=== PATIENT | male | born 1960 | race Hispanic/Latino ===

== ENCOUNTER 2018-10-01 09:17 | Inpatient (IN) | payer OTHER ==
[~2018-10-01] VITALS: Ht 160 cm; Wt 141.1 kg
--- OUTSIDE RECORDS SUMMARY | 2018-10-01 09:22 | XMS REPORT | Summary of Care ---
Author Author [facility] Organization [facility] Address Unknown Phone Unavailable Encounter HQ Talisha(ANDREW) [id number] Date(s): 04/25/17 - 05/10/17 [facility] [address] [place] [address]- Discharge Disposition: Jail Facility Attending Physician: Gerardo Mcintyre MD Admitting Physician: Gerardo Mcintyre MD Vital Signs 1 2 3 Most recent to oldest [Reference Range]: 160.02 cm (04/29/17 9:26 AM) 160.02 cm (04/29/17 7:33 AM) 160.02 cm (04/29/17 5:13 AM) Height 110.085 kg (05/08/17 7:03 AM) 109.318 kg (05/07/17 11:46 AM) 109.176 kg (05/06/17 5:00 AM) Current Weight 98.4 DegF (05/10/17 2:10 PM) 98.2 DegF (05/10/17 11:00 AM) 98.4 DegF (05/10/17 6:00 AM) Temperature Oral [96.4-99.1 DegF] 121/84 mmHg (05/10/17 2:10 PM) 159/90 mmHg *HI* (05/10/17 11:00 AM) 131/86 mmHg (05/10/17 6:00 AM) Blood Pressure [90-140/60-90 mmHg] 16 BRMIN (05/10/17 2:10 PM) 18 BRMIN (05/10/17 11:00 AM) 18 BRMIN (05/10/17 8:33 AM) Respiratory Rate [14-20 BRMIN] 67 bpm (05/10/17 2:10 PM) 71 bpm (05/10/17 11:00 AM) 62 bpm (05/10/17 6:00 AM) Peripheral Pulse Rate [60-100 bpm] 110.085 kg (05/08/17 7:03 AM) 109.602 kg (05/05/17 6:29 AM) 115.864 kg (04/25/17 11:27 PM) Weight 45.25 m2 (04/25/17 11:27 PM) 44.38 m2 (04/25/17 5:53 PM) Body Mass Index Problem List Condition Effective Dates Status Health Status Informant Chronic obstructive Resolved pulmonary disease (COPD)(Confirmed) Diabetes(Confirmed) Active Diabetic Active neuropathy(Confirmed ) Homelessness(Confirm Active ed) Hypertension(Confirm Active ed) Allergies, Adverse Reactions, Alerts Substance Reaction Severity Status NKDA Active Medications acetaminophen 650 mg, 2 tab, Route: PO, Drug form: TAB, Q4H, Dosing Weight 115.864, kg, PRN Fo r Temp > 100.4 F, Start date: 04/26/17 4:40:00 WRAP YARN SORTER, Duration: 30 day, Stop date: 05/26/17 4:39:00 WRAP YARN SORTER Notes: Do not exceed 4 gm/day. (Same as: Tylenol) Start Date: 04/26/17 Stop Date: 05/10/17 Status: Discontinued amLODIPine 5 mg oral tablet 5 mg=1 tab, PO, Daily, 0 Refill(s) Start Date: 05/10/17 Status: Ordered Beneprotein 7 gm pkt 2 pkt, Route: T FEED, Drug Form: PWDR, Dosing Weight 115.864, kg, TID-Before Vika ls, Start date: 04/26/17 11:30:00 WRAP YARN SORTER, Duration: 30 day, Stop date: 05/26/17 7:3 0:00 WRAP YARN SORTER Notes: (Same as: Beneprotein) Start Date: 04/26/17 Stop Date: 05/10/17 Status: Discontinued calcium gluconate + Sodium Chloride 0.9% IV 50 mL 1,000 mg, 10 mL, Route: IVPB, ONCE, Dosing Weight 113.636, kg, Start date: 04/25 21:21:00 WRAP YARN SORTER, Stop date: 04/25/17 21:21:00 WRAP YARN SORTER Notes: WASTE: F/P - Sink; E - Municipal Trash Bin Start Date: 04/25/17 Stop Date: 04/26/17 Status: Completed carvedilol 12.5 mg oral tablet 12.5 mg=1 tab, PO, Q12H, 0 Refill(s) Start Date: 05/10/17 Status: Ordered chlorhexidine topical 0.12% liquid 15 mL, Route: Swab Mouth, PRN, Drug form: LIQ, PRN Other -See Comment, Start kaity e: 04/26/17 6:12:00 WRAP YARN SORTER, Duration: 30 day, Stop date: 05/26/17 6:11:00 WRAP YARN SORTER Notes: (Same As: Peridex) Start Date: 04/26/17 Stop Date: 05/01/17 Status: Discontinued chlorhexidine topical 0.12% liquid 15 mL, Route: Swab Mouth, Q12H, Drug form: LIQ, Start date: 04/26/17 9:00:00 WRAP YARN SORTER , Duration: 30 day, Stop date: 05/25/17 21:00:00 WRAP YARN SORTER Notes: (Same As: Peridex) Start Date: 04/26/17 Stop Date: 05/01/17 Status: Discontinued cloNIDine 0.1 mg, 1 tab, Route: PO, Drug form: TAB, Q4H, Dosing Weight 115.864, kg, Start date: 04/26/17 8:00:00 WRAP YARN SORTER, Duration: 30 day, Stop date: 05/26/17 4:00:00 WRAP YARN SORTER Notes: (Same As: Catapres) Start Date: 04/26/17 Stop Date: 05/09/17 Status: Discontinued Coreg 12.5 mg, 1 tab, Route: PO, Drug form: TAB, Q12H, Dosing Weight 110.085, kg, Star t date: 05/09/17 21:00:00 WRAP YARN SORTER, Duration: 30 day, Stop date: 06/08/17 9:00:00 WRAP YARN SORTER Notes: Give with food. (Same As: Coreg) Start Date: 05/09/17 Stop Date: 05/10/17 Status: Discontinued D5W 1,000 mL 1,000 mL, Rate: 40 ml/hr, Infuse over: 25 hr, Route: IV, Dosing Weight 115.864 k g, Total Volume: 1,000, Start date: 04/26/17 21:54:00 WRAP YARN SORTER, Stop date: 04/27/17 6 :32:00 WRAP YARN SORTER, 2.31, m2 Start Date: 04/26/17 Stop Date: 04/27/17 Status: Completed DDAVP 2 microgram, 0.5 mL, Route: IV, Drug form: INJ, ONCE, Dosing Weight 115.864, kg, Start date: 04/26/17 15:28:00 WRAP YARN SORTER, Stop date: 04/26/17 15:28:00 WRAP YARN SORTER Notes: (Same As: DDAVP) MEDICATION WASTE Product Size: 4 microgram Pro duct Wasted: ___ microgram Start Date: 04/26/17 Stop Date: 04/26/17 Status: Completed DuoNeb inhalation solution 3 mL, INHALATION, PRN, PRN Respiratory Protocol, 0 Refill(s) Start Date: 05/10/17 Status: Ordered DuoNeb inhalation solution 3 ml, Route: INHALATION, Drug Form: SOLN, Dosing Weight 115.864, kg, PRN, PRN Re spiratory Protocol, Start date: 04/29/17 21:23:00 WRAP YARN SORTER, Duration: 30 day, Stop da te: 05/29/17 21:22:00 WRAP YARN SORTER Notes: (Same as: Duoneb) Start Date: 04/29/17 Stop Date: 05/10/17 Status: Discontinued enoxaparin 40 mg=0.4 mL, SUB-Q, [id number], 0 Refill(s) Start Date: 05/10/17 Status: Ordered enoxaparin 40 mg, 0.4 mL, Route: SUB-Q, Drug form: INJ, [id number], Dosing Weight 115.864, kg , Consider for obese patients, Start date: 04/26/17 9:00:00 WRAP YARN SORTER, Stop date: 05/13 07/28 21:00:00 WRAP YARN SORTER Notes: (Same as: Lovenox) Start Date: 04/26/17 Stop Date: 05/10/17 Status: Discontinued etomidate 40 mg, 20 mL, Route: IV, Drug form: INJ, ONCE, Dosing Weight 115.864, kg, Priori ty: STAT, Start date: 04/26/17 6:14:00 WRAP YARN SORTER, Stop date: 04/26/17 6:14:00 WRAP YARN SORTER Notes: (Same as: Amidate). Per state nursing law etomidate can only be given by a nurse if patient is intubated or being intubated (unless the nurse is a TIMBER TRIMMER). Start Date: 04/26/17 Stop Date: 05/01/17 Status: Completed famotidine 20 mg, 2 mL, Route: IVP, Drug form: INJ, Q12H, Dosing Weight 115.864, kg, Start date: 04/26/17 9:00:00 WRAP YARN SORTER, Stop date: 04/29/17 7:45:00 WRAP YARN SORTER Notes: (Same as: Pepcid)Can be dilute in 5-10cc NS IVP: Slow IV push over at le ast 2 minutes. Start Date: 04/26/17 Stop Date: 04/29/17 Status: Completed famotidine 20 mg, 1 tab, Route: PO, Drug form: TAB, BID, Start date: 04/29/17 9:00:00 WRAP YARN SORTER, Duration: 30 day, Stop date: 05/28/17 17:00:00 WRAP YARN SORTER Notes: (Same as: Pepcid) Start Date: 04/29/17 Stop Date: 05/10/17 Status: Discontinued famotidine 20 mg oral tablet 20 mg=1 tab, PO, BID, 0 Refill(s) Start Date: 05/10/17 Status: Ordered Flagyl 500 mg, 100 mL, Route: IVPB, Drug form: INJ, ONCE, Dosing Weight 113.636, kg, Pr iority: STAT, Start date: 04/25/17 20:25:00 WRAP YARN SORTER, Stop date: 04/25/17 20:25:00 CS T, ABX Indication: Skin/Soft Tissue Infection Notes: (Same as: Flagyl) Avoid alcohol. Start Date: 04/25/17 Stop Date: 04/25/17 Status: Completed folic acid 1 mg, Route: PO, ONCE, Dosing Weight 113.636, kg, Start date: 04/25/17 19:36:00 WRAP YARN SORTER, Stop date: 04/25/17 19:36:00 WRAP YARN SORTER Start Date: 04/25/17 Stop Date: 04/25/17 Status: Completed folic acid 1 mg oral tablet 1 mg=1 tab, PO, Daily, 0 Refill(s) Start Date: 05/10/17 Status: Ordered folic acid 1 mg oral tablet 1 mg, 1 tab, Route: PO, Drug form: TAB, Daily, Start date: 04/29/17 11:00:00 WRAP YARN SORTER , Duration: 30 day, Stop date: 05/29/17 9:00:00 WRAP YARN SORTER Notes: (Same as: Folvite) Start Date: 04/29/17 Stop Date: 05/10/17 Status: Discontinued furosemide 20 mg, 1 tab, Route: PO, Drug form: TAB, BID Diuretic, Dosing Weight 115.864, kg , Start date: 05/02/17 8:00:00 WRAP YARN SORTER, Duration: 30 day, Stop date: 05/31/17 16:00: 00 WRAP YARN SORTER Notes: (Same as: Lasix) May cause GI upset. Give with food or milk. Start Date: 05/02/17 Stop Date: 05/03/17 Status: Discontinued furosemide 100 mg in 100 ml IV titrate 100 mg + Sodium Chloride 0.9% IV 90 mL 100 mg, 10 mL, Rate: 5 mg/hour, Dosing Weight 115.864, kg, Route: IV, Total Volu me: 100, Start Date: 04/28/17 8:03:00 WRAP YARN SORTER, Duration: 30 day, Stop date: 05/28/17 8:02:00 WRAP YARN SORTER, Replace Every: 24 hr, continuous Notes: (Same as: Lasix) MEDICATION WASTE Product Size: 100 mgProduct Wy sted: _0_ mg Start Date: 04/28/17 Stop Date: 04/30/17 Status: Discontinued gabapentin 300 mg, 1 cap, Route: PO, Drug form: CAP, ONCE, Dosing Weight 110.085, kg, Start date: 05/08/17 19:53:00 WRAP YARN SORTER, Stop date: 05/08/17 19:53:00 WRAP YARN SORTER Notes: (Same as: Neurontin) Start Date: 05/08/17 Stop Date: 05/08/17 Status: Completed gabapentin 300 mg oral capsule 300 mg, 1 cap, Route: PO, Drug form: CAP, TID, Dosing Weight 110.085, kg, Priori ty: STAT, Start date: 05/09/17 11:24:00 WRAP YARN SORTER, Duration: 30 day, Stop date: 9:00:00 WRAP YARN SORTER Notes: (Same as: Neurontin) Start Date: 05/09/17 Stop Date: 05/10/17 Status: Discontinued gabapentin 300 mg oral capsule 300 mg=1 cap, PO, TID, 0 Refill(s) Start Date: 05/10/17 Status: Ordered haloperidol 5 mg, 1 mL, Route: IVP, Drug form: INJ, Q8H, Dosing Weight 115.864, kg, PRN Agit ation, Start date: 04/26/17 4:42:00 WRAP YARN SORTER, Duration: 30 day, Stop date: 05/26/17 4 :41:00 WRAP YARN SORTER Notes: (Same as: Haldol) Start Date: 04/26/17 Stop Date: 05/10/17 Status: Discontinued lactulose 10 g/15 mL oral syrup 20 gm, 30 ml, Route: PO, Drug form: SYRP, TID, Dosing Weight 115.864, kg, Start date: 05/03/17 11:00:00 WRAP YARN SORTER, Duration: 30 day, Stop date: 06/02/17 9:00:00 WRAP YARN SORTER Notes: (Same as:Chronulac) Start Date: 05/03/17 Stop Date: 05/10/17 Status: Discontinued lactulose 10 g/15 mL oral syrup 20 gm=30 mL, PO, TID, 0 Refill(s) Start Date: 05/10/17 Status: Ordered Lasix 40 mg, Route: IVP, Drug form: INJ, BID Diuretic, Dosing Weight 115.864, kg, Star t date: 04/30/17 16:00:00 WRAP YARN SORTER, Duration: 30 day, Stop date: 05/30/17 8:00:00 WRAP YARN SORTER Start Date: 04/30/17 Stop Date: 04/30/17 Status: Canceled Lasix 20 mg, 2 mL, Route: IVP, Drug form: INJ, BID Diuretic, Dosing Weight 115.864, kg , Start date: 04/30/17 16:00:00 WRAP YARN SORTER, Duration: 30 day, Stop date: 05/30/17 8:00: 00 WRAP YARN SORTER Notes: (Same as: Lasix) Start Date: 04/30/17 Stop Date: 05/01/17 Status: Discontinued Lasix 20 mg oral tablet 20 mg, 1 tab, Route: PO, Drug form: TAB, Daily, Dosing Weight 110.085, kg, Start date: 05/08/17 15:30:00 WRAP YARN SORTER, Duration: 30 day, Stop date: 06/07/17 9:00:00 WRAP YARN SORTER Notes: (Same as: Lasix) May cause GI upset. Give with food or milk. Start Date: 05/08/17 Stop Date: 05/10/17 Status: Discontinued Lasix 20 mg oral tablet 20 mg=1 tab, PO, Daily, 0 Refill(s) Start Date: 05/10/17 Status: Ordered LORazepam 2 mg, 1 mL, Route: IVP, Drug form: INJ, Q2H, Dosing Weight 115.864, kg, PRN Othe r -See Comment, CIWA Score 8 -14, Start date: 04/26/17 4:42:00 WRAP YARN SORTER, Duration: 30 day, Stop date: 05/26/17 4:41:00 WRAP YARN SORTER Notes: (Same as: Ativan) Start Date: 04/26/17 Stop Date: 05/10/17 Status: Discontinued LORazepam 4 mg, 2 mL, Route: IVP, Drug form: INJ, Q2H, Dosing Weight 115.864, kg, PRN Othe r -See Comment, CIWA Score 15-20, Start date: 04/26/17 4:42:00 WRAP YARN SORTER, Duration: 30 day, Stop date: 05/26/17 4:41:00 WRAP YARN SORTER Notes: (Same as: Ativan) Start Date: 04/26/17 Stop Date: 05/10/17 Status: Discontinued LORazepam 6 mg, 3 mL, Route: IVP, Drug form: INJ, Q2H, Dosing Weight 115.864, kg, PRN Othe r -See Comment, CIWA Score > 20, Start date: 04/26/17 4:42:00 WRAP YARN SORTER, Duration: 30 day, Stop date: 05/26/17 4:41:00 WRAP YARN SORTER Notes: (Same as: Ativan) Start Date: 04/26/17 Stop Date: 05/10/17 Status: Discontinued LORazepam 2 mg, 1 mL, Route: IV, Drug form: INJ, PRN, Dosing Weight 115.864, kg, PRN Agita tion, Start date: 04/26/17 0:10:00 WRAP YARN SORTER, Duration: 30 day, Stop date: 05/26/17 0: 09:00 WRAP YARN SORTER Notes: (Same as: Ativan) Start Date: 04/26/17 Stop Date: 04/26/17 Status: Discontinued metroNIDAZOLE 500 mg, 100 mL, Route: IVPB, Drug form: INJ, ABXQ8H, Dosing Weight 115.864, kg, Priority: STAT, Start date: 04/26/17 4:45:00 WRAP YARN SORTER, Duration: 7 day, Stop date: 21:00:00 WRAP YARN SORTER, ABX Indication: Skin/Soft Tissue Infection Notes: (Same as: Flagvalentin) Avoid alcohol. Start Date: 04/26/17 Stop Date: 04/26/17 Status: Discontinued multivitamin with minerals 1 tab, Route: PO, Drug Form: TAB, Daily, Start date: 04/29/17 11:00:00 WRAP YARN SORTER, Dura tion: 30 day, Stop date: 05/29/17 9:00:00 WRAP YARN SORTER Notes: (Same as:Thera-M, Theragran-M)WASTE: F/P - Black; E - Municipal Trash Bin Give with food. Start Date: 04/29/17 Stop Date: 05/10/17 Status: Discontinued [place]ding 5/325 oral tablet 1 tab, Route: PO, Drug Form: TAB, Dosing Weight 110.085, kg, ONCE, Start date: 1 2:32:00 WRAP YARN SORTER, Stop date: 05/10/17 2:32:00 WRAP YARN SORTER Notes: (Same as: Redding 325/5) Do not exceed 4gm/day of acetaminophen. Start Date: 05/10/17 Stop Date: 05/10/17 Status: Completed Norvasc 5 mg, 1 tab, Route: PO, Drug form: TAB, Daily, Dosing Weight 110.085, kg, Start date: 05/09/17 14:00:00 WRAP YARN SORTER, Duration: 30 day, Stop date: 06/08/17 9:00:00 WRAP YARN SORTER Notes: (Same as: Norvasc) Start Date: 05/09/17 Stop Date: 05/10/17 Status: Discontinued NS 1,000 mL 1,000 mL, Rate: 50 ml/hr, Infuse over: 20 hr, Route: IV, Dosing Weight 115.864 k g, Total Volume: 1,000, Start date: 04/27/17 6:17:00 WRAP YARN SORTER, Duration: 30 day, Stop date: 05/27/17 6:16:00 WRAP YARN SORTER, 2.31, m2 Start Date: 04/27/17 Stop Date: 04/27/17 Status: Discontinued ondansetron 4 mg, 2 mL, Route: IVP, Drug form: INJ, Q8H, Dosing Weight 115.864, kg, PRN Naus ea & Vomiting, Start date: 04/26/17 4:40:00 WRAP YARN SORTER, Duration: 30 day, Stop date: 05/26/17 4:39:00 WRAP YARN SORTER Notes: (Same as: Kel) MEDICATION WASTE Product Size: 4 mgProduct Was nathan: ___ mg Start Date: 04/26/17 Stop Date: 05/10/17 Status: Discontinued polyethylene glycol 3350 17 gm, 1 pkt, Route: PO, Drug form: PWDR, Daily, Dosing Weight 115.864, kg, Star t date: 04/26/17 11:00:00 WRAP YARN SORTER, Duration: 30 day, Stop date: 05/26/17 9:00:00 WRAP YARN SORTER Notes: Dissolve in 8 oz of water or juice.(Same as: Miralax) Start Date: 04/26/17 Stop Date: 05/10/17 Status: Discontinued polyethylene glycol 3350 17 gm=1 pkt, PO, Daily, 0 Refill(s) Start Date: 05/10/17 Status: Ordered potassium chloride 10 mEq, Route: IVPB, Q1H, Dosing Weight 115.864, kg, Total Dose=40 meq, Start da te: 04/27/17 0:00:00 WRAP YARN SORTER, Duration: 4 doses or times, Stop date: 04/27/17 3:00:0 0 WRAP YARN SORTER, Peripheral Line Start Date: 04/27/17 Stop Date: 04/26/17 Status: Deleted potassium chloride 10 mEq, 100 mL, Route: IVPB, Drug form: INJ, Q1H, Dosing Weight 115.864, kg, Tot al Dose=20 meq, Start date: 04/26/17 16:00:00 WRAP YARN SORTER, Duration: 2 doses or times, S top date: 04/26/17 17:00:00 WRAP YARN SORTER, Peripheral Line Notes: Infuse at a rate of 10 mEq/hr.(Same as: KCL) Start Date: 04/26/17 Stop Date: 04/26/17 Status: Completed potassium chloride 40 mEq, 2 tab, Route: PO, Drug form: ERTAB, ONCE, Dosing Weight 115.864, kg, Sta rt date: 04/30/17 19:27:00 WRAP YARN SORTER, Stop date: 04/30/17 19:27:00 WRAP YARN SORTER Notes: (Same as: K-Dur 20)"Do Not Crush" With food and full glass of water Start Date: 04/30/17 Stop Date: 04/30/17 Status: Completed potassium chloride 20 mEq, Route: IVPB, Q2H, Dosing Weight 115.864, kg, Total dose=40 mEq, Start da te: 04/27/17 12:00:00 WRAP YARN SORTER, Duration: 2 doses or times, Stop date: 04/27/17 14:00 :00 WRAP YARN SORTER, Central Line Start Date: 04/27/17 Stop Date: 04/27/17 Status: Deleted potassium chloride + Dextrose 5% in Water IV 500 mL 40 mEq, 20 mL, Route: IV, Drug form: INJ, ONCE, Priority: NOW, Start date: 04/26 23:58:00 WRAP YARN SORTER, Stop date: 04/26/17 23:58:00 WRAP YARN SORTER Notes: MUST be Diluted before use(Same as: KCl) Start Date: 04/26/17 Stop Date: 04/27/17 Status: Completed potassium chloride + Sodium Chloride 0.9% IV 250 mL 40 mEq, 20 mL, Route: IV, Drug form: INJ, ONCE, Start date: 04/27/17 14:00:00 CS T, Stop date: 04/27/17 14:00:00 WRAP YARN SORTER Notes: MUST be Diluted before use(Same as: KCl) Start Date: 04/27/17 Stop Date: 04/27/17 Status: Completed potassium chloride 20 mEq oral tablet, extended release 40 mEq, 2 tab, Route: PO, Drug form: ERTAB, ONCE, Dosing Weight 115.864, kg, Sta rt date: 04/30/17 8:42:00 WRAP YARN SORTER, Stop date: 04/30/17 8:42:00 WRAP YARN SORTER Notes: (Same as: K-Dur 20)"Do Not Crush" With food and full glass of water Start Date: 04/30/17 Stop Date: 04/30/17 Status: Completed propofol 10 mg/mL (Titrate.) IV 1,000 mg 1,000 mg, 100 mL, Rate: Titrate, Start Dose: 5 microgram/kg/min, Titration: 5 mi crogram/kg/min every 15 minutes, Goal(s): RASS -2, Max Dose: 50 mcg/kg/min, Rout e: IV, Dosing Weight 115.864 kg, Total Volume: 100, Start date: 04/26/17 6:03:00 WRAP YARN SORTER, Durat... Notes: If Diprivan - change bottle & tubing every 12 hrPer state nursing law propofol can only be given by a nurse if patient is intubated or being intubated (unless the nurse is a TIMBER TRIMMER). Same as: Diprivan Start Date: 04/26/17 Stop Date: 04/29/17 Status: Discontinued Restoril 15 mg, 1 cap, Route: PO, Drug form: CAP, Bedtime, Dosing Weight 115.864, kg, PRN Sleep, Start date: 05/01/17 14:52:00 WRAP YARN SORTER, Duration: 30 day, Stop date: 05/31/17 14:51:00 WRAP YARN SORTER Notes: (Same As: Restoril) Start Date: 05/01/17 Stop Date: 05/10/17 Status: Discontinued Saline Flush 0.9% 10 ml, Route: IVP, Drug Form: INJ, Dosing Weight 115.864, kg, PRN, PRN Line Flus h, Start date: 04/26/17 4:40:00 WRAP YARN SORTER, Duration: 30 day, Stop date: 05/26/17 4:39: 00 WRAP YARN SORTER Notes: (Same as: BD Posiflush) Start Date: 04/26/17 Stop Date: 05/10/17 Status: Discontinued Saline Flush 0.9% 10 ml, Route: IVP, Drug Form: INJ, Dosing Weight 115.864, kg, Q12H, Start date: 04/26/17 9:00:00 WRAP YARN SORTER, Duration: 30 day, Stop date: 05/25/17 21:00:00 WRAP YARN SORTER Notes: (Same as: BD Posiflush) Start Date: 04/26/17 Stop Date: 05/10/17 Status: Discontinued Saline Flush 0.9% 10 mL, Route: IVP, Drug Form: INJ, Dosing Weight 113.636, kg, PRN, PRN Line Flus h, Start date: 04/25/17 17:58:00 WRAP YARN SORTER, Duration: 30 day, Stop date: 05/25/17 17:5 7:00 WRAP YARN SORTER Notes: (Same as: BD Posiflush) Start Date: 04/25/17 Stop Date: 04/26/17 Status: Discontinued Sodium Chloride 0.9% (Bolus) IV 1,000 mL, 1,000 ml/hr, Infuse Over: 1 hr, Route: IV, 1,000, Drug form: INJ, ONCE , Priority: STAT, Dosing Weight 113.636 kg, Start date: 04/25/17 17:58:00 WRAP YARN SORTER, S top date: 04/25/17 17:58:00 WRAP YARN SORTER Start Date: 04/25/17 Stop Date: 04/25/17 Status: Completed Sodium Chloride 0.9% IV 1,000 mL 1,000 mL, Rate: 40 ml/hr, Infuse over: 25 hr, Route: IV, Dosing Weight 115.864 k g, Total Volume: 1,000, Start date: 04/26/17 19:56:00 WRAP YARN SORTER, Duration: 30 day, Sto p date: 05/26/17 19:55:00 WRAP YARN SORTER, 2.31, m2 Start Date: 04/26/17 Stop Date: 04/26/17 Status: Discontinued Sodium Chloride 0.9% IV 1,000 mL 1,000 mL, Rate: 100 ml/hr, Infuse over: 10 hr, Route: IV, Dosing Weight 115.864 kg, Total Volume: 1,000, Start date: 04/26/17 4:46:00 WRAP YARN SORTER, Stop date: 04/29/17 4 :41:00 WRAP YARN SORTER, 2.31, m2 Start Date: 04/26/17 Stop Date: 04/26/17 Status: Discontinued Sodium Chloride 0.9% IV 1,000 mL + M.V.I.-12 10 mL Daily + folic acid IV 1 mg Da helene + thiamine IV 1 1,000 mL, Rate: 100 ml/hr, Infuse over: 10.1 hr, Route: IV, Dosing Weight 115.86 4 kg, Total Volume: 1,011.2, Start date: 04/26/17 4:42:00 WRAP YARN SORTER, Duration: 3 day, Stop date: 04/29/17 4:41:00 WRAP YARN SORTER, 2.31, m2 Start Date: 04/26/17 Stop Date: 04/26/17 Status: Discontinued Sodium Chloride 3% (Hypertonic) IV 180 mL 180 mL, Rate: 20 ml/hr, Infuse over: 9 hr, Route: IV, Dosing Weight 113.636 kg, Total Volume: 180 mL, Start date: 04/25/17 20:40:00 WRAP YARN SORTER, Stop date: 04/26/17 5:3 9:00 WRAP YARN SORTER, 2.29, m2 Notes: "Administer by central venous catheter or a peripherally inserted central catheter (PICC) line.3% Sodium Chloride may be infused via peripheral administr ation into large vein (antecubital) only in the case of emergency for short term use until a central line can be inserted" (Same as: Hypertonic Saline 3%)vance ntration=0.513 mEq/mL Start Date: 04/25/17 Stop Date: 04/26/17 Status: Completed Sodium Chloride 3% (Hypertonic) IV 20 mL 20 mL, Rate: 30 ml/hr, Infuse over: 0.7 hr, Route: IV, Dosing Weight 115.864 kg, Total Volume: 20, Start date: 04/27/17 6:44:00 WRAP YARN SORTER, Duration: 30 day, Stop date: 05/27/17 6:44:00 WRAP YARN SORTER, 2.31, m2 Notes: "Administer by central venous catheter or a peripherally inserted central catheter (PICC) line.3% Sodium Chloride may be infused via peripheral administr ation into large vein (antecubital) only in the case of emergency for short term use until a central line can be inserted" (Same as: Hypertonic Saline 3%)vance ntration=0.513 mEq/mL Start Date: 04/27/17 Stop Date: 04/28/17 Status: Discontinued Sodium Chloride 3% (Hypertonic) IV 50 mL 50 mL, Rate: 250 ml/hr, Infuse over: 0.2 hr, Route: IV, Dosing Weight 113.636 kg , Total Volume: 50 mL, Start date: 04/25/17 21:43:00 WRAP YARN SORTER, Duration: 1 doses or t imes, Stop date: 04/25/17 21:54:00 WRAP YARN SORTER, 2.29, m2 Notes: "Administer by central venous catheter or a peripherally inserted central catheter (PICC) line.3% Sodium Chloride may be infused via peripheral administr ation into large vein (antecubital) only in the case of emergency for short term use until a central line can be inserted" (Same as: Hypertonic Saline 3%)vance ntration=0.513 mEq/mL Start Date: 04/25/17 Stop Date: 04/25/17 Status: Completed Sodium Chloride 3% (Hypertonic) IV 50 mL 50 mL, Rate: 250 ml/hr, Infuse over: 0.2 hr, Route: IV Central, Dosing Weight 11 3.636 kg, Total Volume: 50 mL, Start date: 04/25/17 20:39:00 WRAP YARN SORTER, Duration: 1 do ses or times, Stop date: 04/25/17 20:50:00 WRAP YARN SORTER, 2.29, m2 Notes: "Administer by central venous catheter or a peripherally inserted central catheter (PICC) line.3% Sodium Chloride may be infused via peripheral administr ation into large vein (antecubital) only in the case of emergency for short term use until a central line can be inserted" (Same as: Hypertonic Saline 3%)vance ntration=0.513 mEq/mL Start Date: 04/25/17 Stop Date: 04/25/17 Status: Deleted Sodium Chloride 3% (Hypertonic) IV 60 mL 60 mL, Rate: 15 ml/hr, Infuse over: 4 hr, Route: IV, Dosing Weight 115.864 kg, T otal Volume: 60, Start date: 04/26/17 10:27:00 WR[employer]ORTER, Duration: 2 doses or times, Stop date: 04/26/17 18:26:00 WR[employer] Y[employer]ORTER, 2.31, m2 Notes: (Same as: Hypertonic Saline 3%) Start Date: 04/26/17 Stop Date: 04/26/17 Status: Discontinued Sodium Chloride 3% (Hypertonic) IV 60 mL 60 mL, Rate: 15 ml/hr, Infuse over: 4 hr, Route: IV, Dosing Weight 115.864 kg, T otal Volume: 60, Start date: 04/26/17 6:50:00 WRAP [employer] SORTER, Duration: 2 doses or times, S top date: 04/26/17 14:49:00 WRAP Y[employer]ORTER, 2.31, m2 Notes: "Administer by central venous catheter or a peripherally inserted central catheter (PICC) line.3% Sodium Chloride may be infused via peripheral administr ation into large vein (antecubital) only in the case of emergency for short term use until a central line can be inserted" (Same as: Hypertonic Saline 3%)vance ntration=0.513 mEq/mL Start Date: 04/26/17 Stop Date: 04/26/17 Status: Completed sodium chloride nasal spray 1 spray, Route: NASAL, Q30Min, Drug form: SOLN, PRN Nasal dryness, Start date: 1 07/02/16 11:59:00 WRAP Y[employer] SORTER, Duration: 30 day, Stop date: 05/31/17 11:58:00 WRAP YARN SORTER Notes: (Same as: [place], Deep Sea Nasal [place]). Start Date: 05/01/17 Stop Date: 05/10/17 Status: Discontinued succinylcholine 140 mg, 7 mL, Route: IV, Drug form: INJ, ONCE, Dosing Weight 115.864, kg, Start date: 04/26/17 6:15:00 WRAP Y[employer] SORTER, Stop date: 04/26/17 6:15:00 WRAP YARN SORTER Notes: (Same As: [place]) Start Date: 04/26/17 Stop Date: 05/01/17 Status: Completed thiamine 100 mg, Route: PO, Drug form: TAB, ONCE, Dosing Weight 113.636, kg, Priority: ST AT, Start date: 04/25/17 19:36:00 WRAP YARN SORTER, Stop date: 04/25/17 19:36:00 WRAP YARN [employer]ORTER Start Date: 04/25/17 Stop Date: 04/25/17 Status: Completed trazodone 50 mg oral tablet 50 mg, 1 tab, Route: PO, Drug form: TAB, Bedtime, Dosing Weight 115.864, kg, PRN Insomnia, Start date: 05/02/17 16:53:00 WRAP YARN SORTER, Duration: 30 day, Stop date: 06/01 16:52:00 WRAP YARN SORTER Notes: (Same As: Desyrel) Start Date: 05/02/17 Stop Date: 05/10/17 Status: Discontinued vancomycin 2,000 mg, 500 mL, Route: IVPB, Drug form: SOLN, ONCE, Dosing Weight 113.636, kg, Priority: STAT, Start date: 04/25/17 18:53:00 WRAP YARN SORTER, Stop date: 04/25/17 18:53:00 WRAP YARN SORTER, ABX Indication: Skin/Soft Tissue Infection Notes: TIME CRITICAL MEDICATIONSame as: Vancocin Infusion rate< 1000 mg: infuse over 1 [id number] - 1500 mg: infuse over 1.5 [id number] - 2000 mg: infuse over 2 hours> 2001 mg: infuse over 2.5 hours Start Date: 04/25/17 Stop Date: 04/25/17 Status: Completed vancomycin + NS 250 mL 1,000 mg, Route: IVPB, [id number], Start date: 04/26/17 6:00:00 WRAP YARN SORTER, Stop date: 18:00:00 WRAP YARN SORTER, ABX Indication: Skin/Soft Tissue Infection Notes: (Same As: Vancocin) Start Date: 04/26/17 Stop Date: 04/28/17 Status: Discontinued vancomycin + NS 250 mL 1,000 mg, Route: IVPB, Daily, PRN Other -See Comment, Start date: 04/28/17 14:23 :00 WRAP YARN SORTER, Stop date: 04/30/17 23:59:00 WRAP YARN SORTER, ABX Indication: Skin/Soft Tissue Infe ction Notes: (Same As: Vancocin) Start Date: 04/28/17 Stop Date: 04/30/17 Status: Completed Vancomycin dose due today Vancomycin dose due today, vanc dose due, Drug form: MISC, Route: MISC, ONCE, 9:00:00 WRAP YARN SORTER, Stop date: 04/30/17 9:00:00 WRAP YARN SORTER Start Date: 04/30/17 Stop Date: 04/30/17 Status: Completed Vancomycin Pharmacy Dosing 1 ea, Route: IV, ONCALL, Dosing Weight 115.864, kg, Start date: 04/26/17 5:00:00 WRAP YARN SORTER, Duration: 5 day, Stop date: 05/01/17 4:59:00 WRAP YARN SORTER, ABX Indication: Skin/Soft Tissue Infection Start Date: 04/26/17 Stop Date: 04/26/17 Status: Deleted Vancomycin trough level due Vancomycin trough level due, 04-27-17 at 1300, Drug form: MISC, Route: MISC, ONC E, 04/28/17 17:00:00 WRAP YARN SORTER, Stop date: 04/28/17 17:00:00 WRAP YARN SORTER Start Date: 04/28/17 Stop Date: 04/28/17 Status: Deleted Vancomycin trough level due Vancomycin trough level due, 04-27-17 at 1300, Drug form: MISC, Route: MISC, ONC E, 04/27/17 13:00:00 WRAP YARN SORTER, Stop date: 04/27/17 13:00:00 WRAP YARN SORTER Start Date: 04/27/17 Stop Date: 04/29/17 Status: Completed Vitamin B1 100 mg, 1 tab, Route: PO, Drug form: TAB, Daily, Start date: 04/29/17 11:00:[address], Duration: 30 day, Stop date: 05/29/17 9:00:00 WRAP YARN SORTER Notes: (Same As: Vitamin B1) Start Date: 04/29/17 Stop Date: 05/10/17 Status: Discontinued Vitamin B1 100 mg + M.V.I. Adult 10 mL + folic acid 1 mg + NS 1,000 mL Route: IV, Q24H, Start date: 04/27/17 6:00:00 WRAP YARN SORTER, Stop date: 04/28/17 6:00:[address] Start Date: 04/27/17 Stop Date: 04/28/17 Status: Completed Zosyn + NS 100 mL 3.375 gm, Route: IVPB, ABXQ8H, Dosing Weight 115.864, kg, CrCl >=20 ml/min infuse over 4 hours, Start date: 04/26/17 15:00:00 WRAP YARN SORTER, Stop date: 05/10/17 7:00:00 WRAP YARN SORTER, ABX Indication: Skin/Soft Tissue Infection Notes: (Same as: Zosyn) MEDICATION WASTE Product Size: 3375 mgProduct Was te0 mg Start Date: 04/26/17 Stop Date: 05/10/17 Status: Completed Results ELECTROLYTES 1 2 3 Most recent to oldest [Reference Range]: 140 mEq/L (05/10/17 4:20 AM) 140 mEq/L (05/08/17 4:59 AM) 137 mEq/L (05/07/17 4:53 AM) Sodium Lvl [135-145 mEq/L] 4.1 mEq/L (05/10/17 4:20 AM) 4.3 mEq/L (05/08/17 4:59 AM) 4.7 mEq/L (05/07/17 4:53 AM) Potassium Lvl [3.5-5.1 mEq/L] 106 mEq/L (05/10/17 4:20 AM) 106 mEq/L (05/08/17 4:59 AM) 108 mEq/L (05/07/17 4:53 AM) Chloride Lvl [95-109 mEq/L] 26 mEq/L (05/10/17 4:20 AM) 23 mEq/L *LOW* (05/08/17 4:59 AM) 22 mEq/L *LOW* (05/07/17 4:53 AM) CO2 [24-32 mEq/L] 12.1 mEq/L (05/10/17 4:20 AM) 15.3 mEq/L (05/08/17 4:59 AM) 11.7 mEq/L (05/07/17 4:53 AM) AGAP [10.0-20.0 mEq/L] CHEM PANEL 1 2 3 Most recent to oldest [Reference Range]: 1.59 mg/dL *HI* (05/10/17 4:20 AM) 1.63 mg/dL *HI* (05/08/17 4:59 AM) 1.68 mg/dL *HI* (05/07/17 4:53 AM) Creatinine Lvl [0.50-1.40 mg/dL] 48 mL/min/1.73m2 1 *NA* (05/10/17 4:20 AM) 47 mL/min/1.73m2 2 *NA* (05/08/17 4:59 AM) 45 mL/min/1.73m2 3 *NA* (05/07/17 4:53 AM) eGFR 32 mg/dL *HI* (05/10/17 4:20 AM) 29 mg/dL *HI* (05/08/17 4:59 AM) 30 mg/dL *HI* (05/07/17 4:53 AM) BUN [7-22 mg/dL] 18 (05/08/17 4:59 AM) 18 (05/07/17 4:53 AM) 16 (05/06/17 2:46 AM) B/C Ratio [6-25] 102 mg/dL *HI* (05/10/17 4:20 AM) 106 mg/dL *HI* (05/08/17 4:59 AM) 103 mg/dL *HI* (05/07/17 4:53 AM) Glucose Lvl [70-99 mg/dL] 7.3 g/dL (05/08/17 4:59 AM) 7.7 g/dL (05/07/17 4:53 AM) 7.5 g/dL (05/06/17 2:46 AM) Total Protein [6.4-8.4 g/dL] 3.3 g/dL *LOW* (05/08/17 4:59 AM) 3.1 g/dL *LOW* (05/07/17 4:53 AM) 3.1 g/dL *LOW* (05/06/17 2:46 AM) Albumin Lvl [3.5-5.0 g/dL] 4.0 g/dL (05/08/17 4:59 AM) 4.6 g/dL *HI* (05/07/17 4:53 AM) 4.4 g/dL *HI* (05/06/17 2:46 AM) Globulin [2.7-4.2 g/dL] 0.8 (05/08/17 4:59 AM) 0.7 (05/07/17 4:53 AM) 0.7 (05/06/17 2:46 AM) A/G Ratio [0.7-1.6] 9.6 mg/dL (05/10/17 4:20 AM) 8.9 mg/dL (05/08/17 4:59 AM) 9.3 mg/dL (05/07/17 4:53 AM) Calcium Lvl [8.5-10.5 mg/dL] 52 unit/L (05/08/17 4:59 AM) 57 unit/L (05/07/17 4:53 AM) 69 unit/L *HI* (05/06/17 2:46 AM) ALT [0-65 unit/L] 29 unit/L (05/08/17 4:59 AM) 37 unit/L (05/07/17 4:53 AM) 42 unit/L *HI* (05/06/17 2:46 AM) AST [0-37 unit/L] 101 unit/L (05/08/17 4:59 AM) 110 unit/L (05/07/17 4:53 AM) 114 unit/L (05/06/17 2:46 AM) Alk Phos [39-136 unit/L] 0.5 mg/dL (05/08/17 4:59 AM) 0.5 mg/dL (05/07/17 4:53 AM) 0.6 mg/dL (05/06/17 2:46 AM) Bili Total [0.2-1.3 mg/dL] 0.3 mg/dL (04/27/17 4:42 AM) Bili Direct [0.0-0.3 mg/dL] 0.7 mg/dL (04/27/17 4:42 AM) Bili Indirect [0.0-1.0 mg/dL] 36.0 uMol/L (05/08/17 4:59 AM) 22.0 uMol/L (05/07/17 9:49 AM) 46.0 uMol/L *HI* (05/04/17 5:56 AM) Ammonia [<=45.0 uMol/L] 1.7 mMol/L (04/26/17 5:00 AM) 4.6 mMol/L 4 *CRIT* (04/25/17 7:35 PM) Lactic Acid Lvl [0.5-2.2 mMol/L] 258 mOsm/kg *LOW* (04/28/17 10:04 AM) 227 mOsm/kg *LOW* (04/26/17 10:21 AM) Osmolality [280-300 mOsm/kg] 0.11 ng/mL *HI* (04/26/17 5:00 AM) Procalcitonin Lvl [0.00-0.10 ng/mL] 1Result Comment: The eGFR is calculated using the CKD-EPI formula. In most young, healthy individuals the eGFR will be >90 mL/min/1.73m2. The eGFR declines with age. An eGFR of 60-89 may be normal in some populations, particularly the elderly, for whom the CKD-EPI formula has not been extensively validated. Use of the eGFR is not recommended in the following populations: Individuals with unstable creatinine concentrations, including patients and those with serious co-morbid conditions. Patients with extremes in muscle mass or diet. The data above are obtained from the National Kid[employer] Disease Education Program ( [employer]) which additionally recommends that when the eGFR is used in patients with extremes of body mass index for purposes of drug dosing, the eGFR should be mul tiplied by the estimated BMI. 2Result Comment: The eGFR is calculated using the CKD-EPI formula. In most young, healthy individuals the eGFR will be >90 mL/min/1.73m2. The eGFR declines with age. An eGFR of 60-89 may be normal in some populations, particularly the elderly, for whom the CKD-EPI formula has not been extensively validated. Use of the eGFR is not recommended in the following populations: Individuals with unstable creatinine concentrations, including patients and those with serious co-morbid conditions. Patients with extremes in muscle mass or diet. The data above are obtained from the National Kid[employer] Disease Education Program ( NK[employer]) which additionally recommends that when the eGFR is used in patients with extremes of body mass index for purposes of drug dosing, the eGFR should be mul tiplied by the estimated BMI. 3Result Comment: The eGFR is calculated using the CKD-EPI formula. In most young, healthy individuals the eGFR will be >90 mL/min/1.73m2. The eGFR declines with age. An eGFR of 60-89 may be normal in some populations, particularly the elderly, for whom the CKD-EPI formula has not been extensively validated. Use of the eGFR is not recommended in the following populations: Individuals with unstable creatinine concentrations, including patients and those with serious co-morbid conditions. Patients with extremes in muscle mass or diet. The data above are obtained from the National Kidney Disease Education Program ( NK[employer]) which additionally recommends that when the eGFR is used in patients with extremes of body mass index for purposes of drug dosing, the eGFR should be mul tiplied by the estimated BMI. 4Result Comment: Critical Result(s) called to yasmin low at 04/25/2017 20:06 bylw. Read back OK. CARDIAC ENZYMES 1 2 3 Most recent to oldest [Reference Range]: 3681 unit/L *HI* (04/25/17 7:35 PM) Total CK [12-191 unit/L] 36.8 ng/mL *HI* (04/25/17 7:35 PM) CK MB [0.5-3.6 ng/mL] 1.0 (04/25/17 7:35 PM) CK MB Index [0.0-2.5] 0.02 ng/mL (04/25/17 7:35 PM) Troponin-I [0.00-0.40 ng/mL] ANEMIA STUDY 1 2 3 Most recent to oldest [Reference Range]: 93 ug/dl (05/03/17 4:50 AM) Iron [45-160 ug/dl] 297 ng/mL *HI* (05/03/17 4:50 AM) Ferritin Lvl [22-275 ng/mL] 30 % (05/03/17 4:50 AM) % Satur Fe [12-57 %] 217 ug/dl (05/03/17 4:50 AM) UIBC [110-370 ug/dl] 310 ug/dl (05/03/17 4:50 AM) TIBC [228-428 ug/dl] DRUG SCREEN 1 2 3 Most recent to oldest [Reference Range]: Negative *NA* (04/25/17 8:11 PM) U Amph Scr [Negative] Negative *NA* (04/25/17 8:11 PM) U Susie Scr [Negative] Negative *NA* (04/25/17 8:11 PM) U Benzodia Scr [Negative] Negative *NA* (04/25/17 8:11 PM) U Cocaine Scr [Negative] Negative *NA* (04/25/17 8:11 PM) U Opiate Scr [Negative] Negative *NA* (04/25/17 8:11 PM) U Phencyc Scr [Negative] Negative *NA* (04/25/17 8:11 PM) U Cannab Scr [Negative] See Note (04/25/17 8:11 PM) UDS Note TOXICOLOGY 1 2 3 Most recent to oldest [Reference Range]: see emar *NA* (04/27/17 12:48 PM) Vanco Tr TND 14.4 ug/ml *NA* (05/01/17 1:53 AM) 17.1 ug/ml *NA* (04/30/17 1:29 AM) 24.0 ug/ml *NA* (04/29/17 5:44 AM) Vanco Lvl 21.7 ug/ml *NA* (04/27/17 12:48 PM) Vanco Tr None Detected 1 *NA* (04/25/17 7:35 PM) Keppa Lvl [10.0-40.0] 1Result Comment: Performed At: [facility] [id number] Thalia Garcia MD Ph:[phone] ENDOCRINOLOGY 1 2 3 Most recent to oldest [Reference Range]: 30.4 ug/dl *NA* (04/27/17 4:42 AM) Cortisol URINE CHEM 1 2 3 Most recent to oldest [Reference Range]: 54.20 mg/dL *NA* (05/10/17 3:58 AM) 52.50 mg/dL *NA* (05/09/17 4:57 AM) 43.10 mg/dL *NA* (05/01/17 5:00 AM) U Creatinine 12.5 mg/dL *NA* (05/09/17 4:57 AM) 55.4 mg/dL *NA* (04/26/17 2:16 PM) U Protein 0.32 *NA* (04/26/17 2:16 PM) U Prot/Creat 59 mEq/L *NA* (05/10/17 3:58 AM) 64 mEq/L *NA* (05/09/17 4:57 AM) 22 mEq/L *NA* (05/01/17 5:00 AM) U Sodium 65 mEq/L *NA* (05/10/17 3:58 AM) 67 mEq/L *NA* (05/09/17 4:57 AM) <10 mEq/L *NA* (05/01/17 5:00 AM) U Chloride 373 mOsm/kg (05/10/17 3:58 AM) 366 mOsm/kg (05/09/17 4:57 AM) 242 mOsm/kg *LOW* (04/30/17 8:59 AM) U Osmolality [300-800 mOsm/kg] URINE AND STOOL 1 2 3 Most recent to oldest [Reference Range]: Clear (05/09/17 4:57 AM) Clear (04/26/17 6:16 AM) Clear (04/25/17 8:11 PM) UA Turbidity [Clear] Light Yellow *NA* (05/09/17 4:57 AM) Yellow *NA* (04/26/17 6:16 AM) Light Yellow *NA* (04/25/17 8:11 PM) UA Color [Yellow] 5.0 (05/09/17 4:57 AM) 7.0 (04/26/17 6:16 AM) 6.0 (04/25/17 8:11 PM) UA pH [5.0-8.0] 1.011 (05/09/17 4:57 AM) 1.011 (04/26/17 6:16 AM) 1.006 (04/25/17 8:11 PM) UA Spec Grav [<=1.030] Negative mg/dL *NA* (05/09/17 4:57 AM) Negative mg/dL *NA* (04/26/17 6:16 AM) Negative mg/dL *NA* (04/25/17 8:11 PM) UA Glucose [Negative mg/dL] Negative (05/09/17 4:57 AM) Small *ABN* (04/26/17 6:16 AM) Moderate *ABN* (04/25/17 8:11 PM) UA Blood [Negative] Negative mg/dL *NA* (05/09/17 4:57 AM) Trace mg/dL *ABN* (04/26/17 6:16 AM) Negative mg/dL *NA* (04/25/17 8:11 PM) UA Ketones [Negative mg/dL] Negative mg/dL (05/09/17 4:57 AM) Negative mg/dL (04/26/17 6:16 AM) Negative mg/dL (04/25/17 8:11 PM) UA Protein [Negative mg/dL] <=1.0 mg/dL *NA* (05/09/17 4:57 AM) 2.0 mg/dL *HI* (04/26/17 6:16 AM) <=1.0 mg/dL *NA* (04/25/17 8:11 PM) UA Urobilinogen [0.1-1.0 mg/dL] Negative *NA* (05/09/17 4:57 AM) Negative *NA* (04/26/17 6:16 AM) Negative *NA* (04/25/17 8:11 PM) UA Bili [Negative] Negative (05/09/17 4:57 AM) Negative (04/26/17 6:16 AM) Negative (04/25/17 8:11 PM) UA Leuk Est [Negative] Negative (05/09/17 4:57 AM) Negative (04/26/17 6:16 AM) Negative (04/25/17 8:11 PM) UA Nitrite [Negative] 4 /HPF (05/09/17 4:57 AM) 3 /HPF (04/26/17 6:16 AM) <1 /HPF (04/25/17 8:11 PM) UA WBC [0-5 /HPF] 1 /HPF (05/09/17 4:57 AM) 1 /HPF (04/26/17 6:16 AM) 2 /HPF (04/25/17 8:11 PM) UA RBC [0-2 /HPF] Occasional /HPF *NA* (05/09/17 4:57 AM) Occasional /HPF *NA* (04/26/17 6:16 AM) UA Bacteria [None Seen /HPF] None Seen *NA* (05/09/17 4:57 AM) UA Sq Epi Occasional /LPF *NA* (04/26/17 6:16 AM) Occasional /LPF *NA* (04/25/17 8:11 PM) UA Sq Epi [Few /LPF] Few /LPF *NA* (05/09/17 4:57 AM) Few /LPF *NA* (04/26/17 6:16 AM) UA Mucus [None Seen /LPF] Performed *NA* (04/26/17 6:16 AM) Micro? HEMATOLOGY 1 2 3 Most recent to oldest [Reference Range]: 9.3 K/CMM (05/10/17 4:20 AM) 11.1 K/CMM *HI* (05/05/17 5:13 AM) 10.4 K/CMM (05/04/17 5:56 AM) WBC [3.7-10.4 K/CMM] 3.59 M/CMM *LOW* (05/10/17 4:20 AM) 3.37 M/CMM *LOW* (05/05/17 5:13 AM) 3.51 M/CMM *LOW* (05/04/17 5:56 AM) RBC [4.70-6.10 M/CMM] 10.5 g/dL *LOW* (05/10/17 4:20 AM) 9.8 g/dL *LOW* (05/05/17 5:13 AM) 10.3 g/dL *LOW* (05/04/17 5:56 AM) Hgb [14.0-18.0 g/dL] 31.8 % *LOW* (05/10/17 4:20 AM) 29.9 % *LOW* (05/05/17 5:13 AM) 30.8 % *LOW* (05/04/17 5:56 AM) Hct [42.0-54.0 %] 88.6 fL (05/10/17 4:20 AM) 88.6 fL (05/05/17 5:13 AM) 87.8 fL (05/04/17 5:56 AM) MCV [80.0-94.0 fL] 29.3 pg (05/10/17 4:20 AM) 29.2 pg (05/05/17 5:13 AM) 29.5 pg (05/04/17 5:56 AM) MCH [27.0-31.0 pg] 33.1 g/dL (05/10/17 4:20 AM) 33.0 g/dL (05/05/17 5:13 AM) 33.6 g/dL (05/04/17 5:56 AM) MCHC [32.0-36.0 g/dL] 15.9 % *HI* (05/10/17 4:20 AM) 15.9 % *HI* (05/05/17 5:13 AM) 16.1 % *HI* (05/04/17 5:56 AM) RDW [11.5-14.5 %] 402 K/CMM (05/10/17 4:20 AM) 352 K/CMM (05/05/17 5:13 AM) 343 K/CMM (05/04/17 5:56 AM) Platelet [133-450 K/CMM] 6.6 fL *LOW* (05/10/17 4:20 AM) 6.3 fL *LOW* (05/05/17 5:13 AM) 6.3 fL *LOW* (05/04/17 5:56 AM) MPV [7.4-10.4 fL] 70.3 % (05/10/17 4:20 AM) 80.2 % *HI* (05/05/17 5:13 AM) 75.0 % (05/04/17 5:56 AM) Segs [45.0-75.0 %] 17.8 % *LOW* (05/10/17 4:20 AM) 11.2 % *LOW* (05/05/17 5:13 AM) 14.3 % *LOW* (05/04/17 5:56 AM) Lymphocytes [20.0-40.0 %] 8.0 % (05/10/17 4:20 AM) 7.0 % (05/05/17 5:13 AM) 9.2 % (05/04/17 5:56 AM) Monocytes [2.0-12.0 %] 3.0 % (05/10/17 4:20 AM) 1.0 % (05/05/17 5:13 AM) 0.7 % (05/04/17 5:56 AM) Eosinophils [0.0-4.0 %] 0.9 % (05/10/17 4:20 AM) 0.6 % (05/05/17 5:13 AM) 0.8 % (05/04/17 5:56 AM) Basophils [0.0-1.0 %] 6.5 K/CMM (05/10/17 4:20 AM) 8.9 K/CMM *HI* (05/05/17 5:13 AM) 7.8 K/CMM (05/04/17 5:56 AM) Segs-Bands # [1.5-8.1 K/CMM] 1.7 K/CMM (05/10/17 4:20 AM) 1.3 K/CMM (05/05/17 5:13 AM) 1.5 K/CMM (05/04/17 5:56 AM) Lymphocytes # [1.0-5.5 K/CMM] 0.7 K/CMM (05/10/17 4:20 AM) 0.8 K/CMM (05/05/17 5:13 AM) 1.0 K/CMM *HI* (05/04/17 5:56 AM) Monocytes # [0.0-0.8 K/CMM] 0.3 K/CMM (05/10/17 4:20 AM) 0.1 K/CMM (05/05/17 5:13 AM) 0.1 K/CMM (05/04/17 5:56 AM) Eosinophils # [0.0-0.5 K/CMM] 0.1 K/CMM (05/10/17 4:20 AM) 0.1 K/CMM (05/05/17 5:13 AM) 0.1 K/CMM (05/04/17 5:56 AM) Basophils # [0.0-0.2 K/CMM] Normal (05/01/17 1:53 AM) RBC Morph Normal (05/01/17 1:53 AM) Plt Morph 13.9 seconds (05/03/17 4:50 AM) 15.3 seconds *HI* (04/25/17 7:35 PM) PT [12.0-14.7 seconds] 1.07 (05/03/17 4:50 AM) 1.20 *HI* (04/25/17 7:35 PM) INR [0.85-1.17] 33.4 seconds (04/25/17 7:35 PM) PTT [22.9-35.8 seconds] BACTERIAL - SEROLOGY 1 2 3 Most recent to oldest [Reference Range]: Negative (04/26/17 2:38 AM) MRSA by PCR Immunizations No data available for this section Procedures Procedure Date Related Diagnosis Body Site Hernia repair Social History Social History Type Response Substance Abuse Use: Past. Type: Heroin. Recreational Drug Route: Intravenous. Started age 37 Years. Stopped age 42 Years. IV drug use: Yes. Drug use interferes with work/home: Yes. Ready to change: Yes. Household substance abuse concerns: Yes. Sexual Sexually active: Yes. Sexually active at age 15 Years. Number of lifetime partners 6. Partner with STD? No. Sexual orientation: Heterosexual. Uses condoms: No. History of sexual abuse: No. Employment/School Status: Unemployed. Work/School description: disabled. Alcohol Current, Type Beer. Frequency: Several times per day. 4 Drinks/Episode average. Last use: 2 days ago 4 40 oz beers. Started age 15 Years. Previous treatment: Inpatient. Alcohol use interferes with work or home: Yes. Drinks more than intended: Yes. Others hurt by drinking: No. Ready to change: Yes. Household alcohol concerns: Yes. Smoking Status Former smoker; Exposure to Tobacco Smoke None; Cigarette Smoking Last 365 Days Yes; Reg Smoking Cessation Counseling No Assessment and Plan Extracted from: Title: Clinical Document Author: Raz Pandahellen Date: 05/10/17 [facility] Consult Follow-Up Note 24 hour events: No acute events overnight. S: No complaints today. Medications (25) Active Scheduled Meds (13): 05/09/17 amLODIPine (Norvasc) 5 mg PO Daily 05/09/17 carvedilol (Coreg) 12.5 mg PO Q12H 04/26/17 enoxaparin 40 mg [id number] 04/29/17 famotidine 20 mg PO BID 04/29/17 folic acid (folic acid 1 mg oral tablet) 1 mg PO Daily 05/08/17 furosemide (Lasix 20 mg oral tablet) 20 mg PO Daily 05/09/17 gabapentin (gabapentin 300 mg oral capsule) 300 mg PO TID 05/03/17 lactulose (lactulose 10 g/15 mL oral syrup) 20 gm PO TID 04/29/17 multivitamin with minerals 1 tab PO Daily 04/26/17 nutritional supplement (Beneprotein 7 gm pkt) 2 pkt T FEED TID-Before Meals 04/26/17 polyethylene glycol 3350 17 gm PO Daily 04/26/17 sodium chloride (Saline Flush 0.9%) 10 ml IVP Q12H 04/29/17 thiamine (Vitamin B1) 100 mg PO Daily Unscheduled Meds: None PRN Meds (11): 04/26/17 LORazepam 2 mg IVP Q2H 04/26/17 LORazepam 4 mg IVP Q2H 04/26/17 LORazepam 6 mg IVP Q2H 04/26/17 acetaminophen 650 mg PO Q4H 04/29/17 albuterol-ipratropium (DuoNeb inhalation solution) 3 ml INHALATION PRN 04/26/17 haloperidol 5 mg IVP Q8H 04/26/17 ondansetron 4 mg IVP Q8H 05/01/17 sodium chloride nasal (sodium chloride nasal spray) 1 spray NASAL Q30Min 04/26/17 sodium chloride (Saline Flush 0.9%) 10 ml IVP PRN 05/01/17 temazepam (Restoril) 15 mg PO Bedtime 12/21/17 trazodone (trazodone 50 mg oral tablet) 50 mg PO Bedtime One Time Meds (1): 05/10/17 (Completed) acetaminophen-hydrocodone ([place] 5/325 oral tablet) 1 tab PO ONCE Continuous Infusions: None O: VitalsTmp(F)[id number] 05/10 11:[id number]--- 05/10 08:33 1896--- 05/10 06:[id number]--- 05/10 [id number]--- 05/09 19:[id number]--- 24 Hr Tmax: 98.4F (36.89c) at 05/10 06:00Vital Signs are the last 5 in the past 48 hours. Gen: NAD CV: RRR, no mumurs, no gallops, no rubs Lungs: CTAB Abd: soft, non-tender, non-distended Ext: +edema Labs Most Recent Results Previous Results Previous Results Previous Results WBC 9.3 (MAY 10) H 11.1 (MAY 05) 10.4 (MAY 04) 8.9 (MAY 03) Hgb L 10.5 (MAY 10) L 9.8 (MAY 05) L 10.3 (MAY 04) L 10.7 (MAY 03) Hct L 31.8 (MAY 10) L 29.9 (MAY 05) L 30.8 (MAY 04) L 32.2 (MAY 03) Plt 402 (MAY 10) 352 (MAY 05) 343 (MAY 04) 335 (MAY 03) Na 140 (MAY 10) 140 (MAY 08) 137 (MAY 07) 137 (MAY 06) K 4.1 (MAY 10) 4.3 (MAY 08) 4.7 (MAY 07) 4.2 (MAY 06) CO2 26 (MAY 10) L 23 (MAY 08) L 22 (MAY 07) L 23 (MAY 06) Cl 106 (MAY 10) 106 (MAY 08) 108 (MAY 07) 106 (MAY 06) Cr H 1.59 (MAY 10) H 1.63 (MAY 08) H 1.68 (MAY 07) H 2.05 (MAY 06) BUN H 32 (MAY 10) H 29 (MAY 08) H 30 (MAY 07) H 33 (MAY 06) Glucose Random H 102 (MAY 10) H 106 (MAY 08) H 103 (MAY 07) H 115 (MAY 06) Ca 9.6 (MAY 10) 8.9 (MAY 08) 9.3 (MAY 07) 9.0 (MAY 06) PT 13.9 (MAY 03) H 15.3 (APR 25) -- -- INR 1.07 (MAY 03) H 1.20 (APR 25) -- -- PTT 33.4 (APR 25) -- -- -- Troponin 0.02 (APR 25) -- -- -- CK MB H 36.8 (APR 25) -- -- -- Total CK H 3681 (APR 25) RTF_CENTER, -- RTF_CENTER, -- RTF[facility], -- Assessment/Plan: # hypoosmolal hyponatremia: -normalized at 140. -Off all fluids. -Edema is back. Contunue lasix 20 mg po daily. -Echo without significant abnormalities. Liver U/S with hepatic steatosis. No definite cirrhosis. -Free water restrict to < 1000 cc per day. -Cortisol, TSH was ok. # MEGAN: Prerenal. UA is bland. hemodynamically stable. - no acute neds for dialysis - monitor renal indices. Creatinine better at 1.59 mg/dl Yessenia Crandall MD [facility] Extracted from: Title: Clinical Document Author: Arya Crandall Date: 04/26/17 [facility]phrology Consult Brief Note Patient was seen today. Full consult dictated. Confirmation #[id number] Yessenia Crandall MD [facility] Addendum Just received call from nurse that serum sodium up to 112. I have asked her to stop by MVI+folic acid+thiamine that was running in normal saline and switch to D5W. May have to Raz start on D5W or add desmopressin to slow correction rate. , Arya Grey MD on 04/26/2017 14:47
--- OUTSIDE RECORDS SUMMARY | 2018-10-01 09:22 | XMS REPORT | Continuity of Care Document ---
Author Author [facility] Interface Address Unknown Phone Unavailable Problems Problem Status Onset Date Classification Date Reported Comments Source SUICIDAL IDEATION Active 09/14/2018 [facility] CAP (COMMUNITY ACQUIRED PNEUMONIA), COPD Active 09/14/2018 [facility] ACUTE ON CHRONIC RENAL FAILURE Active 05/14/2018 [facility] ABNORMAL LAB Active 05/14/2018 [facility] EDEMA Active 03/24/2018 [facility] Abdominal pain 09/27/2017 09/30/2017 [facility] Abdominal hernia 09/27/2017 09/30/2017 [facility] LEG PAIN Active 09/26/2017 [facility] WEAKNESS Active 04/25/2017 [facility] Discharge Diagnosis: Hernia 02/15/2015 02/18/2015 [facility] Discharge Diagnosis: Atypical chest pain 02/15/2015 02/18/2015 [facility] ABDOMINAL PAIN Active 02/15/2015 [facility] Chronic obstructive pulmonary disease (<span ID="[id number]">Confirmed</span>) Resolved Problem 11/11/2017 [facility] Diabetes Active Problem 11/11/2017 [facility] Diabetic neuropathy Active Problem 11/11/2017 [facility] Homelessness Active Problem 11/11/2017 [facility] Hypertension Active Problem 11/11/2017 [facility] Chronic obstructive pulmonary disease (<span ID="[id number]">Confirmed</span>) Resolved Problem 09/17/2018 [facility] Diabetes Active Problem 09/17/2018 [facility] Diabetic neuropathy Active Problem 09/17/2018 [facility] Homelessness Active Problem 09/17/2018 [facility] Hypertension Active Problem 09/17/2018 [facility] DM (<span ID="[id number]">Confirmed</span>) Resolved Problem 02/18/2015 [facility] Hernia Resolved Problem 02/18/2015 [facility] HTN - Hypertension Resolved Problem 02/18/2015 [facility] PNEUMONIA, UNSPECIFIED ORGANISM Active [facility] CHRONIC OBSTRUCTIVE PULMONARY DISEASE W Active [facility] HYPO-OSMOLALITY AND HYPONATREMIA Active [facility] ACUTE KIDNEY FAILURE, UNSPECIFIED Active [facility] Medications Medication Details Route Status Patient Instructions Ordering Provider Order Date Source Prednisone 60 mg, 3 tab, Route: PO, Drug form: TAB, Daily, Dosing Weight 163.636, kg, Start date: 09/16/18 9:00:00 CDT, Duration: 30 day, Stop date: 10/15/18 9:00:00 CDTNotes: Take with food. No Longer Active 09/16/2018 [facility] Azithromycin 250 mg, 1 tab, Route: PO, Drug form: TAB, [id number], Dosing Weight 163.636, kg, Start date: 09/16/18 0:00:00 CDT, Duration: 4 doses or times, Stop date: 09/19/18 0:00:00 CDT, ABX Indication: Non-PNA Respi ratory Tract InfectionNotes: Take 1 hour before or 2 hours after meals. (Same As: Zithromax) No Longer Active 09/16/2018 [facility] Ceftriaxone 1 gm, Route: IVPB, [id number], Dosing Weight 163.636, kg, Start date: 09/16/18 0:00:00 CDT, Duration: 5 day, Stop date: 09/20/18 0:00:00 CDT, ABX Indication: Non-PNA Respiratory Tract InfectionNotes: (Same As: Rocephin). Use with 100 mL NS and infuse over 30 min MEDICATION WASTE Product Size: 1000 mg Product Wasted: ___ mg No Longer Active 09/16/2018 [facility] atorvastatin 20 mg, 2 tab, Route: PO, Drug form: TAB, Bedtime, Dosing Weight 148.182, kg, Start date: 09/15/18 21:00:00 CDT, Duration: 30 day, Stop date: 10/14/18 21:00:00 CDTNotes: (Same As: Lipitor) Inactive 09/16/2018 [facility] *RN please bring pt own theophylline to pharmacy for label* *RN please bring pt own theophylline to pharmacy for label*, reminder, Drug form: MISC, Route: MISC, QSHIFT, 09/15/18 16:00:00 CDT, Duration: 30 day, Stop date: 10/15/18 8:00:00 CDT Inactive 09/15/2018 [facility] Acetaminophen 300 MG / Codeine Phosphate 30 MG Oral Tablet [Tylenol with Codeine #3] 1 tab, PO, Q6H, PRN Pain, X 7 day, # 28 tab, 0 Refill(s) Active 09/15/2018 [facility] levofloxacin 500 mg oral tablet 500 mg=1 tab, PO, Q24H, X 5 day, # 5 tab, 0 Refill(s), Pharmacy: [facility]/pharmacy #[id number] Active 09/15/2018 [facility] predniSONE 20 mg oral tablet 40 mg=2 tab, PO, Daily, X 5 day, # 10 tab, 0 Refill(s), Pharmacy: [facility]/pharmacy #[id number] Active 09/15/2018 [facility] Gage-24 600 mg, 2 cap, Route: PO, Drug form: ERCAP, Daily, Dosing Weight 148.182, kg, Start date: 09/15/18 9:00:00 CDT, Duration: 30 day, Stop date: 10/14/18 9:00:00 CDTNotes: Enteral feeds may interfere with the absorption of this medication. Inactive 09/15/2018 [facility] Losartan 100 mg, 2 tab, Route: PO, Drug form: TAB, Daily, Dosing Weight 148.182, kg, Start date: 09/15/18 9:00:00 CDT, Duration: 30 day, Stop date: 10/14/18 9:00:00 CDTNotes: (Same as: Cozaar) Inactive 09/15/2018 [facility] Lactulose 667 MG/ML Oral Solution 20 gm, 30 mL, Route: PO, Drug form: SYRP, TID, Dosing Weight 148.182, kg, Start date: 09/15/18 9:00:00 CDT, Duration: 30 day, Stop date: 10/14/18 17:00:00 CDTNotes: (Same as:Chronulac) Inactive 09/15/2018 [facility] Hydralazine 100 mg, 2 tab, Route: PO, Drug form: TAB, TID, Dosing Weight 148.182, kg, Start date: 09/15/18 9:00:00 CDT, Duration: 30 day, Stop date: 10/14/18 17:00:00 CDTNotes: (Same as: Apresoline) May interfere w/enteral feedings Take With Food Inactive 09/15/2018 [facility] Amlodipine 10 mg, 2 tab, Route: PO, Drug form: TAB, Daily, Dosing Weight 163.636, kg, Start date: 09/15/18 9:00:00 CDT, Duration: 30 day, Stop date: 10/14/18 9:00:00 CDTNotes: (Same as: Norvasc) Inactive 09/15/2018 [facility] Famotidine 20 MG Oral Tablet 20 mg, 1 tab, Route: PO, Drug form: TAB, BID, Dosing Weight 148.182, kg, Start date: 09/15/18 9:00:00 CDT, Duration: 30 day, Stop date: 10/14/18 17:00:00 CDTNotes: (Same as: Pepcid) Inactive 09/15/2018 [facility] duloxetine 30 mg, 1 cap, Route: PO, Drug form: DRC, Daily, Dosing Weight 148.182, kg, Start date: 09/15/18 9:00:00 CDT, Duration: 30 day, Stop date: 10/14/18 9:00:00 CDTNotes: (Same as: Cymbalta) (Do Not Crush) Inactive 09/15/2018 [facility] Albuterol 0.833 MG/ML / Ipratropium [place] 0.167 MG/ML Inhalant Solution 3 mL, Route: NEB, Drug Form: SOLN, Dosing Weight 163.636, kg, RQ6H, Start date: 09/15/18 8:00:00 CDT, Duration: 30 day, Stop date: 10/15/18 2:00:00 CDTNotes: (Same as: Duoneb) Inactive 09/15/2018 [facility] heparin 5,000 unit, 1 mL, Route: SUB-Q, Drug form: INJ, Q8H, Dosing Weight 163.636, kg, Start date: 09/15/18 8:00:00 CDT, Duration: 30 day, Stop date: 10/15/18 0:00:00 CDTNotes: porcine heparin Inactive 09/15/2018 [facility] Albuterol 0.83 MG/ML Inhalant Solution 2.49 mg=3 mL, INHALATION, Q6H, PRN wheezing, coughing, or shortness of breath, # 240 ea, 1 Refill(s) Active 09/15/2018 [facility] Zolpidem tartrate 10 MG Oral Tablet [Ambien] 10 mg=1 tab, PO, Bedtime, PRN for sleep, 0 Refill(s) Active 09/15/2018 [facility] Acetaminophen 325 MG / Hydrocodone Bitartrate 5 MG Oral Tablet [[place] 5/325] 1 tab, PO, Q4-6H, PRN, # 30 tab, 0 Refill(s) Inactive 09/15/2018 [facility] Furosemide 40 MG Oral Tablet [Lasix] 40 mg=1 tab, PO, Daily, # 30 tab, 0 Refill(s) Inactive 09/15/2018 [facility] Lasix 40 mg, 4 mL, Route: IV, Drug form: INJ, [id number], Dosing Weight 163.636, kg, Start date: 09/15/18 4:00:00 CDT, Duration: 30 day, Stop date: 10/14/18 16:00:00 CDTNotes: (Same as: Lasix) MEDICATION WASTE Product Size: 40 mg Product Wasted: ___ mg Inactive 09/15/2018 [facility] Acetaminophen 325 MG / Hydrocodone Bitartrate 5 MG Oral Tablet [[place] 5/325] 1 tab, Route: PO, Drug Form: TAB, Dosing Weight 163.636, kg, Q6H, PRN Pain Score 4-6, Start date: 09/15/18 3:38:00 CDT, Duration: 30 day, Stop date: 10/15/18 3:37:00 CDTNotes: (Same as: [place] 325/5) Do not exceed 4gm/day of acetaminophen. Inactive 09/15/2018 [facility] Tessalon Perles 100 mg, 1 cap, Route: PO, Drug form: CAP, TID, Dosing Weight 163.636, kg, PRN Cough, Start date: 09/15/18 3:36:00 CDT, Duration: 30 day, Stop date: 10/15/18 3:35:00 CDTNotes: (Same As: Tessalon Perle s) "Do Not Crush" Inactive 09/15/2018 [facility] Acetaminophen 325 mg, 1 tab, Route: PO, Drug form: TAB, Q4H, Dosing Weight 163.636, kg, PRN Pain 1-3/Temp > 100.4 F, Start date: 09/15/18 3:36:00 CDT, Duration: 30 day, Stop date: 10/15/18 3:35:00 CDTNotes: Do not exceed 4 gm/day. (Same as: Tylenol) Inactive 09/15/2018 [facility] Melatonin 3 mg, 1 tab, Route: PO, Drug form: TAB, Bedtime, Dosing Weight 163.636, kg, PRN Insomnia, Start date: 09/15/18 3:36:00 CDT, Duration: 30 day, Stop date: 10/15/18 3:35:00 CDTNotes: (Same as: Melatonin) Inactive 09/15/2018 [facility] Ondansetron 4 mg, 2 mL, Route: IVP, Drug form: INJ, Q8H, Dosing Weight 163.636, kg, PRN Nausea & Vomiting, Start date: 09/15/18 3:36:00 CDT, Duration: 30 day, Stop date: 10/15/18 3:35:00 CDTNotes: (Same as: Zofran) MEDICATION WASTE Product Size: 4 mg Product Wasted: ___ mg Inactive 09/15/2018 [facility] Bisacodyl 10 mg, 1 supp, Route: VA, Drug form: SUPP, Daily, Dosing Weight 163.636, kg, PRN Constipation, Start date: 09/15/18 3:36:00 CDT, Duration: 30 day, Stop date: 10/15/18 3:35:00 CDTNotes: (Same As: Dulcolax, Bisco-Lax) Inactive 09/15/2018 [facility] Glucagon 1 mg, Route: IM, Drug form: PDR/INJ, PRN, Dosing Weight 163.636, kg, PRN Blood Glucose Results, Start date: 09/15/18 3:36:00 CDT, Duration: 30 day, Stop date: 10/15/18 3:35:00 CDT Inactive 09/15/2018 [facility] Dextrose 50% Syringe 12.5 gm, 25 mL, Route: IVP, Drug Form: INJ, Dosing Weight 163.636, kg, PRN, PRN Blood Glucose Results, Start date: 09/15/18 3:36:00 CDT, Duration: 30 day, Stop date: 10/15/18 3:35:00 CDT Inactive 09/15/2018 [facility] Albuterol 0.83 MG/ML Inhalant Solution 2.49 mg, 3 mL, Route: NEB, Drug form: SOLN, RQ2H, Dosing Weight 163.636, kg, PRN Wheezing, Priority: Routine, Start date: 09/15/18 3:36:00 CDT, Duration: 30 day, Stop date: 10/15/18 3:35:00 CDTNotes: SEE RT DOCUMENTATION (Same as: Amanda) Inactive 09/15/2018 [facility] Magnesium Sulfate 2 gm, Route: IVPB, ONCE, Dosing Weight 163.636, kg, Priority: STAT, Start date: 09/15/18 2:43:00 CDT, Stop date: 09/15/18 2:43:00 CDT Inactive 09/15/2018 [facility] Prednisone 60 mg, Route: PO, Drug form: TAB, ONCE, Dosing Weight 163.636, kg, Start date: 09/15/18 2:43:00 CDT, Stop date: 09/15/18 2:43:00 CDT Inactive 09/15/2018 [facility] Albuterol 0.833 MG/ML / Ipratropium [place] 0.167 MG/ML Inhalant Solution [DuoNeb] 9 mL, Route: NEB, Dosing Weight 163.636, kg, ONCE, Start date: 09/15/18 2:42:00 CDT, Stop date: 09/15/18 2:42:00 CDT Inactive 09/15/2018 [facility] Azithromycin 500 mg, Route: IVPB, ONCE, Dosing Weight 163.636, kg, Priority: STAT, Start date: 09/15/18 0:23:00 CDT, Stop date: 09/15/18 0:23:00 CDT, ABX Indication: Pneumonia Inactive 09/15/2018 [facility] Rocephin 1 gm, Route: IVPB, Drug form: PDR/INJ, ONCE, Dosing Weight 163.636, kg, Priority: STAT, Start date: 09/15/18 0:23:00 CDT, Stop date: 09/15/18 0:23:00 CDT, ABX Indication: Pneumonia Inactive 09/15/2018 [facility] Fentanyl 50 microgram, Route: IVP, ONCE, Dosing Weight 128.182, kg, Priority: STAT, Start date: 09/27/17 0:32:00 CDT, Stop date: 09/27/17 0:32:00 CDT Inactive 09/27/2017 [facility] Fentanyl 50 microgram, Route: IVP, ONCE, Dosing Weight 128.182, kg, Priority: STAT, Start date: 09/26/17 22:26:00 CDT, Stop date: 09/26/17 22:26:00 CDT Inactive 09/27/2017 [facility] Folic Acid 1 MG Oral Tablet 1 mg=1 tab, PO, Daily, 0 Refill(s) Active 05/10/2017 [facility] Famotidine 20 MG Oral Tablet 20 mg=1 tab, PO, BID, 0 Refill(s) Active 05/10/2017 [facility] Enoxaparin 40 mg=0.4 mL, SUB-Q, [id number], 0 Refill(s) Active 05/10/2017 [facility] carvedilol 12.5 mg oral tablet 12.5 mg=1 tab, PO, Q12H, 0 Refill(s) Active 05/10/2017 [facility] amLODIPine 5 mg oral tablet 5 mg=1 tab, PO, Daily, 0 Refill(s) Active 05/10/2017 [facility] Albuterol 0.833 MG/ML / Ipratropium [place] 0.167 MG/ML Inhalant Solution [DuoNeb] 3 mL, INHALATION, PRN, PRN Respiratory Protocol, 0 Refill(s) Active 05/10/2017 [facility] POLYETHYLENE GLYCOL 3350 17 gm=1 pkt, PO, Daily, 0 Refill(s) Active 05/10/2017 [facility] Lactulose 667 MG/ML Oral Solution 20 gm=30 mL, PO, TID, 0 Refill(s) Active 05/10/2017 [facility] gabapentin 300 MG Oral Capsule 300 mg=1 cap, PO, TID, 0 Refill(s) Active 05/10/2017 [facility] Furosemide 20 MG Oral Tablet [Lasix] 20 mg=1 tab, PO, Daily, 0 Refill(s) Active 05/10/2017 [facility] Acetaminophen 325 MG / Hydrocodone Bitartrate 5 MG Oral Tablet [[place] 5/325] 1 tab, Route: PO, Drug Form: TAB, Dosing Weight 110.085, kg, ONCE, Start date: 05/10/17 2:32:00 VIDEO TECHNICIAN, Stop date: 05/10/17 2:32:00 CSTNotes: (Same as: [place] 325/5) Do not exceed 4gm/day of acetaminophen. Inactive 05/10/2017 [facility] Coreg 12.5 mg, 1 tab, Route: PO, Drug form: TAB, Q12H, Dosing Weight 110.085, kg, Start date: 05/09/17 21:00:00 VIDEO TECHNICIAN, Duration: 30 day, Stop date: 06/08/17 9:00:00 CSTNotes: Give with food. (Same As: Coreg) No Longer Active 05/10/2017 [facility] Norvasc 5 mg, 1 tab, Route: PO, Drug form: TAB, Daily, Dosing Weight 110.085, kg, Start date: 05/09/17 14:00:00 VIDEO TECHNICIAN, Duration: 30 day, Stop date: 06/08/17 9:00:00 CSTNotes: (Same as: Norvasc) No Longer Active 05/09/2017 [facility] gabapentin 300 MG Oral Capsule 300 mg, 1 cap, Route: PO, Drug form: CAP, TID, Dosing Weight 110.085, kg, Priority: STAT, Start date: 05/09/17 11:24:00 VIDEO TECHNICIAN, Duration: 30 day, Stop date: 06/08/17 9:00:00 CSTNotes: (Same as: Neurontin) No Longer Active 05/09/2017 [facility] gabapentin 300 mg, 1 cap, Route: PO, Drug form: CAP, ONCE, Dosing Weight 110.085, kg, Start date: 05/08/17 19:53:00 VIDEO TECHNICIAN, Stop date: 05/08/17 19:53:00 CSTNotes: (Same as: Neurontin) Inactive 05/09/2017 [facility] Furosemide 20 MG Oral Tablet [Lasix] 20 mg, 1 tab, Route: PO, Drug form: TAB, Daily, Dosing Weight 110.085, kg, Start date: 05/08/17 15:30:00 VIDEO TECHNICIAN, Duration: 30 day, Stop date: 06/07/17 9:00:00 CSTNotes: (Same as: Lasix) May cause GI upset. Give with food or milk. No Longer Active 05/08/2017 [facility] Lactulose 667 MG/ML Oral Solution 20 gm, 30 ml, Route: PO, Drug form: SYRP, TID, Dosing Weight 115.864, kg, Start date: 05/03/17 11:00:00 VIDEO TECHNICIAN, Duration: 30 day, Stop date: 06/02/17 9:00:00 CSTNotes: (Same as:Chronulac) No Longer Active 05/03/2017 [facility] Trazodone Hydrochloride 50 MG Oral Tablet 50 mg, 1 tab, Route: PO, Drug form: TAB, Bedtime, Dosing Weight 115.864, kg, PRN Insomnia, Start date: 05/02/17 16:53:00 VIDEO TECHNICIAN, Duration: 30 day, Stop date: 06/01/17 16:52:00 CSTNotes: (Same As: Desyrel) No Longer Active 05/02/2017 [facility] Furosemide 20 mg, 1 tab, Route: PO, Drug form: TAB, BID Diuretic, Dosing Weight 115.864, kg, Start date: 05/02/17 8:00:00 VIDEO TECHNICIAN, Duration: 30 day, Stop date: 05/31/17 16:00:00 CSTNotes: (Same as: Lasix) May cause GI upset. Give with food or milk. No Longer Active 05/02/2017 [facility] Restoril 15 mg, 1 cap, Route: PO, Drug form: CAP, Bedtime, Dosing Weight 115.864, kg, PRN Sleep, Start date: 05/01/17 14:52:00 VIDEO TECHNICIAN, Duration: 30 day, Stop date: 05/31/17 14:51:00 CSTNotes: (Same As: Restoril) No Longer Active 05/01/2017 [facility] Sodium Chloride 0.154 MEQ/ML Nasal [place] [Simply Saline] 1 spray, Route: NASAL, Q30Min, Drug form: SOLN, PRN Nasal dryness, Start date: 05/01/17 11:59:00 VIDEO TECHNICIAN, Duration: 30 day, Stop date: 05/31/17 11:58:00 CSTNotes: (Same as: [place], Deep Sea Nasal [place]). No Longer Active 05/01/2017 [facility] Potassium Chloride 40 mEq, 2 tab, Route: PO, Drug form: ERTAB, ONCE, Dosing Weight 115.864, kg, Start date: 04/30/17 19:27:00 VIDEO TECHNICIAN, Stop date: 04/30/17 19:27:00 CSTNotes: (Same as: K-Dur 20) "Do Not Crush" With food and full glass of water Inactive 05/01/2017 [facility] Lasix 40 mg, Route: IVP, Drug form: INJ, BID Diuretic, Dosing Weight 115.864, kg, Start date: 04/30/17 16:00:00 VIDEO TECHNICIAN, Duration: 30 day, Stop date: 05/30/17 8:00:00 VIDEO TECHNICIAN Inactive 04/30/2017 [facility] Vancomycin dose due today Vancomycin dose due today, vanc dose due, Drug form: MISC, Route: MISC, ONCE, 04/30/17 9:00:00 VIDEO TECHNICIAN, Stop date: 04/30/17 9:00:00 VIDEO TECHNICIAN Inactive 04/30/2017 [facility] potassium chloride 20 mEq oral tablet, extended release 40 mEq, 2 tab, Route: PO, Drug form: ERTAB, ONCE, Dosing Weight 115.864, kg, Start date: 04/30/17 8:42:00 VIDEO TECHNICIAN, Stop date: 04/30/17 8:42:00 CSTNotes: (Same as: Brant- [place] 20) "Do Not Crush" With food and full glass of water Inactive 04/30/2017 [facility] Albuterol 0.833 MG/ML / Ipratropium [place] 0.167 MG/ML Inhalant Solution [DuoNeb] 3 ml, Route: INHALATION, Drug Form: SOLN, Dosing Weight 115.864, kg, PRN, PRN Respiratory Protocol, Start date: 04/29/17 21:23:00 VIDEO TECHNICIAN, Duration: 30 day, Stop date: 05/29/17 21:22:00 CSTNotes: (Same as: Duoneb) No Longer Active 04/30/2017 [facility] folic acid 1 mg oral tablet 1 mg, 1 tab, Route: PO, Drug form: TAB, Daily, Start date: 04/29/17 11:00:00 VIDEO TECHNICIAN, Duration: 30 day, Stop date: 05/29/17 9:00:00 CSTNotes: (Same as: Folvite) No Longer Active 04/29/2017 [facility] multivitamin with minerals 1 tab, Route: PO, Drug Form: TAB, Daily, Start date: 04/29/17 11:00:00 VIDEO TECHNICIAN, Duration: 30 day, Stop date: 05/29/17 9:00:00 CSTNotes: (Same as:Thera-M, Theragran-M) WASTE: F/P - Black; E - Municipal Trash Bin Give with food. No Longer Active 04/29/2017 [facility] Vitamin B1 100 mg, 1 tab, Route: PO, Drug form: TAB, Daily, Start date: 04/29/17 11:00:00 VIDEO TECHNICIAN, Duration: 30 day, Stop date: 05/29/17 9:00:00 CSTNotes: (Same As: Vitamin B1) No Longer Active 04/29/2017 [facility] famotidine 20 mg, 1 tab, Route: PO, Drug form: TAB, BID, Start date: 04/29/17 9:00:00 VIDEO TECHNICIAN, Duration: 30 day, Stop date: 05/28/17 17:00:00 CSTNotes: (Same as: Pepcid) No Longer Active 04/29/2017 [facility] Vancomycin trough level due Vancomycin trough level due, 04-27-17 at 1300, Drug form: MISC, Route: MISC, ONCE, 04/28/17 17:00:00 VIDEO TECHNICIAN, Stop date: 04/28/17 17:00:00 VIDEO TECHNICIAN Inactive 04/28/2017 [facility] vancomycin + NS 250 mL 1,000 mg, Route: IVPB, Daily, PRN Other -See Comment, Start date: 04/28/17 14:23:00 VIDEO TECHNICIAN, Stop date: 04/30/17 23:59:00 VIDEO TECHNICIAN, ABX Indication: Skin/Soft Tissue InfectionNotes: (Same As: Vancocin) No Longer Active 04/28/2017 [facility] Furosemide 100 mg, 10 mL, Rate: 5 mg/hour, Dosing Weight 115.864, kg, Route: IV, Total Volume: 100, Start Date: 04/28/17 8:03:00 VIDEO TECHNICIAN, Duration: 30 day, Stop date: 05/28/17 8:02:00 VIDEO TECHNICIAN, Replace Every: 24 hr, contin uousNotes: (Same as: Lasix) MEDICATION WASTE Product Size: 100 mg Product Wasted: _0_ mg No Longer Active 04/28/2017 [facility] potassium chloride + Sodium Chloride 0.9% IV 250 mL 40 mEq, 20 mL, Route: IV, Drug form: INJ, ONCE, Start date: 04/27/17 14:00:00 VIDEO TECHNICIAN, Stop date: 04/27/17 14:00:00 CSTNotes: MUST be Diluted before use (Same as: KCl) Inactive 04/27/2017 [facility] Vancomycin trough level due Vancomycin trough level due, 04-27-17 at 1300, Drug form: MISC, Route: MISC, ONCE, 04/27/17 13:00:00 VIDEO TECHNICIAN, Stop date: 04/27/17 13:00:00 VIDEO TECHNICIAN No Longer Active 04/27/2017 [facility] Potassium Chloride 20 mEq, Route: IVPB, Q2H, Dosing Weight 115.864, kg, Total dose=40 mEq, Start date: 04/27/17 12:00:00 VIDEO TECHNICIAN, Duration: 2 doses or times, Stop date: 04/27/17 14:00:00 VIDEO TECHNICIAN, Central Line Inactive 04/27/2017 [facility] Sodium Chloride 3% (Hypertonic) IV 20 mL 20 mL, Rate: 30 ml/hr, Infuse over: 0.7 hr, Route: IV, Dosing Weight 115.864 kg, Total Volume: 20, Start date: 04/27/17 6:44:00 VIDEO TECHNICIAN, Duration: 30 day, Stop date: 05/27/17 6:44:00 VIDEO TECHNICIAN, 2.31, [id number]: "Administer by central venous catheter or a peripherally inserted central catheter (PICC) line. 3% Sodium Chloride may be infused via peripheral administration into large vein (antecubital) only in the case of emergency for short term use until a central line can be inserted" (Same as: Hypertonic Saline 3%) concentration=0.513 mEq/mL No Longer Active 04/27/2017 [facility] NS 1,000 mL 1,000 mL, Rate: 50 ml/hr, Infuse over: 20 hr, Route: IV, Dosing Weight 115.864 kg, Total Volume: 1,000, Start date: 04/27/17 6:17:00 VIDEO TECHNICIAN, Duration: 30 day, Stop date: 05/27/17 6:16:00 VIDEO TECHNICIAN, 2.31, m2 Inactive 04/27/2017 [facility] Vitamin B1 100 mg + M.V.I. Adult 10 mL + folic acid 1 mg + NS 1,000 mL Route: IV, Q24H, Start date: 04/27/17 6:00:00 VIDEO TECHNICIAN, Stop date: 04/28/17 6:00:00 VIDEO TECHNICIAN No Longer Active 04/27/2017 [facility] Potassium Chloride 10 mEq, Route: IVPB, Q1H, Dosing Weight 115.864, kg, Total Dose=40 meq, Start date: 04/27/17 0:00:00 VIDEO TECHNICIAN, Duration: 4 doses or times, Stop date: 04/27/17 3:00:00 VIDEO TECHNICIAN, Peripheral Line No Longer Active 04/27/2017 [facility] potassium chloride + Dextrose 5% in Water IV 500 mL 40 mEq, 20 mL, Route: IV, Drug form: INJ, ONCE, Priority: NOW, Start date: 04/26/17 23:58:00 VIDEO TECHNICIAN, Stop date: 04/26/17 23:58:00 CSTNotes: MUST be Diluted before use (Same as: KCl) No Longer Active 04/27/2017 [facility] D5W 1,000 mL 1,000 mL, Rate: 40 ml/hr, Infuse over: 25 hr, Route: IV, Dosing Weight 115.864 kg, Total Volume: 1,000, Start date: 04/26/17 21:54:00 VIDEO TECHNICIAN, Stop date: 04/27/17 6:32:00 VIDEO TECHNICIAN, 2.31, m2 No Longer Active 04/27/2017 [facility] Sodium Chloride 0.9% IV 1,000 mL 1,000 mL, Rate: 40 ml/hr, Infuse over: 25 hr, Route: IV, Dosing Weight 115.864 kg, Total Volume: 1,000, Start date: 04/26/17 19:56:00 VIDEO TECHNICIAN, Duration: 30 day, Stop date: 05/26/17 19:55:00 VIDEO TECHNICIAN, 2.31, m2 Inactive 04/27/2017 [facility] Potassium Chloride 10 mEq, 100 mL, Route: IVPB, Drug form: INJ, Q1H, Dosing Weight 115.864, kg, Total Dose=20 meq, Start date: 04/26/17 16:00:00 VIDEO TECHNICIAN, Duration: 2 doses or times, Stop date: 04/26/17 17:00:00 VIDEO TECHNICIAN, Peripheral LineNotes: Infuse at a rate of 10 mEq/hr. (Same as: KCL) Inactive 04/26/2017 [facility] DDAVP 2 microgram, 0.5 mL, Route: IV, Drug form: INJ, ONCE, Dosing Weight 115.864, kg, Start date: 04/26/17 15:28:00 VIDEO TECHNICIAN, Stop date: 04/26/17 15:28:00 CSTNotes: (Same As: DDAVP) MEDICATION WASTE Product Size: 4 microgram Product Wasted: ___ microgram Inactive 04/26/2017 [facility] Zosyn 3.375 gm, Route: IVPB, [id number], Dosing Weight 115.864, kg, CrCl >=20 ml/min infuse over 4 hours, Start date: 04/26/17 15:00:00 VIDEO TECHNICIAN, Stop date: 05/10/17 7:00:00 VIDEO TECHNICIAN, ABX Indication: Skin/Soft Tissue InfectionNotes: (Same as: Zosyn) MEDICATION WASTE Product Size: 3375 mg Product Waste0 mg No Longer Active 04/26/2017 [facility] Beneprotein 7 gm pkt 2 pkt, Route: T FEED, Drug Form: PWDR, Dosing Weight 115.864, kg, TID-Before Meals, Start date: 04/26/17 11:30:00 VIDEO TECHNICIAN, Duration: 30 day, Stop date: 05/26/17 7:30:00 CSTNotes: (Same as: Beneprotein) No Longer Active 04/26/2017 [facility] POLYETHYLENE GLYCOL 3350 17 gm, 1 pkt, Route: PO, Drug form: PWDR, Daily, Dosing Weight 115.864, kg, Start date: 04/26/17 11:00:00 VIDEO TECHNICIAN, Duration: 30 day, Stop date: 05/26/17 9:00:00 CSTNotes: Dissolve in 8 oz of water or juice. (Same as: Miralax) No Longer Active 04/26/2017 [facility] Sodium Chloride 3% (Hypertonic) IV 60 mL 60 mL, Rate: 15 ml/hr, Infuse over: 4 hr, Route: IV, Dosing Weight 115.864 kg, Total Volume: 60, Start date: 04/26/17 10:27:00 VIDEO TECHNICIAN, Duration: 2 doses or times, Stop date: 04/26/17 18:26:00 VIDEO TECHNICIAN, 2.31, [id number]: (Same as: Hypertonic Saline 3%) Inactive 04/26/2017 [facility] Saline Flush 0.9% 10 ml, Route: IVP, Drug Form: INJ, Dosing Weight 115.864, kg, Q12H, Start date: 04/26/17 9:00:00 VIDEO TECHNICIAN, Duration: 30 day, Stop date: 05/25/17 21:00:00 CSTNotes: (Same as: BD Posiflush) No Longer Active 04/26/2017 [facility] Famotidine 20 mg, 2 mL, Route: IVP, Drug form: INJ, Q12H, Dosing Weight 115.864, kg, Start date: 04/26/17 9:00:00 VIDEO TECHNICIAN, Stop date: 04/29/17 7:45:00 CSTNotes: (Same as: Pepcid) Can be dilute in 5-10cc NS IVP: Sl ow IV push over at least 2 minutes. No Longer Active 04/26/2017 [facility] chlorhexidine gluconate 1.2 MG/ML Mouthwash 15 mL, Route: Swab Mouth, Q12H, Drug form: LIQ, Start date: 04/26/17 9:00:00 VIDEO TECHNICIAN, Duration: 30 day, Stop date: 05/25/17 21:00:00 CSTNotes: (Same As: Peridex) No Longer Active 04/26/2017 [facility] Enoxaparin 40 mg, 0.4 mL, Route: SUB-Q, Drug form: INJ, [id number], Dosing Weight 115.864, kg, Consider for obese patients, Start date: 04/26/17 9:00:00 VIDEO TECHNICIAN, Stop date: 05/25/17 21:00:00 CSTNotes: (Same as: Lovenox) No Longer Active 04/26/2017 [facility] Clonidine 0.1 mg, 1 tab, Route: PO, Drug form: TAB, Q4H, Dosing Weight 115.864, kg, Start date: 04/26/17 8:00:00 VIDEO TECHNICIAN, Duration: 30 day, Stop date: 05/26/17 4:00:00 CSTNotes: (Same As: Catapres) No Longer Active 04/26/2017 [facility] Sodium Chloride 3% (Hypertonic) IV 60 mL 60 mL, Rate: 15 ml/hr, Infuse over: 4 hr, Route: IV, Dosing Weight 115.864 kg, Total Volume: 60, Start date: 04/26/17 6:50:00 VIDEO TECHNICIAN, Duration: 2 doses or times, Stop date: 04/26/17 14:49:00 VIDEO TECHNICIAN, 2.31, [id number]: "Administer by central venous catheter or a peripherally inserted central catheter (PICC) line. 3% Sodium Chloride may be infused via peripheral administration into large vein (antecubital) only in the case of emergency for short term use until a central line can be inserted" (Same as: Hypertonic Saline 3%) concentration=0.513 mEq/mL Inactive 04/26/2017 [facility] Succinylcholine 140 mg, 7 mL, Route: IV, Drug form: INJ, ONCE, Dosing Weight 115.864, kg, Start date: 04/26/17 6:15:00 VIDEO TECHNICIAN, Stop date: 04/26/17 6:15:00 CSTNotes: (Same As: Anectine) No Longer Active 04/26/2017 [facility] Etomidate 40 mg, 20 mL, Route: IV, Drug form: INJ, ONCE, Dosing Weight 115.864, kg, Priority: STAT, Start date: 04/26/17 6:14:00 VIDEO TECHNICIAN, Stop date: 04/26/17 6:14:00 CSTNotes: (Same as: Amidate). Per state nursing law etomidate can only be given by a nurse if patient is intubated or being intubated (unless the nurse is a SOFT SHOE DANCER). No Longer Active 04/26/2017 [facility] chlorhexidine gluconate 1.2 MG/ML Mouthwash 15 mL, Route: Swab Mouth, PRN, Drug form: LIQ, PRN Other -See Comment, Start date: 04/26/17 6:12:00 VIDEO TECHNICIAN, Duration: 30 day, Stop date: 05/26/17 6:11:00 CSTNotes: (Same As: Peridex) No Longer Active 04/26/2017 [facility] propofol 10 mg/mL (Titrate.) IV 1,000 mg 1,000 mg, 100 mL, Rate: Titrate, Start Dose: 5 microgram/kg/min, Titration: 5 microgram/kg/min every 15 minutes, Goal(s): RASS -2, Max Dose: 50 mcg/kg/min, Route: IV, Dosing Weight 115.864 kg, Total Volume: 100, Start date: 04/26/17 6:03:00 VIDEO TECHNICIAN, Durat...Notes: If Diprivan - change bottle & tubing every 12 hr Per state nursing law propofol can only be given by a nurse if patient is intubated or marcia ng intubated (unless the nurse is a SOFT SHOE DANCER). Same as: Diprivan No Longer Active 04/26/2017 [facility] vancomycin + NS 250 mL 1,000 mg, Route: IVPB, [id number], Start date: 04/26/17 6:00:00 VIDEO TECHNICIAN, Stop date: 04/30/17 18:00:00 VIDEO TECHNICIAN, ABX Indication: Skin/Soft Tissue InfectionNotes: (Same As: Vancocin) No Longer Active 04/26/2017 [facility] Vancomycin 1 ea, Route: IV, ONCALL, Dosing Weight 115.864, kg, Start date: 04/26/17 5:00:00 VIDEO TECHNICIAN, Duration: 5 day, Stop date: 05/01/17 4:59:00 VIDEO TECHNICIAN, ABX Indication: Skin/Soft Tissue Infection Inactive 04/26/2017 [facility] Sodium Chloride 0.9% IV 1,000 mL 1,000 mL, Rate: 100 ml/hr, Infuse over: 10 hr, Route: IV, Dosing Weight 115.864 kg, Total Volume: 1,000, Start date: 04/26/17 4:46:00 VIDEO TECHNICIAN, Stop date: 04/29/17 4:41:00 VIDEO TECHNICIAN, 2.31, m2 Inactive 04/26/2017 [facility] Metronidazole 500 mg, 100 mL, Route: IVPB, Drug form: INJ, ABXQ8H, Dosing Weight 115.864, kg, Priority: STAT, Start date: 04/26/17 4:45:00 VIDEO TECHNICIAN, Duration: 7 day, Stop date: 05/02/17 21:00:00 VIDEO TECHNICIAN, ABX Indication: Skin/ Soft Tissue InfectionNotes: (Same as: Flagyl) Avoid alcohol. Inactive 04/26/2017 [facility] Haloperidol 5 mg, 1 mL, Route: IVP, Drug form: INJ, Q8H, Dosing Weight 115.864, kg, PRN Agitation, Start date: 04/26/17 4:42:00 VIDEO TECHNICIAN, Duration: 30 day, Stop date: 05/26/17 4:41:00 CSTNotes: (Same as: Haldol) No Longer Active 04/26/2017 [facility] Sodium Chloride 0.9% IV 1,000 mL + M.V.I.-12 10 mL Daily + folic acid IV 1 mg Daily + thiamine IV 1 1,000 mL, Rate: 100 ml/hr, Infuse over: 10.1 hr, Route: IV, Dosing Weight 115.864 kg, Total Volume: 1,011.2, Start date: 04/26/17 4:42:00 VIDEO TECHNICIAN, Duration: 3 day, Stop date: 04/29/17 4:41:00 VIDEO TECHNICIAN, 2.31, m2 Inactive 04/26/2017 [facility] Lorazepam 2 mg, 1 mL, Route: IVP, Drug form: INJ, Q2H, Dosing Weight 115.864, kg, PRN Other -See Comment, CIWA Score 8 -14, Start date: 04/26/17 4:42:00 VIDEO TECHNICIAN, Duration: 30 day, Stop date: 05/26/17 4:41:00 CSTNotes: (Same as: Ativan) No Longer Active 04/26/2017 [facility] Saline Flush 0.9% 10 ml, Route: IVP, Drug Form: INJ, Dosing Weight 115.864, kg, PRN, PRN Line Flush, Start date: 04/26/17 4:40:00 VIDEO TECHNICIAN, Duration: 30 day, Stop date: 05/26/17 4:39:00 CSTNotes: (Same as: BD Posiflush) No Longer Active 04/26/2017 [facility] Ondansetron 4 mg, 2 mL, Route: IVP, Drug form: INJ, Q8H, Dosing Weight 115.864, kg, PRN Nausea & Vomiting, Start date: 04/26/17 4:40:00 VIDEO TECHNICIAN, Duration: 30 day, Stop date: 05/26/17 4:39:00 CSTNotes: (Same as: Zofran) MEDICATION WASTE Product Size: 4 mg Product Wasted: ___ mg No Longer Active 04/26/2017 [facility] Acetaminophen 650 mg, 2 tab, Route: PO, Drug form: TAB, Q4H, Dosing Weight 115.864, kg, PRN For Temp > 100.4 F, Start date: 04/26/17 4:40:00 VIDEO TECHNICIAN, Duration: 30 day, Stop date: 05/26/17 4:39:00 CSTNotes: Do not exce ed 4 gm/day. (Same as: Tylenol) No Longer Active 04/26/2017 [facility] Lorazepam 2 mg, 1 mL, Route: IV, Drug form: INJ, PRN, Dosing Weight 115.864, kg, PRN Agitation, Start date: 04/26/17 0:10:00 VIDEO TECHNICIAN, Duration: 30 day, Stop date: 05/26/17 0:09:00 CSTNotes: (Same as: Ativan) Inactive 04/26/2017 [facility] Sodium Chloride 3% (Hypertonic) IV 50 mL 50 mL, Rate: 250 ml/hr, Infuse over: 0.2 hr, Route: IV, Dosing Weight 113.636 kg, Total Volume: 50 mL, Start date: 04/25/17 21:43:00 VIDEO TECHNICIAN, Duration: 1 doses or times, Stop date: 04/25/17 21:54:00 VIDEO TECHNICIAN, 2.29, [id number]: "Administer by central venous catheter or a peripherally inserted central catheter (PICC) line. 3% Sodium Chloride may be infused via peripheral administration into large vein (antecubital) only in the case of emergency for short term use until a central line can be inserted" (Same as: Hypertonic Saline 3%) concentration=0.513 mEq/mL Inactive 04/26/2017 [facility] Calcium Gluconate 1,000 mg, 10 mL, Route: IVPB, ONCE, Dosing Weight 113.636, kg, Start date: 04/25/17 21:21:00 VIDEO TECHNICIAN, Stop date: 04/25/17 21:21:00 CSTNotes: WASTE: F/P - Sink; E - Municipal Trash Bin No Longer Active 04/26/2017 [facility] Sodium Chloride 3% (Hypertonic) IV 180 mL 180 mL, Rate: 20 ml/hr, Infuse over: 9 hr, Route: IV, Dosing Weight 113.636 kg, Total Volume: 180 mL, Start date: 04/25/17 20:40:00 VIDEO TECHNICIAN, Stop date: 04/26/17 5:39:00 VIDEO TECHNICIAN, 2.29, [id number]: "Administer by central venous catheter or a peripherally inserted central catheter (PICC) line. 3% Sodium Chloride may be infused via peripheral administration into large vein (antecubital) only in the case of emergency for short term use until a central line can be inserted" (Same as: Hypertonic Saline 3%) concentration=0.513 mEq/mL No Longer Active 04/26/2017 [facility] Sodium Chloride 3% (Hypertonic) IV 50 mL 50 mL, Rate: 250 ml/hr, Infuse over: 0.2 hr, Route: IV Central, Dosing Weight 113.636 kg, Total Volume: 50 mL, Start date: 04/25/17 20:39:00 VIDEO TECHNICIAN, Duration: 1 doses or times, Stop date: 04/25/17 20:50:00 VIDEO TECHNICIAN, 2.29, [id number]: "Administer by central venous catheter or a peripherally inserted central catheter (PICC) line. 3% Sodium Chloride may be infused via peripheral administration into large vein (antecubital) only in the case of emergency for short term use until a central line can be inserted" (Same as: Hypertonic Saline 3%) concentration=0.513 mEq/mL Inactive 04/26/2017 [facility] Flagyl 500 mg, 100 mL, Route: IVPB, Drug form: INJ, ONCE, Dosing Weight 113.636, kg, Priority: STAT, Start date: 04/25/17 20:25:00 VIDEO TECHNICIAN, Stop date: 04/25/17 20:25:00 VIDEO TECHNICIAN, ABX Indication: Skin/Soft Tissue Inf ectionNotes: (Same as: Flagyl) Avoid alcohol. Inactive 04/26/2017 [facility] Thiamine 100 mg, Route: PO, Drug form: TAB, ONCE, Dosing Weight 113.636, kg, Priority: STAT, Start date: 04/25/17 19:36:00 VIDEO TECHNICIAN, Stop date: 04/25/17 19:36:00 VIDEO TECHNICIAN Inactive 04/26/2017 [facility] Folic Acid 1 mg, Route: PO, ONCE, Dosing Weight 113.636, kg, Start date: 04/25/17 19:36:00 VIDEO TECHNICIAN, Stop date: 04/25/17 19:36:00 VIDEO TECHNICIAN Inactive 04/26/2017 [facility] Vancomycin 2,000 mg, 500 mL, Route: IVPB, Drug form: SOLN, ONCE, Dosing Weight 113.636, kg, Priority: STAT, Start date: 04/25/17 18:53:00 VIDEO TECHNICIAN, Stop date: 04/25/17 18:53:00 VIDEO TECHNICIAN, ABX Indication: Skin/Soft Tissue Inf ectionNotes: TIME CRITICAL MEDICATION Same as: Vancocin Infusion rate 2001 mg: infuse over 2.5 hours Inactive 04/26/2017 [facility] Saline Flush 0.9% 10 mL, Route: IVP, Drug Form: INJ, Dosing Weight 113.636, kg, PRN, PRN Line Flush, Start date: 04/25/17 17:58:00 VIDEO TECHNICIAN, Duration: 30 day, Stop date: 05/25/17 17:57:00 CSTNotes: (Same as: BD Posiflush) No Longer Active 04/25/2017 [facility] Sodium Chloride 0.9% (Bolus) IV 1,000 mL, 1,000 ml/hr, Infuse Over: 1 hr, Route: IV, 1,000, Drug form: INJ, ONCE, Priority: STAT, Dosing Weight 113.636 kg, Start date: 04/25/17 17:58:00 VIDEO TECHNICIAN, Stop date: 04/25/17 17:58:00 VIDEO TECHNICIAN Inactive 04/25/2017 [facility] tramadol hydrochloride 50 MG Oral Tablet [Ultram] 50 mg=1 tab, PO, Q6H, PRN pain, X 3 day, # 12 tab, 0 Refill(s) Active 02/15/2015 [facility] Acetaminophen 325 MG / Hydrocodone Bitartrate 5 MG Oral Tablet [[place] 5/325] 1 tab, Route: PO, Dosing Weight 113.636, kg, ONCE, Start date: 02/15/15 13:28:00, Stop date: 02/15/15 13:28:00 Inactive 02/15/2015 [facility] Sodium Chloride 0.154 MEQ/ML Injectable Solution 1,000 mL, 1,000 ml/hr, Infuse Over: 1 hr, Route: IV, ONCE, Priority: STAT, Dosing Weight 113.636 kg, Start date: 02/15/15 13:12:00, Duration: 1 doses or times, Stop date: 02/15/15 13:12:00 Inactive 02/15/2015 [facility] Morphine 6 mg, Route: IVP, Drug form: INJ, ONCE, Dosing Weight 113.636, kg, Priority: STAT, Start date: 02/15/15 9:51:00, Stop date: 02/15/15 9:51:00 Inactive 02/15/2015 [facility] Omnipaque 240 50 mL, Route: PO, Drug Form: SOLN, Dosing Weight 113.636, kg, ONCE, Start date: 02/15/15 9:39:00, Stop date: 02/15/15 9:39:00Notes: (Same as:Omnipaque 240) 12,000mg/50ml Inactive 02/15/2015 [facility] Allergies, Adverse Reactions, Alerts Substance Category Reaction Severity Reaction type Status Date Reported Comments Source clindamycin Assertion Drug allergy Active [facility] Immunizations Immunization Date Given Site Status Last Updated Comments Source pneumococcal 23-valent vaccine 05/16/2018 Not Given [facility] Results Order Name Results Value Reference Range Date Interpretation Comments Source DRUG SCREEN UDS Note See Note *NA* (09/15/18 12:57 AM) 09/15/2018 [facility] DRUG SCREEN U Cannab Scr Negative *NA* (09/15/18 12:57 AM) Negative 09/15/2018 [facility] DRUG SCREEN U Cocaine Scr Negative *NA* (09/15/18 12:57 AM) Negative 09/15/2018 [facility] DRUG SCREEN U Benzodiaz Scr Negative *NA* (09/15/18 12:57 AM) Negative 09/15/2018 [facility] DRUG SCREEN U Susie Scr Negative *NA* (09/15/18 12:57 AM) Negative 09/15/2018 [facility] DRUG SCREEN U Amph Scr Negative *NA* (09/15/18 12:57 AM) Negative 09/15/2018 [facility] DRUG SCREEN U Phencyclidine Scr Negative *NA* (09/15/18 12:57 AM) Negative 09/15/2018 [facility] DRUG SCREEN U Opiate Scr Negative *NA* (09/15/18 12:57 AM) Negative 09/15/2018 [facility] URINE AND STOOL UA Sq Epi None Seen 09/15/2018 [facility] URINE AND STOOL UA Spec Grav 1.015 <=1.030 09/15/2018 [facility] URINE AND STOOL UA Ketones Negative mg/dL Negative mg/dL 09/15/2018 [facility] URINE AND STOOL UA Glucose Negative mg/dL Negative mg/dL 09/15/2018 [facility] URINE AND STOOL UA Protein Negative mg/dL Negative mg/dL 09/15/2018 [facility] URINE AND STOOL UA pH 5.0 5.0 - 8.0 09/15/2018 [facility] URINE AND STOOL UA Mucus Few /LPF None Seen /LPF 09/15/2018 [facility] URINE AND STOOL UA Bacteria Occasional /HPF None Seen /HPF 09/15/2018 [facility] URINE AND STOOL UA RBC 2 /HPF 0 - 2 09/15/2018 [facility] URINE AND STOOL UA WBC 1 /HPF 0 - 5 09/15/2018 [facility] URINE AND STOOL UA Blood Negative (09/15/18 12:57 AM) Negative 09/15/2018 [facility] URINE AND STOOL UA Nitrite Negative (09/15/18 12:57 AM) Negative 09/15/2018 [facility] URINE AND STOOL UA Bili Negative *NA* (09/15/18 12:57 AM) Negative 09/15/2018 [facility] URINE AND STOOL UA Leuk Est Negative (09/15/18 12:57 AM) Negative 09/15/2018 [facility] URINE AND STOOL UA Urobilinogen <=1.0 mg/dL 0.1 - 1.0 09/15/2018 [facility] URINE AND STOOL UA Color Yellow *NA* (09/15/18 12:57 AM) Yellow 09/15/2018 [facility] URINE AND STOOL UA Turbidity Clear (09/15/18 12:57 AM) Clear 09/15/2018 [facility] CARDIAC ENZYMES Troponin-I null 0.00 - 0.40 09/15/2018 [facility] CARDIAC ENZYMES BNP 27 pg/mL <=100 pg/mL 09/15/2018 [facility] CHEM PANEL Lipase Lvl 118 unit/L 73 - 393 09/15/2018 [facility] CHEM PANEL Calcium Lvl 9.0 mg/dL 8.5 - 10.5 09/15/2018 [facility] CHEM PANEL Total Protein 6.9 g/dL 6.4 - 8.4 09/15/2018 [facility] CHEM PANEL Alk Phos 87 unit/L 39 - 136 09/15/2018 [facility] CHEM PANEL Potassium Lvl 3.5 meq/L 3.5 - 5.1 09/15/2018 [facility] CHEM PANEL Albumin Lvl 3.1 g/dL 3.5 - 5.0 09/15/2018 [facility] CHEM PANEL Glucose Lvl 110 mg/dL 70 - 99 09/15/2018 [facility] CHEM PANEL Chloride Lvl 97 meq/L 95 - 109 09/15/2018 [facility] CHEM PANEL CO2 25 meq/L 24 - 32 09/15/2018 [facility] CHEM PANEL BUN 9 mg/dL 7 - 22 09/15/2018 [facility] CHEM PANEL Sodium Lvl 134 meq/L 135 - 145 09/15/2018 [facility] CHEM PANEL Creatinine Lvl 0.59 mg/dL 0.50 - 1.40 09/15/2018 [facility] CHEM PANEL eGFR 113 mL/min/1.73m2 09/15/2018 Result Comment: The eGFR is calculated using the [...] from the National Kidney Disease Education Program (NKDEP) which additionally recommends that when the eGFR is used in patients with extremes of body mass index for purposes of drug dosing, the eGFR should be multiplied by the estimated BMI. [facility] CHEM PANEL Bili Total 0.7 mg/dL 0.2 - 1.3 09/15/2018 [facility] CHEM PANEL ALT 25 unit/L 0 - 65 09/15/2018 [facility] CHEM PANEL AST 17 unit/L 0 - 37 09/15/2018 [facility] CHEM PANEL B/C Ratio 15 6 - 25 09/15/2018 [facility] CHEM PANEL AGAP 15.5 meq/L 10.0 - 20.0 09/15/2018 [facility] CHEM PANEL Globulin 3.8 g/dL 2.7 - 4.2 09/15/2018 [facility] CHEM PANEL A/G Ratio 0.8 0.7 - 1.6 09/15/2018 [facility] HEMATOLOGY Segs 78.1 % 45.0 - 75.0 09/15/2018 Result Comment: diff count reviewed manually, mfb09/15/2018 01:50 [facility] HEMATOLOGY RBC Morph Normal (09/15/18 12:08 AM) Normal 09/15/2018 [facility] Plt Morph Normal (09/15/18 12:08 AM) Normal 09/15/2018 [facility] Monocytes 11.5 % 2.0 - 12.0 09/15/2018 [facility] Eosinophils 1.6 % 0.0 - 4.0 09/15/2018 [facility] Lymphocytes 8.4 % 20.0 - 40.0 09/15/2018 [facility] Basophils # 0.1 K/CMM 0.0 - 0.2 09/15/2018 [facility] Basophils 0.4 % 0.0 - 1.0 09/15/2018 [facility] Neutrophils # 12.1 K/CMM 1.5 - 8.1 09/15/2018 [facility] Monocytes # 1.8 K/CMM 0.0 - 0.8 09/15/2018 [facility] Eosinophils # 0.3 K/CMM 0.0 - 0.5 09/15/2018 [facility] Lymphocytes # 1.3 K/CMM 1.0 - 5.5 09/15/2018 [facility] Hct 30.6 % 42.0 - 54.0 09/15/2018 [facility] Hgb 10.0 g/dL 14.0 - 18.0 09/15/2018 [facility] RBC 3.79 M/CMM 4.70 - 6.10 09/15/2018 [facility] WBC 15.5 K/CMM 3.7 - 10.4 09/15/2018 [facility] MPV 6.9 fL 7.4 - 10.4 09/15/2018 [facility] Platelet 254 K/CMM 133 - 450 09/15/2018 [facility] MCH 26.3 pg 27.0 - 31.0 09/15/2018 [facility] MCV 80.8 fL 80.0 - 94.0 09/15/2018 [facility] MCHC 32.6 g/dL 32.0 - 36.0 09/15/2018 [facility] RDW 17.1 % 11.5 - 14.5 09/15/2018 [facility] TOXICOLOGY Acetaminoph Lvl <2
(09/15/18 12:08 AM) 10 - 20 09/15/2018 [facility] TOXICOLOGY Ethanol Lvl null 09/15/2018 [facility] TOXICOLOGY Etoh (%) null 09/15/2018 [facility] TOXICOLOGY Salicylate Lvl null 0.0 - 30.0 09/15/2018 [facility] Chest 1view DX Chest 1view DX EXAM: XR CHEST 1 VIEW DATE: 09/15/2018 0:02 CDT INDICATION: Shortness of breath. COMPARISON: 05/14/2018. TECHNIQUE: Frontal radiograph of the chest was obtained. FINDINGS: Linear opacities are redemonstrated within the left lung base, somewhat more prominent than prior examination. The cardiac silhouette is enlarged. The costophrenic recesses are sharp and without effusion. No acute osseous abnormality is noted. IMPRESSION: 1. Linear opacities within the left lung base appear somewhat more prominent than prior exam, representing atelectasis or developing pneumonia. 2. Enlargement of the cardiac silhouette. SL: [id number] 09/15/2018 - - Read by: Gil Corey MD Dictated Date/time: 09/15/18 00:12 Electronically Signed by: Gil Corey MD 09/15/18 00:14 FINAL REPORT [facility] Retroperitoneal Complete US Retroperitoneal Complete US STUDY: Retroperitoneal Complete US 05/14/2018 3:05 PM VIDEO TECHNICIAN Ordering Physician: Shannon Baker MD Patient Name: NICKI HELM MR: [id number] : 1960; Age: 58 years y/o Male Clinical Indication: Abnormal renal function. Renal failure. Comparison: None TECHNIQUE: Multiple longitudinal and transverse real time sonographic images of the kidneys and urinary bladder are obtained. FINDINGS: KIDNEYS: 1. The bilateral renal size, shape, and echotexture are normal. The corticomedullary junction differentiation is maintained. 2. No evidence of nephrolithiasis, hydronephrosis, mass lesion, or perinephric fluid collection. 3. Small simple cyst measuring 1.3 cm right superior pole. Right kidney: 11.2 x 5.7 x 5.2 cm. Left kidney: 11.3 x 6.3 x 5.8 cm. BLADDER: 1. Well distended containing anechoic urine without wall thickening or focal lesion. 2. Neither ureteral jet is visualized. ABDOMINAL AORTA: The visualized portions are normal. IVC: The visualized portions are normal. PROXIMAL COMMON ILIAC ARTERIES: Nonvisualized secondary to artifact from body habitus and overlying bowel gas. Other: None. IMPRESSION: 1. Small simple right renal cyst. SL: TPAALCIDES 05/14/2018 - - Read by: Aubrey Anders MD Dictated Date/time: 05/14/18 17:12 Electronically Signed by: Aubrey Anders MD 05/14/18 17:13 FINAL REPORT [facility] 1view DX Chest 1view DX Clinical Indication: - weakness. Comparison: 03/24/2018. FINDINGS: AP 1 view chest radiograph was performed. LUNGS: Small lung volumes with mild accentuation of the pulmonary vascularity. Minimal left basilar atelectasis is seen. There are no confluent airspace opacities in the lungs. No pleural effusions or pneumothorax. HEART AND MEDIASTINUM: The heart size is normal. There is a mildly tortuous thoracic aorta. The trachea is midline. OSSEOUS STRUCTURES: No acute abnormality seen. IMPRESSION: 1. Small lung volumes with mild accentuation of the pulmonary vascularity. Minimal left basilar atelectasis. SL: [id number] 05/14/2018 - - Read by: Yuval Whittaker MD Dictated Date/time: 05/14/18 10:41 Electronically Signed by: Yuval Whittaker MD 05/14/18 10:41 FINAL REPORT [facility] DX Chest [facility] DX Clinical Indication: Chest pain - edema Comparison: September 26, 2017 FINDINGS: The frontal chest radiograph shows normal lung volumes without interstitial or airspace opacities, pleural effusions or pneumothorax. The cardiomediastinal contours are normal for the age of the patient with aortic tortuosity. There are degenerative changes in the spine. IMPRESSION: No chest radiographic evidence of acute cardiopulmonary disease. SL: [id number] 03/24/2018 - - Read by: Suraj Perdomo MD Dictated Date/time: 03/24/18 03:05 Electronically Signed by: Suraj Perdomo MD 03/24/18 03:06 FINAL REPORT [facility] ED Abdomen/Pelvis IV contrast only CT ED Abdomen/Pelvis IV contrast only CT CT SCAN OF THE ABDOMEN AND PELVIS WITH CONTRAST. HX: Clinical Indication: - abdominal pain; hypertension. COPD.. Comparison: None Technique: Helical CT images were obtained from the domes the diaphragms to the symphysis pubis following the administration of intravenous contrast. No p.o. contrast was given. Total DLP: 1222.77. Limited study due to patient's body habitus. ABDOMEN AND PELVIS: Mild lingula and right basilar atelectasis. Borderline mild cardiomegaly. No pericardial effusion. Grossly normal gallbladder. Cirrhosis. The spleen, pancreas, and right adrenal are normal in appearance. Nodular thickening of the left adrenal gland. The kidneys show good, symmetrical enhancement without hydronephrosis. Abundance of stool within the colon. Mild sigmoid descending diverticulosis. Grossly normal appendix. Moderate fat-containing ventral and small periumbilical hernias are present. The bladder is nondistended. Small fat-containing left inguinal hernia is present. IMPRESSION: 1. No acute abdominal or pelvic process detected. 2. Cirrhosis. 3. Mild sigmoid descending diverticulosis. Constipation. 4. Moderate fat-containing ventral and small periumbilical hernias are present. Small fat-containing left inguinal hernia is present. SL: [id number] 09/27/2017 - - Read by: Alan Napoles MD Dictated Date/time: 09/27/17 03:00 Electronically Signed by: Alan Napoles MD 09/27/17 03:05 FINAL REPORT [facility] CARDIAC ENZYMES Troponin-I null 0.00 - 0.40 09/27/2017 [facility] CARDIAC ENZYMES CK MB null 0.5 - 3.6 09/27/2017 [facility] CARDIAC ENZYMES Total CK 148 unit/L 12 - 191 09/27/2017 [facility] CARDIAC ENZYMES CK MB Index null 0.0 - 2.5 09/27/2017 [facility] CHEM PANEL eGFR 104 mL/min/1.73m2 09/27/2017 Result Comment: The eGFR is calculated using the [...] from the National Kidney Disease Education Program (NKDEP) which additionally recommends that when the eGFR is used in patients with extremes of body mass index for purposes of drug dosing, the eGFR should be multiplied by the estimated BMI. [facility] CHEM PANEL CO2 31 meq/L 24 - 32 09/27/2017 [facility] CHEM PANEL Chloride Lvl 97 meq/L 95 - 109 09/27/2017 [facility] CHEM PANEL Potassium Lvl 3.6 meq/L 3.5 - 5.1 09/27/2017 [facility] CHEM PANEL Sodium Lvl 135 meq/L 135 - 145 09/27/2017 [facility] CHEM PANEL Calcium Lvl 9.5 mg/dL 8.5 - 10.5 09/27/2017 [facility] CHEM PANEL Alk Phos 75 unit/L 39 - 136 09/27/2017 [facility] CHEM PANEL AST 21 unit/L 0 - 37 09/27/2017 [facility] CHEM PANEL ALT 24 unit/L 0 - 65 09/27/2017 [facility] CHEM PANEL Albumin Lvl 4.2 g/dL 3.5 - 5.0 09/27/2017 [facility] CHEM PANEL Total Protein 7.8 g/dL 6.4 - 8.4 09/27/2017 [facility] CHEM PANEL Globulin 3.6 g/dL 2.7 - 4.2 09/27/2017 [facility] CHEM PANEL B/C Ratio 23 6 - 25 09/27/2017 [facility] CHEM PANEL AGAP 10.6 meq/L 10.0 - 20.0 09/27/2017 [facility] CHEM PANEL Bili Total 0.3 mg/dL 0.2 - 1.3 09/27/2017 [facility] CHEM PANEL A/G Ratio 1.2 0.7 - 1.6 09/27/2017 [facility] CHEM PANEL Glucose Lvl 96 mg/dL 70 - 99 09/27/2017 [facility] CHEM PANEL Creatinine Lvl 0.74 mg/dL 0.50 - 1.40 09/27/2017 [facility] CHEM PANEL BUN 17 mg/dL 7 - 22 09/27/2017 [facility] HEMATOLOGY INR 1.38 0.85 - 1.17 09/27/2017 [facility] HEMATOLOGY PT 17.0 s 12.0 - 14.7 09/27/2017 [facility] HEMATOLOGY PTT 40.0 s 22.9 - 35.8 09/27/2017 [facility] HEMATOLOGY MCV 87.3 fL 80.0 - 94.0 09/27/2017 [facility] HEMATOLOGY WBC 13.0 K/CMM 3.7 - 10.4 09/27/2017 [facility] HEMATOLOGY Hct 38.4 % 42.0 - 54.0 09/27/2017 [facility] HEMATOLOGY RBC 4.40 M/CMM 4.70 - 6.10 09/27/2017 [facility] Hgb 13.0 g/dL 14.0 - 18.0 09/27/2017 [facility] MCH 29.7 pg 27.0 - 31.0 09/27/2017 [facility] MCHC 33.9 g/dL 32.0 - 36.0 09/27/2017 [facility] Platelet 218 K/CMM 133 - 450 09/27/2017 [facility] MPV 7.7 fL 7.4 - 10.4 09/27/2017 [facility] RDW 14.1 % 11.5 - 14.5 09/27/2017 [facility] Segs-Bands # 8.5 K/CMM 1.5 - 8.1 09/27/2017 [facility] Monocytes # 1.4 K/CMM 0.0 - 0.8 09/27/2017 [facility] Lymphocytes # 2.2 K/CMM 1.0 - 5.5 09/27/2017 [facility] Eosinophils # 0.8 K/CMM 0.0 - 0.5 09/27/2017 [facility] Basophils # 0.1 K/CMM 0.0 - 0.2 09/27/2017 [facility] RBC Morph Normal (09/26/17 9:25 PM) 09/27/2017 [facility] Eosinophils 6.3 % 0.0 - 4.0 09/27/2017 [facility] Basophils 0.8 % 0.0 - 1.0 09/27/2017 [facility] Monocytes 11.0 % 2.0 - 12.0 09/27/2017 [facility] Plt Morph Normal (09/26/17 9:25 PM) 09/27/2017 [facility] Segs 65.0 % 45.0 - 75.0 09/27/2017 [facility] Lymphocytes 16.9 % 20.0 - 40.0 09/27/2017 [facility] Ext Lower Venous Doppler Bilat US Ext Lower Venous Doppler Bilat US Clinical Indication: - lower extremity pain and swelling; Comparison: None TECHNIQUE: Sonographic evaluation of the bilateral lower extremity veins was performed using high resolution B-mode imaging, along with pulse and color Doppler imaging. FINDINGS: Right lower extremity: No sonographic evidence for DVT within the common femoral vein, femoral vein, popliteal vein and visualized posterior tibial/calf veins. The veins are compressible with normal color flow and augmentation demonstrated on Doppler spectral analysis. The saphenofemoral junction is unremarkable. Left lower extremity: No sonographic evidence for DVT within the common femoral vein, femoral vein, popliteal vein and visualized posterior tibial/calf veins. The veins are compressible with normal color flow and augmentation demonstrated on Doppler spectral analysis. The saphenofemoral junction is unremarkable. REFERENCE: DEEP VEINS: Common femoral vein, femoral vein (also referred to as "superficial femoral vein"), popliteal vein, deep calf veins include posterior tibial and peroneal SUPERFICIAL VEINS: Greater saphenous vein, lesser saphenous vein IMPRESSION: 1. No DVT 09/27/2017 - - Read by: Reggie Girard MD Dictated Date/time: 09/27/17 02:02 Electronically Signed by: Reggie Girard MD 09/27/17 02:02 FINAL REPORT [facility] Chest 1view DX Chest 1view DX EXAM: XR CHEST 1 VIEW DATE: 09/26/2017 9:12 PM CDT INDICATION: Chest pain. COMPARISON: 04/29/2017. TECHNIQUE: A single AP view of the chest was obtained. FINDINGS: No focal consolidation or pneumothorax is identified. The cardiomediastinal silhouette is within normal limits. The costophrenic recesses are sharp and without effusion. No acute osseous abnormality is noted. IMPRESSION: No acute cardiopulmonary abnormality. SL: [id number] 09/26/2017 - - Read by: Gil Corey MD Dictated Date/time: 09/26/17 21:40 Electronically Signed by: Gil Corey MD 09/26/17 21:44 FINAL REPORT [facility] ELECTROLYTES AGAP 12.1 meq/L 10.0 - 20.0 05/10/2017 [facility] ELECTROLYTES eGFR 48 mL/min/1.73m2 05/10/2017 Result Comment: The eGFR is calculated using the [...] from the National Kidney Disease Education Program (NKDEP) which additionally recommends that when the eGFR is used in patients with extremes of body mass index for purposes of drug dosing, the eGFR should be multiplied by the estimated BMI. [facility] ELECTROLYTES Calcium Lvl 9.6 mg/dL 8.5 - 10.5 05/10/2017 [facility] ELECTROLYTES Glucose Lvl 102 mg/dL 70 - 99 05/10/2017 [facility] ELECTROLYTES BUN 32 mg/dL 7 - 22 05/10/2017 [facility] ELECTROLYTES CO2 26 meq/L 24 - 32 05/10/2017 [facility] ELECTROLYTES Potassium Lvl 4.1 meq/L 3.5 - 5.1 05/10/2017 [facility] ELECTROLYTES Chloride Lvl 106 meq/L 95 - 109 05/10/2017 [facility] ELECTROLYTES Creatinine Lvl 1.59 mg/dL 0.50 - 1.40 05/10/2017 [facility] ELECTROLYTES Sodium Lvl 140 meq/L 135 - 145 05/10/2017 [facility] RDW 15.9 % 11.5 - 14.5 05/10/2017 [facility] Platelet 402 K/CMM 133 - 450 05/10/2017 [facility] MPV 6.6 fL 7.4 - 10.4 05/10/2017 [facility] MCV 88.6 fL 80.0 - 94.0 05/10/2017 [facility] MCH 29.3 pg 27.0 - 31.0 05/10/2017 [facility] MCHC 33.1 g/dL 32.0 - 36.0 05/10/2017 [facility] RBC 3.59 M/CMM 4.70 - 6.10 05/10/2017 [facility] Hgb 10.5 g/dL 14.0 - 18.0 05/10/2017 [facility] Hct 31.8 % 42.0 - 54.0 05/10/2017 [facility] WBC 9.3 K/CMM 3.7 - 10.4 05/10/2017 [facility] Monocytes # 0.7 K/CMM 0.0 - 0.8 05/10/2017 [facility] HEMATOLOGY Eosinophils # 0.3 K/CMM 0.0 - 0.5 05/10/2017 [facility] Basophils # 0.1 K/CMM 0.0 - 0.2 05/10/2017 [facility] Segs-Bands # 6.5 K/CMM 1.5 - 8.1 05/10/2017 [facility] HEMATOLOGY Lymphocytes # 1.7 K/CMM 1.0 - 5.5 05/10/2017 [facility] HEMATOLOGY Basophils 0.9 % 0.0 - 1.0 05/10/2017 [facility] HEMATOLOGY Lymphocytes 17.8 % 20.0 - 40.0 05/10/2017 [facility] HEMATOLOGY Segs 70.3 % 45.0 - 75.0 05/10/2017 [facility] HEMATOLOGY Monocytes 8.0 % 2.0 - 12.0 05/10/2017 [facility] HEMATOLOGY Eosinophils 3.0 % 0.0 - 4.0 05/10/2017 [facility] URINE CHEM U Sodium 59 meq/L 05/10/2017 [facility] URINE CHEM U Osmolality 373 mOsm/kg 300 - 800 05/10/2017 [facility] URINE CHEM U Creatinine 54.20 mg/dL 05/10/2017 [facility] URINE CHEM U Chloride 65 meq/L 05/10/2017 [facility] URINE AND STOOL UA Urobilinogen <=1.0 mg/dL 0.1 - 1.0 05/09/2017 [facility] URINE AND STOOL UA Sq Epi None Seen 05/09/2017 [facility] URINE AND STOOL UA Blood Negative (05/09/17 4:57 AM) Negative 05/09/2017 [facility] URINE AND STOOL UA Leuk Est Negative (05/09/17 4:57 AM) Negative 05/09/2017 [facility] URINE AND STOOL UA Nitrite Negative (05/09/17 4:57 AM) Negative 05/09/2017 [facility] URINE AND STOOL UA Protein Negative mg/dL Negative mg/dL 05/09/2017 [facility] URINE AND STOOL UA Glucose Negative mg/dL Negative mg/dL 05/09/2017 [facility] URINE AND STOOL UA Bili Negative *NA* (05/09/17 4:57 AM) Negative 05/09/2017 [facility] URINE AND STOOL UA Ketones Negative mg/dL Negative mg/dL 05/09/2017 [facility] URINE AND STOOL UA Spec Grav 1.011 <=1.030 05/09/2017 [facility] URINE AND STOOL UA pH 5.0 5.0 - 8.0 05/09/2017 [facility] URINE AND STOOL UA Turbidity Clear (05/09/17 4:57 AM) Clear 05/09/2017 [facility] URINE AND STOOL UA Color Light Yellow *NA* (05/09/17 4:57 AM) Yellow 05/09/2017 [facility] URINE AND STOOL UA Mucus Few /LPF None Seen /LPF 05/09/2017 [facility] URINE AND STOOL UA RBC 1 /HPF 0 - 2 05/09/2017 [facility] URINE AND STOOL UA WBC 4 /HPF 0 - 5 05/09/2017 [facility] URINE AND STOOL UA Bacteria Occasional /HPF None Seen /HPF 05/09/2017 [facility] URINE CHEM U Protein 12.5 mg/dL 05/09/2017 [facility] URINE CHEM U Sodium 64 meq/L 05/09/2017 [facility] URINE CHEM U Creatinine 52.50 mg/dL 05/09/2017 [facility] URINE CHEM U Chloride 67 meq/L 05/09/2017 [facility] URINE CHEM U Osmolality 366 mOsm/kg 300 - 800 05/09/2017 [facility] CHEM PANEL Ammonia 36.0 umol/L <=45.0 uMol/L 05/08/2017 [facility] CHEM PANEL eGFR 47 mL/min/1.73m2 05/08/2017 Result Comment: The eGFR is calculated using the [...] from the National Kidney Disease Education Program (NKDEP) which additionally recommends that when the eGFR is used in patients with extremes of body mass index for purposes of drug dosing, the eGFR should be multiplied by the estimated BMI. [facility] CHEM PANEL Chloride Lvl 106 meq/L 95 - 109 05/08/2017 [facility] CHEM PANEL CO2 23 meq/L 24 - 32 05/08/2017 [facility] CHEM PANEL Bili Total 0.5 mg/dL 0.2 - 1.3 05/08/2017 [facility] CHEM PANEL B/C Ratio 18 6 - 25 05/08/2017 [facility] CHEM PANEL AGAP 15.3 meq/L 10.0 - 20.0 05/08/2017 [facility] CHEM PANEL Globulin 4.0 g/dL 2.7 - 4.2 05/08/2017 [facility] CHEM PANEL A/G Ratio 0.8 0.7 - 1.6 05/08/2017 [facility] CHEM PANEL Albumin Lvl 3.3 g/dL 3.5 - 5.0 05/08/2017 [facility] CHEM PANEL Total Protein 7.3 g/dL 6.4 - 8.4 05/08/2017 [facility] CHEM PANEL Calcium Lvl 8.9 mg/dL 8.5 - 10.5 05/08/2017 [facility] CHEM PANEL ALT 52 unit/L 0 - 65 05/08/2017 [facility] CHEM PANEL AST 29 unit/L 0 - 37 05/08/2017 [facility] CHEM PANEL Alk Phos 101 unit/L 39 - 136 05/08/2017 [facility] CHEM PANEL Glucose Lvl 106 mg/dL 70 - 99 05/08/2017 [facility] CHEM PANEL Creatinine Lvl 1.63 mg/dL 0.50 - 1.40 05/08/2017 [facility] CHEM PANEL BUN 29 mg/dL 7 - 22 05/08/2017 [facility] CHEM PANEL Sodium Lvl 140 meq/L 135 - 145 05/08/2017 [facility] CHEM PANEL Potassium Lvl 4.3 meq/L 3.5 - 5.1 05/08/2017 [facility] CHEM PANEL Ammonia 22.0 umol/L <=45.0 uMol/L 05/07/2017 [facility] CHEM PANEL eGFR 45 mL/min/1.73m2 05/07/2017 Result Comment: The eGFR is calculated using the [...] from the National Kidney Disease Education Program (NKDEP) which additionally recommends that when the eGFR is used in patients with extremes of body mass index for purposes of drug dosing, the eGFR should be multiplied by the estimated BMI. [facility] CHEM PANEL Albumin Lvl 3.1 g/dL 3.5 - 5.0 05/07/2017 [facility] CHEM PANEL ALT 57 unit/L 0 - 65 05/07/2017 [facility] CHEM PANEL AST 37 unit/L 0 - 37 05/07/2017 [facility] CHEM PANEL Alk Phos 110 unit/L 39 - 136 05/07/2017 [facility] CHEM PANEL Calcium Lvl 9.3 mg/dL 8.5 - 10.5 05/07/2017 [facility] CHEM PANEL Total Protein 7.7 g/dL 6.4 - 8.4 05/07/2017 [facility] CHEM PANEL Chloride Lvl 108 meq/L 95 - 109 05/07/2017 [facility] CHEM PANEL CO2 22 meq/L 24 - 32 05/07/2017 [facility] CHEM PANEL Creatinine Lvl 1.68 mg/dL 0.50 - 1.40 05/07/2017 [facility] CHEM PANEL Sodium Lvl 137 meq/L 135 - 145 05/07/2017 [facility] CHEM PANEL Potassium Lvl 4.7 meq/L 3.5 - 5.1 05/07/2017 [facility] CHEM PANEL BUN 30 mg/dL 7 - 22 05/07/2017 [facility] CHEM PANEL Glucose Lvl 103 mg/dL 70 - 99 05/07/2017 [facility] CHEM PANEL A/G Ratio 0.7 0.7 - 1.6 05/07/2017 [facility] CHEM PANEL AGAP 11.7 meq/L 10.0 - 20.0 05/07/2017 [facility] CHEM PANEL Bili Total 0.5 mg/dL 0.2 - 1.3 05/07/2017 [facility] CHEM PANEL Globulin 4.6 g/dL 2.7 - 4.2 05/07/2017 [facility] CHEM PANEL B/C Ratio 18 6 - 25 05/07/2017 [facility] CHEM PANEL Bili Total 0.6 mg/dL 0.2 - 1.3 05/06/2017 [facility] CHEM PANEL Alk Phos 114 unit/L 39 - 136 05/06/2017 [facility] CHEM PANEL Total Protein 7.5 g/dL 6.4 - 8.4 05/06/2017 [facility] CHEM PANEL Albumin Lvl 3.1 g/dL 3.5 - 5.0 05/06/2017 [facility] CHEM PANEL AST 42 unit/L 0 - 37 05/06/2017 [facility] CHEM PANEL ALT 69 unit/L 0 - 65 05/06/2017 [facility] CHEM PANEL B/C Ratio 16 6 - 25 05/06/2017 [facility] CHEM PANEL Globulin 4.4 g/dL 2.7 - 4.2 05/06/2017 [facility] CHEM PANEL A/G Ratio 0.7 0.7 - 1.6 05/06/2017 [facility] HEMATOLOGY Eosinophils # 0.1 K/CMM 0.0 - 0.5 05/05/2017 [facility] HEMATOLOGY Basophils # 0.1 K/CMM 0.0 - 0.2 05/05/2017 [facility] HEMATOLOGY Monocytes # 0.8 K/CMM 0.0 - 0.8 05/05/2017 [facility] HEMATOLOGY Lymphocytes # 1.3 K/CMM 1.0 - 5.5 05/05/2017 [facility] HEMATOLOGY Basophils 0.6 % 0.0 - 1.0 05/05/2017 [facility] HEMATOLOGY Segs-Bands # 8.9 K/CMM 1.5 - 8.1 05/05/2017 [facility] HEMATOLOGY Monocytes 7.0 % 2.0 - 12.0 05/05/2017 [facility] HEMATOLOGY Eosinophils 1.0 % 0.0 - 4.0 05/05/2017 [facility] HEMATOLOGY Lymphocytes 11.2 % 20.0 - 40.0 05/05/2017 [facility] HEMATOLOGY Segs 80.2 % 45.0 - 75.0 05/05/2017 [facility] HEMATOLOGY Platelet 352 K/CMM 133 - 450 05/05/2017 [facility] MPV 6.3 fL 7.4 - 10.4 05/05/2017 [facility] MCHC 33.0 g/dL 32.0 - 36.0 05/05/2017 [facility] RDW 15.9 % 11.5 - 14.5 05/05/2017 [facility] MCV 88.6 fL 80.0 - 94.0 05/05/2017 [facility] MCH 29.2 pg 27.0 - 31.0 05/05/2017 [facility] HEMATOLOGY Hct 29.9 % 42.0 - 54.0 05/05/2017 [facility] RBC 3.37 M/CMM 4.70 - 6.10 05/05/2017 [facility] HEMATOLOGY Hgb 9.8 g/dL 14.0 - 18.0 05/05/2017 [facility] WBC 11.1 K/CMM 3.7 - 10.4 05/05/2017 [facility] CHEM PANEL Ammonia 46.0 umol/L <=45.0 uMol/L 05/04/2017 [facility] HEMATOLOGY Lymphocytes 14.3 % 20.0 - 40.0 05/04/2017 [facility] HEMATOLOGY Monocytes 9.2 % 2.0 - 12.0 05/04/2017 [facility] HEMATOLOGY Eosinophils 0.7 % 0.0 - 4.0 05/04/2017 [facility] HEMATOLOGY Segs 75.0 % 45.0 - 75.0 05/04/2017 [facility] HEMATOLOGY Lymphocytes # 1.5 K/CMM 1.0 - 5.5 05/04/2017 [facility] HEMATOLOGY Segs-Bands # 7.8 K/CMM 1.5 - 8.1 05/04/2017 [facility] HEMATOLOGY Basophils 0.8 % 0.0 - 1.0 05/04/2017 [facility] HEMATOLOGY Basophils # 0.1 K/CMM 0.0 - 0.2 05/04/2017 [facility] HEMATOLOGY Eosinophils # 0.1 K/CMM 0.0 - 0.5 05/04/2017 [facility] HEMATOLOGY Monocytes # 1.0 K/CMM 0.0 - 0.8 05/04/2017 [facility] HEMATOLOGY WBC 10.4 K/CMM 3.7 - 10.4 05/04/2017 [facility] HEMATOLOGY Hct 30.8 % 42.0 - 54.0 05/04/2017 [facility] HEMATOLOGY MPV 6.3 fL 7.4 - 10.4 05/04/2017 [facility] HEMATOLOGY MCHC 33.6 g/dL 32.0 - 36.0 05/04/2017 [facility] HEMATOLOGY RDW 16.1 % 11.5 - 14.5 05/04/2017 [facility] HEMATOLOGY MCV 87.8 fL 80.0 - 94.0 05/04/2017 [facility] MCH 29.5 pg 27.0 - 31.0 05/04/2017 [facility] HEMATOLOGY Platelet 343 K/CMM 133 - 450 05/04/2017 [facility] HEMATOLOGY RBC 3.51 M/CMM 4.70 - 6.10 05/04/2017 [facility] HEMATOLOGY Hgb 10.3 g/dL 14.0 - 18.0 05/04/2017 [facility] ANEMIA STUDY Ferritin Lvl 297 ng/mL 22 - 275 05/03/2017 [facility] ANEMIA STUDY TIBC 310 ug/dl 228 - 428 05/03/2017 [facility] ANEMIA STUDY Iron 93 ug/dl 45 - 160 05/03/2017 [facility] ANEMIA STUDY % S[place] Fe 30 % 12 - 57 05/03/2017 [facility] ANEMIA STUDY UIBC 217 ug/dl 110 - 370 05/03/2017 [facility] HEMATOLOGY PT 13.9 s 12.0 - 14.7 05/03/2017 [facility] INR 1.07 0.85 - 1.17 05/03/2017 [facility] Liver US Liver US Clinical Indication: - alcoholic with hyponatremia. suspect cirrhosis Comparison: None TECHNIQUE: Grayscale and limited color sonographic evaluation of the right upper quadrant of the abdomen was performed with standard technique. FINDINGS: LIVER: The visualized liver shows normal contour and morphology with hyperechoic parenchymal echotexture consistent with hepatic steatosis. Liver is enlarged measuring 22 cm in length. BILE DUCTS: The intrahepatic and extrahepatic bile ducts are not dilated with the common bile duct measuring 3.5 mm. GALLBLADDER: There are multiple shadowing gallstones within a mildly contracted gallbladder. No wall thickening or pericholecystic fluid is appreciated. PANCREAS: The visualized pancreas appears unremarkable. KIDNEY: The right kidney measures 12.7 cm in length. There is normal renal contour and morphology, with normal parenchymal echotexture. There is no hydronephrosis. AORTA AND INFERIOR VENA CAVA: Visualized portions appear unremarkable. ASCITES: There is no right upper quadrant abdominal ascites. IMPRESSION: 1. Cholelithiasis without evidence of acute cholecystitis. 2. Hepatomegaly and hepatic steatosis. SL: [id number] 05/02/2017 - - Read by: Taqueria Osborne DO Dictated Date/time: 05/02/17 11:22 Electronically Signed by: Taqueria Osborne DO 05/02/17 11:23 FINAL REPORT [facility] URINE CHEM U Sodium 22 meq/L 05/01/2017 [facility] URINE CHEM U Creatinine 43.10 mg/dL 05/01/2017 [facility] URINE CHEM U Chloride null 05/01/2017 [facility] HEMATOLOGY RBC Morph Normal (05/01/17 1:53 AM) 05/01/2017 [facility] HEMATOLOGY Plt Morph Normal (05/01/17 1:53 AM) 05/01/2017 [facility] TOXICOLOGY Vanco Lvl 14.4 ug/ml 05/01/2017 [facility] URINE CHEM U Osmolality 242 mOsm/kg 300 - 800 04/30/2017 [facility] TOXICOLOGY Vanco Lvl 17.1 ug/ml 04/30/2017 [facility] TOXICOLOGY Vanco Lvl 24.0 ug/ml 04/29/2017 [facility] Chest 1view DX Chest 1view DX Clinical Indication: Respiratory failure. Comparison: T and 13. FINDINGS: Portable AP chest radiograph was performed. LINES AND TUBES: Endotracheal tube and naso-gastric tube in place without change. Endotracheal tube tip is noted to be 1.5 cm above the level of the david. LUNGS: Unchanged small lung volumes. Decreased right basilar atelectasis is seen. Decreased left basilar atelectasis/interstitial opacities are seen. Unchanged tiny left pleural effusion is noted. No pneumothorax. HEART AND MEDIASTINUM: The heart size is normal. There is a mildly tortuous thoracic aorta. The trachea is midline. OSSEOUS STRUCTURES: No acute abnormality seen. IMPRESSION: 1. Endotracheal tube and nasogastric tube in place without change. 2. Unchanged small lung volumes. Decreased right basilar atelectasis. Decreased left basilar atelectasis/interstitial opacities. Unchanged tiny left pleural effusion. SL: [id number] 04/29/2017 - - Read by: Yuval Whittaker MD Dictated Date/time: 04/29/17 07:22 Electronically Signed by: Yuval Whittaker MD 04/29/17 07:23 FINAL REPORT [facility] CHEM PANEL Osmolality 258 mOsm/kg 280 - 300 04/28/2017 [facility] Chest 1view DX Chest 1view DX Clinical Indication: - ETT. Comparison: 04/27/2017. TECHNIQUE: AP 1 view chest radiograph was performed. FINDINGS: There is an endotracheal tube in place. Enteric tube is located approximately 2 cm from the david. There is an enteric tube, which courses below diaphragm, tip off the field of view. The heart is borderline in size. Aorta appears tortuous. Pulmonary vessels mildly prominent, suggesting mild vascular congestion. There is small left pleural effusion with blunting of the left costophrenic angle. There is left basilar atelectasis. No definitive focal airspace consolidation. No sizable pneumothorax. No definitive acute osseous abnormality. IMPRESSION: Stable appearance of the chest. No significant interval change. SL: [id number] 04/28/2017 - - Read by: Christ Condon MD Dictated Date/time: 04/28/17 08:19 Electronically Signed by: Christ Condon MD 04/28/17 08:21 FINAL REPORT [facility] TOXICOLOGY Vanco Tr 21.7 ug/ml 04/27/2017 [facility] TOXICOLOGY Vanco Tr TND see emar 04/27/2017 [facility] CHEM PANEL Bili Indirect 0.7 mg/dL 0.0 - 1.0 04/27/2017 [facility] CHEM PANEL Bili Direct 0.3 mg/dL 0.0 - 0.3 04/27/2017 [facility] ENDOCRINOLOGY Cortisol 30.4 ug/dl 04/27/2017 [facility] Chest 1view DX Chest 1view DX Clinical Indication: - ETT Comparison: Comparison is made to chest radiograph examination dated 04/26/2017. FINDINGS: Endotracheal tube in place with the distal tip approximately 1.5 cm above the david. Enteric tube identified coursing below the diaphragm. The cardiomediastinal silhouette is stable in appearance. The cardiac silhouette appears mildly enlarged. The thoracic aorta appears tortuous. There is mild central pulmonary venous congestion. No focal pulmonary consolidation, pneumothorax or pleural effusion. Midline trachea. IMPRESSION: 1. Endotracheal and enteric tubes in place as described above with mild cardiomegaly and mild central pulmonary venous congestion. No focal pulmonary consolidation. SL: [id number] 04/27/2017 - - Read by: Micheal Patrick MD Dictated Date/time: 04/27/17 08:18 Electronically Signed by: Micheal Patrick MD 04/27/17 08:20 FINAL REPORT [facility] URINE CHEM U Protein 55.4 mg/dL 04/26/2017 [facility] URINE CHEM U Prot/Creat 0.32 04/26/2017 [facility] CHEM PANEL Osmolality 227 mOsm/kg 280 - 300 04/26/2017 [facility] URINE AND STOOL Micro? Performed *NA* (04/26/17 6:16 AM) 04/26/2017 [facility] URINE AND STOOL UA Protein Negative mg/dL Negative mg/dL 04/26/2017 [facility] URINE AND STOOL UA Leuk Est Negative (04/26/17 6:16 AM) Negative 04/26/2017 [facility] URINE AND STOOL UA Nitrite Negative (04/26/17 6:16 AM) Negative 04/26/2017 [facility] URINE AND STOOL UA RBC 1 /HPF 0 - 2 04/26/2017 [facility] URINE AND STOOL UA WBC 3 /HPF 0 - 5 04/26/2017 [facility] URINE AND STOOL UA Sq Epi Occasional /LPF Few /LPF 04/26/2017 [facility] URINE AND STOOL UA Urobilinogen 2.0 mg/dL 0.1 - 1.0 04/26/2017 [facility] URINE AND STOOL UA Bacteria Occasional /HPF None Seen /HPF 04/26/2017 [facility] URINE AND STOOL UA Mucus Few /LPF None Seen /LPF 04/26/2017 [facility] URINE AND STOOL UA Color Yellow *NA* (04/26/17 6:16 AM) Yellow 04/26/2017 [facility] URINE AND STOOL UA Spec Grav 1.011 <=1.030 04/26/2017 [facility] URINE AND STOOL UA Turbidity Clear (04/26/17 6:16 AM) Clear 04/26/2017 [facility] URINE AND STOOL UA pH 7.0 5.0 - 8.0 04/26/2017 [facility] URINE AND STOOL UA Ketones Trace mg/dL Negative mg/dL 04/26/2017 [facility] URINE AND STOOL UA Glucose Negative mg/dL Negative mg/dL 04/26/2017 [facility] URINE AND STOOL UA Blood Small *ABN* (04/26/17 6:16 AM) Negative 04/26/2017 [facility] URINE AND STOOL UA Bili Negative *NA* (04/26/17 6:16 AM) Negative 04/26/2017 [facility] CHEM PANEL Lactic Acid Lvl 1.7 mMol/L 0.5 - 2.2 04/26/2017 [facility] CHEM PANEL Procalcitonin Lvl 0.11 ng/mL 0.00 - 0.10 04/26/2017 [facility] BACTERIAL - SEROLOGY MRSA by PCR Negative (04/26/17 2:38 AM) 04/26/2017 [facility] Abdomen 1 v for Placement DX Abdomen 1 v for Placement DX 1 VIEW ABDOMEN portable exam 8:28 AM INDICATION: NG tube placement. COMPARISON: No priors available. The NG tube is been placed and the tip is in the distal stomach. The bowel gas pattern appears normal. Lung bases clear. IMPRESSION: Tip of the NG tube is in the distal stomach. END IMPRESSION SL: [id number] 04/26/2017 - - Read by: Joe Ward MD Dictated Date/time: 04/26/17 08:43 Electronically Signed by: Joe Ward MD 04/26/17 08:44 FINAL REPORT [facility] Chest 1 v for Placement DX Chest 1 v for Placement DX Clinical Indication: Line Placement - Chest 1 view for line placement Comparison: None FINDINGS: The frontal chest radiograph shows normal lung volumes without interstitial or airspace opacities, pleural effusions or pneumothorax. The cardiomediastinal contours are normal. The trachea is midline. There are no clinically significant osseous abnormalities noted. Endotracheal tube is present with the tip at the david. This needs to be retracted by approximately 4 cm. Enteric tube is also present with the tip in the proximal stomach. The sidehole is not clearly identified but may be in the distal esophagus. IMPRESSION: 1. No chest radiographic evidence of acute cardiopulmonary disease. 2. Endotracheal tube tip is at the david. This needs to be retracted by approximately 4 cm. 3. Enteric tube tip is in the stomach but the sidehole may be in the distal esophagus. Advancement of the enteric tube by approximately 10 cm is suggested. SL: [id number] 04/26/2017 - - Read by: Suraj Perdomo MD Dictated Date/time: 04/26/17 06:38 Electronically Signed by: Suraj Perdomo MD 04/26/17 06:43 FINAL REPORT [facility] DRUG SCREEN U Cannab Scr Negative *NA* (04/25/17 8:11 PM) Negative 04/26/2017 [facility] DRUG SCREEN U Opiate Scr Negative *NA* (04/25/17 8:11 PM) Negative 04/26/2017 [facility] DRUG SCREEN U Phencyc Scr Negative *NA* (04/25/17 8:11 PM) Negative 04/26/2017 [facility] DRUG SCREEN U Susie Scr Negative *NA* (04/25/17 8:11 PM) Negative 04/26/2017 [facility] DRUG SCREEN UDS Note See Note (04/25/17 8:11 PM) 04/26/2017 [facility] DRUG SCREEN U Amph Scr Negative *NA* (04/25/17 8:11 PM) Negative 04/26/2017 [facility] DRUG SCREEN U Benzodia Scr Negative *NA* (04/25/17 8:11 PM) Negative 04/26/2017 [facility] DRUG SCREEN U Cocaine Scr Negative *NA* (04/25/17 8:11 PM) Negative 04/26/2017 [facility] URINE AND STOOL UA Spec Grav 1.006 <=1.030 04/26/2017 [facility] URINE AND STOOL UA Turbidity Clear (04/25/17 8:11 PM) Clear 04/26/2017 [facility] URINE AND STOOL UA Protein Negative mg/dL Negative mg/dL 04/26/2017 [facility] URINE AND STOOL UA pH 6.0 5.0 - 8.0 04/26/2017 [facility] URINE AND STOOL UA Bili Negative *NA* (04/25/17 8:11 PM) Negative 04/26/2017 [facility] URINE AND STOOL UA Ketones Negative mg/dL Negative mg/dL 04/26/2017 [facility] URINE AND STOOL UA Glucose Negative mg/dL Negative mg/dL 04/26/2017 [facility] URINE AND STOOL UA WBC null 0 - 5 04/26/2017 [facility] URINE AND STOOL UA Sq Epi Occasional /LPF Few /LPF 04/26/2017 [facility] URINE AND STOOL UA Leuk Est Negative (04/25/17 8:11 PM) Negative 04/26/2017 [facility] URINE AND STOOL UA Nitrite Negative (04/25/17 8:11 PM) Negative 04/26/2017 [facility] URINE AND STOOL UA Blood Moderate *ABN* (04/25/17 8:11 PM) Negative 04/26/2017 [facility] URINE AND STOOL UA Urobilinogen <=1.0 mg/dL 0.1 - 1.0 04/26/2017 [facility] URINE AND STOOL UA RBC 2 /HPF 0 - 2 04/26/2017 [facility] URINE AND STOOL UA Color Light Yellow *NA* (04/25/17 8:11 PM) Yellow 04/26/2017 [facility] CARDIAC ENZYMES CK MB Index 1.0 0.0 - 2.5 04/26/2017 [facility] CARDIAC ENZYMES Troponin-I 0.02 ng/mL 0.00 - 0.40 04/26/2017 [facility] CARDIAC ENZYMES CK MB 36.8 ng/mL 0.5 - 3.6 04/26/2017 [facility] CARDIAC [place] 3681 unit/L 12 - 191 04/26/2017 [facility] CHEM PANEL Lactic Acid Lvl 4.6 mMol/L 0.5 - 2.2 04/26/2017 Result Comment: Critical Result(s) called to yasmin low at 04/25/2017 20:06 bylw. Read back OK. [facility] HEMATOLOGY PTT 33.4 s 22.9 - 35.8 04/26/2017 [facility] HEMATOLOGY PT 15.3 s 12.0 - 14.7 04/26/2017 [facility] HEMATOLOGY INR 1.20 0.85 - 1.17 04/26/2017 [facility] TOXICOLOGY [place] Lvl None Detected 10.0 - 40.0 04/26/2017 Result Comment: Performed At: [id number] [id number] Thalia Garcia MD Ph:[phone] [facility] Brain wo contrast CT Brain wo contrast CT EXAM: CT BRAIN WITHOUT CONTRAST DATE: 04/25/2017 5:58 PM VIDEO TECHNICIAN INDICATION: Seizure. COMPARISON: None. TECHNIQUE: CT images were obtained from the foramen magnum to the vertex without intravenous contrast on a multidetector CT. Coronal and sagittal reconstructions were also provided for review. CT radiation dose DLP: 2554.22 mGy-cm FINDINGS: A metallic foreign object within the left parietal scalp is noted, with streak artifact limiting evaluation. Motion artifact is also noted on this exam. No acute intracranial hemorrhage, midline shift, or mass effect is identified. The frias-white matter differentiation is preserved. The ventricles and sulci are prominent, compatible with mild diffuse parenchymal volume loss. Mild chronic microangiopathic changes are noted. An old lacunar infarct is suspected within the left basal ganglia. Partial sclerosis of the mastoid air cells is noted. The orbits and paranasal sinuses are unremarkable. The calvarium and skull base are intact. There is atherosclerotic calcification of the carotid siphons. IMPRESSION: No acute intracranial abnormality within the limits of motion artifact. SL: [id number] 04/25/2017 - - Read by: Gil Corey MD Dictated Date/time: 04/25/17 18:36 Electronically Signed by: Gil Corey MD 04/25/17 18:40 FINAL REPORT [facility] CARDIAC ENZYMES CK MB 4.9 ng/mL 0.5 - 3.6 02/15/2015 [facility] CARDIAC ENZYMES Troponin-I 0.03 ng/mL 0.00 - 0.40 02/15/2015 [facility] CARDIAC ENZYMES Troponin-I 0.03 ng/mL 0.00 - 0.40 02/15/2015 [facility] CARDIAC ENZYMES CK MB 4.4 ng/mL 0.5 - 3.6 02/15/2015 [facility] CHEM PANEL eGFR 102 mL/min/1.73m2 02/15/2015 Result Comment: The eGFR is calculated using the [...] from the National Kidney Disease Education Program (NKDEP) which additionally recommends that when the eGFR is used in patients with extremes of body mass index for purposes of drug dosing, the eGFR should be multiplied by the estimated BMI. [facility] CHEM PANEL Glucose Lvl 122 mg/dL 70 - 99 02/15/2015 [facility] CHEM PANEL BUN 4 mg/dL 7 - 22 02/15/2015 [facility] CHEM PANEL Creatinine Lvl 0.8 mg/dL 0.5 - 1.4 02/15/2015 [facility] CHEM PANEL Sodium Lvl 125 meq/L 135 - 145 02/15/2015 [facility] CHEM PANEL Potassium Lvl 3.7 meq/L 3.5 - 5.1 02/15/2015 [facility] CHEM PANEL Chloride Lvl 90 meq/L 95 - 109 02/15/2015 [facility] CHEM PANEL CO2 21 meq/L 24 - 32 02/15/2015 [facility] CHEM PANEL Bili Total 1.4 mg/dL 0.2 - 1.3 02/15/2015 [facility] CHEM PANEL AST 137 unit/L 0 - 37 02/15/2015 [facility] CHEM PANEL Total Protein 8.5 g/dL 6.4 - 8.4 02/15/2015 [facility] CHEM PANEL Calcium Lvl 8.7 mg/dL 8.5 - 10.5 02/15/2015 [facility] CHEM PANEL Albumin Lvl 3.9 g/dL 3.5 - 5.0 02/15/2015 [facility] CHEM PANEL ALT 74 unit/L 0 - 65 02/15/2015 [facility] CHEM PANEL Alk Phos 135 unit/L 39 - 136 02/15/2015 [facility] CHEM PANEL Globulin 4.6 g/dL 2.0 - 4.0 02/15/2015 [facility] CHEM PANEL A/G Ratio 0.8 0.7 - 1.6 02/15/2015 [facility] CHEM PANEL AGAP 17.7 meq/L 10.0 - 20.0 02/15/2015 [facility] CHEM PANEL B/C Ratio 5 6 - 25 02/15/2015 [facility] CHEM PANEL Lipase Lvl 234 unit/L 73 - 393 02/15/2015 [facility] HEMATOLOGY MCHC 34.4 g/dL 32.0 - 36.0 02/15/2015 [facility] HEMATOLOGY MCH 30.9 pg 27.0 - 31.0 02/15/2015 [facility] HEMATOLOGY Hct 39.7 % 42.0 - 54.0 02/15/2015 [facility] HEMATOLOGY MCV 89.9 fL 80.0 - 94.0 02/15/2015 [facility] HEMATOLOGY Platelet 228 K/CMM 133 - 450 02/15/2015 [facility] HEMATOLOGY MPV 7.0 fL 7.4 - 10.4 02/15/2015 [facility] HEMATOLOGY RDW 13.7 % 11.5 - 14.5 02/15/2015 [facility] HEMATOLOGY Hgb 13.7 g/dL 14.0 - 18.0 02/15/2015 [facility] HEMATOLOGY RBC 4.42 M/CMM 4.70 - 6.10 02/15/2015 [facility] HEMATOLOGY WBC 10.2 K/CMM 3.7 - 10.4 02/15/2015 [facility] HEMATOLOGY Monocytes # 0.6 K/CMM 0.0 - 0.8 02/15/2015 [facility] HEMATOLOGY Basophils # 0.1 K/CMM 0.0 - 0.2 02/15/2015 [facility] HEMATOLOGY Lymphocytes # 1.0 K/CMM 1.0 - 5.5 02/15/2015 [facility] HEMATOLOGY Segs-Bands # 8.5 K/CMM 1.5 - 8.1 02/15/2015 [facility] HEMATOLOGY Basophils 0.6 % 0.0 - 1.0 02/15/2015 [facility] HEMATOLOGY Eosinophils 0.1 % 0.0 - 4.0 02/15/2015 [facility] HEMATOLOGY Monocytes 5.9 % 2.0 - 12.0 02/15/2015 [facility] HEMATOLOGY Lymphocytes 9.7 % 20.0 - 40.0 02/15/2015 [facility] HEMATOLOGY Segs 83.7 % 45.0 - 75.0 02/15/2015 [facility] URINE AND STOOL UA Bacteria Few /HPF None Seen /HPF 02/15/2015 [facility] URINE AND STOOL UA RBC 0-2 /HPF 0 - 2 02/15/2015 [facility] URINE AND STOOL UA Sq Epi Rare /LPF Few /LPF 02/15/2015 [facility] URINE AND STOOL UA WBC 0-2 /HPF None Seen /HPF 02/15/2015 [facility] URINE AND STOOL Micro? Performed (02/15/15 8:48 AM) 02/15/2015 [facility] URINE AND STOOL UA Nitrite Positive *ABN* (02/15/15 8:48 AM) Negative 02/15/2015 [facility] URINE AND STOOL UA Leuk Est Negative (02/15/15 8:48 AM) Negative 02/15/2015 [facility] URINE AND STOOL UA Bili Moderate *ABN* (02/15/15 8:48 AM) Negative 02/15/2015 [facility] URINE AND STOOL UA Glucose Negative (02/15/15 8:48 AM) Negative 02/15/2015 [facility] URINE AND STOOL UA Ketones 15 mg/dL Negative mg/dL 02/15/2015 [facility] URINE AND STOOL UA Blood Trace *ABN* (02/15/15 8:48 AM) Negative 02/15/2015 [facility] URINE AND STOOL UA Urobilinogen 2.0 EU/dL 0.1 - 1.0 02/15/2015 [facility] URINE AND STOOL UA Color Yellow *NA* (02/15/15 8:48 AM) Yellow 02/15/2015 [facility] URINE AND STOOL UA Turbidity Clear (02/15/15 8:48 AM) Clear 02/15/2015 [facility] URINE AND STOOL UA Spec Grav 1.015 <=1.030 02/15/2015 [facility] URINE AND STOOL UA Protein 100 mg/dL Negative mg/dL 02/15/2015 [facility] URINE AND STOOL UA pH 6.5 5.0 - 8.0 02/15/2015 [facility] Abdomen/Pelvis w IV contrast CT Abdomen/Pelvis w IV contrast CT Name: NICKI HELM : 1960 SEX: M Ordering Physician: Leo Monae Abdomen/Pelvis w contrast CT : Feb 15, 2015 11:53:00 AM. CLINICAL INDICATION: Abdominal pain, acute; hernia surgery one month ago with abdominal pain for 4 days. Nausea. Comparison Examination: None TECHNIQUE: Sequential trans-axial images of the abdomen and pelvis were obtained with a multi-detector helical CT. Coronal and sagittal reconstructions were obtained. Contrast: 100cc of IV Omnipaque and oral contrast Dose: The total exam DLP is 1075.18 mGy-cm. FINDINGS: CT ABDOMEN WITH CONTRAST: The visualized lung bases are clear. Liver demonstrates decreased attenuation without ductal dilatation, cysts, or mass. The spleen has normal configuration. Note cysts or mass is identified. The pancreas is normal size and contour without ductal dilatation. The gallbladder demonstrated no intraluminal stones or wall thickening. The kidneys demonstrate no renal stones, hydronephrosis come or hydroureter. There is an anterior abdominal wall hernia identified measuring 2.1 cm. Is no protruding bowel or fluid through the defect. The stomach is unremarkable. The small bowel and colon demonstrates diverticulosis of the rectosigmoid colon without evidence of fat stranding or free fluid. The appendix is well visualized and is unremarkable. There is no abdominal lymphadenopathy, pneumoperitoneum or ascites. The abdominal aorta and inferior vena cava are patent with patent bilateral renal arteries, mesenteric arteries, and mesenteric veins including the portal vein. FINDINGS: CT PELVIS WITH CONTRAST: The bladder is normal. There is no pelvic lymphadenopathy or ascites. The inguinal regions are unremarkable. The visualized skeleton is unremarkable. IMPRESSION: 1. Ventral wall abdominal hernia with a maximum size of 2.1 cm. No protruding bowel or fluid is identified. 2. Hepatic steatosis. 3. Normal appendix. 4. Diverticulosis without evidence of diverticulitis SL: 24 02/15/2015 - - Read by: Jayme Francis MD Dictated Date/time: 02/15/15 11:58 Electronically Signed by: Jayme Francis MD 02/15/15 12:08 FINAL REPORT [facility] Vital Signs Vital Sign Value Date Comments Source Respitory Rate 18 09/15/2018 [facility] Systolic (mm Hg) 123 09/15/2018 [facility] Diastolic (mm Hg) 67 09/15/2018 [facility] Heart Rate 88 09/15/2018 [facility] Temperature Oral (F) 98.3 F 09/15/2018 [facility] Respitory Rate 16 09/15/2018 [facility] Temperature Oral (F) 98.3 F 09/15/2018 [facility] Systolic (mm Hg) 121 09/15/2018 [facility] Diastolic (mm Hg) 66 09/15/2018 [facility] Heart Rate 87 09/15/2018 [facility] Respitory Rate 14 09/15/2018 [facility] Temperature Oral (F) 98.7 F 09/15/2018 [facility] Systolic (mm Hg) 144 09/15/2018 [facility] Diastolic (mm Hg) 80 09/15/2018 [facility] Heart Rate 91 09/15/2018 [facility] BMI Calculated 57.87 09/15/2018 [facility] Weight 148.182 09/15/2018 [facility] Height 160.02 cm 09/15/2018 [facility] Height 167.64 cm 09/15/2018 [facility] BMI Calculated 58.23 09/15/2018 [facility] Weight 163.636 09/15/2018 [facility] Systolic (mm Hg) 140 09/27/2017 [facility] Diastolic (mm Hg) 60 09/27/2017 [facility] Heart Rate 73 09/27/2017 [facility] Respitory Rate 18 09/27/2017 [facility] Systolic (mm Hg) 131 09/27/2017 [facility] Diastolic (mm Hg) 87 09/27/2017 [facility] Respitory Rate 18 09/27/2017 [facility] Heart Rate 67 09/27/2017 [facility] Height 160.02 cm 09/27/2017 [facility] BMI Calculated 50.06 09/27/2017 [facility] Weight 128.182 09/27/2017 [facility] Respitory Rate 18 09/27/2017 [facility] Heart Rate 75 09/27/2017 [facility] Temperature Oral (F) 98.2 F 09/27/2017 [facility] Systolic (mm Hg) 156 09/27/2017 [facility] Diastolic (mm Hg) 77 09/27/2017 [facility] Heart Rate 67 05/10/2017 [facility] Systolic (mm Hg) 121 05/10/2017 [facility] Diastolic (mm Hg) 84 05/10/2017 [facility] Respitory Rate 16 05/10/2017 [facility] Temperature Oral (F) 98.4 F 05/10/2017 [facility] Systolic (mm Hg) 159 05/10/2017 [facility] Diastolic (mm Hg) 90 05/10/2017 [facility] Respitory Rate 18 05/10/2017 [facility] Heart Rate 71 05/10/2017 [facility] Temperature Oral (F) 98.2 F 05/10/2017 [facility] Respitory Rate 18 05/10/2017 [facility] Heart Rate 62 05/10/2017 [facility] Temperature Oral (F) 98.4 F 05/10/2017 [facility] Systolic (mm Hg) 131 05/10/2017 [facility] Diastolic (mm Hg) 86 05/10/2017 [facility] Weight 110.085 05/08/2017 [facility] Weight 109.602 05/05/2017 [facility] Height 160.02 cm 04/29/2017 [facility] Height 160.02 cm 04/29/2017 [facility] Height 160.02 cm 04/29/2017 [facility] BMI Calculated 45.25 04/26/2017 [facility] Weight 115.864 04/26/2017 [facility] BMI Calculated 44.38 04/25/2017 [facility] Respitory Rate 18 02/15/2015 [facility] Heart Rate 95 02/15/2015 [facility] Systolic (mm Hg) 178 02/15/2015 [facility] Diastolic (mm Hg) 86 02/15/2015 [facility] Systolic (mm Hg) 185 02/15/2015 [facility] Diastolic (mm Hg) 93 02/15/2015 [facility] Heart Rate 101 02/15/2015 [facility] Respitory Rate 18 02/15/2015 [facility] Systolic (mm Hg) 166 02/15/2015 [facility] Diastolic (mm Hg) 86 02/15/2015 [facility] Heart Rate 104 02/15/2015 [facility] Respitory Rate 18 02/15/2015 [facility] Weight 113.636 02/15/2015 [facility] BMI Calculated 44.38 02/15/2015 [facility] Height 160.02 cm 02/15/2015 [facility] Temperature Oral (F) 96.8 F 02/15/2015 [facility] Encounters Location Location Details Encounter Type Encounter Number Reason For Visit Attending Provider ADM Date DC Date Status Source [facility] [id number] Pipe Hong Jr 02/15/2015 02/15/2015 [facility] Inpatient [id number] Gerardo Gutierrez 04/25/2017 05/10/2017 [facility] Emergency [id number] Jodielore MartinezPierre 09/27/2017 09/27/2017 [facility] General Surgery [facility] Ambulatory Pre-Reg [id number] Perico Haley 11/08/2017 11/08/2017 [facility] Observation [id number] Ever Chandra Jr 09/15/2018 09/15/2018 [facility] Procedures Procedure Code Date Perfomer Comments Source Hernia repair [id number] [facility] Hernia repair [id number] [facility] Hernia repair [id number] [facility]
--- OUTSIDE RECORDS SUMMARY | 2018-10-01 09:23 | XMS REPORT | Summary of Care ---
Author Author [facility] General Surgery [facility] Organization [facility] General Surgery [facility] Address Unknown Phone Unavailable Encounter MICKIE Woodall(FIN) [id number] Date(s): 11/08/17 - 11/08/17 [facility] General Surgery [facility] [address] [facility], [address] [place] [address]- [phone] Attending Physician: Perico Haley MD Vital Signs No data available for this section Problem List Condition Effective Dates Status Health Status Informant Chronic obstructive Resolved pulmonary disease (COPD)(Confirmed) Diabetes(Confirmed) Active Diabetic Active neuropathy(Confirmed ) Homelessness(Confirm Active ed) Hypertension(Confirm Active ed) Allergies, Adverse Reactions, Alerts Substance Reaction Severity Status clindamycin Active Medications No data available for this section Results No data available for this section Immunizations No data available for this section Procedures Procedure Date Related Diagnosis Body Site Status Hernia repair Completed Social History Social History Type Response Substance [...] Days Yes; Reg Smoking Cessation Counseling No entered on: 09/26/17 Assessment and Plan No data available for this section
--- OUTSIDE RECORDS SUMMARY | 2018-10-01 09:23 | XMS REPORT | Summary of Care ---
Author Author [facility] Organization [facility] Address Unknown Phone Unavailable Encounter HQ Talisha(ANDREW) [id number] Date(s): 09/14/18 - 09/15/18 [facility] [address] [place] [address]- Discharge Disposition: Home or Self Care Attending Physician: Ever Leger MD Admitting Physician: Ever Leger MD Vital Signs 1 2 3 Most recent to oldest [Reference Range]: 160.02 cm (09/15/18 4:01 AM) 167.64 cm (09/14/18 10:41 PM) Height 98.3 DegF (09/15/18 11:35 AM) 98.3 DegF (09/15/18 7:42 AM) 98.7 DegF (09/15/18 4:32 AM) Temperature Oral [96.4-99.1 DegF] 123/67 mmHg (09/15/18 11:35 AM) 121/66 mmHg (09/15/18 7:42 AM) 144/80 mmHg *HI* (09/15/18 4:32 AM) Blood Pressure [90-140/60-90 mmHg] 18 BRMIN (09/15/18 11:35 AM) 16 BRMIN (09/15/18 7:42 AM) 14 BRMIN (09/15/18 6:55 AM) Respiratory Rate [14-20 BRMIN] 88 bpm (09/15/18 11:35 AM) 87 bpm (09/15/18 7:42 AM) 91 bpm (09/15/18 4:32 AM) Peripheral Pulse Rate [60-100 bpm] 148.182 kg (09/15/18 4:01 AM) 163.636 kg (09/14/18 10:41 PM) Weight 57.87 m2 (09/15/18 4:01 AM) 58.23 m2 (09/14/18 10:41 PM) Body Mass Index Problem List Condition Effective Dates Status Health Status Informant Chronic obstructive Resolved pulmonary disease (COPD)(Confirmed) Diabetes(Confirmed) Active Diabetic Active neuropathy(Confirmed ) Homelessness(Confirm Active ed) Hypertension(Confirm Active ed) Allergies, Adverse Reactions, Alerts Substance Reaction Severity Status clindamycin Active Medications *RN please bring pt own theophylline to pharmacy for label* *RN please bring pt own theophylline to pharmacy for label*, reminder, Drug form : MISC, Route: MISC, QSHIFT, 09/15/18 16:00:00 CDT, Duration: 30 day, Stop date: 10/15/18 8:00:00 CDT Start Date: 09/15/18 Stop Date: 09/15/18 Status: Discontinued acetaminophen 325 mg, 1 tab, Route: PO, Drug form: TAB, Q4H, Dosing Weight 163.636, kg, PRN Pa in 1-3/Temp > 100.4 F, Start date: 09/15/18 3:36:00 CDT, Duration: 30 day, Stop date: 10/15/18 3:35:00 CDT Notes: Do not exceed 4 gm/day. (Same as: Tylenol) Start Date: 09/15/18 Stop Date: 09/15/18 Status: Discontinued albuterol 0.083% inhalation solution 2.49 mg=3 mL, INHALATION, Q6H, PRN wheezing, coughing, or shortness of breath, # 240 ea, 1 Refill(s) Start Date: 09/15/18 Stop Date: 11/14/18 Status: Ordered albuterol 0.083% inhalation solution 2.49 mg, 3 mL, Route: NEB, Drug form: SOLN, RQ2H, Dosing Weight 163.636, kg, PRN Wheezing, Priority: Routine, Start date: 09/15/18 3:36:00 CDT, Duration: 30 day, Stop date: 10/15/18 3:35:00 CDT Notes: SEE RT DOCUMENTATION (Same as: Proventil) Start Date: 09/15/18 Stop Date: 09/15/18 Status: Discontinued albuterol-ipratropium 2.5-0.5 mg inhalation solution 3 mL, Route: NEB, Drug Form: SOLN, Dosing Weight 163.636, kg, RQ6H, Start date: 09/15/18 8:00:00 CDT, Duration: 30 day, Stop date: 10/15/18 2:00:00 CDT Notes: (Same as: Duoneb) Start Date: 09/15/18 Stop Date: 09/15/18 Status: Discontinued Ambien 10 mg oral tablet 10 mg=1 tab, PO, Bedtime, PRN for sleep, 0 Refill(s) Start Date: 09/15/18 Stop Date: 09/29/18 Status: Ordered amLODIPine 10 mg, 2 tab, Route: PO, Drug form: TAB, Daily, Dosing Weight 163.636, kg, Start date: 09/15/18 9:00:00 CDT, Duration: 30 day, Stop date: 10/14/18 9:00:00 CDT Notes: (Same as: Norvasc) Start Date: 09/15/18 Stop Date: 09/15/18 Status: Discontinued atorvastatin 20 mg, 2 tab, Route: PO, Drug form: TAB, Bedtime, Dosing Weight 148.182, kg, Sta rt date: 09/15/18 21:00:00 CDT, Duration: 30 day, Stop date: 10/14/18 21:00:00 C DT Notes: (Same As: Lipitor) Start Date: 09/15/18 Stop Date: 09/15/18 Status: Canceled azithromycin 500 mg, Route: IVPB, ONCE, Dosing Weight 163.636, kg, Priority: STAT, Start date : 09/15/18 0:23:00 CDT, Stop date: 09/15/18 0:23:00 CDT, ABX Indication: Pneumon ia Start Date: 09/15/18 Stop Date: 09/15/18 Status: Completed azithromycin 250 mg, 1 tab, Route: PO, Drug form: TAB, [id number], Dosing Weight 163.636, kg, St art date: 09/16/18 0:00:00 CDT, Duration: 4 doses or times, Stop date: 09/19/18 0:00:00 CDT, ABX Indication: Non-PNA Respiratory Tract Infection Notes: Take 1 hour before or 2 hours after meals.(Same As: Zithromax) Start Date: 09/16/18 Stop Date: 09/15/18 Status: Canceled bisacodyl 10 mg, 1 supp, Route: HI, Drug form: SUPP, Daily, Dosing Weight 163.636, kg, PRN Constipation, Start date: 09/15/18 3:36:00 CDT, Duration: 30 day, Stop date: 3:35:00 CDT Notes: (Same As: Dulcolax, Bisco-Lax) Start Date: 09/15/18 Stop Date: 09/15/18 Status: Discontinued cefTRIAXone + sterile water 10 mL 1 gm, Route: IVPB, [id number], Dosing Weight 163.636, kg, Start date: 09/16/18 0:00 :00 CDT, Duration: 5 day, Stop date: 09/20/18 0:00:00 CDT, ABX Indication: Non-P NA Respiratory Tract Infection Notes: (Same As: Rocephin).Use with 100 mL NS and infuse over 30 min MEDICA TION WASTE Product Size: 1000 mgProduct Wasted: ___ mg Start Date: 09/16/18 Stop Date: 09/15/18 Status: Canceled Dextrose 50% Syringe 12.5 gm, 25 mL, Route: IVP, Drug Form: INJ, Dosing Weight 163.636, kg, PRN, PRN Blood Glucose Results, Start date: 09/15/18 3:36:00 CDT, Duration: 30 day, Stop date: 10/15/18 3:35:00 CDT Start Date: 09/15/18 Stop Date: 09/15/18 Status: Discontinued Dextrose 50% Syringe 25 gm, 50 mL, Route: IVP, Drug Form: INJ, Dosing Weight 163.636, kg, PRN, PRN Bl ood Glucose Results, Start date: 09/15/18 3:36:00 CDT, Duration: 30 day, Stop da te: 10/15/18 3:35:00 CDT Start Date: 09/15/18 Stop Date: 09/15/18 Status: Discontinued DULoxetine 30 mg, 1 cap, Route: PO, Drug form: DRC, Daily, Dosing Weight 148.182, kg, Start date: 09/15/18 9:00:00 CDT, Duration: 30 day, Stop date: 10/14/18 9:00:00 CDT Notes: (Same as: Cymbalta) (Do Not Crush) Start Date: 09/15/18 Stop Date: 09/15/18 Status: Discontinued DuoNeb inhalation solution 9 mL, Route: NEB, Dosing Weight 163.636, kg, ONCE, Start date: 09/15/18 2:42:00 CDT, Stop date: 09/15/18 2:42:00 CDT Start Date: 09/15/18 Stop Date: 09/15/18 Status: Completed famotidine 20 mg oral tablet 20 mg, 1 tab, Route: PO, Drug form: TAB, BID, Dosing Weight 148.182, kg, Start d ate: 09/15/18 9:00:00 CDT, Duration: 30 day, Stop date: 10/14/18 17:00:00 CDT Notes: (Same as: Pepcid) Start Date: 09/15/18 Stop Date: 09/15/18 Status: Discontinued glucagon 1 mg, Route: IM, Drug form: PDR/INJ, PRN, Dosing Weight 163.636, kg, PRN Blood G lucose Results, Start date: 09/15/18 3:36:00 CDT, Duration: 30 day, Stop date: 0 10/15/18 3:35:00 CDT Start Date: 09/15/18 Stop Date: 09/15/18 Status: Discontinued heparin 5,000 unit, 1 mL, Route: SUB-Q, Drug form: INJ, Q8H, Dosing Weight 163.636, kg, Start date: 09/15/18 8:00:00 CDT, Duration: 30 day, Stop date: 10/15/18 0:00:00 CDT Notes: porcine heparin Start Date: 09/15/18 Stop Date: 09/15/18 Status: Discontinued hydrALAZINE 100 mg, 2 tab, Route: PO, Drug form: TAB, TID, Dosing Weight 148.182, kg, Start date: 09/15/18 9:00:00 CDT, Duration: 30 day, Stop date: 10/14/18 17:00:00 CDT Notes: (Same as: Apresoline) May interfere w/enteral feedings Take With Food Start Date: 09/15/18 Stop Date: 09/15/18 Status: Discontinued lactulose 10 g/15 mL oral syrup 20 gm, 30 mL, Route: PO, Drug form: SYRP, TID, Dosing Weight 148.182, kg, Start date: 09/15/18 9:00:00 CDT, Duration: 30 day, Stop date: 10/14/18 17:00:00 CDT Notes: (Same as:Chronulac) Start Date: 09/15/18 Stop Date: 09/15/18 Status: Discontinued Lasix 40 mg, 4 mL, Route: IV, Drug form: INJ, [id number], Dosing Weight 163.636, kg, Star t date: 09/15/18 4:00:00 CDT, Duration: 30 day, Stop date: 10/14/18 16:00:00 CDT Notes: (Same as: Lasix) MEDICATION WASTE Product Size: 40 mgProduct Was nathan: ___ mg Start Date: 09/15/18 Stop Date: 09/15/18 Status: Discontinued Lasix 40 mg oral tablet 40 mg=1 tab, PO, Daily, # 30 tab, 0 Refill(s) Start Date: 09/15/18 Stop Date: 09/15/18 Status: Completed levofloxacin 500 mg oral tablet 500 mg=1 tab, PO, Q24H, X 5 day, # 5 tab, 0 Refill(s), Pharmacy: [facility]/pharmacy #[id number] Start Date: 09/15/18 Stop Date: 09/20/18 Status: Ordered losartan 100 mg, 2 tab, Route: PO, Drug form: TAB, Daily, Dosing Weight 148.182, kg, Star t date: 09/15/18 9:00:00 CDT, Duration: 30 day, Stop date: 10/14/18 9:00:00 CDT Notes: (Same as: Richard) Start Date: 09/15/18 Stop Date: 09/15/18 Status: Discontinued magnesium sulfate 2 gm, Route: IVPB, ONCE, Dosing Weight 163.636, kg, Priority: STAT, Start date: 09/15/18 2:43:00 CDT, Stop date: 09/15/18 2:43:00 CDT Start Date: 09/15/18 Stop Date: 09/15/18 Status: Completed melatonin 3 mg, 1 tab, Route: PO, Drug form: TAB, Bedtime, Dosing Weight 163.636, kg, PRN Insomnia, Start date: 09/15/18 3:36:00 CDT, Duration: 30 day, Stop date: 9 3:35:00 CDT Notes: (Same as: Melatonin) Start Date: 09/15/18 Stop Date: 09/15/18 Status: Discontinued [place] 5/325 oral tablet 1 tab, PO, Q4-6H, PRN, # 30 tab, 0 Refill(s) Start Date: 09/15/18 Stop Date: 09/15/18 Status: Completed [place] 5/325 oral tablet 1 tab, Route: PO, Drug Form: TAB, Dosing Weight 163.636, kg, Q6H, PRN Pain Score 4-6, Start date: 09/15/18 3:38:00 CDT, Duration: 30 day, Stop date: 10/15/18 3: 37:00 CDT Notes: (Same as: [place] 325/5) Do not exceed 4gm/day of acetaminophen. Start Date: 09/15/18 Stop Date: 09/15/18 Status: Discontinued ondansetron 4 mg, 2 mL, Route: IVP, Drug form: INJ, Q8H, Dosing Weight 163.636, kg, PRN Naus ea & Vomiting, Start date: 09/15/18 3:36:00 CDT, Duration: 30 day, Stop date: 10/15/18 3:35:00 CDT Notes: (Same as: Kel) MEDICATION WASTE Product Size: 4 mgProduct Was nathan: ___ mg Start Date: 09/15/18 Stop Date: 09/15/18 Status: Discontinued predniSONE 60 mg, 3 tab, Route: PO, Drug form: TAB, Daily, Dosing Weight 163.636, kg, Start date: 09/16/18 9:00:00 CDT, Duration: 30 day, Stop date: 10/15/18 9:00:00 CDT Notes: Take with food. Start Date: 09/16/18 Stop Date: 09/15/18 Status: Canceled predniSONE 60 mg, Route: PO, Drug form: TAB, ONCE, Dosing Weight 163.636, kg, Start date: 0 09/15/18 2:43:00 CDT, Stop date: 09/15/18 2:43:00 CDT Start Date: 09/15/18 Stop Date: 09/15/18 Status: Completed predniSONE 20 mg oral tablet 40 mg=2 tab, PO, Daily, X 5 day, # 10 tab, 0 Refill(s), Pharmacy: [facility]/pharmacy # [id number] Start Date: 09/15/18 Stop Date: 09/20/18 Status: Ordered Rocephin 1 gm, Route: IVPB, Drug form: PDR/INJ, ONCE, Dosing Weight 163.636, kg, Priority : STAT, Start date: 09/15/18 0:23:00 CDT, Stop date: 09/15/18 0:23:00 CDT, ABX I ndication: Pneumonia Start Date: 09/15/18 Stop Date: 09/15/18 Status: Completed Tessalon Perles 100 mg, 1 cap, Route: PO, Drug form: CAP, TID, Dosing Weight 163.636, kg, PRN Co ugh, Start date: 09/15/18 3:36:00 CDT, Duration: 30 day, Stop date: 10/15/18 3:3 5:00 CDT Notes: (Same As: Tessalon Perles)"Do Not Crush" Start Date: 09/15/18 Stop Date: 09/15/18 Status: Discontinued Gage-24 600 mg, 2 cap, Route: PO, Drug form: ERCAP, Daily, Dosing Weight 148.182, kg, St art date: 09/15/18 9:00:00 CDT, Duration: 30 day, Stop date: 10/14/18 9:00:00 CD T Notes: Enteral feeds may interfere with the absorption of this medication. Start Date: 09/15/18 Stop Date: 09/15/18 Status: Discontinued Gage-24 600 mg, Route: PO, Drug form: ERCAP, Daily, Dosing Weight 148.182, kg, Start kaity e: 09/15/18 9:00:00 CDT, Duration: 30 day, Stop date: 10/14/18 9:00:00 CDT Start Date: 09/15/18 Stop Date: 09/15/18 Status: Discontinued Tylenol with Codeine #3 oral tablet 1 tab, PO, Q6H, PRN Pain, X 7 day, # 28 tab, 0 Refill(s) Start Date: 09/15/18 Stop Date: 09/22/18 Status: Ordered Results Most recent to 1 oldest [Reference Range]: Neutrophils # 12.1 K/CMM [1.5-8.1 K/CMM] *HI* (09/15/18 12:08 AM) Lymphocytes # 1.3 K/CMM [1.0-5.5 K/CMM] (09/15/18 12:08 AM) Monocytes # [0.0-0.8 1.8 K/CMM K/CMM] *HI* (09/15/18 12:08 AM) Eosinophils # 0.3 K/CMM [0.0-0.5 K/CMM] (09/15/18 12:08 AM) Basophils # [0.0-0.2 0.1 K/CMM K/CMM] (09/15/18 12:08 AM) BNP [<=100 pg/mL] 27 pg/mL (09/15/18 12:08 AM) Plt Morph [Normal] Normal (09/15/18 12:08 AM) eGFR 113 mL/min/1.73m2 1 *NA* (09/15/18 12:08 AM) UDS Note See Note *NA* (09/15/18 12:57 AM) A/G Ratio [0.7-1.6] 0.8 (09/15/18 12:08 AM) Acetaminoph Lvl <2 [10-20] (09/15/18 12:08 AM) Albumin Lvl [3.5-5.0 3.1 g/dL g/dL] *LOW* (09/15/18 12:08 AM) Alk Phos [39-136 87 unit/L unit/L] (09/15/18 12:08 AM) ALT [0-65 unit/L] 25 unit/L (09/15/18 12:08 AM) U Amph Scr Negative [Negative] *NA* (09/15/18 12:57 AM) AGAP [10.0-20.0 15.5 mEq/L mEq/L] (09/15/18 12:08 AM) AST [0-37 unit/L] 17 unit/L (09/15/18 12:08 AM) B/C Ratio [6-25] 15 (09/15/18 12:08 AM) U Susie Scr Negative [Negative] *NA* (09/15/18:57 AM) Basophils [0.0-1.0 0.4 % %] (09/15/18 12:08 AM) U Benzodiaz Scr Negative [Negative] *NA* (09/15/1857 AM) BUN [7-22 mg/dL] 9 mg/dL (09/15/18 12:08 AM) Calcium Lvl 9.0 mg/dL [8.5-10.5 mg/dL] (09/15/18 12:08 AM) Chloride Lvl [95-109 97 mEq/L mEq/L] (09/15/18:08 AM) CO2 [24-32 mEq/L] 25 mEq/L (09/15/18 12:08 AM) U Cocaine Scr Negative [Negative] *NA* (09/15/18:57 AM) Creatinine Lvl 0.59 mg/dL [0.50-1.40 mg/dL] (09/15/18 12:08 AM) Eosinophils [0.0-4.0 1.6 % %] (09/15/18 12:08 AM) Etoh (%) <.003 % *NA* (09/15/18 12:08 AM) Ethanol Lvl <3 mg/dL *NA* (09/15/18:08 AM) Globulin [2.7-4.2 3.8 g/dL g/dL] (09/15/18 12:08 AM) Glucose Lvl [70-99 110 mg/dL mg/dL] *HI* (09/15/18 12:08 AM) Hct [42.0-54.0 %] 30.6 % *LOW* (09/15/18 12:08 AM) Hgb [14.0-18.0 g/dL] 10.0 g/dL *LOW* (09/15/18:08 AM) Potassium Lvl 3.5 mEq/L [3.5-5.1 mEq/L] (09/15/18 12:08 AM) Lipase Lvl [73-393 118 unit/L unit/L] (09/15/18 12:08 AM) Lymphocytes 8.4 % [20.0-40.0 %] *LOW* (09/15/18 12:08 AM) MCH [27.0-31.0 pg] 26.3 pg *LOW* (09/15/1808 AM) MCHC [32.0-36.0 32.6 g/dL g/dL] (09/15/18 12:08 AM) MCV [80.0-94.0 fL] 80.8 fL (09/15/18:08 AM) Monocytes [2.0-12.0 11.5 % %] (09/15/18 12:08 AM) MPV [7.4-10.4 fL] 6.9 fL *LOW* (09/15/18:08 AM) Sodium Lvl [135-145 134 mEq/L mEq/L] *LOW* (09/15/18:08 AM) U Opiate Scr Negative [Negative] *NA* (09/15/18 12:57 AM) U Phencyclidine Scr Negative [Negative] *NA* (09/15/18 12:57 AM) Platelet [133-450 254 K/CMM K/CMM] (09/15/18 12:08 AM) Segs [45.0-75.0 %] 78.1 % 2 *HI* (09/15/18:08 AM) Total Protein 6.9 g/dL [6.4-8.4 g/dL] (09/15/18 12:08 AM) RBC [4.70-6.10 3.79 M/CMM M/CMM] *LOW* (09/15/18:08 AM) RBC Morph [Normal] Normal (09/15/18 12:08 AM) RDW [11.5-14.5 %] 17.1 % *HI* (09/15/18 12:08 AM) Salicylate Lvl <1.7 mg/dL [0.0-30.0 mg/dL] (09/15/18 12:08 AM) Bili Total [0.2-1.3 0.7 mg/dL mg/dL] (09/15/18 12:08 AM) U Cannab Scr Negative [Negative] *NA* (09/15/18 12:57 AM) Troponin-I <0.02 ng/mL [0.00-0.40 ng/mL] (09/15/18 12:08 AM) UA Bacteria [None Occasional /HPF Seen /HPF] *NA* (09/15/18 12:57 AM) UA Bili [Negative] Negative *NA* (09/15/18 12:57 AM) UA Blood [Negative] Negative (09/15/18 12:57 AM) UA Color [Yellow] Yellow *NA* (09/15/18 12:57 AM) UA Glucose [Negative Negative mg/dL mg/dL] *NA* (09/15/18 12:57 AM) UA Ketones [Negative Negative mg/dL mg/dL] *NA* (09/15/18 12:57 AM) UA Leuk Est Negative [Negative] (09/15/18 12:57 AM) UA Mucus [None Seen Few /LPF /LPF] *NA* (09/15/18 12:57 AM) UA Nitrite Negative [Negative] (09/15/18 12:57 AM) UA pH [5.0-8.0] 5.0 (09/15/18 12:57 AM) UA Protein [Negative Negative mg/dL mg/dL] (09/15/18 12:57 AM) UA RBC [0-2 /HPF] 2 /HPF (09/15/18 12:57 AM) UA Spec Grav 1.015 [<=1.030] (09/15/18 12:57 AM) UA Sq Epi None Seen *NA* (09/15/18 12:57 AM) UA Turbidity [Clear] Clear (09/15/18 12:57 AM) UA Urobilinogen <=1.0 mg/dL [0.1-1.0 mg/dL] *NA* (09/15/18 12:57 AM) UA WBC [0-5 /HPF] 1 /HPF (09/15/18 12:57 AM) WBC [3.7-10.4 K/CMM] 15.5 K/CMM *HI* (09/15/18 12:08 AM) 1Result Comment: The eGFR is calculated using [...] tiplied by the estimated BMI. 2Result Comment: diff count reviewed manually, b09/15/2018 01:50 Immunizations Not Given Vaccine Date Status Refusal Reason pneumococcal 23-valent vaccine 05/16/18 Not Given Patient Refuses Procedures Procedure Date Related Diagnosis Body Site [...] Reg Smoking Cessation Counseling No entered on: 09/14/18 Assessment and Plan Extracted from: Title: General Admission H&P * Author: Isidro Higgins MD Date: 09/15/18 Impression and Plan -COPD exacerbation Duo nebs, prednisone, ceftriaxone, azithromycin -Acute on chronic diastolic heart failure IV Lasix -Suicidal ideation Resolved Psychiatric consult -Morbid obesity Counseled -Obstructive sleep apnea CPAP -Hypertension Norvasc -Dyslipidemia Statin DVT prophylaxis with heparin DISPO: OBS
--- OUTSIDE RECORDS SUMMARY | 2018-10-01 09:23 | XMS REPORT ---
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 Unavailable Unavailable Payers Payer Name Policy Type Policy Number Effective Date Expiration Date Problems This patient has no known problems. Allergies, Adverse Reactions, Alerts Allergy Name Allergy Type Status Severity Reaction(s) Onset Date Inactive Date Treating Clinician Comments clindamycin DA Active 2018-02-12 00:00:00 clindamycin DA Active 2017-05-31 00:00:00 Medications This patient has no known medications. Encounters Start Date/Time End Date/Time Encounter Type Admission Type Attending Clinicians Care Facility Care Department Encounter ID 2018-09-15 02:45:00 2018-09-15 02:45:00 Outpatient [facility] [id number] 2017-02-21 15:30:23 2017-02-21 15:30:23 Outpatient [facility] [id number] 2017-01-03 10:52:45 2017-01-03 10:52:45 Outpatient [facility] [id number] 2016-12-13 00:00:00 2016-12-13 00:00:00 Outpatient [facility] [id number] 2016-12-03 15:48:15 2016-12-03 15:48:15 Outpatient [facility] [id number] 2016-11-01 14:02:43 2016-11-01 14:02:43 Outpatient [facility] [id number] 2016-10-30 04:37:58 2016-10-30 04:37:58 Emergency [facility] [id number] 2016-10-29 21:17:49 2016-10-29 21:17:49 Emergency [facility] [id number] 2016-10-29 19:48:10 2016-10-29 19:48:10 Emergency [facility] [id number] 2016-10-29 14:36:38 2016-10-29 14:36:38 Outpatient [facility] [id number] Results Test Description Test Time Test Comments Text Results Atomic Results Result Comments GLUBED 2018-09-16 12:54:00 GLUBED (test code=GLUBED) 180 mg/dL 74-106 Performed by certified printing machine operator tape rules at [facility] - XR FOOT 2 VIEWS [id number] 10:18:00 FAX: Scooter Sanchez MD [phone] [place]: St: REG FAX: Homa Don [phone] Name: NICKI HELM [facility] : 1960 Age/S: 58/M [address] [facility] Unit #: [id number] Loc: [place] [address] Phys: Scooter Sanchez MD Acct: [id number] Dis Date: Status: REG ER PHONE #: [phone] Exam Date: 09/13/2018 0941 FAX #: [phone] Reason: fall EXAMS: CPT CODE: [id number] XR FO[place] [address] [place] [id number] EXAM: Left ankle, 2 views and left foot, 2 views; INFORMATION: Pain after fall; FINDINGS: Imaged bones are int act; no evidence of fracture or dislocation. Plantar calcaneal spur. Soft tissue swelling about the ankle; No radiopaque foreign bodies. IMPRESSION: No evidence of acute osseous trauma. at 1018 Reported and signed by: Darnell Otto M.D. CC: Scooter Sanchez MD; Homa Carmoan M.D. Technologist: Jameson THURSTON(R); Josette Wong(R) Trnscrd Date/Time/By: 09/13/2018 (1018) : By: LeonorGRW Orig Print D/T: S: 09/13/2018 (1021) PAGE 1 Signed Report - XR ANKLE 2 VIEWS [id number] 10:18:00 FAX: Scooter Sanchez MD [phone] [place]: St: [facility] FAX: Y Homa Carmona [phone] Name: NICKI HELM [facility] : 1960 Age/S: 58/M [address] [facility] Unit #: [id number] Loc: [place] [address] Phys: Scooter Sanchez MD Acct: [id number] Dis Date: Status: REG ER PHONE #: [phone] Exam Date: 09/13/2018 0944 FAX #: [phone] Reason: fall EXAMS: CPT CODE: [id number] [place]R [place] [address] [place] [id number] EXAM: Left ankle, 2 views and left foot, 2 views; INFORMATION: Pain after fall; FINDINGS: Imaged bones are intact; no evidence of fracture or dislocation. Plantar calcaneal spur. Soft tissue swelling about the ankle; No radiopaque foreign bodies. IMPRESSION: No evidence of acute osseous trauma. at 1018 Reported and signed by: Darnell Otto M.D. CC: Scooter Sanchez MD; Homa Carmona M.D. Technologist: Jameson Roberts RT(R); Josette Bella RT(R) Trnscrd Date/Time/By: 09/13/2018 (1018) : By: LeonorGRW Orig Print D/T: S: 09/13/2018 (1023) PAGE 1 Signed Report - XR ELBOW 2 VIEWS LT 2018-09-13 10:16:00 FAX: Scooter Sanchez MD [phone] [place]: St: REG FAX: Y Homa Carmona [phone] Name: NICKI HELM [facility] : 1960 Age/S: 58/M [address] [facility] Unit #: [id number] Loc: [place] [address] Phys: Scooter Sanchez MD Acct: [id number] Dis Date: Status: REG ER PHONE #: [phone] Exam Date: 09/13/2018 0947 FAX #: [phone] Reason: fall EXAMS: CPT CODE: [id number] XR [place] [address] [place] [address] EXAM: Left elbow, 2 views and left forearm, 2 views; INFORMATION: Left arm pain after fall; FINDINGS: There is new bone formation along the anterior aspect of the humeral condyles and there is slight irregularity of the radial head. These findings are consistent with old posttraumatic changes; there is no evidence of acute osseous trauma. There is an old fracture through the proximal third of the left ulna with pseudoarthrosis formation. There is also fracture of a previously placed plate along the left ulna. There is significant soft tissue swelling adjacent to the old osseous and hardware fracture. The distal portion of the left ulna and the radius are intact and there are old posttraumatic changes of the left elbow as described above. No abnormal radiopaque foreign bodies except for the orthopedic hardware. IMPRESSION: 1. No evidence of acute osseous trauma. 2. 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 3. Old posttraumatic changes of the left elbow. 4. Soft tissue swelling near orthopedic hardware. El ectronically Signed by Shira Otto on 09/13 at 1016 Reported and signed by: Essence Otto M.D. CC: Scooter Sanchez MD; Homa Carmona M.D. Technologist: Jameson Roberts RT(R); Josette Bella RT(R) Trn scrd Date/Time/By: 09/13/2018 (1016) : By: LeonorGRW Orig Print D/T: S : 09/13/2018 (1019) PAGE 1 Signed Report - XR FOREARM 2 VIEWS [id number] 10:16:00 FAX: Scooter Sanchez MD [phone] [place]: St: REG FAX: Homa Don [phone] Name: NICKI HELM [facility] : 1960 Age/S: 58/M [address] [facility] Unit #: [id number] Loc: [place] [address] Phys: Scooter Sanchez MD Acct: [id number] Dis Date: Status: REG ER PHONE #: [phone] Exam Date: 09/13/2018 0950 FAX #: [phone] Reason: fall EXAMS: CPT CODE: [id number] XR [place] [address] [place] [address] EXAM: Left elbow, 2 views and left forearm, 2 views; INFORMATION: Left arm pain after fall; FINDINGS: There is new bone formation along the anterior aspect of the humeral condyles and there is slight irregularity of the radial head. These findings are consis tent with old posttraumatic changes; there is no evidence of acute osseous trauma. 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 There is also fracture of a previously placed plate along the left ulna. There is significant soft tissue swelling adjacent to the old osseous and hardware fracture. The distal por tion of the left ulna and the radius are intact and there are old posttrau matic changes of the left elbow as described above. No abnormal radi opaque foreign bodies except for the orthopedic hardware. IMPRESSION: 1. No evidence of acute osseous trauma. 2. 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 3. Old posttraumatic changes of the left elbow. 4. Soft tissue swelling near orthopedic hardware. El ectronically Signed by Shira Otto on 09/13 at 1016 Reported and signed by: Essence Otto M.D. CC: Scooter Sanchez MD; Homa Carmona M.D. Technologist: Jameson Roberts RT(R); Josette Bella RT(R) Trn scrd Date/Time/By: 09/13/2018 (1016) : By: LeonorGRW Orig Print D/T: S : 09/13/2018 (1019) PAGE 1 Signed Report - XR HUMERUS 2 + V [id number] 10:12:00 FAX: Scooter Sanchez MD [phone] [place]: St: REG FAX: Homa Don [phone] Name: NICKI HELM [facility] : 1960 Age/S: 58/M [address] [facility] Unit #: [id number] Loc: [place] [address] Phys: Scooter Sanchez MD Acct: [id number] Dis Date: Status: REG ER PHONE #: [phone] Exam Date: 09/13/2018 0938 FAX #: [phone] Reason: fall EXAMS: CPT CODE: [id number] XR HUMERUS 2 + V [place] [address] EXAM: Left humerus, 2 views; INFORMATION: Arm pain after fall; FINDINGS: The humerus is intact; no evidence of acute fracture or dislocation. No soft tissue abnormalities. IMPRESSION: No evidence of acute osseous trauma. at 1012 Reported and signed by: Darnell Otto M.D. CC: Scooter Sanchez MD; Homa Carmona M.D. Technologist: Jameson Roberts RT(R); Josette Bella RT(R) Trnscrd Date/Time/By: 09/13/2018 (1012) : By: LeonorGRW Orig Print D/T: S: 09/13/2018 (1015) PAGE 1 Signed Report [id number] 17:45:00* Test Item Value Reference Range Comments GLUBED (test code=GLUBED) 277 mg/dL 74-106 Performed by certified printing machine operator tape rules at [facility] [id number] 17:45:00* Test Item Value Reference Range Comments GLUBED (test code=GLUBED) 177 mg/dL 74-106 Performed by certified printing machine operator tape rules at [facility] CBC W/AUTO [id number] 14:15:00* Test Item Value Reference Range Comments WHITE BLOOD CELL (test code=WBC) 16.2 K/mm3 4.5-12.5 RED BLOOD CELL (test code=RBC) 4.88 mill/mm3 4.0-5.8 HEMOGLOBIN (test code=HGB) 12.4 gram/dL 13.0-17.5 HEMATOCRIT (test code=HCT) 43.4 % 42.0-52.0 MEAN CELL VOLUME (test code=MCV) 88.9 fL 80-98 MEAN CELL HGB (test code=MCH) 25.4 picogram 27.0-33.0 MEAN CELL HGB CONCETRATION (test code=MCHC) 28.6 gram/dL 33.0-36.0 RED CELL DISTRIBUTION WIDTH (test code=RDW) 15.8 % 11.6-16.2 RED CELL DISTRIBUTION WIDTH SD (test code=RDW-SD) 51.8 fL 37.0-51.0 PLATELET COUNT (test code=PLT) 283 K/mm3 150-450 MEAN PLATELET VOLUME (test code=MPV) 9.6 fL 6.7-11.0 NEUTROPHIL % (test code=NT%) 83.1 % 39.0-69.0 IMMATURE GRANULOCYTE % (test code=IG%) 3.4 % 0.0-5.0 LYMPHOCYTE % (test code=LY%) 6.6 % 25.0-55.0 MONOCYTE % (test code=MO%) 6.4 % 0.0-10.0 EOSINOPHIL % (test code=EO%) 0.0 % 0.0-5.0 BASOPHIL % (test code=BA%) 0.5 % 0.0-1.0 NUCLEATED RBC % (test code=NRBC%) 0.1 % 0-0 NEUTROPHIL # (test code=NT#) 13.49 K/mm3 1.8-7.7 IMMATURE GRANULOCYTE # (test code=IG#) 0.55 x10 3/uL 0-0.03 LYMPHOCYTE # (test code=LY#) 1.07 K/mm3 1.0-5.0 MONOCYTE # (test code=MO#) 1.03 K/mm3 0-0.8 EOSINOPHIL # (test code=EO#) 0.00 K/mm3 0.0-0.5 BASOPHIL # (test code=BA#) 0.08 K/mm3 0.0-0.2 NUCLEATED RBC # (test code=NRBC#) 0.02 K/mm3 0.0-0.1 MANUAL DIFF REQUIRED (test code=MDIFF) NO, ONLY SCAN NEEDED DIFFERENTIAL [id number] 14:15:00* Test Item Value Reference Range Comments STAIN ACCEPTABILITY (test code=STN ACCEPTABLE) STAIN ACCEPTABLE MORPHOLOGY COMMENT (test code=MOC) NORMAL PLATELET ESTIMATE (test code=PLTEST) ADEQUATE PLATELET MORPHOLOGY (test code=PLTMORPH) NORMAL BASIC METABOLIC [id number] 12:40:00* Test Item Value Reference Range Comments SODIUM (test code=NA) 137 mmol/L 136-145 POTASSIUM (test code=K) 4.3 mmol/L 3.5-5.1 CHLORIDE (test code=CL) 95.0 mmol/L 98-107 CARBON DIOXIDE (test code=CO2) 26.0 mmol/L 21-32 ANION GAP (test code=GAP) 20.3 10-20 GLUCOSE (test code=GLU) 164 mg/dL 74-106 BLOOD UREA NITROGEN (test code=BUN) 26 mg/dL 7-18 GLOMERULAR FILTRATION RATE (test code=GFR) > 60 mL/min >=60 Estimated GFR by using Modified MDRD formula.Chronic kidney disease is defined as either kidney damageor GFR <60 mL/min/1.73 m2 for >3 months. CREATININE (test code=CREAT) 1.00 mg/dL 0.7-1.3 BUN/CREATININE RATIO (test code=BUN/CREA) 26.0 10-20 CALCIUM (test code=CA) 10.3 mg/dL 8.5-10.1 BASIC METABOLIC [id number] 12:35:00* Test Item Value Reference Range Comments SODIUM (test code=NA) 137 mmol/L 136-145 POTASSIUM (test code=K) 4.3 mmol/L 3.5-5.1 CHLORIDE (test code=CL) 95.0 mmol/L 98-107 CARBON DIOXIDE (test code=CO2) mmol/L 21-32 ANION GAP (test code=GAP) 10-20 GLUCOSE (test code=GLU) mg/dL 74-106 BLOOD UREA NITROGEN (test code=BUN) mg/dL 7-18 GLOMERULAR FILTRATION RATE (test code=GFR) mL/min >=60 CREATININE (test code=CREAT) mg/dL 0.7-1.3 BUN/CREATININE RATIO (test code=BUN/CREA) 10-20 CALCIUM (test code=CA) mg/dL 8.5-10.1 CBC W/AUTO [id number] 12:22:00* Test Item Value Reference Range Comments WHITE BLOOD CELL (test code=WBC) 16.2 K/mm3 4.5-12.5 RED BLOOD CELL (test code=RBC) 4.88 mill/mm3 4.0-5.8 HEMOGLOBIN (test code=HGB) 12.4 gram/dL 13.0-17.5 HEMATOCRIT (test code=HCT) 43.4 % 42.0-52.0 MEAN CELL VOLUME (test code=MCV) 88.9 fL 80-98 MEAN CELL HGB (test code=MCH) 25.4 picogram 27.0-33.0 MEAN CELL HGB CONCETRATION (test code=MCHC) 28.6 gram/dL 33.0-36.0 RED CELL DISTRIBUTION WIDTH (test code=RDW) 15.8 % 11.6-16.2 RED CELL DISTRIBUTION WIDTH SD (test code=RDW-SD) 51.8 fL 37.0-51.0 PLATELET COUNT (test code=PLT) 283 K/mm3 150-450 MEAN PLATELET VOLUME (test code=MPV) 9.6 fL 6.7-11.0 NEUTROPHIL % (test code=NT%) 83.1 % 39.0-69.0 IMMATURE GRANULOCYTE % (test code=IG%) 3.4 % 0.0-5.0 LYMPHOCYTE % (test code=LY%) 6.6 % 25.0-55.0 MONOCYTE % (test code=MO%) 6.4 % 0.0-10.0 EOSINOPHIL % (test code=EO%) 0.0 % 0.0-5.0 BASOPHIL % (test code=BA%) 0.5 % 0.0-1.0 NUCLEATED RBC % (test code=NRBC%) 0.1 % 0-0 NEUTROPHIL # (test code=NT#) 13.49 K/mm3 1.8-7.7 IMMATURE GRANULOCYTE # (test code=IG#) 0.55 x10 3/uL 0-0.03 LYMPHOCYTE # (test code=LY#) 1.07 K/mm3 1.0-5.0 MONOCYTE # (test code=MO#) 1.03 K/mm3 0-0.8 EOSINOPHIL # (test code=EO#) 0.00 K/mm3 0.0-0.5 BASOPHIL # (test code=BA#) 0.08 K/mm3 0.0-0.2 NUCLEATED RBC # (test code=NRBC#) 0.02 K/mm3 0.0-0.1 MANUAL DIFF REQUIRED (test code=MDIFF) NO, ONLY SCAN NEEDED DIFFERENTIAL [id number] 12:22:00* Test Item Value Reference Range Comments STAIN ACCEPTABILITY (test code=STN ACCEPTABLE) CABOT RINGS (test code=CAB) MORPHOLOGY COMMENT (test code=MOC) PLATELET ESTIMATE (test code=PLTEST) PLATELET MORPHOLOGY (test code=PLTMORPH) CBC W/AUTO [id number] 12:22:00* Test Item Value Reference Range Comments WHITE BLOOD CELL (test code=WBC) 16.2 K/mm3 4.5-12.5 RED BLOOD CELL (test code=RBC) 4.88 mill/mm3 4.0-5.8 HEMOGLOBIN (test code=HGB) 12.4 gram/dL 13.0-17.5 HEMATOCRIT (test code=HCT) 43.4 % 42.0-52.0 MEAN CELL VOLUME (test code=MCV) 88.9 fL 80-98 MEAN CELL HGB (test code=MCH) 25.4 picogram 27.0-33.0 MEAN CELL HGB CONCETRATION (test code=MCHC) 28.6 gram/dL 33.0-36.0 RED CELL DISTRIBUTION WIDTH (test code=RDW) 15.8 % 11.6-16.2 RED CELL DISTRIBUTION WIDTH SD (test code=RDW-SD) 51.8 fL 37.0-51.0 PLATELET COUNT (test code=PLT) 283 K/mm3 150-450 MEAN PLATELET VOLUME (test code=MPV) 9.6 fL 6.7-11.0 NEUTROPHIL % (test code=NT%) 83.1 % 39.0-69.0 IMMATURE GRANULOCYTE % (test code=IG%) 3.4 % 0.0-5.0 LYMPHOCYTE % (test code=LY%) 6.6 % 25.0-55.0 MONOCYTE % (test code=MO%) 6.4 % 0.0-10.0 EOSINOPHIL % (test code=EO%) 0.0 % 0.0-5.0 BASOPHIL % (test code=BA%) 0.5 % 0.0-1.0 NUCLEATED RBC % (test code=NRBC%) 0.1 % 0-0 NEUTROPHIL # (test code=NT#) 13.49 K/mm3 1.8-7.7 IMMATURE GRANULOCYTE # (test code=IG#) 0.55 x10 3/uL 0-0.03 LYMPHOCYTE # (test code=LY#) 1.07 K/mm3 1.0-5.0 MONOCYTE # (test code=MO#) 1.03 K/mm3 0-0.8 EOSINOPHIL # (test code=EO#) 0.00 K/mm3 0.0-0.5 BASOPHIL # (test code=BA#) 0.08 K/mm3 0.0-0.2 NUCLEATED RBC # (test code=NRBC#) 0.02 K/mm3 0.0-0.1 MANUAL DIFF REQUIRED (test code=MDIFF) NO, ONLY SCAN NEEDED DIFFERENTIAL [id number] 12:22:00* Test Item Value Reference Range Comments STAIN ACCEPTABILITY (test code=STN ACCEPTABLE) CABOT RINGS (test code=CAB) MORPHOLOGY COMMENT (test code=MOC) PLATELET ESTIMATE (test code=PLTEST) PLATELET MORPHOLOGY (test code=PLTMORPH) CBC W/AUTO [id number] 12:22:00* Test Item Value Reference Range Comments WHITE BLOOD CELL (test code=WBC) 16.2 K/mm3 4.5-12.5 RED BLOOD CELL (test code=RBC) 4.88 mill/mm3 4.0-5.8 HEMOGLOBIN (test code=HGB) 12.4 gram/dL 13.0-17.5 HEMATOCRIT (test code=HCT) 43.4 % 42.0-52.0 MEAN CELL VOLUME (test code=MCV) 88.9 fL 80-98 MEAN CELL HGB (test code=MCH) 25.4 picogram 27.0-33.0 MEAN CELL HGB CONCETRATION (test code=MCHC) 28.6 gram/dL 33.0-36.0 RED CELL DISTRIBUTION WIDTH (test code=RDW) 15.8 % 11.6-16.2 RED CELL DISTRIBUTION WIDTH SD (test code=RDW-SD) 51.8 fL 37.0-51.0 PLATELET COUNT (test code=PLT) 283 K/mm3 150-450 MEAN PLATELET VOLUME (test code=MPV) 9.6 fL 6.7-11.0 NEUTROPHIL % (test code=NT%) 83.1 % 39.0-69.0 IMMATURE GRANULOCYTE % (test code=IG%) 3.4 % 0.0-5.0 LYMPHOCYTE % (test code=LY%) 6.6 % 25.0-55.0 MONOCYTE % (test code=MO%) 6.4 % 0.0-10.0 EOSINOPHIL % (test code=EO%) 0.0 % 0.0-5.0 BASOPHIL % (test code=BA%) 0.5 % 0.0-1.0 NUCLEATED RBC % (test code=NRBC%) 0.1 % 0-0 NEUTROPHIL # (test code=NT#) 13.49 K/mm3 1.8-7.7 IMMATURE GRANULOCYTE # (test code=IG#) 0.55 x10 3/uL 0-0.03 LYMPHOCYTE # (test code=LY#) 1.07 K/mm3 1.0-5.0 MONOCYTE # (test code=MO#) 1.03 K/mm3 0-0.8 EOSINOPHIL # (test code=EO#) 0.00 K/mm3 0.0-0.5 BASOPHIL # (test code=BA#) 0.08 K/mm3 0.0-0.2 NUCLEATED RBC # (test code=NRBC#) 0.02 K/mm3 0.0-0.1 MANUAL DIFF REQUIRED (test code=MDIFF) NO, ONLY SCAN NEEDED DIFFERENTIAL [id number] 12:22:00* Test Item Value Reference Range Comments STAIN ACCEPTABILITY (test code=STN ACCEPTABLE) MORPHOLOGY COMMENT (test code=MOC) PLATELET ESTIMATE (test code=PLTEST) PLATELET MORPHOLOGY (test code=PLTMORPH) CBC W/AUTO [id number] 12:22:00* Test Item Value Reference Range Comments WHITE BLOOD CELL (test code=WBC) 16.2 K/mm3 4.5-12.5 RED BLOOD CELL (test code=RBC) 4.88 mill/mm3 4.0-5.8 HEMOGLOBIN (test code=HGB) 12.4 gram/dL 13.0-17.5 HEMATOCRIT (test code=HCT) 43.4 % 42.0-52.0 MEAN CELL VOLUME (test code=MCV) 88.9 fL 80-98 MEAN CELL HGB (test code=MCH) 25.4 picogram 27.0-33.0 MEAN CELL HGB CONCETRATION (test code=MCHC) 28.6 gram/dL 33.0-36.0 RED CELL DISTRIBUTION WIDTH (test code=RDW) 15.8 % 11.6-16.2 RED CELL DISTRIBUTION WIDTH SD (test code=RDW-SD) 51.8 fL 37.0-51.0 PLATELET COUNT (test code=PLT) 283 K/mm3 150-450 MEAN PLATELET VOLUME (test code=MPV) 9.6 fL 6.7-11.0 NEUTROPHIL % (test code=NT%) 83.1 % 39.0-69.0 IMMATURE GRANULOCYTE % (test code=IG%) 3.4 % 0.0-5.0 LYMPHOCYTE % (test code=LY%) 6.6 % 25.0-55.0 MONOCYTE % (test code=MO%) 6.4 % 0.0-10.0 EOSINOPHIL % (test code=EO%) 0.0 % 0.0-5.0 BASOPHIL % (test code=BA%) 0.5 % 0.0-1.0 NUCLEATED RBC % (test code=NRBC%) 0.1 % 0-0 NEUTROPHIL # (test code=NT#) 13.49 K/mm3 1.8-7.7 IMMATURE GRANULOCYTE # (test code=IG#) 0.55 x10 3/uL 0-0.03 LYMPHOCYTE # (test code=LY#) 1.07 K/mm3 1.0-5.0 MONOCYTE # (test code=MO#) 1.03 K/mm3 0-0.8 EOSINOPHIL # (test code=EO#) 0.00 K/mm3 0.0-0.5 BASOPHIL # (test code=BA#) 0.08 K/mm3 0.0-0.2 NUCLEATED RBC # (test code=NRBC#) 0.02 K/mm3 0.0-0.1 MANUAL DIFF REQUIRED (test code=MDIFF) NO, ONLY SCAN NEEDED DIFFERENTIAL [id number] 12:22:00* Test Item Value Reference Range Comments STAIN ACCEPTABILITY (test code=STN ACCEPTABLE) CABOT RINGS (test code=CAB) MORPHOLOGY COMMENT (test code=MOC) PLATELET ESTIMATE (test code=PLTEST) PLATELET MORPHOLOGY (test code=PLTMORPH) CBC W/AUTO [id number] 12:17:00* Test Item Value Reference Range Comments WHITE BLOOD CELL (test code=WBC) K/mm3 4.5-12.5 RED BLOOD CELL (test code=RBC) mill/mm3 4.0-5.8 HEMOGLOBIN (test code=HGB) gram/dL 13.0-17.5 HEMATOCRIT (test code=HCT) 43.4 % 42.0-52.0 MEAN CELL VOLUME (test code=MCV) fL 80-98 MEAN CELL HGB (test code=MCH) picogram 27.0-33.0 MEAN CELL HGB CONCETRATION (test code=MCHC) gram/dL 33.0-36.0 RED CELL DISTRIBUTION WIDTH (test code=RDW) % 11.6-16.2 RED CELL DISTRIBUTION WIDTH SD (test code=RDW-SD) fL 37.0-51.0 PLATELET COUNT (test code=PLT) K/mm3 150-450 MEAN PLATELET VOLUME (test code=MPV) fL 6.7-11.0 NEUTROPHIL % (test code=NT%) % 39.0-69.0 IMMATURE GRANULOCYTE % (test code=IG%) % 0.0-5.0 LYMPHOCYTE % (test code=LY%) % 25.0-55.0 MONOCYTE % (test code=MO%) % 0.0-10.0 EOSINOPHIL % (test code=EO%) % 0.0-5.0 BASOPHIL % (test code=BA%) % 0.0-1.0 NEUTROPHIL # (test code=NT#) K/mm3 1.8-7.7 LYMPHOCYTE # (test code=LY#) K/mm3 1.0-5.0 MONOCYTE # (test code=MO#) K/mm3 0-0.8 EOSINOPHIL # (test code=EO#) K/mm3 0.0-0.5 BASOPHIL # (test code=BA#) K/mm3 0.0-0.2 [id number] 06:46:00* Test Item Value Reference Range Comments GLUBED (test code=GLUBED) 181 mg/dL 74-106 Performed by certified printing machine operator tape rules at [facility] [id number] 05:16:00* Test Item Value Reference Range Comments GLYCOSYLATED HEMOGLOBIN (HA1C) (test code=GLYHGB) 6.3 % HbA1 4.8-6.0 ESTIMATED AVERAGE GLUCOSE (test code=EAG) 134 MG/DL [id number] 22:36:00* Test Item Value Reference Range Comments GLUBED (test code=GLUBED) 166 mg/dL 74-106 Performed by certified printing machine operator tape rules at [facility] [id number] 17:14:00* Test Item Value Reference Range Comments GLUBED (test code=GLUBED) 147 mg/dL 74-106 Performed by certified printing machine operator tape rules at [facility] [id number] 00:20:00* Test Item Value Reference Range Comments GLUBED (test code=GLUBED) 198 mg/dL 74-106 Performed by certified printing machine operator tape rules at [facility] BASIC METABOLIC [id number] 12:17:00* Test Item Value Reference Range Comments SODIUM (test code=NA) 139 mmol/L 136-145 RESULT VERIFIED BY REPEAT ANALYSIS POTASSIUM (test code=K) 4.6 mmol/L 3.5-5.1 CHLORIDE (test code=CL) 103.0 mmol/L 98-107 CARBON DIOXIDE (test code=CO2) 26.0 mmol/L 21-32 ANION GAP (test code=GAP) 14.6 10-20 GLUCOSE (test code=GLU) 178 mg/dL 74-106 BLOOD UREA NITROGEN (test code=BUN) 15 mg/dL 7-18 GLOMERULAR FILTRATION RATE (test code=GFR) > 60 mL/min >=60 Estimated GFR by using Modified MDRD formula.Chronic kidney disease is defined as either kidney damageor GFR <60 mL/min/1.73 m2 for >3 months. CREATININE (test code=CREAT) 0.80 mg/dL 0.7-1.3 BUN/CREATININE RATIO (test code=BUN/CREA) 18.8 10-20 CALCIUM (test code=CA) 10.0 mg/dL 8.5-10.1 BASIC METABOLIC [id number] 12:15:00* Test Item Value Reference Range Comments SODIUM (test code=NA) 139 mmol/L 136-145 RESULT VERIFIED BY REPEAT ANALYSIS POTASSIUM (test code=K) 4.6 mmol/L 3.5-5.1 CHLORIDE (test code=CL) 103.0 mmol/L 98-107 CARBON DIOXIDE (test code=CO2) mmol/L 21-32 ANION GAP (test code=GAP) 10-20 GLUCOSE (test code=GLU) mg/dL 74-106 BLOOD UREA NITROGEN (test code=BUN) mg/dL 7-18 GLOMERULAR FILTRATION RATE (test code=GFR) mL/min >=60 CREATININE (test code=CREAT) mg/dL 0.7-1.3 BUN/CREATININE RATIO (test code=BUN/CREA) 10-20 CALCIUM (test code=CA) 10.0 mg/dL 8.5-10.1 [id number] 12:10:00* Test Item Value Reference Range Comments GLUBED (test code=GLUBED) 167 mg/dL 74-106 Performed by certified printing machine operator tape rules at [facility] CBC W/O [id number] 11:31:00* Test Item Value Reference Range Comments WHITE BLOOD CELL (test code=WBC) 18.0 K/mm3 4.5-12.5 RED BLOOD CELL (test code=RBC) 4.28 mill/mm3 4.0-5.8 HEMOGLOBIN (test code=HGB) 10.7 gram/dL 13.0-17.5 HEMATOCRIT (test code=HCT) 36.5 % 42.0-52.0 MEAN CELL VOLUME (test code=MCV) 85.3 fL 80-98 MEAN CELL HGB (test code=MCH) 25.0 picogram 27.0-33.0 MEAN CELL HGB CONCETRATION (test code=MCHC) 29.3 gram/dL 33.0-36.0 RED CELL DISTRIBUTION WIDTH (test code=RDW) 15.4 % 11.6-16.2 PLATELET COUNT (test code=PLT) 247 K/mm3 150-450 MEAN PLATELET VOLUME (test code=MPV) 8.9 fL 6.7-11.0 [id number] 06:17:00* Test Item Value Reference Range Comments GLUBED (test code=GLUBED) 201 mg/dL 74-106 Performed by certified printing machine operator tape rules at [facility] - CT CHEST W/O [id number] 21:24:00 Name: NICKI HELM [facility] : 1960 Age/S: 58 / M [address] [facility] Unit #: [id number] Loc: [place] [address] Phys: Jeanette Perez MD Acct: [id number] Dis Date: Status: ADM IN PHONE #: [phone] Exam Date: 09/02/[id number] FAX #: [phone] Reason: ? asbestos EXAMS: CPT CODE: [id number] CT CHEST W/O CONTRAST 37812 REASON FOR EXAM: ? asbestos EXAM ORDER DATE: 09/02/2018 8:27 PM Ordering M.D.: Jeanette Perez MD PROCEDURE: - CT CHEST W/O CONTRAST FINDINGS: CT images of the chest were obtained without IV contrast. Reconstructed sagittal and coronal images of the chest were provided for interpretation. Dose modulation, iterative reconstruction, and/or weight based adjustment of the MA/KV was utilized to reduce the radiation dose to as low as reasonably achievable. The heart size is within normal limits. No evidence of pericardial effusion. The thoracic aorta is aorta is unremarkable.. No evidence of mediastinal or hilar adenopathy. Minimal atelectasis of the bases No evidence of pleural effusion. IMPRESSION: Hypoinflated lungs with atelectasis of the bases. Non specific minimal pleural thickening with fat. Cirrhosis of liver. E lectronically Signed by Shira Haley on 09/02/2018 at 2123 Reported and signed by: Ildefonso Haley M.D. CC: Jeanette Perez MD; Homa Carmona M.D.; Michael Guallpa MD Technologist:NGUYEN SIMONS RT(R) CT CTDI: DLP: Trnscb Date/Time: 09/02/2018 (2123) t.[email or web address] Orig Print D/T: S: 09/02/2018 (2126) CTDI: DLP: PAGE 1 Signed Report [id number] 21:21:00* Test Item Value Reference Range Comments TROPONIN-I (test code=TROPI) <0.015 ng/mL 0-0.045 COMMENTS TO [employer] COOK: COLLECT 3 HOURS AFTER PREVIOUS [id number] 15:37:00* Test Item Value Reference Range Comments TROPONIN-I (test code=TROPI) <0.015 ng/mL 0-0.045 PER [facility] TIMED DRAW SHOULD BE 1500 V.LAB.TS1 [id number] TO PHLEBO TOMIST: COLLECT 3 HOURS AFTER PREVIOUS SAMPLE URINALYSIS [id number] 13:33:00* Test Item Value Reference Range Comments UA COLOR (test code=COLU) LIGHT YELLOW YELLOW UA APPEARANCE (test code=APPU) CLEAR CLEAR UA GLUCOSE DIPSTICK (test code=DGLUU) NEGATIVE mg/dL NEGATIVE UA BILIRUBIN DIPSTICK (test code=BILU) NEGATIVE mg/dL NEGATIVE UA KETONE DIPSTICK (test code=KETU) NEGATIVE mg/dL NEGATIVE UA SPECIFIC GRAVITY (test code=SGU) 1.009 1.001-1.035 UA BLOOD DIPSTICK (test code=LAUREN) Negative mg/dL NEGATIVE UA PH DIPSTICK (test code=MELISSA) 7.0 5.0-8.0 UA PROTEIN DIPSTICK (test code=PROU) NEGATIVE mg/dL NEGATIVE UA UROBILINIOGEN DIPSTICK (test code=URO) NEGATIVE mg/dL NEGATIVE UA NITRITE DIPSTICK (test code=RONNIE) NEGATIVE NEGATIVE UA LEUKOCYTE ESTERASE W REFLEX (test code=LEUUR) NEGATIVE Leonardo/uL NEGATIVE UA WBC (test code=WBCU) NONE SEEN per HPF 0-5 UA RBC (test code=RBCU) 0-2 #/HPF 0-5 UA EPITHELIAL CELLS (test code=EPIU) FEW per HPF FEW Urine Source? Clean CatchB-TYPE NATRIURETIC [id number] 12:55:00* Test Item Value Reference Range Comments B-TYPE NATRIURETIC PEPTIDE (test code=BNP) 5.79 pgram/mL 0-100 BASIC METABOLIC [id number] 12:47:00* Test Item Value Reference Range Comments SODIUM (test code=NA) 131 mmol/L 136-145 POTASSIUM (test code=K) 3.7 mmol/L 3.5-5.1 CHLORIDE (test code=CL) 95.0 mmol/L 98-107 CARBON DIOXIDE (test code=CO2) 28.0 mmol/L 21-32 ANION GAP (test code=GAP) 11.7 10-20 GLUCOSE (test code=GLU) 98 mg/dL 74-106 BLOOD UREA NITROGEN (test code=BUN) 9 mg/dL 7-18 GLOMERULAR FILTRATION RATE (test code=GFR) > 60 mL/min >=60 Estimated GFR by using Modified MDRD formula.Chronic kidney disease is defined as either kidney damageor GFR <60 mL/min/1.73 m2 for >3 months. CREATININE (test code=CREAT) 0.70 mg/dL 0.7-1.3 BUN/CREATININE RATIO (test code=BUN/CREA) 12.9 10-20 CALCIUM (test code=CA) 9.6 mg/dL 8.5-10.1 HEPATIC FUNCTION [id number] 12:47:00* Test Item Value Reference Range Comments TOTAL PROTEIN (test code=PROT) 8.4 gram/dL 6.4-8.2 ALBUMIN (test code=ALB) 3.7 g/dL 3.4-5.0 GLOBULIN (test code=GLOB) 4.7 gram/dL 2.7-4.2 ALBUMIN/GLOBULIN RATIO (test code=A/G) 0.8 0.75-1.50 BILIRUBIN TOTAL (test code=BILT) 0.40 mg/dL 0.0-1.0 BILIRUBIN DIRECT (test code=BILD) 0.11 mg/dL 0.0-0.20 SGOT/AST (test code=AST) 16 IUnit/L 15-37 SGPT/ALT (test code=ALT) 23 IUnit/L 12-78 ALKALINE PHOSPHATASE TOTAL (test code=ALKP) 92 IUnit/L 45-117 Note change in reference range due to change in reagent. [id number] 12:47:00* Test Item Value Reference Range Comments LIPASE (test code=LIP) 132 U/L 73.0-393.0 [id number] 12:47:00* Test Item Value Reference Range Comments MAGNESIUM (test code=MAG) 2.1 mg/dL 1.8-2.4 [id number] 12:47:00* Test Item Value Reference Range Comments TROPONIN-I (test code=TROPI) <0.015 ng/mL 0-0.045 URINALYSIS [id number] 12:45:00* Test Item Value Reference Range Comments UA COLOR (test code=COLU) LIGHT YELLOW YELLOW UA APPEARANCE (test code=APPU) CLEAR CLEAR UA GLUCOSE DIPSTICK (test code=DGLUU) NEGATIVE mg/dL NEGATIVE UA BILIRUBIN DIPSTICK (test code=BILU) NEGATIVE mg/dL NEGATIVE UA KETONE DIPSTICK (test code=KETU) NEGATIVE mg/dL NEGATIVE UA SPECIFIC GRAVITY (test code=SGU) 1.009 1.001-1.035 UA BLOOD DIPSTICK (test code=LAUREN) Negative mg/dL NEGATIVE UA PH DIPSTICK (test code=MELISSA) 7.0 5.0-8.0 UA PROTEIN DIPSTICK (test code=PROU) NEGATIVE mg/dL NEGATIVE UA UROBILINIOGEN DIPSTICK (test code=URO) NEGATIVE mg/dL NEGATIVE UA NITRITE DIPSTICK (test code=RONNIE) NEGATIVE NEGATIVE UA LEUKOCYTE ESTERASE W REFLEX (test code=LEUUR) NEGATIVE Leonardo/uL NEGATIVE UA WBC (test code=WBCU) NONE SEEN per HPF 0-5 UA RBC (test code=RBCU) 0-2 #/HPF 0-5 UA EPITHELIAL CELLS (test code=EPIU) FEW per HPF FEW UA BACTERIA (test code=BACU) per HPF NONE Urine Source? Clean CatchPROTHROMBIN [id number] 12:38:00* Test Item Value Reference Range Comments PROTHROMBIN TIME PATIENT (test code=PTP) 11.9 seconds 9.0-14.0 INTERNATIONAL NORMAL RATIO (test code=INR) 1.0 0.8-1.2 The therapeutic range for oral anticoagulant therapy formost indications is an international normalized ratio (INR)of between 2.0 and 3.0. The recommended therapeutic INRrange for various clinical situations is listed below: Clinical Situation INR range Pulmonary e mbolism treatment (2.0-3.0)Venous thrombosis treatmentVenous thrombosis prophylaxis (high risk surgery)Prevention of systemic embolism from: Acute myocardial infarction Valvular heart disease Atrial fibrillation Mechanical prosthetic heart valves (2.5-3.5) IS PATIENT ON ANTICOAGULANTS? NTHROMBOPLASTIN TIME [id number] 12:38:00* Test Item Value Reference Range Comments THROMBOPLASTIN TIME PARTIAL (test code=PTT) 37.8 seconds 25.0-36.5 IS PATIENT ON ANTICOAGULANTS? NBASIC METABOLIC [id number] 12:38:00* Test Item Value Reference Range Comments SODIUM (test code=NA) 131 mmol/L 136-145 POTASSIUM (test code=K) 3.7 mmol/L 3.5-5.1 CHLORIDE (test code=CL) 95.0 mmol/L 98-107 CARBON DIOXIDE (test code=CO2) mmol/L 21-32 ANION GAP (test code=GAP) 10-20 GLUCOSE (test code=GLU) mg/dL 74-106 BLOOD UREA NITROGEN (test code=BUN) mg/dL 7-18 GLOMERULAR FILTRATION RATE (test code=GFR) mL/min >=60 CREATININE (test code=CREAT) mg/dL 0.7-1.3 BUN/CREATININE RATIO (test code=BUN/CREA) 10-20 CALCIUM (test code=CA) mg/dL 8.5-10.1 HEPATIC FUNCTION [id number] 12:38:00* Test Item Value Reference Range Comments TOTAL PROTEIN (test code=PROT) gram/dL 6.4-8.2 ALBUMIN (test code=ALB) g/dL 3.4-5.0 GLOBULIN (test code=GLOB) gram/dL 2.7-4.2 ALBUMIN/GLOBULIN RATIO (test code=A/G) 0.75-1.50 BILIRUBIN TOTAL (test code=BILT) mg/dL 0.0-1.0 BILIRUBIN DIRECT (test code=BILD) mg/dL 0.0-0.20 SGOT/AST (test code=AST) IUnit/L 15-37 SGPT/ALT (test code=ALT) IUnit/L 12-78 ALKALINE PHOSPHATASE TOTAL (test code=ALKP) IUnit/L 45-117 [id number] 12:38:00* Test Item Value Reference Range Comments LIPASE (test code=LIP) U/L 73.0-393.0 [id number] 12:38:00* Test Item Value Reference Range Comments MAGNESIUM (test code=MAG) mg/dL 1.8-2.4 [id number] 12:38:00* Test Item Value Reference Range Comments TROPONIN-I (test code=TROPI) ng/mL 0-0.045 URINALYSIS [id number] 12:20:00* Test Item Value Reference Range Comments UA COLOR (test code=COLU) LIGHT YELLOW YELLOW UA APPEARANCE (test code=APPU) CLEAR CLEAR UA GLUCOSE DIPSTICK (test code=DGLUU) NEGATIVE mg/dL NEGATIVE UA BILIRUBIN DIPSTICK (test code=BILU) NEGATIVE mg/dL NEGATIVE UA KETONE DIPSTICK (test code=KETU) NEGATIVE mg/dL NEGATIVE UA SPECIFIC GRAVITY (test code=SGU) 1.009 1.001-1.035 UA BLOOD DIPSTICK (test code=LAUREN) Negative mg/dL NEGATIVE UA PH DIPSTICK (test code=MELISSA) 7.0 5.0-8.0 UA PROTEIN DIPSTICK (test code=PROU) NEGATIVE mg/dL NEGATIVE UA UROBILINIOGEN DIPSTICK (test code=URO) NEGATIVE mg/dL NEGATIVE UA NITRITE DIPSTICK (test code=RONNIE) NEGATIVE NEGATIVE UA LEUKOCYTE ESTERASE W REFLEX (test code=LEUUR) NEGATIVE Leonardo/uL NEGATIVE UA WBC (test code=WBCU) per HPF 0-5 UA RBC (test code=RBCU) 0-2 #/HPF 0-5 UA EPITHELIAL CELLS (test code=EPIU) FEW per HPF FEW UA BACTERIA (test code=BACU) per HPF NONE Urine Source? Clean CatchCBC W/O [id number] 12:15:00* Test Item Value Reference Range Comments WHITE BLOOD CELL (test code=WBC) 13.1 K/mm3 4.5-12.5 RED BLOOD CELL (test code=RBC) 4.29 mill/mm3 4.0-5.8 HEMOGLOBIN (test code=HGB) 10.8 gram/dL 13.0-17.5 HEMATOCRIT (test code=HCT) 36.4 % 42.0-52.0 MEAN CELL VOLUME (test code=MCV) 84.8 fL 80-98 MEAN CELL HGB (test code=MCH) 25.2 picogram 27.0-33.0 MEAN CELL HGB CONCETRATION (test code=MCHC) 29.7 gram/dL 33.0-36.0 RED CELL DISTRIBUTION WIDTH (test code=RDW) 15.6 % 11.6-16.2 PLATELET COUNT (test code=PLT) 242 K/mm3 150-450 [facility]18 1215Critical results verified and read back by Nurse? MEAN PLATELET VOLUME (test code=MPV) 8.4 fL 6.7-11.0 URINALYSIS [id number] 12:13:00* Test Item Value Reference Range Comments UA COLOR (test code=COLU) LIGHT YELLOW YELLOW UA APPEARANCE (test code=APPU) CLEAR CLEAR UA GLUCOSE DIPSTICK (test code=DGLUU) NEGATIVE mg/dL NEGATIVE UA BILIRUBIN DIPSTICK (test code=BILU) NEGATIVE mg/dL NEGATIVE UA KETONE DIPSTICK (test code=KETU) NEGATIVE mg/dL NEGATIVE UA SPECIFIC GRAVITY (test code=SGU) 1.009 1.001-1.035 UA BLOOD DIPSTICK (test code=LAUREN) Negative mg/dL NEGATIVE UA PH DIPSTICK (test code=MELISSA) 7.0 5.0-8.0 UA PROTEIN DIPSTICK (test code=PROU) NEGATIVE mg/dL NEGATIVE UA UROBILINIOGEN DIPSTICK (test code=URO) NEGATIVE mg/dL NEGATIVE UA NITRITE DIPSTICK (test code=RONNIE) NEGATIVE NEGATIVE UA LEUKOCYTE ESTERASE W REFLEX (test code=LEUUR) NEGATIVE Leonardo/uL NEGATIVE UA WBC (test code=WBCU) per HPF 0-5 UA RBC (test code=RBCU) per HPF 0-5 UA EPITHELIAL CELLS (test code=EPIU) per HPF Few UA BACTERIA (test code=BACU) per HPF NONE Urine Source? Clean Catch- XR CHEST 1 [id number] 11:49:00 FAX: Homa Don [phone] [place]: St: REG FAX: Jolene Davidson [phone] Name: NICKI HELM [facility] : 1960 Age/S: 58/M [address] Unit #: [id number] Loc: JYOTI [place] [address] Phys: Jolene Parekh MD Acct: [id number] Dis Date: Status: REG ER PHONE #: [phone] Exam Date: 09/02/2018 1134 FAX #: [phone] Reason: CHEST PAIN EXAMS: CPT CODE: [id number] XR CHEST 1 V 49083 HISTORY: Chest pain. COMPARISON: Chest x-ray from August 17, 2018. No acute infiltrates, effusion or congestion is not ed. Suboptimal inspiration with dependent changes. Cardiomeg alexis. IMPRESSION: No acute infiltrates, effus ion or congestion. Electronically Signed by Shira Hurst on at 1149 Reported and signed by: Ron Becker CC: Homa Carmona M.D.; Jolene Parekh MD Technologist: Sweetie Rust RT(R); STUDENT TECHNOLOGIST Quincy glezrd Date/Time/By: 09/02/2018 (1148) : By: [email or web address] Orig Print D/T: S: 09/02/2018 (2827) PAGE 1 Leonor d Report B-TYPE NATRIURETIC [id number] 01:49:00* Test Item Value Reference Range Comments B-TYPE NATRIURETIC PEPTIDE (test code=BNP) 5.76 pgram/mL 0-100 BASIC METABOLIC [id number] 00:32:00* Test Item Value Reference Range Comments SODIUM (test code=NA) 137 mmol/L 136-145 POTASSIUM (test code=K) 3.7 mmol/L 3.5-5.1 CHLORIDE (test code=CL) 100.0 mmol/L 98-107 CARBON DIOXIDE (test code=CO2) 28.0 mmol/L 21-32 ANION GAP (test code=GAP) 12.7 10-20 GLUCOSE (test code=GLU) 96 mg/dL 74-106 BLOOD UREA NITROGEN (test code=BUN) 13 mg/dL 7-18 GLOMERULAR FILTRATION RATE (test code=GFR) > 60 mL/min >=60 Estimated GFR by using Modified MDRD formula.Chronic kidney disease is defined as either kidney damageor GFR <60 mL/min/1.73 m2 for >3 months. CREATININE (test code=CREAT) 0.60 mg/dL 0.7-1.3 BUN/CREATININE RATIO (test code=BUN/CREA) 21.7 10-20 CALCIUM (test code=CA) 8.9 mg/dL 8.5-10.1 [id number] 00:32:00* Test Item Value Reference Range Comments TROPONIN-I (test code=TROPI) <0.015 ng/mL 0-0.045 BASIC METABOLIC [id number] 00:21:00* Test Item Value Reference Range Comments SODIUM (test code=NA) 137 mmol/L 136-145 POTASSIUM (test code=K) 3.7 mmol/L 3.5-5.1 CHLORIDE (test code=CL) 100.0 mmol/L 98-107 CARBON DIOXIDE (test code=CO2) mmol/L 21-32 ANION GAP (test code=GAP) 10-20 GLUCOSE (test code=GLU) mg/dL 74-106 BLOOD UREA NITROGEN (test code=BUN) mg/dL 7-18 GLOMERULAR FILTRATION RATE (test code=GFR) mL/min >=60 CREATININE (test code=CREAT) mg/dL 0.7-1.3 BUN/CREATININE RATIO (test code=BUN/CREA) 10-20 CALCIUM (test code=CA) mg/dL 8.5-10.1 [id number] 00:21:00* Test Item Value Reference Range Comments TROPONIN-I (test code=TROPI) ng/mL 0-0.045 CBC W/O [id number] 00:15:00* Test Item Value Reference Range Comments WHITE BLOOD CELL (test code=WBC) 15.3 K/mm3 4.5-12.5 RED BLOOD CELL (test code=RBC) 4.17 mill/mm3 4.0-5.8 HEMOGLOBIN (test code=HGB) 10.7 gram/dL 13.0-17.5 HEMATOCRIT (test code=HCT) 35.9 % 42.0-52.0 MEAN CELL VOLUME (test code=MCV) 86.1 fL 80-98 MEAN CELL HGB (test code=MCH) 25.7 picogram 27.0-33.0 MEAN CELL HGB CONCETRATION (test code=MCHC) 29.8 gram/dL 33.0-36.0 RED CELL DISTRIBUTION WIDTH (test code=RDW) 16.3 % 11.6-16.2 PLATELET COUNT (test code=PLT) 248 K/mm3 150-450 MEAN PLATELET VOLUME (test code=MPV) 8.7 fL 6.7-11.0 - XR CHEST 1 [id number] 21:59:00 FAX: Homa Don [phone] [place]: St: REG FAX: Gm Eid DO Name: NICKI HELM [facility] : 1960 Age/S: 58/M [address] [facility] Unit #: [id number] Loc: JYOTI [place] [address] Phys: Gm Eid DO Acct: [id number] Dis Date: Status: REG ER PHONE #: [phone] Exam Date: 08/17/20182141 FAX #: [phone] Reason: Shortness of Breath EXAMS: CPT CODE: [id number] XR CHEST 1 V 14234 EXAM: Chest x-ray, one view; INFORMATION: Shortness of breath, cough and congestion; FINDINGS: Pleural scarring in the lower portions of the left chest; otherwise, lungs are clear; no infiltrates, no edema, no effusions; The heart is slightly enlarged. IMPRESSION: 1. No acute cardiothoracic abnormalities. 2. Mild cardiomegaly. at 2159 Reported and signed by: Darnell Otto M.D. CC: Homa Carmona M.D.; Gm Eid DO Technologist: CATRINA THURSTON(R) Trnscrd Date/Time/By: 08/17/2018 (2158) : By: Jose Antonio Orig Print D/T: S: 08/17/2018 (2201) PAGE 1 Signed Report POC Glucose, [id number] 23:20:00* Test Item Value Reference Range Comments POC Glucose (test code=POCGLUC) 98 mg/dL 70-115 If you consider your patient critically ill, the Tanisha Accu-Chek InformII metershould not be used for Glucose determinations.Draw a venous Glucose and send to the Main Lab for Analysis. [id number] 22:14:00* Test Item Value Reference Range Comments Amphetamine (test code=AMPH) Negative Negative For diagnostic purposes only, positive results should always be assessedin conjunctionwith the patient's medical history,clinical examination and otherfindings.To fulfill legal requirements, a more specific alternate chemical methodmust be used inorder to obtain a Confirmed analytical result. GC/MS is the preferred confirmatory method. Barbiturates (test code=DEBBIE) Negative Negative Benzodiazepine (test code=SANDRA) Negative Negative Cocaine (test code=COCA) POSITIVE Negative Methadone (test code=MTHD) Negative Negative Opiates (test code=OPIA) Negative Negative PCP (test code=PCP) Negative Negative Propoxyphene (test code=PROPOX) Negative Negative THC (test code=THC) Negative Negative Alcohol, Urine (test code=ETOHU) 0.26 g/dL 0.00-0.01 Comprehensive Metabolic [id number] 22:13:00* Test Item Value Reference Range Comments Sodium (test code=NA) 126 mmol/L 135-145 Potassium (test code=K) 3.4 mmol/L 3.5-5.1 Chloride (test code=CL) 84 mmol/L 98-105 Carbon Dioxide (test code=CO2) 24 mmol/L 22-29 Glucose (test code=GLU) 95 mg/dL 70-115 Blood Urea Nitrogen (test code=BUN) 13 mg/dL 6-20 Creatinine (test code=CREAT) 1.1 mg/dL 0.7-1.2 Calcium (test code=CA) 9.8 mg/dL 8.3-10.5 Prot Total (test code=TP) 6.9 g/dL 6.4-8.3 Albumin (test code=ALB) 4.1 g/dL 3.5-5.2 A/G Ratio (test code=AGRATIO) 1.5 Ratio Globulin (test code=GLOB) 2.8 2.9-3.1 Bili Total (test code=TBIL) 0.3 mg/dL 0.1-0.9 Alk Phos (test code=APHOS) 94 U/L 40-129 AST (test code=AST) 27 U/L 1-40 ALT (test code=ALT) 21 U/L 1-41 BUN/Creatinine Ratio (test code=BCRATIO) 11.8 Anion Gap (test code=AGAP) 18 mmol/L 7-16 Estimated GFR (test code=GFR) >60 mL/min/1.73m2 eGFR (estimated Glomerular Filtration Rate) is an estimated value,calculated from the patient's serum creatinine using the MDRD equation.It is NOT the patient's actual GFR. The eGFR provides a more clinicallyuseful measure of kidney disease than serum creatinine alone.This calculation takes sex and race into account, if the informationis provided. If the race is not provided, and the patient isAfrican-Argentine, multiply by 1.212. If sex is not provided, and thepatient is female, multiply by 0.742. Results for patients <18 years ofage have not been validated by the MDRD study and should be interpretedwith caution.eGFR Result Interpretation:eGFR > or=60 is in the Normal RangeeGFR < 60 may mean kidney diseaseeGFR < 15 may mean kidney failureRanges recommended by the National Kidney Foundat ion,http://nkdep.nih.gov CBC with [id number] 22:04:00* Test Item Value Reference Range Comments WBC (test code=WBC) 12.5 K/cumm 4.4-10.5 RBC (test code=RBC) 4.11 M/cumm 4.10-5.70 Hemoglobin (test code=HGB) 11.7 gm/dL 13.4-17.4 Hematocrit (test code=HCT) 35.0 % 38.7-52.0 MCV (test code=MCV) 85.2 fL 80-100 MCH (test code=MCH) 28.5 pg 27.0-32.5 MCHC (test code=MCHC) 33.4 g/dL 32.0-37.5 RDW (test code=RDW) 15.1 % 11.5-14.5 Platelet Count (test code=PLTCT) 243 K/cumm 140-440 MPV (test code=MPV) 7.3 fL Diff Method (test code=DIFFM) Auto Neutrophil (test code=NEUT) 71.3 % 36-70 Lymphocyte (test code=LYMPH) 20.2 % 12-44 Monocyte (test code=MONO) 7.1 % 0-11 Eosinophil (test code=EOS) 0.7 % 0-7 Basophil (test code=BASO) 0.7 % 0-2 Neutro Abs (test code=ANEUT) 8.9 K/cumm 1.6-7.4 Lymph Abs (test code=ALYMPH) 2.5 K/cumm 0.5-4.6 Morrow Abs (test code=AMONO) 0.9 K/cumm 0.0-1.2 Eos Abs (test code=AEOS) 0.08 K/cumm 0.00-0.74 Baso Abs (test code=ABASO) 0.1 K/cumm 0.00-0.21 Urinalysis [id number] 22:00:00* Test Item Value Reference Range Comments Color (test code=COLOR) Yellow Yellow,Straw,Pl yellow Clarity (test code=CLAR) Clear Clear Specific [place] (test code=SPGR) 1.008 1.001-1.035 pH (test code=PH) 5.0 5.0-9.0 Ketone (test code=KET) Negative mg/dL Negative Glucose (test code=GLUCUR) Negative mg/dL Negative Protein (test code=PROT) Negative mg/dL Negative Bilirubin (test code=BILI) Negative mg/dL Negative Occult Blood (test code=UDOB) Negative Negative Urobilinogen (test code=UROB) 0.2 mg/dL 0.2-1.0 Nitrite (test code=NIT) Negative Negative Leuk Esterase (test code=LEUK) Negative Negative Micros Exam (test code=MEXAM) Not indicated
--- OUTSIDE RECORDS SUMMARY | 2018-10-01 09:23 | XMS REPORT | Summary of Care ---
Author Author [facility] Organization [facility] Address Unknown Phone Unavailable Encounter HQ Talisha(FIN) [id number] Date(s): 09/26/17 - 09/27/17 [facility] [address] [place] [address]- Encounter Diagnosis Abdominal pain (Discharge Diagnosis) - 09/27/17 Abdominal hernia (Discharge Diagnosis) - 09/27/17 Discharge Disposition: Home or Self Care Attending Physician: Jodie Jay DO Vital Signs 1 2 3 Most recent to oldest [Reference Range]: 160.02 cm (09/26/17 8:44 PM) Height 98.2 DegF (09/26/17 8:44 PM) Temperature Oral [96.4-99.1 DegF] 140/60 mmHg (09/27/17 3:57 AM) 131/87 mmHg (09/26/17 11:30 PM) 156/77 mmHg *HI* (09/26/17 8:44 PM) Blood Pressure [90-140/60-90 mmHg] 18 BRMIN (09/27/17 3:57 AM) 18 BRMIN (09/26/17 11:30 PM) 18 BRMIN (09/26/17 8:44 PM) Respiratory Rate [14-20 BRMIN] 73 bpm (09/27/17 3:57 AM) 67 bpm (09/26/17 11:30 PM) 75 bpm (09/26/17 8:44 PM) Peripheral Pulse Rate [60-100 bpm] 128.182 kg (09/26/17 8:44 PM) Weight 50.06 m2 (09/26/17 8:44 PM) Body Mass Index Problem List Condition Effective Dates Status Health Status Informant Chronic obstructive Resolved pulmonary disease (COPD)(Confirmed) Diabetes(Confirmed) Active Diabetic Active neuropathy(Confirmed ) Homelessness(Confirm Active ed) Hypertension(Confirm Active ed) Allergies, Adverse Reactions, Alerts Substance Reaction Severity Status clindamycin Active Medications fentaNYL 50 microgram, Route: IVP, ONCE, Dosing Weight 128.182, kg, Priority: STAT, Start date: 09/26/17 22:26:00 CDT, Stop date: 09/26/17 22:26:00 CDT Start Date: 09/26/17 Stop Date: 09/26/17 Status: Completed fentaNYL 50 microgram, Route: IVP, ONCE, Dosing Weight 128.182, kg, Priority: STAT, Start date: 09/27/17 0:32:00 CDT, Stop date: 09/27/17 0:32:00 CDT Start Date: 09/27/17 Stop Date: 09/27/17 Status: Completed Results ELECTROLYTES Most recent to 1 oldest [Reference Range]: Sodium Lvl [135-145 135 mEq/L mEq/L] (09/26/17 9:25 PM) Potassium Lvl 3.6 mEq/L [3.5-5.1 mEq/L] (09/26/17 9:25 PM) Chloride Lvl [95-109 97 mEq/L mEq/L] (09/26/17 9:25 PM) CO2 [24-32 mEq/L] 31 mEq/L (09/26/17 9:25 PM) AGAP [10.0-20.0 10.6 mEq/L mEq/L] (09/26/17 9:25 PM) CHEM PANEL Most recent to 1 oldest [Reference Range]: Creatinine Lvl 0.74 mg/dL [0.50-1.40 mg/dL] (09/26/17 9:25 PM) eGFR 104 mL/min/1.73m2 1 *NA* (09/26/17 9:25 PM) BUN [7-22 mg/dL] 17 mg/dL (09/26/17 9:25 PM) B/C Ratio [6-25] 23 (09/26/17 9:25 PM) Glucose Lvl [70-99 96 mg/dL mg/dL] (09/26/17 9:25 PM) Total Protein 7.8 g/dL [6.4-8.4 g/dL] (09/26/17 9:25 PM) Albumin Lvl [3.5-5.0 4.2 g/dL g/dL] (09/26/17 9:25 PM) Globulin [2.7-4.2 3.6 g/dL g/dL] (09/26/17 9:25 PM) A/G Ratio [0.7-1.6] 1.2 (09/26/17 9:25 PM) Calcium Lvl 9.5 mg/dL [8.5-10.5 mg/dL] (09/26/17 9:25 PM) ALT [0-65 unit/L] 24 unit/L (09/26/17 9:25 PM) AST [0-37 unit/L] 21 unit/L (09/26/17 9:25 PM) Alk Phos [39-136 75 unit/L unit/L] (09/26/17 9:25 PM) Bili Total [0.2-1.3 0.3 mg/dL mg/dL] (09/26/17 9:25 PM) 1Result Comment: The eGFR is calculated using [...] be mul tiplied by the estimated BMI. CARDIAC ENZYMES Most recent to 1 oldest [Reference Range]: Total CK [12-191 148 unit/L unit/L] (09/26/17 9:25 PM) CK MB [0.5-3.6 <1.0 ng/mL ng/mL] (09/26/17 9:25 PM) CK MB Index <0.7 [0.0-2.5] (09/26/17 9:25 PM) Troponin-I <0.02 ng/mL [0.00-0.40 ng/mL] (09/26/17 9:25 PM) HEMATOLOGY Most recent to 1 oldest [Reference Range]: WBC [3.7-10.4 K/CMM] 13.0 K/CMM *HI* (09/26/17 9:25 PM) RBC [4.70-6.10 4.40 M/CMM M/CMM] *LOW* (09/26/17 9:25 PM) Hgb [14.0-18.0 g/dL] 13.0 g/dL *LOW* (09/26/17 9:25 PM) Hct [42.0-54.0 %] 38.4 % *LOW* (09/26/17 9:25 PM) MCV [80.0-94.0 fL] 87.3 fL (09/26/17 9:25 PM) MCH [27.0-31.0 pg] 29.7 pg (09/26/17 9:25 PM) MCHC [32.0-36.0 33.9 g/dL g/dL] (09/26/17 9:25 PM) RDW [11.5-14.5 %] 14.1 % (09/26/17 9:25 PM) MPV [7.4-10.4 fL] 7.7 fL (09/26/17 9:25 PM) Platelet [133-450 218 K/CMM K/CMM] (09/26/17 9:25 PM) Segs [45.0-75.0 %] 65.0 % (09/26/17 9:25 PM) Lymphocytes 16.9 % [20.0-40.0 %] *LOW* (09/26/17 9:25 PM) Monocytes [2.0-12.0 11.0 % %] (09/26/17 9:25 PM) Eosinophils [0.0-4.0 6.3 % %] *HI* (09/26/17 9:25 PM) Basophils [0.0-1.0 0.8 % %] (09/26/17 9:25 PM) Segs-Bands # 8.5 K/CMM [1.5-8.1 K/CMM] *HI* (09/26/17 9:25 PM) Lymphocytes # 2.2 K/CMM [1.0-5.5 K/CMM] (09/26/17 9:25 PM) Monocytes # [0.0-0.8 1.4 K/CMM K/CMM] *HI* (09/26/17 9:25 PM) Eosinophils # 0.8 K/CMM [0.0-0.5 K/CMM] *HI* (09/26/17 9:25 PM) Basophils # [0.0-0.2 0.1 K/CMM K/CMM] (09/26/17 9:25 PM) RBC Morph Normal (09/26/17 9:25 PM) Plt Morph Normal (09/26/17 9:25 PM) PT [12.0-14.7 17.0 seconds seconds] *HI* (09/26/17 9:25 PM) INR [0.85-1.17] 1.38 *HI* (09/26/17 9:25 PM) PTT [22.9-35.8 40.0 seconds seconds] *HI* (09/26/17 9:25 PM) Immunizations No data available for this section [...]
--- OUTSIDE RECORDS SUMMARY | 2018-10-01 09:23 | XMS REPORT | Summary of Care ---
Author Author [facility] Organization [facility] Address Unknown Phone Unavailable Encounter MICKIE Woodall(ANDREW) [id number] Date(s): 02/15/15 - 02/15/15 [facility] [id number] [place] [address]- Discharge Diagnosis: Hernia Discharge Diagnosis: Atypical chest pain Discharge Disposition: Home Attending Physician: Pipe Love MD Vital Signs 1 2 3 Most recent to oldest [Reference Range]: 160.02 cm (02/15/15 8:27 AM) Height 1 2 3 Most recent to oldest [Reference Range]: 96.8 DegF (02/15/15 8:27 AM) Temperature Oral [96.4-99.1 DegF] 1 2 3 Most recent to oldest [Reference Range]: 178/86 mmHg *HI* (02/15/15 2:58 PM) 185/93 mmHg *HI* (02/15/15 2:00 PM) 166/86 mmHg *HI* (02/15/15 1:18 PM) Blood Pressure [90-140/60-90 mmHg] 1 2 3 Most recent to oldest [Reference Range]: 18 BRMIN (02/15/15 2:58 PM) 18 BRMIN (02/15/15 2:00 PM) 18 BRMIN (02/15/15 1:18 PM) Respiratory Rate [14-20 BRMIN] 1 2 3 Most recent to oldest [Reference Range]: 95 bpm (02/15/15 2:58 PM) 101 bpm *HI* (02/15/15 2:00 PM) 104 bpm *HI* (02/15/15 1:18 PM) Peripheral Pulse Rate [60-100 bpm] 1 2 3 Most recent to oldest [Reference Range]: 113.636 kg (02/15/15 8:27 AM) Weight 1 2 3 Most recent to oldest [Reference Range]: 44.38 m2 (02/15/15 8:27 AM) Body Mass Index Problem List Condition Effective Dates Status Health Status Informant DM (diabetes Resolved mellitus)(Confirmed) Hernia(Confirmed) Resolved HTN - Resolved Hypertension(Confirm ed) Allergies, Adverse Reactions, Alerts Substance Reaction Severity Status NKDA Active Medications morphine Sulfate 6 mg, Route: IVP, Drug form: INJ, ONCE, Dosing Weight 113.636, kg, Priority: STA T, Start date: 02/15/15 9:51:00, Stop date: 02/15/15 9:51:00 Start Date: 02/15/15 Stop Date: 02/15/15 Status: Completed [place] 5/325 oral tablet 1 tab, Route: PO, Dosing Weight 113.636, kg, ONCE, Start date: 02/15/15 13:28:00 , Stop date: 02/15/15 13:28:00 Start Date: 02/15/15 Stop Date: 02/15/15 Status: Completed NS (Bolus) IV 1,000 mL, 1,000 ml/hr, Infuse Over: 1 hr, Route: IV, ONCE, Priority: STAT, Dosin g Weight 113.636 kg, Start date: 02/15/15 13:12:00, Duration: 1 doses or times, Stop date: 02/15/15 13:12:00 Start Date: 02/15/15 Stop Date: 02/15/15 Status: Completed Omnipaque 240 50 mL, Route: PO, Drug Form: SOLN, Dosing Weight 113.636, kg, ONCE, Start date: 02/15/15 9:39:00, Stop date: 02/15/15 9:39:00 Notes: (Same as:Omnipaque 240)12,000mg/50ml Start Date: 02/15/15 Stop Date: 02/15/15 Status: Completed Ultram 50 mg oral tablet 50 mg=1 tab, PO, Q6H, PRN pain, X 3 day, # 12 tab, 0 Refill(s) Start Date: 02/15/15 Stop Date: 02/18/15 Status: Ordered Results ELECTROLYTES Most recent to 1 2 oldest [Reference Range]: Sodium Lvl [135-145 125 mEq/L mEq/L] *LOW* (02/15/15 8:54 AM) Potassium Lvl 3.7 mEq/L [3.5-5.1 mEq/L] (02/15/15 8:54 AM) Chloride Lvl [95-109 90 mEq/L mEq/L] *LOW* (02/15/15 8:54 AM) CO2 [24-32 mEq/L] 21 mEq/L *LOW* (02/15/15 8:54 AM) AGAP [10.0-20.0 17.7 mEq/L mEq/L] (02/15/15 8:54 AM) CHEM PANEL Most recent to 1 2 oldest [Reference Range]: Creatinine Lvl 0.8 mg/dL [0.5-1.4 mg/dL] (02/15/15 8:54 AM) eGFR 102 mL/min/1.73m2 1 *NA* (02/15/15 8:54 AM) BUN [7-22 mg/dL] 4 mg/dL *LOW* (02/15/15 8:54 AM) B/C Ratio [6-25] 5 *LOW* (02/15/15 8:54 AM) Glucose Lvl [70-99 122 mg/dL mg/dL] *HI* (02/15/15 8:54 AM) Total Protein 8.5 g/dL [6.4-8.4 g/dL] *HI* (02/15/15 8:54 AM) Albumin Lvl [3.5-5.0 3.9 g/dL g/dL] (02/15/15 8:54 AM) Globulin [2.0-4.0 4.6 g/dL g/dL] *HI* (02/15/15 8:54 AM) A/G Ratio [0.7-1.6] 0.8 (02/15/15 8:54 AM) Calcium Lvl 8.7 mg/dL [8.5-10.5 mg/dL] (02/15/15 8:54 AM) ALT [0-65 unit/L] 74 unit/L *HI* (02/15/15 8:54 AM) AST [0-37 unit/L] 137 unit/L *HI* (02/15/15 8:54 AM) Alk Phos [39-136 135 unit/L unit/L] (02/15/15 8:54 AM) Bili Total [0.2-1.3 1.4 mg/dL mg/dL] *HI* (02/15/15 8:54 AM) Lipase Lvl [73-393 234 unit/L unit/L] (02/15/15 8:54 AM) 1Result Comment: The eGFR is calculated [...] BMI. CARDIAC ENZYMES Most recent to 1 2 oldest [Reference Range]: CK MB [0.5-3.6 4.9 ng/mL 4.4 ng/mL ng/mL] *HI* *HI* (02/15/15 1:24 PM) (02/15/15 8:54 AM) Troponin-I 0.03 ng/mL 0.03 ng/mL [0.00-0.40 ng/mL] (02/15/15 1:24 PM) (02/15/15 8:54 AM) URINE AND STOOL Most recent to 1 2 oldest [Reference Range]: UA Turbidity [Clear] Clear (02/15/15 8:48 AM) UA Color [Yellow] Yellow *NA* (02/15/15 8:48 AM) UA pH [5.0-8.0] 6.5 (02/15/15 8:48 AM) UA Spec Grav 1.015 [<=1.030] (02/15/15 8:48 AM) UA Glucose Negative [Negative] (02/15/15 8:48 AM) UA Blood [Negative] Trace *ABN* (02/15/15 8:48 AM) UA Ketones [Negative 15 mg/dL mg/dL] *ABN* (02/15/15 8:48 AM) UA Protein [Negative 100 mg/dL mg/dL] *ABN* (02/15/15 8:48 AM) UA Urobilinogen 2.0 EU/dL [0.1-1.0 EU/dL] *HI* (02/15/15 8:48 AM) UA Bili [Negative] Moderate *ABN* (02/15/15 8:48 AM) UA Leuk Est Negative [Negative] (02/15/15 8:48 AM) UA Nitrite Positive [Negative] *ABN* (02/15/15 8:48 AM) UA WBC [None Seen 0-2 /HPF /HPF] (02/15/15 8:48 AM) UA RBC [0-2 /HPF] 0-2 /HPF (02/15/15 8:48 AM) UA Bacteria [None Few /HPF Seen /HPF] (02/15/15 8:48 AM) UA Sq Epi [Few /LPF] Rare /LPF (02/15/15 8:48 AM) Micro? Performed (02/15/15 8:48 AM) HEMATOLOGY Most recent to 1 2 oldest [Reference Range]: WBC [3.7-10.4 K/CMM] 10.2 K/CMM (02/15/15 8:54 AM) RBC [4.70-6.10 4.42 M/CMM M/CMM] *LOW* (02/15/15 8:54 AM) Hgb [14.0-18.0 g/dL] 13.7 g/dL *LOW* (02/15/15 8:54 AM) Hct [42.0-54.0 %] 39.7 % *LOW* (02/15/15 8:54 AM) MCV [80.0-94.0 fL] 89.9 fL (02/15/15 8:54 AM) MCH [27.0-31.0 pg] 30.9 pg (02/15/15 8:54 AM) MCHC [32.0-36.0 34.4 g/dL g/dL] (02/15/15 8:54 AM) RDW [11.5-14.5 %] 13.7 % (02/15/15 8:54 AM) Platelet [133-450 228 K/CMM K/CMM] (02/15/15 8:54 AM) MPV [7.4-10.4 fL] 7.0 fL *LOW* (02/15/15 8:54 AM) Segs [45.0-75.0 %] 83.7 % *HI* (02/15/15 8:54 AM) Lymphocytes 9.7 % [20.0-40.0 %] *LOW* (02/15/15 8:54 AM) Monocytes [2.0-12.0 5.9 % %] (02/15/15 8:54 AM) Eosinophils [0.0-4.0 0.1 % %] (02/15/15 8:54 AM) Basophils [0.0-1.0 0.6 % %] (02/15/15 8:54 AM) Segs-Bands # 8.5 K/CMM [1.5-8.1 K/CMM] *HI* (02/15/15 8:54 AM) Lymphocytes # 1.0 K/CMM [1.0-5.5 K/CMM] (02/15/15 8:54 AM) Monocytes # [0.0-0.8 0.6 K/CMM K/CMM] (02/15/15 8:54 AM) Basophils # [0.0-0.2 0.1 K/CMM K/CMM] (02/15/15 8:54 AM) Immunizations No data available for this section Procedures No data available for this section Social History Social History Type Response Smoking Status Never smoker; Exposure to Tobacco Smoke None; Cigarette Smoking Last 365 Days No; Reg Smoking Cessation Counseling No Assessment and Plan No data available for this section
--- NOTE | 2018-10-01 09:42 | NUR ---
RT notified of ABG order
[2018-10-01] MEDS ORDERED: ALBUTEROL/IPRATROPIUM 3 ML NEB NEB ONE (10:00)
[2018-10-01] MEDS ORDERED: FUROSEMIDE INJ 10 MG/ML 4 ML VIAL IV ONE (10:00)
[2018-10-01] MEDS ORDERED: METHYLPREDNISOLONE SOD SUCC 125 MG/2ML VIAL IV ONE (10:00)
[2018-10-01 10:04] LABS: ABG PCO2 40 mmHg (41-51); ABG PH 7.42 (7.31-7.41)
[2018-10-01 10:05] LABS: ABG HCO3 26 mmol/L (23-28); ABG PO2 89 mmHg (80-105)
[2018-10-01 10:20] LABS: BASOPHILS % 0.2 % (0.0-1.0); EOSINOPHILS # (AUTO) 0.4 (0.0-0.4); EOSINOPHILS % 3.1 % (0.0-6.0); HEMOGLOBIN 9.8 g/dL (14.0-18.0); LYMPHOCYTES # (AUTO) 0.9 (1.0-3.2); LYMPHOCYTES % 7.9 % (18.0-39.1); MEAN CORPUSCULAR HEMOGLOBIN 25.7 pg (28-32); MEAN CORPUSCULAR HGB CONC 32.7 g/dL (31-35); MEAN CORPUSCULAR VOLUME 78.5 fL (81-99); MONOCYTES # (AUTO) 1.3 (0.2-0.8); MONOCYTES % 10.9 % (4.4-11.3); NEUTROPHILS # (AUTO) 8.9 (2.1-6.9); NEUTROPHILS % 75.5 % (38.7-80.0); PLATELET COUNT 242 x10e3/uL (140-360); RED BLOOD COUNT 3.82 x10e6/uL (4.3-5.7); RED CELL DISTRIBUTION WIDTH 15.9 % (11.7-14.4)
[2018-10-01 10:22] LABS: BILIRUBIN,URINE NEGATIVE (NEGATIVE); CLARITY,URINE SL CLOUDY (CLEAR); COLOR,URINE YELLOW (YELLOW); KETONES,URINE NEGATIVE (NEGATIVE); LEUKOCYTE ESTERASE ,URINE NEGATIVE (NEGATIVE); NITRITE,URINE NEGATIVE (NEGATIVE); PROTEIN,URINE DIPSTICK NEGATIVE (NEGATIVE); URINE UROBILINOGEN 0.2 mg/dL (0.2 - 1)
[2018-10-01] MEDS ORDERED: FUROSEMIDE INJ 10 MG/ML 4 ML VIAL ONE (10:26)
[2018-10-01] MEDS ORDERED: MAGNESIUM SULFATE 2GM/50ML 50 ML IV ONE (10:30)
[2018-10-01 10:36] LABS: CHOL/HDL RATIO 2.2 (3.9-4.7)
[2018-10-01 10:38] LABS: ALANINE AMINOTRANSFERASE 16 IU/L (0-55); ALBUMIN 3.3 g/dL (3.5-5.0); ALBUMIN/GLOBULIN RATIO 0.8 (0.8-2.0); ALKALINE PHOSPHATASE 88 IU/L (40-150); ANION GAP 12.5 mmol/L (8-16); BLOOD UREA NITROGEN 10 mg/dL (7-26); BUN/CREATININE RATIO 14 (6-25); CALCIUM 9.4 mg/dL (8.4-10.2); CARBON DIOXIDE 24 mmol/L (22-29); CHLORIDE 92 mmol/L (98-107); CREATININE, SERUM 0.71 mg/dL (0.72-1.25); EST GLOMERULAR FILTRATION RATE > 60 ML/MIN (60-); GLUCOSE 144 mg/dL (74-118); POTASSIUM 3.5 mmol/L (3.5-5.1); SODIUM 125 mmol/L (136-145)
[2018-10-01 10:41] LABS: EPITHELIAL CELLS,URINE RARE /LPF
[2018-10-01 11:04] LABS: B-TYPE NATRIURETIC PEPTIDE2 < 10.0 pg/mL (0-100)
--- NOTE | 2018-10-01 11:27 | NUR ---
Several attempts by Dr. Hancock to start an IV under ultrasound without success.
--- NOTE | 2018-10-01 11:30 | NUR ---
CT notified patient may be transferred to radiology at this time.
[2018-10-01] MEDS ORDERED: ONDANSETRON HCL INJ 2MG/ML 2ML 2 MG/ML VIAL ONE (11:37)
[2018-10-01] MEDS ORDERED: ONDANSETRON HCL INJ 2MG/ML 2ML 2 MG/ML VIAL IV ONE (12:00)
[2018-10-01] MEDS ORDERED: MORPHINE SULFATE INJ 4 MG/ML INJ 1ML IV ONE (12:00)
[2018-10-01 12:12] LABS: EOSINOPHILS % (MANUAL) 4 % (0-7); LYMPHOCYTES % (MANUAL) 12 % (19-48); MONOCYTES % (MANUAL) 17 % (3.4-9.0); NEUTROPHILS % (MANUAL) 67 % (40-74)
[2018-10-01 12:13] LABS: PLATELET ESTIMATE ADEQUATE; PLATELET MORPHOLOGY COMMENT NORMAL; RBC MORPHOLOGY COMMENT NORMAL
--- NOTE | 2018-10-01 13:06 | Diagnostic Imaging Report ---
Exam: Head CT without contrast History: Trauma, fall Comparison studies: None Technique: Axial images were obtained from the skull base to the vertex. Coronal and sagittal images reconstructed from the axial data. Dose modulation, iterative reconstruction, and/or weight based adjustment of the mA/kV was utilized to reduce the radiation dose to as low as reasonably achievable. Radiation dose: Total DLP: 936 mGy*cm. Estimated effective dose: DLP x 0.015 Intravenous contrast: None Findings: Evaluation of the posterior fossa and inferior frontal and temporal lobes are somewhat limited by motion artifacts. Artifact from metallic foreign body in the left parietal scalp also somewhat limits evaluation of the underlying regional brain parenchyma. Scalp: 8 mm retained metallic foreign body/retinal in the left parietal scalp. Bones: No fractures, blastic or lytic lesions. Brain sulci: Appropriate for age. Ventricles: Normal in size and configuration. No hydrocephalus. Extra-axial spaces: No masses, no fluid collection. Parenchyma: No mass, acute hemorrhage or acute cortical insult. A few subtle hypodensities in the supratentorial white matter are nonspecific but may reflect mild chronic microvascular ischemic changes Sellar/suprasellar region: No abnormalities. Craniocervical junction: Patent foramen magnum. No Chiari one malformation. IMPRESSION: 1. No acute abnormalities. 2. Mild chronic microvascular ischemic changes. 3. Retained metallic foreign body/shrapnel in the left parietal scalp without underlying calvarial abnormality. Signed by: Dr. Gallo Lewis M.D. on 10/01/2018 1:03 PM
--- NOTE | 2018-10-01 13:08 | Diagnostic Imaging Report ---
EXAMINATION: CT of the abdomen and pelvis with contrast. TECHNIQUE: Spiral CT images of the abdomen and pelvis were performed from the lung bases to the lesser trochanters after the intravenous administration of 100 cc Isovue-370. Coronal and sagittal reformatted images were obtained. COMPARISON: None. CLINICAL HISTORY:Painful ventral hernia evaluate for incarceration. DISCUSSION: ABDOMEN/PELVIS: LOWER THORAX:Subsegmental atelectasis in the dependent lower lobes and lingula. HEPATOBILIARY: Nodular hepatic contour. 7 mm hypoattenuating lesion in segment 5-6 is too small to further characterize though may represent a small cyst. No intra-or extrahepatic biliary ductal dilation. The gallbladder is normal. SPLEEN: No splenomegaly. PANCREAS: No focal masses or ductal dilatation. ADRENALS: No adrenal nodules. KIDNEYS/URETERS: No hydronephrosis, stones, or solid mass lesions. PELVIC ORGANS/BLADDER: The bladder is normal. PERITONEUM/RETROPERITONEUM: No free air or fluid. LYMPH NODES: No intra-abdominal, retroperitoneal, pelvic or inguinal lymphadenopathy. VESSELS: Atherosclerotic calcification of the abdominal aorta without aneurysmal dilatation. Portal vein, splenic vein, and central superior mesenteric vein are patent. GI TRACT: The large bowel shows no distention or wall thickening. Scattered sigmoid diverticula without wall thickening or mesocolic inflammation. The appendix is normal. The stomach is collapsed with prominent rugal folds. No small bowel dilatation to suggest obstruction. BONES AND SOFT TISSUE: No osseous destructive lesions. Probable bone island left iliac wing. Degenerative disc changes of the lumbar spine. Fat-containing supraumbilical midline ventral hernia neck measures 3 cm transverse. The hernia sac contains omental fat without significant inflammatory change. Skin thickening and subcutaneous fat stranding along the low anterior abdominal wall subcutaneous fat. No loculated fluid collection. IMPRESSION: Ventral supraumbilical abdominal wall hernia contains omental fat, without evidence of inflammation. Skin thickening and subcutaneous edema along the bilateral low anterior abdominal wall is of uncertain etiology. No drainable fluid collections. Nodular hepatic contour suggestive of cirrhosis. Correlate for chronic hepatitis or alcohol abuse. Large bowel diverticulosis without findings of diverticulitis. Signed by: Dr. Gallo Mosqueda M.D. on 10/01/2018 1:05 PM
--- NOTE | 2018-10-01 13:10 | Diagnostic Imaging Report ---
Examination: Single AP view of the chest. COMPARISON: CT abdomen and pelvis same day. INDICATION: Shortness of breath DISCUSSION: Lungs are well-inflated. Linear atelectasis in the right middle lobe. No airspace consolidation, pleural effusion, or pneumothorax. Enlargement of the cardiac silhouette shown to represent prominent epicardial fat on comparison CT abdomen and pelvis same day. No acute osseous abnormality. IMPRESSION: Linear atelectasis in the right middle lobe. Otherwise no acute cardiopulmonary abnormality. Signed by: Dr. Gallo Mosqueda M.D. on 10/01/2018 1:06 PM
[2018-10-01] MEDS ORDERED: ASPIRIN 81 MG CHEW TAB PO ONE (13:30)
[2018-10-01] MEDS ORDERED: SODIUM CHLORIDE FLUSH 10 ML SYR INJ PRN (13:30)
[2018-10-01] MEDS: ALBUTEROL/IPRATROPIUM 3 ML NEB NEB SCH ×3 (14:30→23:30)
--- NOTE | 2018-10-01 15:00 | NUR ---
PT TO THE FLOOR FROM ER. VITALS WNL. PT DENIES NEEDS AT THIS TIME.
[2018-10-01] MEDS ORDERED: SODIUM CHLORIDE 0.9% 50ML 50 ML ONE ×2 (15:17→15:18)
[2018-10-01] MEDS ORDERED: IOPAMIDOL 370 MG/ML 200 ML INFUS..BTL INJ ONE ×2 (15:17→15:18)
[2018-10-01 15:55] VITALS: BP 150/70
[2018-10-01 16:00] VITALS: BP 150/70
[2018-10-01 16:13] VITALS: BP 150/70
[2018-10-01 16:22] VITALS: BP 150/70
[2018-10-01] MEDS: FAMOTIDINE 20 MG/2 ML VIAL IV SCH (16:23)
[2018-10-01] MEDS: PIPER-TAZ 3.375 GM 50 ML IV SCH ×2 (16:23→22:15)
--- NOTE | 2018-10-01 17:59 | Diagnostic Imaging Report ---
EXAMINATION: CT of the chest with contrast, PE protocol. TECHNIQUE: Spiral CT images of the chest were performed from the lung apices through the level of the adrenal glands after the IV administration of 100 cc of Isovue 370. Thin section reconstructions were obtained with special concentration on the pulmonary arteries. Coronal and sagittal reformatted images were performed. COMPARISON: <none> CLINICAL HISTORY:Elevated D dimer, shortness of breath DISCUSSION: Suboptimal exam with poor opacification of subsegmental pulmonary arteries. Exam limited as it was acquired during partial expiratory phase and due to photon starvation from patient's large body habitus. Lungs: Filling defects are identified in segmental branches of the left lower lobe (for example 2, images 55, 58, 59 and 62). No filling defects are noted in the main, right or left pulmonary arteries. No saddle emboli. Linear opacities in the lingula and bilateral lower lobes consistent with subsegmental atelectasis or scarring. No consolidation or pulmonary nodules or masses. Airways: <The major airways are clear.> Pleura: <There is no evidence of pleural effusion or pneumothorax. Bilateral posterior lower lobe pleural thickening..> Heart and mediastinum: Thyroid is unremarkable. Mild cardiomegaly. Atherosclerotic calcification of the coronary arteries and thoracic aortic arch. The aorta is nonaneurysmal. Main pulmonary artery borderline to mildly enlarged, measuring 3.2 cm. Lymph nodes: No mediastinal, hilar or axillary adenopathy. Abdomen: The visualized portions of the liver, spleen, pancreas and kidneys are unremarkable. Mild thickening of bilateral adrenal glands. Bones and soft tissues: No acute bony abnormalities. Visualized soft tissues are unremarkable. IMPRESSION: 1. Pulmonary emboli in segmental branches of the left lower lobe. No filling defects in the main, right or left pulmonary arteries. No saddle emboli. 2. Lingular and bilateral lower lobe subsegmental atelectasis versus scarring. No consolidation 3. Mild cardiomegaly. Borderline to mildly enlarged main pulmonary artery. 4. Findings discussed with Dr. Hancock October 02, 2018 at 1750 hours Signed by: Dr. Francisco Javier Meyer M.D. on 10/01/2018 5:56 PM
[2018-10-01 18:51] LABS: CREATINE KINASE 92 IU/L (30-200)
[2018-10-01] MEDS ORDERED: HYDRALAZINE HCL25 MG PO (19:45)
[2018-10-01] MEDS ORDERED: POTASSIUM CITR10 MEQ PO (19:45)
[2018-10-01] MEDS ORDERED: BREO ELLIPTA IH (19:45)
[2018-10-01] MEDS ORDERED: ZOLPIDEM TARTRA10 MG PO (19:45)
[2018-10-01] MEDS ORDERED: LIPITOR20 MG (19:45)
[2018-10-01] MEDS ORDERED: FUROSEMIDE40 MG PO (19:45)
[2018-10-01] MEDS ORDERED: AMLODIPINE BESY10 MG PO (19:45)
[2018-10-01] MEDS ORDERED: FAMOTIDINE20 MG PO (19:45)
[2018-10-01] MEDS ORDERED: PROVENTIL HFA6.7 GM (19:45)
[2018-10-01] MEDS ORDERED: LACTULOSE20 GM/30 M PO (19:45)
[2018-10-01] MEDS ORDERED: LOSARTAN POTAS100 MG PO (19:45)
[2018-10-01] MEDS ORDERED: GABAPENTIN600 MG (19:45)
[2018-10-01] MEDS ORDERED: CYMBALTA30 MG (19:45)
[2018-10-01 20:00] VITALS: BP 145/75
[2018-10-01 20:30] VITALS: BP 145/75
[2018-10-01] MEDS ORDERED: ENOXAPARIN SOD INJ 40 MG/0.4 ML SYR SC SCH (21:00)
[2018-10-01] MEDS ORDERED: SODIUM CHLORIDE 0.9% 250ML 250 ML ONE (21:54)
[2018-10-01] MEDS: HYDROCODONE/APAP 7.5MG-325MG 1 EA TAB PO PRN (22:15)
[2018-10-02] VITALS (8 sets, daily range): BP systolic 131–154; BP diastolic 64–75
[2018-10-02] MEDS: ALBUTEROL/IPRATROPIUM 3 ML NEB NEB SCH ×6 (03:00→23:15)
[2018-10-02] MEDS: PIPER-TAZ 3.375 GM 50 ML IV SCH ×3 (05:24→22:00)
[2018-10-02] MEDS: HYDROCODONE/APAP 7.5MG-325MG 1 EA TAB PO PRN ×3 (05:24→21:19)
[2018-10-02 05:31] LABS: BASOPHILS % 0.1 % (0.0-1.0); HEMATOCRIT 31.6 % (38.2-49.6); HEMOGLOBIN 10.3 g/dL (14.0-18.0); LYMPHOCYTES # (AUTO) 0.7 (1.0-3.2); LYMPHOCYTES % 4.7 % (18.0-39.1); MEAN CORPUSCULAR HEMOGLOBIN 25.8 pg (28-32); MEAN CORPUSCULAR HGB CONC 32.6 g/dL (31-35); MEAN CORPUSCULAR VOLUME 79.2 fL (81-99); MONOCYTES % 6.3 % (4.4-11.3); NEUTROPHILS # (AUTO) 13.6 (2.1-6.9); NEUTROPHILS % 86.6 % (38.7-80.0); PLATELET COUNT 268 x10e3/uL (140-360); RED BLOOD COUNT 3.99 x10e6/uL (4.3-5.7); RED CELL DISTRIBUTION WIDTH 15.8 % (11.7-14.4)
[2018-10-02 05:42] LABS: INR 0.95; PARTIAL THROMBOPLASTIN TIME 32.2 seconds (23.8-35.5); PROTHROMBIN TIME 13.2 seconds (11.9-14.5)
[2018-10-02 05:48] LABS: CREATINE KINASE 84 IU/L (30-200)
[2018-10-02 06:21] LABS: ALANINE AMINOTRANSFERASE 17 IU/L (0-55); ALBUMIN 3.6 g/dL (3.5-5.0); ALBUMIN/GLOBULIN RATIO 0.8 (0.8-2.0); ALKALINE PHOSPHATASE 96 IU/L (40-150); ANION GAP 15.2 mmol/L (8-16); BLOOD UREA NITROGEN 15 mg/dL (7-26); BUN/CREATININE RATIO 18 (6-25); CALCIUM 10.4 mg/dL (8.4-10.2); CARBON DIOXIDE 26 mmol/L (22-29); CHLORIDE 91 mmol/L (98-107); CHOL/HDL RATIO 2.2 (3.9-4.7); CHOLESTEROL 133 MD/DL (0-199); CREATININE, SERUM 0.82 mg/dL (0.72-1.25); EST GLOMERULAR FILTRATION RATE > 60 ML/MIN (60-); GLUCOSE 206 mg/dL (74-118); HDL CHOLESTEROL 60 MG/DL (40-60); LDL CHOLESTEROL 65 MG/DL (60-130); MAGNESIUM 2.6 MG/DL (1.3-2.1); PHOSPHORUS 3.1 MG/DL (2.3-4.7); POTASSIUM 4.2 mmol/L (3.5-5.1); SODIUM 128 mmol/L (136-145); TRIGLYCERIDES 41 MG/DL (0-149)
--- NOTE | 2018-10-02 07:00 | NUR ---
BEDSIDE SHIFT REPORT RECEIVED FROM NIGHT RN. PT DENIES NEEDS AT THIS TIME.
[2018-10-02] MEDS ORDERED: MOXIFLOXACIN HCL(OPTH) 3 ML BTL OP ONE (07:45)
[2018-10-02] MEDS: FAMOTIDINE 20 MG TAB PO SCH ×2 (08:39→17:24)
[2018-10-02] MEDS: APIXABAN 5 MG TABLET PO SCH ×2 (08:39→17:25)
[2018-10-02] MEDS: FAMOTIDINE 20 MG/2 ML VIAL IV SCH (08:39)
[2018-10-02] MEDS: LOSARTAN POTASSIUM 100 MG TAB PO SCH (08:42)
[2018-10-02] MEDS: HYDRALAZINE HCL 25 MG TAB PO SCH ×3 (08:42→21:00)
[2018-10-02] MEDS: AMLODIPINE BESYLATE 10 MG TAB PO SCH (08:43)
[2018-10-02] MEDS: DULOXETINE HCL 30 MG DELAYED RELEASE PO SCH (08:43)
[2018-10-02] MEDS ORDERED: FUROSEMIDE 40 MG TAB PO SCH (09:00)
[2018-10-02] MEDS ORDERED: DEXTROSE 50% SYRINGE 50 ML IV PRN (10:00)
[2018-10-02] MEDS ORDERED: ALBUTEROL/IPRATROPIUM 3 ML NEB NEB PRN (10:00)
[2018-10-02] MEDS ORDERED: HYDRALAZINE HCL 20 MG/ML VIAL IV PRN (10:15)
[2018-10-02 10:48] LABS: ANISOCYTOSIS SLIGHT; HYPOCHROMASIA SLIGHT; LYMPHOCYTES % (MANUAL) 7 % (19-48); METAMYELOCYTES % (MANUAL) 2 % (0-0); MONOCYTES % (MANUAL) 7 % (3.4-9.0); MYELOCYTES % (MANUAL) 1 % (0-0); NEUTROPHILS % (MANUAL) 82 % (40-74); PLATELET ESTIMATE ADEQUATE; PLATELET MORPHOLOGY COMMENT NORMAL; RBC MORPHOLOGY COMMENT NORMAL
[2018-10-02] MEDS: FUROSEMIDE INJ 100 MG in SODIUM CHLORIDE 0.9% 100 ML 90 ML IV SCH ×2 (12:55→19:00)
[2018-10-02 14:51] LABS: CREATINE KINASE 73 IU/L (30-200)
--- NOTE | 2018-10-02 16:55 | History and Physical ---
CHIEF COMPLAINT: Shortness of breath. HISTORY OF PRESENT ILLNESS: This is a 58-year-old male, morbidly obese with past medical history of hypertension, peripheral neuropathy, hyperlipidemia, and also history of COPD, on home O2, presents to the outside ED with complaints of shortness of breath ongoing for the last several days prior to arrival to the ED. The patient reports that he has been having difficulty ambulating at home, which he is currently at an assisted living. He reports that this has been ongoing for several months now difficulty ambulating due to peripheral neuropathy in his feet. He reports that he has had many falls over the last several weeks. Of note, he had a fall not too long ago he reports. He denies any chest pain or any palpitations. He cannot remember he has a history of heart failure and does not follow up with the Cardiology. He also endorses having significant amount of lower extremity edema as well. The patient was seen and evaluated at bedside on the medical floor. He is currently doing well with no issues. He is sitting on the chair at the side of the bed. The patient reports that he is essentially chair-bound and had been for several months due to his lower extremities peripheral neuropathy and unable to ambulate. REVIEW OF SYSTEMS: Pertinent positive: Generalized weakness, difficulty ambulation, and shortness breath. Pertinent positive: Shortness of breath and generalized weakness. Pertinent negative: Denies any chest pain, palpitation, nausea, vomiting, diarrhea, dysuria, hematuria, frequency, urgency, lightheadedness, dizziness, cough, congestion, fever, or any other complaints. The rest of 14-point review of systems have been reviewed with the patient and are negative. ALLERGIES: ERYTHROMYCIN. HOME MEDICATIONS: Amlodipine 10 mg daily, Lipitor 20 mg daily, duloxetine 30 mg daily, famotidine 20 mg p.o. b.i.d., Lasix 20 mg daily, hydralazine 100 mg p.o. t.i.d., and losartan 100 mg daily. PAST MEDICAL HISTORY: Hypertension, morbidly obese, history of COPD, peripheral neuropathy, and hypertension. PAST SURGICAL HISTORY: Reports none. He does have a ventral abdominal hernia and which he could not have it repaired due to the fact that he is morbidly obese. FAMILY HISTORY: Hypertension and diabetes. SOCIAL HISTORY: No drugs. No alcohol. He used to be a former drinker, quit many years ago, was a former smoker, also quit many years ago. Currently lives in assisted living facility. PHYSICAL EXAMINATION: VITAL SIGNS: Temperature is 96.9, pulse 97, respiratory rate is 20, blood pressure is 147/67, pulse ox 99% and he is on 3 L nasal cannula chronically. GENERAL: Not in acute distress. Alert and oriented x3. Cooperative on examination. HEENT: Head is normocephalic and atraumatic. Eyes, pupils are equal, round, and reactive to light bilaterally. Extraocular movements intact bilaterally. NECK: Supple with good range of motion throughout. No evidence of any erythema or exudates in the posterior pharynx. He has poor dentition. PULMONARY: Clear to auscultation bilaterally. No wheezing, no rales, no rhonchi, no crackles appreciated. CARDIOVASCULAR: Positive S1 and S2. No murmurs, rubs, or gallops appreciated. ABDOMEN: Soft, nondistended, and nontender to palpation. Bowel sounds are present. MUSCULOSKELETAL: Strength is 5/5 throughout. No evidence of any muscle deficits on examination. No weakness appreciated. NEUROLOGIC: Cranial nerves II through XII are grossly intact. No evidence of any neurologic deficits on exam. SKIN: Intact. Warm to touch. Good cap refill. PSYCHIATRIC: Normal affect and mood. EXTREMITIES: He has significant bilateral lower extremity edema about 3+. LABORATORY FINDINGS: Show white count is 15.6, hemoglobin is 10.3, hematocrit is 32, and platelets of 268. Coagulation; PT 13, INR 0.95, and PTT 32. D-dimer is 1.44. His chemistry; sodium was 128, potassium 4.2, chloride 91, bicarb 26, anion gap of 15, BUN is 15, creatinine is 0.82, glucose is 206, calcium is 10.4, phosphorus 3.1, and magnesium is 2.6. LFTs were normal. Troponins were all negative. BNP negative. LDL 51. His urinalysis was negative. MICROBIOLOGY: Blood cultures were pending. IMAGING STUDIES: CT brain, no acute abnormality. There is a retained metallic foreign body shrapnel in the left parietal scalp without underlying calvarial abnormalities. Chest x-ray shows atelectasis in the right middle lobe. Otherwise, no acute cardiopulmonary abnormalities. CT abdomen and pelvis shows a ventral supraumbilical abdominal wall hernia contains omental fat. Skin thickening and subcutaneous edema along the bilateral lower anterior abdominal wall. No drainable fluid collection. He has liver cirrhosis. Large bowel diverticulosis without evidence of diverticulitis. CT chest shows an acute pulmonary embolism in the segmental branches in the left lower lobe. No filling defects in the main right or left pulmonary arteries. No saddle emboli appreciated. Lingular and bilateral lower lobe subsegmental atelectasis versus scarring. No consolidation. IMPRESSION: 1. Acute pulmonary embolism seen on CT imaging. 2. Hypertension. 3. Peripheral neuropathy. 4. History of chronic obstructive pulmonary disease. 5. Hyponatremia. 6. Medically debilitated with generalized weakness. 7. Type 2 diabetes. PLAN: At this time, CT imaging was consistent with acute pulmonary embolism. We will go ahead and start on Eliquis 10 mg p.o. b.i.d. and get Pulmonary consultation. Eliquis will be started here later today. All imaging studies were negative for any source or any obvious findings of bleeding. In relation to his hypertension, we are going to resume same home medications with p.r.n. hydralazine. Start back on his peripheral neuropathy medications. Continue with DuoNeb for underlying COPD. His sodium is low and we will continue to monitor that very closely. I will go ahead and get a venous Doppler of the lower extremities, get a 2D echo as well. Get PT/OT involved. Start on Lasix drip for his underlying edema. Put him on Ambien for sleep and he is going to be on Eliquis for DVT prophylaxis. Pulmonary was consulted for underlying acute pulmonary embolism. MD ROLANDO Zavala/IJEOMA /[id number]
--- NOTE | 2018-10-02 18:46 | Consultation ---
DATE OF CONSULTATION: 10/02/2018 Cardiac consultation. REASON FOR CONSULTATION: Multiple health problems. HISTORY: A 58-year-old gentleman, who is known with morbid obesity, COPD, hypertension, past history of liver disease, alcohol abuse and maybe drug abuse. He is one of the most poorly historian patient, apparently for a year, he is sick. He was unable to walk or to do anything. He was totally debilitated. He needs prolonged hospitalization. Subsequently, very, very prolonged recovery. Finally, he was sent after a one year of care to SNF. He noted he cannot do anything. He does have sleep apnea. He takes his oxygen. He is taking his nebulizer for worsening shortness of breath, but he run out of them because they are expensive and the insurance will not approve them. He is having tendency to fall. His problem continued to be worsening, so he came to the emergency room in respiratory distress. His BNP was normal. However, he was in severe respiratory distress. He got breathing treatment. He got workup including CT chest, which showed the presence of pulmonary emboli. His CT head showed no acute changes, only chronic changes. His CT abdomen for the abdominal pain showed the presence of hernia with fat, but no evidence of acute abdomen. There is atherosclerosis of his vessels. I visited with the patient. He is feeling better after all of his breathing treatment and Lasix and other treatment. His shortness of breath is better. He is sitting in a chair. He does have really morbid obesity. He does have chronic swelling of the lower extremity, more pronounced of the right lower foot where he had several fracture and bone grafting. He does have evidence of chronic edema and chronic scaling of the lower extremities. He does have easy fatigability and shortness of breath on exertion. He does have symptoms of Pickwickian and sleep apnea. The patient in fact does have quite a lot of shortness of breath. Regardless, the patient does have orthopnea. He does have sleep apnea. He sleeps most of the time in recliner. He does have cough. He is debilitated and his activities are limited. He barely can do any activity if any. In summary, he does have shortness of breath, orthopnea, paroxysmal nocturnal dyspnea, swelling of the lower extremities, very limited activity, air hunger, etc. The patient gave me past history of alcohol, drug abuse but now he is clean. REVIEW OF SYSTEMS: Done to all system. All 14 systems will be summarized for clarity. GENERAL: Inability to do any activity. Some extra weight gains in the last few weeks. Good appetite. No fever. No chills. HEENT: No hearing problem, congestion at time. PULMONARY AND CARDIAC: As per above. GI: Bloating and indigestion. : Increased frequency of urination. MUSCULOSKELETAL: Back pain, knee pain, leg pain. NEUROLOGICAL: Tendency to fall, very unbalanced gait, very weak. No local deficits. HEMATOLOGY: Easy bruising, but no bleeding. ENDOCRINE: Increased frequency of urination, but he denied having diabetes. SOCIAL HISTORY: He lives in assisted living place. He moved there after prolonged hospitalization and care for almost a year for illness, which he cannot tell me what it is, but basically he was very debilitated and he need help. So he is nonsmoker now, non-alcohol drinker. He used to be heavy alcohol drinker, smoker, and drug user. MEDICATIONS: residential or assisted living home medications include albuterol, amiodarone 100 mg a day, Lipitor 20 mg a day, Lasix 40 mg a day, levothyroxine 50 mcg a day, amlodipine 10 mg a day, hydralazine 25 mg t.i.d. ALLERGIES: MYCIN. PAST MEDICAL HISTORY: 1. Hypertension. 2. Morbid obesity. 3. COPD. 4. Hyperlipidemia. 5. Debility and some of neurological deficits with abnormal gait. 6. Sleep apnea. 7. Possible Pickwickian. 8. Hypertension. 9. Three ventral hernia surgery. 10. Right ankle surgery. 11. Chronic edema. 12. Hypothyroidism. 13. Liver cirrhosis documented by CAT scan. 14. Recently diagnosed pulmonary embolism by CAT scan. FAMILY HISTORY: Diabetes mellitus and heart disease. PHYSICAL EXAMINATION: VITAL SIGNS: Height of 5 feet 3 inches, weight of 311 pounds, morbidly obese man. Blood pressure 140/70, heart rate of 80, respiratory rate of 20. HEENT: Pupils are reactive. NECK: Very short neck. Difficult to asses jugular venous pulsation. CHEST: Decreased lung expansion. Decreased air entry. Crackles. HEART: Distant heart sound, increased intensity of 2nd heart sound. ABDOMEN: Morbidly obese. Unable to palpate any organ. EXTREMITIES: Chronic skin changes with scaling, chronic venous stasis, edema. NEUROLOGIC: Gait is not examined, but he is able to move his extremities, but he said he is having repeated fall. LABORATORY DATA: BUN 15 and creatinine of 0.8, sodium of 128, potassium 4.2, white blood cell count of 15.6, hemoglobin of 10.3, hematocrit 32%, platelet count of 268,000. BNP of less than 10. Lipid profile showed triglycerides of 47, cholesterol of 110, HDL of 50, LDL of 51. EKG showing normal sinus rhythm. IMPRESSION AND PLAN: 1. Pulmonary embolism. 2. Morbid obesity. 3. Right-sided heart failure. 4. Hypertension. 5. Liver cirrhosis. 6. Neurological deficits. 7. Chronically ill. 8. Debilitated. 9. Cellulitis. Cardiac alva, I will concur with the treatment with apixaban. We will continue his losartan for the time being. I do not think he will benefit from atorvastatin because of the liver cirrhosis. Diuretic dose to be adjusted as needed. I would review his echocardiogram, would review his venous Doppler. Pending on the results of his echocardiogram and venous Dopplers, further steps to be done. ABGs will be quite helpful in this patient care. We will use his CPAP machine for his sleep apnea. Definitely, he needs to lose weight. Prognosis is guarded. MD MARTHA Mondragon/IJEOMA /[id number]
[2018-10-02] MEDS ORDERED: ZOLPIDEM TARTRATE 5 MG TAB PO PRN (21:00)
[2018-10-02] MEDS: ATORVASTATIN 20 MG TAB PO SCH (21:00)
[2018-10-02] MEDS ORDERED: PREDNISONE 20 MG TAB PO ONE (22:30)
[2018-10-03] VITALS (9 sets, daily range): BP systolic 108–142; BP diastolic 53–78
[2018-10-03] MEDS: ALBUTEROL/IPRATROPIUM 3 ML NEB NEB SCH ×6 (02:50→23:10)
--- NOTE | 2018-10-03 05:12 | Consultation ---
DATE OF CONSULTATION: 10/02/2018 Pulmonary Medicine Consult REFERRING PHYSICIAN: Laney Colvin MD. REASON FOR REFERRAL: Multiple medical problems. HISTORY OF PRESENT ILLNESS: Mr. Donahue is a pleasant 58-year-old gentleman with shortness of breath. The patient was in his usual state of health until he started to become dizzy. He has lost balance when standing and landed on his head few other times. The patient was therefore brought to the emergency room. The patient was noted to have associated shortness of breath. CT head showed no acute changes. CT of chest showed possible pulmonary artery filling defects with possible pulmonary emboli. There is also right middle lobe atelectasis. The patient on home oxygen 3 L/minute. He is very obese. He uses CPAP or other form of therapy at night. The patient uses albuterol and ipratropium nebulized treatments. He is on inhalers for which he does not know the names. He takes Lasix 40 mg recently, but this was decreased to 20 mg daily. He has history of recent diagnosis of asthma and chronic obstructive pulmonary disease he states. No history of allergies nor childhood asthma. No gastroesophageal reflux disease. Probably, has narcolepsy per his outside doctor, here with sleep apnea. PAST MEDICAL HISTORY: Obstructive sleep apnea with reported sleep study and albuminuria, narcolepsy reported. Recent "asthma, chronic obstructive pulmonary disease." Diabetes, hypertension. MEDICATIONS: Medication list reviewed per the chart record. ALLERGIES: MYCIN LIST ALLERGIES. SOCIAL HISTORY: The patient smoked only for one year. Currently nonsmoker. Used heavy alcohol for 40 years but quit 2 years ago. The patient formally would inject heroin for about five years. He smoked cocaine, but this was long time ago. 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 He would also be exposed to asbestos at work, but he was donning full gear. FAMILY HISTORY: Noncontributory. REVIEW OF SYSTEMS: GENERALLY: No weight changes. OPHTHALMOLOGIC: No double vision. ENT: No tongue biting. ENDOCRINE: Possible thyroid condition. PULMONARY: No hemoptysis. CARDIAC: No heart attack known. GASTROINTESTINAL: No constipation. GENITOURINARY: No blood in urine. NEUROLOGIC: Denies seizures. PSYCHIATRIC: No recent depression. MUSCULOSKELETAL: There is only mild arthritis. OBJECTIVE: VITAL SIGNS: Afebrile, vital signs reviewed per the chart record. GENERAL: In no acute distress, morbidly obese, in bed. HEENT: Normocephalic and atraumatic. NECK: Supple. Large neck in size, throat midline. CARDIOVASCULAR: S1, S2. No murmurs, rubs, or gallops. RESPIRATORY EXAM: With bilateral limited air entry, symmetric. ABDOMINAL EXAM: Soft, obese. Probably repair of umbilical hernia was palpated to be sure. EXTREMITIES: No clubbing, no cyanosis. There is some 2 to 3+ edema. INTEGUMENT: No rash, no purpura except for stasis changes. LABORATORY DATA: 128 sodium, 4.2 potassium, 26 bicarbonate, 16 BUN, 0.8 creatinine. 16 white count, 32 hematocrit, and 268 platelets. The MCV was 78. BNP is less than 10. 7.//. IMPRESSION AND PLAN: 1. Shortness of breath, multifactorial. 2. Possible pulmonary artery emboli, lymphangiography. 3. Fluid overload, change in chance of early restrictive disease. 4. Reported asthma versus chronic obstructive pulmonary disease, recent onset, being treated with outpatient bronchodilators. 5. Obstructive sleep apnea. 6. Reported narcolepsy historical diagnosis. 7. Former alcohol dependency, quit two years ago. 8. Remote IV drug and drug snorting history. 9. Obstructive sleep apnea. 10. Possible pulmonary hypertension. 11. Chronic hypoxemia on outpatient oxygen. 12. Microcytic anemia. 13. Chronic right middle lobe atelectasis per imaging. 14. Hypertension, hyperlipidemia, debility, and gait disturbance, history of hypothyroidism, chronic edema, liver cirrhosis per CT. 15. Continue anticoagulation for possible emboli. For now, check fecal occult blood test. If it is positive, we may consider D-dimer testing. The patient repeat evaluation. Continue oxygen therapy. Lasix drip ordered which I will highly agree with. He has a lot of extra body weight with fluid. He needs outpatient primary evaluation given complexity of condition. Weight loss would be highly beneficial. Thank you very much Dr. Colvin for allowing me a chance to participate in the care of this patient. Please call for questions or any concerns. Isai Serrano MD GMN/MODL /[id number]
[2018-10-03] MEDS: HYDROCODONE/APAP 7.5MG-325MG 1 EA TAB PO PRN ×2 (05:41→16:00)
[2018-10-03] MEDS: PIPER-TAZ 3.375 GM 50 ML IV SCH ×3 (05:41→21:58)
[2018-10-03 05:52] LABS: BASOPHILS % 0.2 % (0.0-1.0); EOSINOPHILS % 0.1 % (0.0-6.0); HEMATOCRIT 34.5 % (38.2-49.6); HEMOGLOBIN 10.7 g/dL (14.0-18.0); LYMPHOCYTES # (AUTO) 0.9 (1.0-3.2); LYMPHOCYTES % 6.7 % (18.0-39.1); MEAN CORPUSCULAR HEMOGLOBIN 25.1 pg (28-32); MONOCYTES # (AUTO) 0.5 (0.2-0.8); MONOCYTES % 4.1 % (4.4-11.3); NEUTROPHILS # (AUTO) 11.6 (2.1-6.9); NEUTROPHILS % 87.2 % (38.7-80.0); PLATELET COUNT 271 x10e3/uL (140-360); RED BLOOD COUNT 4.26 x10e6/uL (4.3-5.7)
[2018-10-03 06:18] LABS: ALANINE AMINOTRANSFERASE 18 IU/L (0-55); ALKALINE PHOSPHATASE 94 IU/L (40-150); ANION GAP 15.9 mmol/L (8-16); BLOOD UREA NITROGEN 18 mg/dL (7-26); BUN/CREATININE RATIO 21 (6-25); CALCIUM 10.5 mg/dL (8.4-10.2); CARBON DIOXIDE 29 mmol/L (22-29); CHLORIDE 94 mmol/L (98-107); CREATININE, SERUM 0.84 mg/dL (0.72-1.25); EST GLOMERULAR FILTRATION RATE > 60 ML/MIN (60-); GLUCOSE 161 mg/dL (74-118); POTASSIUM 3.9 mmol/L (3.5-5.1); SODIUM 135 mmol/L (136-145)
[2018-10-03] MEDS: FUROSEMIDE INJ 100 MG in SODIUM CHLORIDE 0.9% 100 ML 90 ML IV SCH ×2 (06:26→17:56)
[2018-10-03 06:38] LABS: THYROID STIMULATING HORMONE 0.829 uIU/mL (0.350-4.940)
[2018-10-03 06:48] LABS: FERRITIN 16.92 ng/mL (21.81-274.66)
[2018-10-03] MEDS: HYDRALAZINE HCL 25 MG TAB PO SCH ×3 (09:10→21:25)
[2018-10-03] MEDS: FAMOTIDINE 20 MG TAB PO SCH ×2 (09:10→16:09)
[2018-10-03] MEDS: AMLODIPINE BESYLATE 10 MG TAB PO SCH (09:11)
[2018-10-03] MEDS: LOSARTAN POTASSIUM 100 MG TAB PO SCH (09:11)
[2018-10-03] MEDS: APIXABAN 5 MG TABLET PO SCH ×2 (09:11→17:48)
[2018-10-03] MEDS: DULOXETINE HCL 30 MG DELAYED RELEASE PO SCH (09:11)
[2018-10-03] MEDS ORDERED: CITRATE OF MAGNESIA 300ML BOTTLE PO NR (10:45)
[2018-10-03] MEDS ORDERED: POTASSIUM CHLORIDE 20 MEQ TAB CR PO NR (11:00)
[2018-10-03] MEDS ORDERED: DEXTROSE 50% SYRINGE 50 ML IV PRN (11:00)
[2018-10-03] MEDS: INSULIN LISPRO 100 UNIT/1 ML 3ML VIAL SQ SCH ×3 (11:30→21:00)
--- NOTE | 2018-10-03 13:05 | Progress Note ---
DATE: 10/03/2018 SUBJECTIVE: The patient is doing well today with no complaints. Apparently, he is able to ambulate to the bed and from bed to bathroom with no issues according to the nursing staff. LAB FINDINGS: White count is 13.3, hemoglobin 10.7, hematocrit is 35, platelets of 271. Coagulation, PT 13, INR 0.95, PTT 32. D-dimer 1.44. Chemistry; sodium 135, potassium 3.9, chloride 94, bicarb 29, anion gap of 15, BUN is 18, creatinine 0.84, glucose 161, calcium is 10.5. Rest of his labs are within normal range. Iron saturation 7%. Urinalysis was negative. MICROBIOLOGY: Blood cultures were negative. IMAGING STUDIES: Lower extremity venous Doppler showed no evidence of DVT as a preliminary result. A 2D echo showed EF of 55% to 60%, exam preliminary. PHYSICAL EXAMINATION: VITAL SIGNS: Temperature 97.5, pulse 88, hematocrit is 20, blood pressure 142/78, pulse ox 95% on room air. GENERAL: Not in acute distress. Alert and oriented x3. Cooperative on examination. HEENT: Head is normocephalic and atraumatic. Eyes; pupils are round and reactive to light bilaterally. Extraocular movements are intact bilaterally. Throat, no evidence of erythema or exudates in the posterior pharynx. Has poor dentition. NECK: Supple. Good range of motion. PULMONARY: Clear to auscultation bilaterally. No wheezing, no rales, no rhonchi, no crackles were appreciated. CARDIOVASCULAR: Positive S1, S2. No murmurs, rubs, or gallops appreciated. ABDOMEN: Soft, nondistended, and nontender to palpation. Bowel sounds present. MUSCULOSKELETAL: Strength is 5/5 throughout. No evidence of any muscle deficits on examination. No weakness appreciated. NEUROLOGIC: Cranial nerves II through XII grossly intact. No evidence of any neurological deficits on exam. SKIN: Intact. Warm to touch. Good cap refill. PSYCHIATRIC: Normal affect and mood. EXTREMITIES: Has significant anasarca. IMPRESSION: 1. Acute pulmonary embolism seen on CT imaging. 2. Hypertension. 3. Peripheral neuropathy. 4. History of chronic obstructive pulmonary disease. 5. Hyponatremia, resolved. 6. Medically debilitated with generalized weakness. 7. Anasarca. 8. Type 2 diabetes. PLAN: At this time, continue with treatment with Eliquis 10 mg p.o. b.i.d. for 7 total days. Continue with Lasix drip. Appreciate Cardiology and Pulmonary recommendations. Pending final report on 2D echo. Continue with insulin sliding scale, Accu-Cheks. Continue with PT and OT evaluation. May need [facility] evaluation. He is on Eliquis for DVT prophylaxis. The patient will likely be admitted through the weekend. Volume restriction at 1.2 L total on a given day. MD ROLANDO Zavala/MODL /[id number]
--- NOTE | 2018-10-03 14:44 | NUR ---
aware of PT recommendations upon discharge. See orders
--- NOTE | 2018-10-03 15:00 | NUR ---
CM SPOKE TO PATIENT AT BEDSIDE REGARDING PHYSICAL THERAPY ON AN OUTPATIENT BASIS. PATIENT STATES HIS ASSISTED LIVING FACILITY CAN SET UP TRANSPORTATION TO OUTPATIENT APPOINTMENTS. PATIENT GIVEN CHOICES FOR OUTPATIENT FACILITIES. PATIENT CHOSE AND SIGNED CHOICE FOR [facility] OUTPATIENT PT SERVICES. CHOICE LETTER PLACED IN CHART. CLINICAL FAXED WITH CONFIRMATION RECEIPT. [facility] OUTPATIENT PHYSICAL THERAPY (P) [phone] (F) [phone] PENDING ACCEPTANCE AND APPOINTMENT TIME.
--- NOTE | 2018-10-03 15:25 | NUR ---
DISCHARGE DISPOSITION: PATIENT DISCHARGING TO ASSISTED LIVING FACILITY WITH OUTPATIENT PHYSICAL THERAPY SERVICES: ASSISTED LIVING FACILITY: [facility] [address] [place] [address] (P) 1+ OUTPATIENT PHYSICAL THERAPY SERVICES FROM: [facility] - Therapy Services [address] [place] [address] (P) [phone] (F) [phone]
[2018-10-03] MEDS: GABAPENTIN 300 MG CAP PO SCH ×2 (16:09→21:25)
--- NOTE | 2018-10-03 19:10 | NUR ---
Bedside report given to oncoming nurse. Sitting on recliner, call light within reach. No s/s of acute distress noted.
--- NOTE | 2018-10-03 19:32 | NUR ---
Patient received sitting in chair. AAO x 3. Lasix infusing at 10 cc/hr. Patient assisted to recliner chair for comfort. Patient had no complaints of pain. 2L NC on the floor by patient. Patient instructed about the importance of oxygenation. Nasal cannula placed on patient. Call light within reach.
[2018-10-03] MEDS: ATORVASTATIN 20 MG TAB PO SCH (21:25)
--- NOTE | 2018-10-03 23:10 | NUR ---
Patient requested BIPAP placement before going to sleep. Respiratory therapist called. Patient declined. 2L NC placed on patient after taking it of.
[2018-10-04] VITALS (7 sets, daily range): BP systolic 108–130; BP diastolic 58–76
--- NOTE | 2018-10-04 00:30 | NUR ---
Patient oxygen saturation at 86% as patient took off his Nasal cannula. Patient instructed and encouraged to keep the NC on. Patient offered BIPAP and declined. Will continue to monitor.
[2018-10-04] MEDS: ALBUTEROL/IPRATROPIUM 3 ML NEB NEB SCH ×6 (00:36→19:55)
--- NOTE | 2018-10-04 01:27 | Progress Note ---
DATE: 10/03/2018 Pulmonary Medicine Progress Note. SUBJECTIVE: Mr. Donahue was seen and examined at bedside. He continues to have slow response. Lasix 10 mg/hour. The patient claims he is napping too much. He could not use BiPAP very well because he is not sleeping very well either. A 2.5 L in, 4.6 L out recorded. 92% oxygen saturation on 3 L/minute by nasal cannula. REVIEW OF SYSTEMS: No headaches. No diarrhea. OBJECTIVE: VITAL SIGNS: Afebrile, vital signs noted and reviewed per the chart record. GENERAL: In no acute distress, alert and calm. HEENT: Normocephalic, atraumatic. NECK: Supple. Throat midline. LUNGS: Bilateral air entry, decreased breath sounds, limited effort. CARDIOVASCULAR: S1, S2. No murmurs, rubs, or gallops. ABDOMEN: Soft, obese, nontender. EXTREMITIES: No clubbing. No cyanosis. There is 2+ to 3+ edema. INTEGUMENT: No rash or purpura. LABORATORY DATA: 3.9 potassium, 0.8 creatinine. 13 white count, 35 hematocrit. TSH was normal. Iron saturation was 7% with ferritin 17. IMPRESSION AND PLAN: 1. Fluid overload. 2. Possible pulmonary emboli. 3. Hypoxemia, acute on chronic. 4. Obstructive sleep apnea. 5. Asthma, possible. Continue diuresis as this intervention target and potentially improvable component of this condition. Continue blood thinner empirically for emboli. The patient also is recommended to continue BiPAP during sleep as feasible. Bronchodilators, empiric. He needs for outpatient pulmonary workup including pulmonary function testing. He has iron deficiency anemia and we will await fecal occult blood testing as he will be on blood thinners. Follow up closely. MD MAKAYLA Cali/IJEOMA /[id number]
[2018-10-04] MEDS: FUROSEMIDE INJ 100 MG in SODIUM CHLORIDE 0.9% 100 ML 90 ML IV SCH ×3 (01:45→12:57)
--- NOTE | 2018-10-04 03:17 | NUR ---
Patient reluctantly undergoing breathing treatment after much encouragement/instruction by RN/PT. Will continue to monitor. Addendum: 10/04/18 at 0320 by Najma Bourgeois RN Correction: RN/RT not RN/PT.
[2018-10-04] MEDS: PIPER-TAZ 3.375 GM 50 ML IV SCH ×3 (05:11→22:00)
[2018-10-04 05:35] LABS: BASOPHILS % 0.3 % (0.0-1.0); EOSINOPHILS % 0.3 % (0.0-6.0); HEMATOCRIT 33.1 % (38.2-49.6); HEMOGLOBIN 10.6 g/dL (14.0-18.0); LYMPHOCYTES # (AUTO) 1.4 (1.0-3.2); LYMPHOCYTES % 12.2 % (18.0-39.1); MEAN CORPUSCULAR HEMOGLOBIN 25.6 pg (28-32); MONOCYTES # (AUTO) 1.4 (0.2-0.8); MONOCYTES % 12.2 % (4.4-11.3); NEUTROPHILS # (AUTO) 8.3 (2.1-6.9); NEUTROPHILS % 73.9 % (38.7-80.0); PLATELET COUNT 264 x10e3/uL (140-360); RED BLOOD COUNT 4.14 x10e6/uL (4.3-5.7); RED CELL DISTRIBUTION WIDTH 16.1 % (11.7-14.4)
[2018-10-04 05:55] LABS: ANION GAP 14.4 mmol/L (8-16); BLOOD UREA NITROGEN 19 mg/dL (7-26); BUN/CREATININE RATIO 23 (6-25); CALCIUM 9.5 mg/dL (8.4-10.2); CARBON DIOXIDE 34 mmol/L (22-29); CHLORIDE 93 mmol/L (98-107); CREATININE, SERUM 0.81 mg/dL (0.72-1.25); EST GLOMERULAR FILTRATION RATE > 60 ML/MIN (60-); GLUCOSE 134 mg/dL (74-118); POTASSIUM 3.4 mmol/L (3.5-5.1); SODIUM 138 mmol/L (136-145)
--- NOTE | 2018-10-04 07:00 | NUR ---
Patient resting comfortably. Shift report given to oncoming nurse.
--- NOTE | 2018-10-04 07:09 | NUR ---
pt alert resp even and unlabored at this time, pt sitting in recliner at bedside, pt able to make needs known .no distress noted, call light in reach.
[2018-10-04] MEDS: INSULIN LISPRO 100 UNIT/1 ML 3ML VIAL SQ SCH ×4 (07:30→21:00)
[2018-10-04] MEDS: FAMOTIDINE 20 MG TAB PO SCH ×2 (08:14→16:28)
[2018-10-04] MEDS: HYDROCODONE/APAP 7.5MG-325MG 1 EA TAB PO PRN (08:14)
[2018-10-04] MEDS: APIXABAN 5 MG TABLET PO SCH ×2 (08:15→16:28)
[2018-10-04] MEDS: LACTULOSE SYRUP 20 GM/30 ML UDC PO SCH (08:15)
[2018-10-04] MEDS: DULOXETINE HCL 30 MG DELAYED RELEASE PO SCH (08:15)
[2018-10-04] MEDS: HYDRALAZINE HCL 25 MG TAB PO SCH ×3 (08:15→21:48)
[2018-10-04] MEDS: LOSARTAN POTASSIUM 100 MG TAB PO SCH (08:15)
[2018-10-04] MEDS: GABAPENTIN 300 MG CAP PO SCH ×3 (08:15→21:48)
[2018-10-04] MEDS: AMLODIPINE BESYLATE 10 MG TAB PO SCH (08:15)
[2018-10-04] MEDS ORDERED: POTASSIUM CHLORIDE 20 MEQ TAB CR PO ONE (13:00)
--- NOTE | 2018-10-04 14:30 | Progress Note ---
DATE: 10/04/2018 SUBJECTIVE: The patient is doing much well today with no other complaints. He is sitting on the edge of the bed, eating his lunch. His lower extremity edema has improved tremendously. Now, he is thinking that he does not want to go to a penitentiary facility. They would like to go back to his assisted living facility. OBJECTIVE: VITAL SIGNS: Temperature 97.4, pulse 87, respiratory rate is 20, blood pressure 130/64, pulse ox 96% on 2 L nasal cannula. Home O2 saturation test was performed. He says 91% on room air and does not qualify for home O2 at this time. LAB FINDINGS: Show white count 11.1, hemoglobin 10.6, hematocrit 33, and platelets of 264. Chemistry; sodium 138, potassium 3.4, chloride 93, bicarb is 34, anion gap of 14, BUN 19, creatinine 0.81, glucose 134, calcium is 9.5, iron saturation is 7%. All troponins were negative. Blood cultures were negative x2. IMAGING STUDIES: Reviewed. PHYSICAL EXAMINATION: GENERAL: Not in acute distress. Alert and oriented x3. Cooperative on examination. HEENT: Head is normocephalic and atraumatic. Eyes; pupils are equal, round, and reactive to light bilaterally. Extraocular movements are intact bilaterally. Throat, no evidence of erythema or exudates in the posterior pharynx. Has poor dentition. NECK: Supple. Good range of motion. PULMONARY: Clear to auscultation bilaterally. No wheezing, no rales, no rhonchi, no crackles were appreciated. PULMONARY: Clear to auscultation bilaterally. No wheezing, no rales, no rhonchi, no crackles were appreciated. CARDIOVASCULAR: Positive S1, S2. No murmurs, rubs, or gallops appreciated. ABDOMEN: Soft, nondistended, and nontender to palpation. Bowel sounds present. MUSCULOSKELETAL: Strength is 5/5 throughout. No evidence of any muscle deficits on examination. No weakness appreciated. NEUROLOGIC: Cranial nerves II through XII grossly intact. No evidence of any neurological deficits on exam. SKIN: Intact. Warm to touch. Good cap refill. PSYCHIATRIC: Normal affect and mood. EXTREMITIES: He has significant 2+ pedal edema bilateral lower extremities. IMPRESSION: 1. Acute pulmonary embolism seen on CT. 2. Hypertension. 3. Peripheral neuropathy. 4. History of chronic obstructive pulmonary disease. 5. Hyponatremia, resolved. 6. Medically debilitated and generalized weakness disorder. 7. Anasarca. 8. Type 2 diabetes. PLAN: Continue with Eliquis 10 mg p.o. b.i.d. for seven total days. Continue with Lasix drip. Replace potassium 40 p.o. x1. He has good urine output with that. His edema is improving, but still has significant amount of edema. Work with PT and OT. He does not want to go to penitentiary facility. He will end up going back to his assisted living facility. Continue to volume restriction at 1.2 L total in a given day. Continue same plan of care. MD ROLANDO Zavala/MODL /[id number]
--- NOTE | 2018-10-04 15:50 | NUR ---
pt had shower at this time, tolerated well.
--- NOTE | 2018-10-04 16:20 | Progress Note ---
DATE: 10/04/2018 Pulmonary Medicine Progress Note. SUBJECTIVE: Mr. Donaheu was seen and examined at bedside. He continues to have some progress. His legs were less swollen today. He was still on Lasix 10 mg/hour diuretic. He is eating well. Still very weak, however. REVIEW OF SYSTEMS: No headache, no bleeding. OBJECTIVE: VITAL SIGNS: Afebrile, vital signs are stable, reviewed per the chart record. GENERAL: In no acute distress, alert and calm. HEENT: Normocephalic and atraumatic. NECK: Supple. Throat midline. LUNGS: Bilateral air entry with limited air entry, decreased excursion, no aki wheezes. CARDIOVASCULAR: S1, S2. No murmurs, rubs, or gallops. ABDOMINAL: Soft and nontender. EXTREMITIES: No clubbing, no cyanosis. There is 2+ edema to the legs. INTEGUMENT: No rash or purpura. LABORATORY DATA: Labs reviewed per the chart record. Potassium was 3.4. IMPRESSION AND PLAN: 1. Fluid overload, improving. 2. Hypokalemia. 3. Severe weakness. 4. Obesity, possible hypoventilation. 5. Obstructive sleep apnea. Continue to provide BiPAP for occasions when he is ready to use it for sleeping. He is having sleeping issues though. Continue diuretic. Followup by I's and O's. Repeat chest x-ray p.r.n. as last one was already mostly clear. Continue blood thinners for pulmonary emboli. We will follow along closely. MD MAKAYLA Cali/JAKYL /[id number]
--- NOTE | 2018-10-04 19:33 | NUR ---
report given to oncoming nurse, for continued care.
--- NOTE | 2018-10-04 19:35 | NUR ---
Patient received sitting in chair watching TV. AAO x 3. Patient had no complaints of pain. Nasal cannula off and beside patient. Patient assisted with placement of 2L NC. Telemetry leads off and replaced. Lasix infusing at 10cc/hr. Fall precautions implemented. Call light within reach.
[2018-10-04] MEDS: ATORVASTATIN 20 MG TAB PO SCH (21:48)
[2018-10-05] VITALS (8 sets, daily range): BP systolic 117–145; BP diastolic 60–83
--- NOTE | 2018-10-05 02:53 | NUR ---
Patient noted with BIPAP gear beside his bed not over his face. Patient stated that the BIPAP gear fell off. An attempt was made to place it back and he vehemently refused. He agreed to the placement of 2L NC. Will continue to monitor.
[2018-10-05] MEDS: ALBUTEROL/IPRATROPIUM 3 ML NEB NEB SCH ×6 (03:00→23:48)
[2018-10-05 05:23] LABS: BASOPHILS % 0.2 % (0.0-1.0); EOSINOPHILS # (AUTO) 0.1 (0.0-0.4); EOSINOPHILS % 0.7 % (0.0-6.0); HEMATOCRIT 33.2 % (38.2-49.6); HEMOGLOBIN 10.5 g/dL (14.0-18.0); LYMPHOCYTES # (AUTO) 1.6 (1.0-3.2); LYMPHOCYTES % 12.9 % (18.0-39.1); MEAN CORPUSCULAR HEMOGLOBIN 25.4 pg (28-32); MEAN CORPUSCULAR HGB CONC 31.6 g/dL (31-35); MEAN CORPUSCULAR VOLUME 80.4 fL (81-99); MONOCYTES # (AUTO) 1.2 (0.2-0.8); MONOCYTES % 9.4 % (4.4-11.3); NEUTROPHILS # (AUTO) 9.3 (2.1-6.9); NEUTROPHILS % 75.8 % (38.7-80.0); PLATELET COUNT 252 x10e3/uL (140-360); RED BLOOD COUNT 4.13 x10e6/uL (4.3-5.7)
[2018-10-05 05:45] LABS: ANION GAP 13.2 mmol/L (8-16); BLOOD UREA NITROGEN 21 mg/dL (7-26); BUN/CREATININE RATIO 26 (6-25); CALCIUM 9.7 mg/dL (8.4-10.2); CARBON DIOXIDE 33 mmol/L (22-29); CHLORIDE 95 mmol/L (98-107); CREATININE, SERUM 0.81 mg/dL (0.72-1.25); EST GLOMERULAR FILTRATION RATE > 60 ML/MIN (60-); GLUCOSE 126 mg/dL (74-118); POTASSIUM 3.2 mmol/L (3.5-5.1); SODIUM 138 mmol/L (136-145)
[2018-10-05] MEDS: PIPER-TAZ 3.375 GM 50 ML IV SCH ×3 (06:03→22:00)
[2018-10-05] MEDS: HYDROCODONE/APAP 7.5MG-325MG 1 EA TAB PO PRN ×2 (06:05→17:01)
--- NOTE | 2018-10-05 07:10 | NUR ---
Walking rounds done. Shift report given to oncoming nurse about patient status.
--- NOTE | 2018-10-05 07:12 | NUR ---
pt asleep upon rounds resp even and unlabored at this time, pt has no distress noted, pt aroused to name and voice, no c/o pain when asked, call light in reach.
[2018-10-05] MEDS: INSULIN LISPRO 100 UNIT/1 ML 3ML VIAL SQ SCH ×4 (07:30→21:00)
[2018-10-05] MEDS: DULOXETINE HCL 30 MG DELAYED RELEASE PO SCH (09:00)
[2018-10-05] MEDS: AMLODIPINE BESYLATE 10 MG TAB PO SCH (09:00)
[2018-10-05] MEDS: LACTULOSE SYRUP 20 GM/30 ML UDC PO SCH (09:00)
[2018-10-05] MEDS: APIXABAN 5 MG TABLET PO SCH ×2 (09:00→16:59)
[2018-10-05] MEDS: LOSARTAN POTASSIUM 100 MG TAB PO SCH (09:00)
[2018-10-05] MEDS: GABAPENTIN 300 MG CAP PO SCH ×3 (09:00→21:17)
[2018-10-05] MEDS: FUROSEMIDE INJ 100 MG in SODIUM CHLORIDE 0.9% 100 ML 90 ML IV SCH ×2 (09:00→23:45)
[2018-10-05] MEDS: HYDRALAZINE HCL 25 MG TAB PO SCH ×3 (09:00→21:17)
[2018-10-05] MEDS: FAMOTIDINE 20 MG TAB PO SCH ×2 (10:41→16:58)
--- NOTE | 2018-10-05 11:24 | Progress Note ---
DATE: 10/05/2018 Medicine Progress Note SUBJECTIVE: The patient is doing much better today with no other issues. He still has lower extremity edema. He is not compliant with his fluid intake that we had him restricted at 1.2 L. He is still on a Lasix drip. OBJECTIVE: VITAL SIGNS: Temperature is 96.6, pulse 84, respiratory rate is 20, blood pressure is 134/83, pulse ox is 98% on room air. GENERAL: Not in acute distress. Alert and oriented x3. Cooperative on examination. HEENT: Head is normocephalic and atraumatic. Eyes; pupils are equal, round, and reactive to light bilaterally. Extraocular movements are intact bilaterally. Throat, no evidence of erythema or exudates in the posterior pharynx. Has poor dentition. NECK: Supple. Good range of motion. PULMONARY: Clear to auscultation bilaterally. No wheezing, no rales, no rhonchi, no crackles appreciated. CARDIOVASCULAR: Positive S1, S2. No murmurs, rubs, or gallops appreciated. ABDOMEN: Soft, nondistended, and nontender to palpation. Bowel sounds present. MUSCULOSKELETAL: Strength is 5/5 throughout. No evidence of any muscle deficits on examination. No weakness appreciated. NEUROLOGICAL: Cranial nerves 2 through 12 grossly intact. No evidence of any neurological deficits on exam. SKIN: Intact. Warm to touch. Good cap refill. PSYCHIATRIC: Normal affect and mood. EXTREMITIES: He does still has 1+ pedal edema in bilateral lower extremities. LABORATORY DATA: Lab findings show white count 12.2, hemoglobin 10.5, hematocrit is 33, and platelets are 252. Coagulation; PT 13, INR 0.95, PTT 32. Chemistry; sodium 138, potassium 3.2, chloride 95, bicarb 33, anion gap of 13, BUN is 20, creatinine is 0.81, glucose 126. MICROBIOLOGY: All negative. IMPRESSION: 1. Acute pulmonary embolism. 2. Hypertension. 3. Peripheral neuropathy. 4. History of chronic obstructive pulmonary disease. 5. Hyponatremia, resolved. 6. Medically debilitated and generalized weakness. 7. Anasarca. 8. Type 2 diabetes. 9. Hypokalemia. PLAN: Continue with Eliquis. Replace potassium. Continue with Lasix drip. Get a.m. labs. He is ambulating well, likely will not be accepted to the [facility]. Continue with volume restriction of 1.2 L daily. Discharge home tomorrow on oral Eliquis and diuretic. MD ROLANDO Zavala/MODL /[id number]
[2018-10-05] MEDS ORDERED: POTASSIUM CHLORIDE 20 MEQ TAB CR PO ONE ×2 (11:30→17:00)
[2018-10-05] MEDS ORDERED: IPRATROPIU0.2 MG/1 M NEB (12:28)
[2018-10-05] MEDS ORDERED: ALBUTEROL2.5 MG/3 M INH (12:28)
[2018-10-05] MEDS ORDERED: PROVENTIL HFA6.7 GM IH (12:28)
[2018-10-05] MEDS ORDERED: BREO ELLIPTA IH (12:28)
[2018-10-05] MEDS ORDERED: APIXABAN 5 MG PO (12:28)
--- NOTE | 2018-10-05 15:45 | Progress Note ---
DATE: 10/05/2018 Pulmonary Medicine Progress Note SUBJECTIVE: Mr. oDnahue was seen and examined at bedside. He continues to have some progress. 3 L/minute by nasal cannula oxygen. He remains on Lasix drip. He is able to walk today independently. He did not sleep well, so he did not use BiPAP. REVIEW OF SYSTEMS: No headaches, no bleeding. OBJECTIVE: VITAL SIGNS: Afebrile, vital signs noted, reviewed per the chart record. GENERAL: No acute distress, alert, and calm. HEENT: Normocephalic, atraumatic. NECK: Supple. Throat midline. LUNGS: Bilateral air entry, decreased breath sounds at bases. CARDIOVASCULAR: S1 and S2. No murmurs, rubs, or gallops. ABDOMEN: Soft, nontender. EXTREMITIES: No clubbing, no cyanosis. There is still 2+ edema, although decreased. INTEGUMENT: No rash. No purpura. LABORATORY DATA: 3.2 potassium, 0.8 creatinine. 12 white count, 33 hematocrit, 252 platelets. IMPRESSION AND PLAN: 1. Chronic hypoxemia, on home oxygen. 2. Fluid overload. 3. Pulmonary embolism acute. 4. Obstructive sleep apnea and reported narcolepsy. 5. Recent diagnosis of asthma. 6. History of remote drug abuse. 7. Secondary pulmonary hypertension. 8. Obesity. Continue diuresis today. Replete potassium. Continue to get enough fluid off him and possible discharge tomorrow. The patient will continue on anticoagulation. Furthermore, the patient will continue on respiratory medicines for possible reactive airway disease. He has home oxygen and should continue this. MD MAKAYLA Cali/MODL /[id number]
--- NOTE | 2018-10-05 19:26 | NUR ---
Patient received standing by window in his room. AAO x 4. No acute distress noted. Call light within reach.
[2018-10-05] MEDS: ATORVASTATIN 20 MG TAB PO SCH (21:17)
[2018-10-05] MEDS ORDERED: SODIUM CHLORIDE 0.9% 250ML 250 ML ONE (23:32)
[2018-10-06] VITALS: BP 134/70
[2018-10-06 04:00] VITALS: BP 144/67
[2018-10-06] MEDS: ALBUTEROL/IPRATROPIUM 3 ML NEB NEB SCH (04:55)
[2018-10-06] MEDS: FUROSEMIDE INJ 100 MG in SODIUM CHLORIDE 0.9% 100 ML 90 ML IV SCH (05:00)
--- NOTE | 2018-10-06 05:30 | NUR ---
IV in left hand dislodged. Old IV removed with tip intact. Numerous attempts made by Charge Nurse (Emy) and Nurse (Meche) from ER proved futile. Patient currently with no vascular access.
[2018-10-06] MEDS: PIPER-TAZ 3.375 GM 50 ML IV SCH (06:00)
--- NOTE | 2018-10-06 06:42 | NUR ---
Shift report given to oncoming nurse.
--- NOTE | 2018-10-06 07:05 | NUR ---
pt sitting in chair, resp even and unlabored, no distress noted, no c/o pain when asked, call light in reach.
[2018-10-06] MEDS: INSULIN LISPRO 100 UNIT/1 ML 3ML VIAL SQ SCH (07:30)
[2018-10-06 07:46] LABS: BASOPHILS % 0.3 % (0.0-1.0); EOSINOPHILS # (AUTO) 0.2 (0.0-0.4); EOSINOPHILS % 1.1 % (0.0-6.0); HEMATOCRIT 34.3 % (38.2-49.6); HEMOGLOBIN 10.5 g/dL (14.0-18.0); LYMPHOCYTES # (AUTO) 1.1 (1.0-3.2); LYMPHOCYTES % 8.6 % (18.0-39.1); MEAN CORPUSCULAR HEMOGLOBIN 25.2 pg (28-32); MEAN CORPUSCULAR HGB CONC 30.6 g/dL (31-35); MEAN CORPUSCULAR VOLUME 82.5 fL (81-99); MONOCYTES % 7.9 % (4.4-11.3); NEUTROPHILS # (AUTO) 10.7 (2.1-6.9); PLATELET COUNT 271 x10e3/uL (140-360); RED BLOOD COUNT 4.16 x10e6/uL (4.3-5.7)
[2018-10-06 08:00] VITALS: BP 147/88
[2018-10-06 08:01] LABS: ANION GAP 13.2 mmol/L (8-16); BLOOD UREA NITROGEN 21 mg/dL (7-26); BUN/CREATININE RATIO 28 (6-25); CARBON DIOXIDE 31 mmol/L (22-29); CHLORIDE 96 mmol/L (98-107); CREATININE, SERUM 0.75 mg/dL (0.72-1.25); EST GLOMERULAR FILTRATION RATE > 60 ML/MIN (60-); GLUCOSE 112 mg/dL (74-118); POTASSIUM 3.2 mmol/L (3.5-5.1); SODIUM 137 mmol/L (136-145)
[2018-10-06 08:10] VITALS: BP 147/88
[2018-10-06] MEDS: APIXABAN 5 MG TABLET PO SCH (08:40)
[2018-10-06] MEDS: DULOXETINE HCL 30 MG DELAYED RELEASE PO SCH (08:40)
[2018-10-06] MEDS: LOSARTAN POTASSIUM 100 MG TAB PO SCH (08:40)
[2018-10-06] MEDS: LACTULOSE SYRUP 20 GM/30 ML UDC PO SCH (08:40)
[2018-10-06] MEDS: AMLODIPINE BESYLATE 10 MG TAB PO SCH (08:40)
[2018-10-06] MEDS: HYDRALAZINE HCL 25 MG TAB PO SCH (08:40)
[2018-10-06] MEDS: GABAPENTIN 300 MG CAP PO SCH (08:40)
[2018-10-06] MEDS: FAMOTIDINE 20 MG TAB PO SCH (08:40)
[2018-10-06] MEDS: HYDROCODONE/APAP 7.5MG-325MG 1 EA TAB PO PRN (08:45)
[2018-10-06] MEDS ORDERED: POTASSIUM CHLORIDE 20 MEQ TAB CR PO SCH (11:30)
[2018-10-06 12:58] VITALS: BP 124/72
--- NOTE | 2018-10-06 13:23 | Progress Note ---
DATE: 10/06/2018 Pulmonary Medicine Progress Note SUBJECTIVE: Mr. Donahue was seen and examined at bedside. He continues with leg edema. He is eating. He had a bowel movement. He could not sleep well, therefore did not use BiPAP. Blood cultures, no growth today x2. Ultrasound came back without any DVT present. REVIEW OF SYSTEMS: No headaches, no GI bleed. OBJECTIVE: VITAL SIGNS: Afebrile, vital signs noted and reviewed per the chart record. GENERAL: In no acute distress, alert and calm. HEENT: Normocephalic, atraumatic. NECK: Supple. Throat midline. LUNGS: Bilateral air entry, decreased breath sounds, limited effort. CARDIOVASCULAR: S1, S2. No murmurs, rubs, or gallops. ABDOMEN: Soft, nontender. EXTREMITIES: No clubbing. No cyanosis. There is stable 3+ edema. INTEGUMENT: No rash or purpura. LABORATORY DATA: Potassium 3.2 and 0.8 creatinine. A 13 white count and 34 hematocrit. IMPRESSION: 1. Obstructive sleep apnea. 2. Possible hypoventilation syndrome. 3. Asthma versus chronic obstructive pulmonary disease syndrome. 4. 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 5. History of syncope episode. 6. Pulmonary hypertension, secondary. 7. Chronic right middle lobe atelectasis per imaging. 8. Acute pulmonary emboli. PLAN: Continue with apixaban. The patient has fecal occult blood negative on testing. Continue diuretics as outpatient as the patient needs a lot of diuresis. Continue BiPAP as feasible for now. The patient needs complex Pulmonary as well as Sleep subspecialty evaluation and I can follow since I perform both specialties. MD MAKAYLA Cali/IJEOMA /[id number]
--- NOTE | 2018-10-06 13:58 | Discharge Summary ---
FINAL DISCHARGE DIAGNOSES: 1. Acute pulmonary embolism. 2. Hypertension. 3. Peripheral neuropathy. 4. History of chronic obstructive pulmonary disease. 5. Hyponatremia, resolved. 6. Medically debilitated with generalized weakness. 7. Anasarca, improved. 8. Type 2 diabetes. CONSULTANTS: 1. Pulmonary. 2. Cardiology. VITAL SIGNS: Temperature 97.7, pulse 88, respiratory rate is 20, blood pressure 147/88, and pulse ox 95% on room air. LAB FINDINGS: White count 13, hemoglobin 10.5, hematocrit 34, and platelets of 271. Chemistry; sodium 137, potassium 3.2, given potassium, chloride 93, bicarb 31, anion gap of 13, BUN 21, creatinine 0.75, glucose is 112, and calcium is 10. Iron saturation 7%. LFTs are normal. LDL 65. TSH was 0.829. Troponins were all negative. Urinalysis negative. Stool occult blood negative. Microbiology; blood cultures were negative. IMAGING STUDIES: CT brain was negative. Chest x-ray was found to be negative. CT abdomen and pelvis showed ventral subumbilical abdominal wall hernia containing omental fat without evidence of any inflammation or any obstruction. There is some evidence of subcutaneous edema. He has evidence of nodular cirrhosis. No evidence of any diverticulitis, but there is evidence of diverticulosis. Chest CT shows acute pulmonary embolism. Lower extremity venous Doppler negative for any DVT. HOSPITAL COURSE: This is a 58-year-old male, morbidly obese, came in from an outside ER with complaints of acute onset of shortness of breath and anasarca. The patient was worked up, found to have a CT angiogram of the chest positive for pulmonary embolism. The patient was sent here for further management and care. Pulmonary was consulted. The patient was on full-dose anticoagulation being converted to oral Eliquis while here in the hospital stay. The patient was discharged on oral Eliquis as well. Pulmonary was consulted and managed him accordingly. The patient also has underlying obstructive sleep apnea and COPD and was discharged on inhalers. He was advised to follow up with Pulmonary in his office as well. The patient also has significant amount of anasarca requiring Cardiology consultation. Lower extremity venous Doppler was negative for DVT. The patient was on Bumex drip with significant amount of urine output. Electrolytes are stable and was discharged on oral Bumex as well as oral Aldactone. On discharge, the patient was back to normal baseline with no other complaints. He has been cleared by all consultants for discharge home. On the day of discharge, vital signs stable, labs being stable. The patient was seen, evaluated, examined thoroughly on the day of discharge. No other complaints. The patient verbalized understanding and agreed with plan of care and follow up accordingly as an outpatient with primary care physician in 1 week and the consultants described above in about 2 weeks' time. Must follow up with Pulmonary two weeks' time as well to get further refills on his Eliquis. DISPOSITION: To home. CONDITION: Stable. MEDICATIONS: See med reconciliation form including, 1. Tylenol No.3, one tab p.o. every 6 hours as needed pain, 15 tabs given. 2. Bumex 1 mg p.o. b.i.d.. 3. Aldactone 12.5 mg p.o. daily. DIET: Heart healthy. In the event of any worsening symptoms, the patient was advised to come back to the ED for further evaluation. Discharge summary took greater than 35 minutes. MD ROLANDO Zavala/IJEOMA /[id number]
--- NOTE | 2018-10-06 15:55 | NUR ---
spoke with Joseph at [facility], to give report on pt returning to his [facility], pt left via taxi service.
== END 2018-10-06 16:03 | DRG 176 ==
LOC: ER 09:17 → ERHOLD 14:12 → MED/SURG2 14:43
PROVIDERS: ADMIT Internal Medicine; ATTEND Internal Medicine
DX: I26.99 Other pulmonary embolism without acute cor pulmonale (principal); J44.1 Chronic obstructive pulmonary disease with (acute) exacerbation; L03.116 Cellulitis of left lower limb; L03.115 Cellulitis of right lower limb; L03.311 Cellulitis of abdominal wall; Z68.43 Body mass index [BMI] 50.0-59.9, adult; E87.1 Hypo-osmolality and hyponatremia; J98.11 Atelectasis; R06.03 Acute respiratory distress; E66.01 Morbid (severe) obesity due to excess calories; G47.30 Sleep apnea, unspecified; E11.42 Type 2 diabetes mellitus with diabetic polyneuropathy; S91.311A Laceration without foreign body, right foot, initial encounter; L84 Corns and callosities; E78.5 Hyperlipidemia, unspecified; Z91.81 History of falling; Z83.3 Family history of diabetes mellitus; Z82.49 Family history of ischemic heart disease and other diseases of the circulatory system; R53.81 Other malaise; K74.60 Unspecified cirrhosis of liver; G47.33 Obstructive sleep apnea (adult) (pediatric); G47.419 Narcolepsy without cataplexy; F10.21 Alcohol dependence, in remission; R09.02 Hypoxemia; I10 Essential (primary) hypertension; K57.30 Diverticulosis of large intestine without perforation or abscess without bleeding; T48.6X6A Underdosing of antiasthmatics, initial encounter; Z91.120 Patient's intentional underdosing of medication regimen due to financial hardship
CPT/HCPCS: 36415; 36600; 70450; 71045; 71260; 74177; 80048; 80053; 80061; 81001; 82270; 82550; 82553; 82728; 82805; 82948; 83036; 83540; 83605; 83735; 83880; 84100; 84443; 84466; 84484; 85025; 85379; 85610; 85730; 87040; 93005; 93306; 93970; 94640; 94660; 99284; J1650; J1940; J2270; J2405; J2543; J2930; J3475; J7050; J7512; Q9967

== ENCOUNTER 2018-10-31 12:35 | Inpatient (IN) | payer OTHER ==
[~2018-10-31] VITALS: Ht 160 cm; Wt 141.1 kg
[~2018-10-31 12:35] MED LIST: ALBUTEROL2.5 MG/3 M INH; AMLODIPINE BESY10 MG PO; APIXABAN 5 MG PO; BREO ELLIPTA IH; CYMBALTA30 MG; FAMOTIDINE20 MG PO; FUROSEMIDE40 MG PO; GABAPENTIN600 MG; HYDRALAZINE HCL25 MG PO; IPRATROPIU0.2 MG/1 M NEB; LACTULOSE20 GM/30 M PO; LIPITOR20 MG; LOSARTAN POTAS100 MG PO; POTASSIUM CITR10 MEQ PO; PROVENTIL HFA6.7 GM; PROVENTIL HFA6.7 GM IH; ZOLPIDEM TARTRA10 MG PO
--- OUTSIDE RECORDS SUMMARY | 2018-10-31 12:38 | XMS REPORT | Continuity of Care Document ---
Author Author [facility] Interface Address Unknown Phone Unavailable Problems Problem Status Onset Date Classification Date Reported Comments Source SUICIDAL IDEATION Active 09/14/2018 [facility] CAP (COMMUNITY ACQUIRED PNEUMONIA), COPD Active 09/14/2018 [facility] ACUTE ON CHRONIC RENAL FAILURE Active 05/14/2018 [facility] ABNORMAL LAB Active 05/14/2018 [facility] Ventral hernia without obstruction or gangrene 03/29/2018 10/11/2018 [facility] Generalized edema 03/24/2018 10/11/2018 [facility] Hernia, ventral 03/24/2018 10/11/2018 [facility] Generalized pain 03/24/2018 10/11/2018 [facility] EDEMA Active 03/24/2018 [facility] Abdominal pain 09/27/2017 09/30/2017 [facility] Abdominal hernia 09/27/2017 09/30/2017 [facility] LEG PAIN Active 09/26/2017 [facility] WEAKNESS Active 04/25/2017 [facility] Discharge Diagnosis: Hernia 02/15/2015 02/18/2015 [facility] Discharge Diagnosis: Atypical chest pain 02/15/2015 02/18/2015 [facility] ABDOMINAL PAIN Active 02/15/2015 [facility] Chronic obstructive pulmonary disease (<span ID="[id number]">Confirmed</span>) Resolved Problem 11/11/2017 [facility] Diabetes Active Problem 11/11/2017 [facility] Diabetic neuropathy Active Problem 11/11/2017 [facility] Homelessness Active Problem 11/11/2017 [facility] Hypertension Active Problem 11/11/2017 [facility] Chronic obstructive pulmonary disease (<span ID="[id number]">Confirmed</span>) Resolved Problem 10/11/2018 [facility] Diabetes Active Problem 10/11/2018 [facility] Diabetic neuropathy Active Problem 10/11/2018 [facility] Homelessness Active Problem 10/11/2018 [facility] Hypertension Active Problem 10/11/2018 [facility] Pain, unspecified 10/11/2018 [facility] Type 2 diabetes mellitus with diabetic neuropathy, unspecified 10/11/2018 [facility] Hypertensive heart disease with heart failure 10/11/2018 [facility] Heart failure, unspecified 10/11/2018 [facility] Personal history of other venous thrombosis and embolism 10/11/2018 [facility] Dependence on supplemental oxygen 10/11/2018 [facility] Personal history of nicotine dependence 10/11/2018 [facility] DM (<span ID="[id number]">Confirmed</span>) Resolved Problem 02/18/2015 [facility] Hernia Resolved Problem 02/18/2015 [facility] HTN - Hypertension Resolved Problem 02/18/2015 [facility] PNEUMONIA, UNSPECIFIED ORGANISM Active [facility] CHRONIC OBSTRUCTIVE PULMONARY DISEASE W Active [facility] HYPO-OSMOLALITY AND HYPONATREMIA Active [facility] ACUTE KIDNEY FAILURE, UNSPECIFIED Active [facility] Medications Medication Details Route Status Patient Instructions Ordering Provider Order Date Source Prednisone 60 mg, 3 tab, Route: PO, Drug form: TAB, Daily, Dosing Weight 163.636, kg, Start date: 09/16/18 9:00:00 CDT, Duration: 30 day, Stop date: 10/15/18 9:00:00 CDTNotes: Take with food. No Longer Active 09/16/2018 [facility] Azithromycin 250 mg, 1 tab, Route: PO, Drug form: TAB, [id number], Dosing Weight 163.636, kg, Start date: 09/16/18 0:00:00 CDT, Duration: 4 doses or times, Stop date: 09/19/18 0:00:00 CDT, ABX Indication: Non-PNA Respi ratory Tract InfectionNotes: Take 1 hour before or 2 hours after meals. (Same As: Zithromax) No Longer Active 09/16/2018 [facility] Ceftriaxone 1 gm, Route: IVPB, [id number], Dosing Weight 163.636, kg, Start date: 09/16/18 0:00:00 CDT, Duration: 5 day, Stop date: 09/20/18 0:00:00 CDT, ABX Indication: Non-PNA Respiratory Tract InfectionNotes: (Same As: Rocephin). Use with 100 mL NS and infuse over 30 min MEDICATION WASTE Product Size: 1000 mg Product Wasted: ___ mg No Longer Active 09/16/2018 [facility] atorvastatin 20 mg, 2 tab, Route: PO, Drug form: TAB, Bedtime, Dosing Weight 148.182, kg, Start date: 09/15/18 21:00:00 CDT, Duration: 30 day, Stop date: 10/14/18 21:00:00 CDTNotes: (Same As: Lipitor) Inactive 09/16/2018 [facility] *RN please bring pt own theophylline to pharmacy for label* *RN please bring pt own theophylline to pharmacy for label*, reminder, Drug form: MISC, Route: MISC, JOEYHIFT, 09/15/18 16:00:00 CDT, Duration: 30 day, Stop date: 10/15/18 8:00:00 CDT Inactive 09/15/2018 [facility] Acetaminophen 300 MG / Codeine Phosphate 30 MG Oral Tablet [Tylenol with Codeine #3] 1 tab, PO, Q6H, PRN Pain, X 7 day, # 28 tab, 0 Refill(s) Active 09/15/2018 [facility] levofloxacin 500 mg oral tablet 500 mg=1 tab, PO, Q24H, X 5 day, # 5 tab, 0 Refill(s), Pharmacy: [facility]/pharmacy #[id number] Active 09/15/2018 [facility] predniSONE 20 mg oral tablet 40 mg=2 tab, PO, Daily, X 5 day, # 10 tab, 0 Refill(s), Pharmacy: [facility]/pharmacy #[id number] Active 09/15/2018 [facility] Gage-24 600 mg, 2 cap, Route: PO, Drug form: ERCAP, Daily, Dosing Weight 148.182, kg, Start date: 09/15/18 9:00:00 CDT, Duration: 30 day, Stop date: 10/14/18 9:00:00 CDTNotes: Enteral feeds may interfere with the absorption of this medication. Inactive 09/15/2018 [facility] Losartan 100 mg, 2 tab, Route: PO, Drug form: TAB, Daily, Dosing Weight 148.182, kg, Start date: 09/15/18 9:00:00 CDT, Duration: 30 day, Stop date: 10/14/18 9:00:00 CDTNotes: (Same as: Cozaar) Inactive 09/15/2018 [facility] Lactulose 667 MG/ML Oral Solution 20 gm, 30 mL, Route: PO, Drug form: SYRP, TID, Dosing Weight 148.182, kg, Start date: 09/15/18 9:00:00 CDT, Duration: 30 day, Stop date: 10/14/18 17:00:00 CDTNotes: (Same as:Chronulac) Inactive 09/15/2018 [facility] Hydralazine 100 mg, 2 tab, Route: PO, Drug form: TAB, TID, Dosing Weight 148.182, kg, Start date: 09/15/18 9:00:00 CDT, Duration: 30 day, Stop date: 10/14/18 17:00:00 CDTNotes: (Same as: Apresoline) May interfere w/enteral feedings Take With Food Inactive 09/15/2018 [facility] Amlodipine 10 mg, 2 tab, Route: PO, Drug form: TAB, Daily, Dosing Weight 163.636, kg, Start date: 09/15/18 9:00:00 CDT, Duration: 30 day, Stop date: 10/14/18 9:00:00 CDTNotes: (Same as: Norvasc) Inactive 09/15/2018 [facility] Famotidine 20 MG Oral Tablet 20 mg, 1 tab, Route: PO, Drug form: TAB, BID, Dosing Weight 148.182, kg, Start date: 09/15/18 9:00:00 CDT, Duration: 30 day, Stop date: 10/14/18 17:00:00 CDTNotes: (Same as: Pepcid) Inactive 09/15/2018 [facility] duloxetine 30 mg, 1 cap, Route: PO, Drug form: DRC, Daily, Dosing Weight 148.182, kg, Start date: 09/15/18 9:00:00 CDT, Duration: 30 day, Stop date: 10/14/18 9:00:00 CDTNotes: (Same as: Cymbalta) (Do Not Crush) Inactive 09/15/2018 [facility] Albuterol 0.833 MG/ML / Ipratropium Qulin 0.167 MG/ML Inhalant Solution 3 mL, Route: NEB, Drug Form: SOLN, Dosing Weight 163.636, kg, RQ6H, Start date: 09/15/18 8:00:00 CDT, Duration: 30 day, Stop date: 10/15/18 2:00:00 CDTNotes: (Same as: Duoneb) Inactive 09/15/2018 [facility] heparin 5,000 unit, 1 mL, Route: SUB-Q, Drug form: INJ, Q8H, Dosing Weight 163.636, kg, Start date: 09/15/18 8:00:00 CDT, Duration: 30 day, Stop date: 10/15/18 0:00:00 CDTNotes: porcine heparin Inactive 09/15/2018 [facility] Albuterol 0.83 MG/ML Inhalant Solution 2.49 mg=3 mL, INHALATION, Q6H, PRN wheezing, coughing, or shortness of breath, # 240 ea, 1 Refill(s) Active 09/15/2018 [facility] Zolpidem tartrate 10 MG Oral Tablet [Ambien] 10 mg=1 tab, PO, Bedtime, PRN for sleep, 0 Refill(s) Active 09/15/2018 [facility] Acetaminophen 325 MG / Hydrocodone Bitartrate 5 MG Oral Tablet [[place] 5/325] 1 tab, PO, Q4-6H, PRN, # 30 tab, 0 Refill(s) Inactive 09/15/2018 [facility] Furosemide 40 MG Oral Tablet [Lasix] 40 mg=1 tab, PO, Daily, # 30 tab, 0 Refill(s) Inactive 09/15/2018 [facility] Lasix 40 mg, 4 mL, Route: IV, Drug form: INJ, [id number], Dosing Weight 163.636, kg, Start date: 09/15/18 4:00:00 CDT, Duration: 30 day, Stop date: 10/14/18 16:00:00 CDTNotes: (Same as: Lasix) MEDICATION WASTE Product Size: 40 mg Product Wasted: ___ mg Inactive 09/15/2018 [facility] Acetaminophen 325 MG / Hydrocodone Bitartrate 5 MG Oral Tablet [[place] 5/325] 1 tab, Route: PO, Drug Form: TAB, Dosing Weight 163.636, kg, Q6H, PRN Pain Score 4-6, Start date: 09/15/18 3:38:00 CDT, Duration: 30 day, Stop date: 10/15/18 3:37:00 CDTNotes: (Same as: [place] 325/5) Do not exceed 4gm/day of acetaminophen. Inactive 09/15/2018 [facility] Tessalon Perles 100 mg, 1 cap, Route: PO, Drug form: CAP, TID, Dosing Weight 163.636, kg, PRN Cough, Start date: 09/15/18 3:36:00 CDT, Duration: 30 day, Stop date: 10/15/18 3:35:00 CDTNotes: (Same As: Tessalon Perle s) "Do Not Crush" Inactive 09/15/2018 [facility] Acetaminophen 325 mg, 1 tab, Route: PO, Drug form: TAB, Q4H, Dosing Weight 163.636, kg, PRN Pain 1-3/Temp > 100.4 F, Start date: 09/15/18 3:36:00 CDT, Duration: 30 day, Stop date: 10/15/18 3:35:00 CDTNotes: Do not exceed 4 gm/day. (Same as: Tylenol) Inactive 09/15/2018 [facility] Melatonin 3 mg, 1 tab, Route: PO, Drug form: TAB, Bedtime, Dosing Weight 163.636, kg, PRN Insomnia, Start date: 09/15/18 3:36:00 CDT, Duration: 30 day, Stop date: 10/15/18 3:35:00 CDTNotes: (Same as: Melatonin) Inactive 09/15/2018 [facility] Ondansetron 4 mg, 2 mL, Route: IVP, Drug form: INJ, Q8H, Dosing Weight 163.636, kg, PRN Nausea & Vomiting, Start date: 09/15/18 3:36:00 CDT, Duration: 30 day, Stop date: 10/15/18 3:35:00 CDTNotes: (Same as: Zofran) MEDICATION WASTE Product Size: 4 mg Product Wasted: ___ mg Inactive 09/15/2018 [facility] Bisacodyl 10 mg, 1 supp, Route: IN, Drug form: SUPP, Daily, Dosing Weight 163.636, kg, PRN Constipation, Start date: 09/15/18 3:36:00 CDT, Duration: 30 day, Stop date: 10/15/18 3:35:00 CDTNotes: (Same As: Dulcolax, Bisco-Lax) Inactive 09/15/2018 [facility] Glucagon 1 mg, Route: IM, Drug form: PDR/INJ, PRN, Dosing Weight 163.636, kg, PRN Blood Glucose Results, Start date: 09/15/18 3:36:00 CDT, Duration: 30 day, Stop date: 10/15/18 3:35:00 CDT Inactive 09/15/2018 [facility] Dextrose 50% Syringe 12.5 gm, 25 mL, Route: IVP, Drug Form: INJ, Dosing Weight 163.636, kg, PRN, PRN Blood Glucose Results, Start date: 09/15/18 3:36:00 CDT, Duration: 30 day, Stop date: 10/15/18 3:35:00 CDT Inactive 09/15/2018 [facility] Albuterol 0.83 MG/ML Inhalant Solution 2.49 mg, 3 mL, Route: NEB, Drug form: SOLN, RQ2H, Dosing Weight 163.636, kg, PRN Wheezing, Priority: Routine, Start date: 09/15/18 3:36:00 CDT, Duration: 30 day, Stop date: 10/15/18 3:35:00 CDTNotes: SEE RT DOCUMENTATION (Same as: Amanda) Inactive 09/15/2018 [facility] Magnesium Sulfate 2 gm, Route: IVPB, ONCE, Dosing Weight 163.636, kg, Priority: STAT, Start date: 09/15/18 2:43:00 CDT, Stop date: 09/15/18 2:43:00 CDT Inactive 09/15/2018 [facility] Prednisone 60 mg, Route: PO, Drug form: TAB, ONCE, Dosing Weight 163.636, kg, Start date: 09/15/18 2:43:00 CDT, Stop date: 09/15/18 2:43:00 CDT Inactive 09/15/2018 [facility] Albuterol 0.833 MG/ML / Ipratropium Qulin 0.167 MG/ML Inhalant Solution [DuoNeb] 9 mL, Route: NEB, Dosing Weight 163.636, kg, ONCE, Start date: 09/15/18 2:42:00 CDT, Stop date: 09/15/18 2:42:00 CDT Inactive 09/15/2018 [facility] Azithromycin 500 mg, Route: IVPB, ONCE, Dosing Weight 163.636, kg, Priority: STAT, Start date: 09/15/18 0:23:00 CDT, Stop date: 09/15/18 0:23:00 CDT, ABX Indication: Pneumonia Inactive 09/15/2018 [facility] Rocephin 1 gm, Route: IVPB, Drug form: PDR/INJ, ONCE, Dosing Weight 163.636, kg, Priority: STAT, Start date: 09/15/18 0:23:00 CDT, Stop date: 09/15/18 0:23:00 CDT, ABX Indication: Pneumonia Inactive 09/15/2018 [facility] Acetaminophen 300 MG / Codeine Phosphate 30 MG Oral Tablet [Tylenol with Codeine #3] 1 tab, PO, Q6H, PRN Pain, X 5 day, # 20 tab, 0 Refill(s) No Longer Active 03/24/2018 [facility] Acetaminophen 325 MG / Hydrocodone Bitartrate 5 MG Oral Tablet [[place] 5/325] 1 tab, Route: PO, Drug Form: TAB, Dosing Weight 128.182, kg, ONCE, STAT, Start date: 03/24/18 2:41:00 [employer]LEVATOR [employer]NER, Stop date: 03/24/18 2:41:00 [employer]NER Inactive 03/24/2018 [facility] Lasix 80 mg, Route: IVP, Drug form: INJ, ONCE, Dosing Weight 128.182, kg, Priority: STAT, Start date: 03/24/18 2:41:00 E[employer]ATOR [employer]NER, Stop date: 03/24/18 2:41:00 E[employer]ATOR [employer]NER Inactive 03/24/2018 [facility] Fentanyl 50 microgram, Route: IVP, ONCE, Dosing Weight 128.182, kg, Priority: STAT, Start date: 09/27/17 0:32:00 CDT, Stop date: 09/27/17 0:32:00 CDT Inactive 09/27/2017 [facility] Fentanyl 50 microgram, Route: IVP, ONCE, Dosing Weight 128.182, kg, Priority: STAT, Start date: 09/26/17 22:26:00 CDT, Stop date: 09/26/17 22:26:00 CDT Inactive 09/27/2017 [facility] Folic Acid 1 MG Oral Tablet 1 mg=1 tab, PO, Daily, 0 Refill(s) Active 05/10/2017 [facility] Famotidine 20 MG Oral Tablet 20 mg=1 tab, PO, BID, 0 Refill(s) Active 05/10/2017 [facility] Enoxaparin 40 mg=0.4 mL, SUB-Q, [id number], 0 Refill(s) Active 05/10/2017 [facility] carvedilol 12.5 mg oral tablet 12.5 mg=1 tab, PO, Q12H, 0 Refill(s) Active 05/10/2017 [facility] amLODIPine 5 mg oral tablet 5 mg=1 tab, PO, Daily, 0 Refill(s) Active 05/10/2017 [facility] Albuterol 0.833 MG/ML / Ipratropium Qulin 0.167 MG/ML Inhalant Solution [DuoNeb] 3 mL, INHALATION, PRN, PRN Respiratory Protocol, 0 Refill(s) Active 05/10/2017 [facility] POLYETHYLENE GLYCOL 3350 17 gm=1 pkt, PO, Daily, 0 Refill(s) Active 05/10/2017 [facility] Lactulose 667 MG/ML Oral Solution 20 gm=30 mL, PO, TID, 0 Refill(s) Active 05/10/2017 [facility] gabapentin 300 MG Oral Capsule 300 mg=1 cap, PO, TID, 0 Refill(s) Active 05/10/2017 [facility] Furosemide 20 MG Oral Tablet [Lasix] 20 mg=1 tab, PO, Daily, 0 Refill(s) Active 05/10/2017 [facility] Acetaminophen 325 MG / Hydrocodone Bitartrate 5 MG Oral Tablet [[place] 5/325] 1 tab, Route: PO, Drug Form: TAB, Dosing Weight 110.085, kg, ONCE, Start date: 05/10/17 2:32:00 ELEVATOR [employer]NER, Stop date: 05/10/17 2:32:00 CSTNotes: (Same as: [place] 325/5) Do not exceed 4gm/day of acetaminophen. Inactive 05/10/2017 [facility] Coreg 12.5 mg, 1 tab, Route: PO, Drug form: TAB, Q12H, Dosing Weight 110.085, kg, Start date: 05/09/17 21:00:00 ELEVATOR [employer]NER, Duration: 30 day, Stop date: 06/08/17 9:00:00 CSTNotes: Give with food. (Same As: Coreg) No Longer Active 05/10/2017 [facility] Norvasc 5 mg, 1 tab, Route: PO, Drug form: TAB, Daily, Dosing Weight 110.085, kg, Start date: 05/09/17 14:00:00 ELEVATOR [employer]NER, Duration: 30 day, Stop date: 06/08/17 9:00:00 CSTNotes: (Same as: Norvasc) No Longer Active 05/09/2017 [facility] gabapentin 300 MG Oral Capsule 300 mg, 1 cap, Route: PO, Drug form: CAP, TID, Dosing Weight 110.085, kg, Priority: STAT, Start date: 05/09/17 11:24:00 ELEVATOR [employer]NER, Duration: 30 day, Stop date: 06/08/17 9:00:00 CSTNotes: (Same as: Neurontin) No Longer Active 05/09/2017 [facility] gabapentin 300 mg, 1 cap, Route: PO, Drug form: CAP, ONCE, Dosing Weight 110.085, kg, Start date: 05/08/17 19:53:00 ELEVATOR [employer]NER, Stop date: 05/08/17 19:53:00 CSTNotes: (Same as: Neurontin) Inactive 05/09/2017 [facility] Furosemide 20 MG Oral Tablet [Lasix] 20 mg, 1 tab, Route: PO, Drug form: TAB, Daily, Dosing Weight 110.085, kg, Start date: 05/08/17 15:30:00 ELEVATOR [employer]NER, Duration: 30 day, Stop date: 06/07/17 9:00:00 CSTNotes: (Same as: Lasix) May cause GI upset. Give with food or milk. No Longer Active 05/08/2017 [facility] Lactulose 667 MG/ML Oral Solution 20 gm, 30 ml, Route: PO, Drug form: SYRP, TID, Dosing Weight 115.864, kg, Start date: 05/03/17 11:00:00 E[employer]ATOR [employer]NER, Duration: 30 day, Stop date: 06/02/17 9:00:00 CSTNotes: (Same as:Chronulac) No Longer Active 05/03/2017 [facility] Trazodone Hydrochloride 50 MG Oral Tablet 50 mg, 1 tab, Route: PO, Drug form: TAB, Bedtime, Dosing Weight 115.864, kg, PRN Insomnia, Start date: 05/02/17 16:53:00 E[employer]ATOR [employer]NER, Duration: 30 day, Stop date: 06/01/17 16:52:00 CSTNotes: (Same As: Desyrel) No Longer Active 05/02/2017 [facility] Furosemide 20 mg, 1 tab, Route: PO, Drug form: TAB, BID Diuretic, Dosing Weight 115.864, kg, Start date: 05/02/17 8:00:00 ELEVATOR [employer]NER, Duration: 30 day, Stop date: 05/31/17 16:00:00 CSTNotes: (Same as: Lasix) May cause GI upset. Give with food or milk. No Longer Active 05/02/2017 [facility] Restoril 15 mg, 1 cap, Route: PO, Drug form: CAP, Bedtime, Dosing Weight 115.864, kg, PRN Sleep, Start date: 05/01/17 14:52:00 [employer]ATOR [employer], Duration: 30 day, Stop date: 05/31/17 14:51:00 CSTNotes: (Same As: Restoril) No Longer Active 05/01/2017 [facility] Sodium Chloride 0.154 MEQ/ML Nasal [place] [Simply Saline] 1 spray, Route: NASAL, Q30Min, Drug form: SOLN, PRN Nasal dryness, Start date: 05/01/17 11:59:00 ELEVATOR [employer]NER, Duration: 30 day, Stop date: 05/31/17 11:58:00 CSTNotes: (Same as: Cooper, Deep Sea Nasal [place]). No Longer Active 05/01/2017 [facility] Potassium Chloride 40 mEq, 2 tab, Route: PO, Drug form: ERTAB, ONCE, Dosing Weight 115.864, kg, Start date: 04/30/17 19:27:00 ELEVATOR [employer]NER, Stop date: 04/30/17 19:27:00 CSTNotes: (Same as: K-Dur 20) "Do Not Crush" With food and full glass of water Inactive 05/01/2017 [facility] Lasix 40 mg, Route: IVP, Drug form: INJ, BID Diuretic, Dosing Weight 115.864, kg, Start date: 04/30/17 16:00:00 ELEVATOR [employer]NER, Duration: 30 day, Stop date: 05/30/17 8:00:00 ELEVATOR [employer]NER Inactive 04/30/2017 [facility] Vancomycin dose due today Vancomycin dose due today, vanc dose due, Drug form: MISC, Route: MISC, ONCE, 04/30/17 9:00:00 ELEVATOR [employer]NER, Stop date: 04/30/17 9:00:00 ELEVATOR [employer]NER Inactive 04/30/2017 [facility] potassium chloride 20 mEq oral tablet, extended release 40 mEq, 2 tab, Route: PO, Drug form: ERTAB, ONCE, Dosing Weight 115.864, kg, Start date: 04/30/17 8:42:00 ELEVATOR [employer]NER, Stop date: 04/30/17 8:42:00 CSTNotes: (Same as: K- Dur 20) "Do Not Crush" With food and full glass of water Inactive 04/30/2017 [facility] Albuterol 0.833 MG/ML / Ipratropium Qulin 0.167 MG/ML Inhalant Solution [DuoNeb] 3 ml, Route: INHALATION, Drug Form: SOLN, Dosing Weight 115.864, kg, PRN, PRN Respiratory Protocol, Start date: 04/29/17 21:23:00 [employer]ATOR [employer]NER, Duration: 30 day, Stop date: 05/29/17 21:22:00 CSTNotes: (Same as: Duoneb) No Longer Active 04/30/2017 [facility] folic acid 1 mg oral tablet 1 mg, 1 tab, Route: PO, Drug form: TAB, Daily, Start date: 04/29/17 11:00:00 ELEVATOR [employer]NER, Duration: 30 day, Stop date: 05/29/17 9:00:00 CSTNotes: (Same as: Folvite) No Longer Active 04/29/2017 [facility] multivitamin with minerals 1 tab, Route: PO, Drug Form: TAB, Daily, Start date: 04/29/17 11:00:00 E[employer]ATOR [employer]NER, Duration: 30 day, Stop date: 05/29/17 9:00:00 CSTNotes: (Same as:Thera-M, Theragran-M) WASTE: F/P - Black; E - Municipal Trash Bin Give with food. No Longer Active 04/29/2017 [facility] Vitamin B1 100 mg, 1 tab, Route: PO, Drug form: TAB, Daily, Start date: 04/29/17 11:00:00 ELEVATOR [employer]NER, Duration: 30 day, Stop date: 05/29/17 9:00:00 CSTNotes: (Same As: Vitamin B1) No Longer Active 04/29/2017 [facility] famotidine 20 mg, 1 tab, Route: PO, Drug form: TAB, BID, Start date: 04/29/17 9:00:00 ELEVATOR [employer]NER, Duration: 30 day, Stop date: 05/28/17 17:00:00 CSTNotes: (Same as: Pepcid) No Longer Active 04/29/2017 [facility] Vancomycin trough level due Vancomycin trough level due, 04-27-17 at 1300, Drug form: MISC, Route: MISC, ONCE, 04/28/17 17:00:00 ELEVATOR [employer]NER, Stop date: 04/28/17 17:00:00 ELEVATOR [employer]NER Inactive 04/28/2017 [facility] vancomycin + NS 250 mL 1,000 mg, Route: IVPB, Daily, PRN Other -See Comment, Start date: 04/28/17 14:23:00 E[employer]ATOR [employer]NER, Stop date: 04/30/17 23:59:00 ELEVATOR [employer]NER, ABX Indication: Skin/Soft Tissue InfectionNotes: (Same As: Vancocin) No Longer Active 04/28/2017 [facility] Furosemide 100 mg, 10 mL, Rate: 5 mg/hour, Dosing Weight 115.864, kg, Route: IV, Total Volume: 100, Start Date: 04/28/17 8:03:00 ELEVATOR [employer]NER, Duration: 30 day, Stop date: 05/28/17 8:02:00 ELEVATOR [employer]NER, Replace Every: 24 hr, contin uousNotes: (Same as: Lasix) MEDICATION WASTE Product Size: 100 mg Product Wasted: _0_ mg No Longer Active 04/28/2017 [facility] potassium chloride + Sodium Chloride 0.9% IV 250 mL 40 mEq, 20 mL, Route: IV, Drug form: INJ, ONCE, Start date: 04/27/17 14:00:00 ELEVATOR [employer]NER, Stop date: 04/27/17 14:00:00 CSTNotes: MUST be Diluted before use (Same as: KCl) Inactive 04/27/2017 [facility] Vancomycin trough level due Vancomycin trough level due, 04-27-17 at 1300, Drug form: MISC, Route: MISC, ONCE, 04/27/17 13:00:00 ELEVATOR [employer]NER, Stop date: 04/27/17 13:00:00 ELEVATOR [employer]NER No Longer Active 04/27/2017 [facility] Potassium Chloride 20 mEq, Route: IVPB, Q2H, Dosing Weight 115.864, kg, Total dose=40 mEq, Start date: 04/27/17 12:00:00 ELEVATOR [employer]NER, Duration: 2 doses or times, Stop date: 04/27/17 14:00:00 ELEVATOR [employer]NER, Central Line Inactive 04/27/2017 [facility] Sodium Chloride 3% (Hypertonic) IV 20 mL 20 mL, Rate: 30 ml/hr, Infuse over: 0.7 hr, Route: IV, Dosing Weight 115.864 kg, Total Volume: 20, Start date: 04/27/17 6:44:00 ELEVATOR [employer]NER, Duration: 30 day, Stop date: 05/27/17 6:44:00 ELEVATOR [employer]NER, 2.31, [id number]: "Administer by central venous catheter or a peripherally inserted central catheter (PICC) line. 3% Sodium Chloride may be infused via peripheral administration into large vein (antecubital) only in the case of emergency for short term use until a central line can be inserted" (Same as: Hypertonic Saline 3%) concentration=0.513 mEq/mL No Longer Active 04/27/2017 [facility] NS 1,000 mL 1,000 mL, Rate: 50 ml/hr, Infuse over: 20 hr, Route: IV, Dosing Weight 115.864 kg, Total Volume: 1,000, Start date: 04/27/17 6:17:00 ELEVATOR [employer]NER, Duration: 30 day, Stop date: 05/27/17 6:16:00 ELEVATOR [employer]NER, 2.31, m2 Inactive 04/27/2017 [facility] Vitamin B1 100 mg + M.V.I. Adult 10 mL + folic acid 1 mg + NS 1,000 mL Route: IV, Q24H, Start date: 04/27/17 6:00:00 ELEVATOR [employer]NER, Stop date: 04/28/17 6:00:00 ELEVATOR [employer]NER No Longer Active 04/27/2017 [facility] Potassium Chloride 10 mEq, Route: IVPB, Q1H, Dosing Weight 115.864, kg, Total Dose=40 meq, Start date: 04/27/17 0:00:00 ELEVATOR [employer]NER, Duration: 4 doses or times, Stop date: 04/27/17 3:00:00 ELEVATOR [employer]NER, Peripheral Line No Longer Active 04/27/2017 [facility] potassium chloride + Dextrose 5% in Water IV 500 mL 40 mEq, 20 mL, Route: IV, Drug form: INJ, ONCE, Priority: NOW, Start date: 04/26/17 23:58:00 E[employer]ATOR [employer]NER, Stop date: 04/26/17 23:58:00 CSTNotes: MUST be Diluted before use (Same as: KCl) No Longer Active 04/27/2017 [facility] D5W 1,000 mL 1,000 mL, Rate: 40 ml/hr, Infuse over: 25 hr, Route: IV, Dosing Weight 115.864 kg, Total Volume: 1,000, Start date: 04/26/17 21:54:00 ELEVATOR [employer]NER, Stop date: 04/27/17 6:32:00 ELEVATOR [employer]NER, 2.31, m2 No Longer Active 04/27/2017 [facility] Sodium Chloride 0.9% IV 1,000 mL 1,000 mL, Rate: 40 ml/hr, Infuse over: 25 hr, Route: IV, Dosing Weight 115.864 kg, Total Volume: 1,000, Start date: 04/26/17 19:56:00 ELEVATOR [employer]NER, Duration: 30 day, Stop date: 05/26/17 19:55:00 ELEVATOR [employer]NER, 2.31, m2 Inactive 04/27/2017 [facility] Potassium Chloride 10 mEq, 100 mL, Route: IVPB, Drug form: INJ, Q1H, Dosing Weight 115.864, kg, Total Dose=20 meq, Start date: 04/26/17 16:00:00 [employer]ATOR [employer]NER, Duration: 2 doses or times, Stop date: 04/26/17 17:00:00 [employer]NER, Peripheral LineNotes: Infuse at a rate of 10 mEq/hr. (Same as: KCL) Inactive 04/26/2017 [facility] DDAVP 2 microgram, 0.5 mL, Route: IV, Drug form: INJ, ONCE, Dosing Weight 115.864, kg, Start date: 04/26/17 15:28:00 [employer]ATOR [employer]NER, Stop date: 04/26/17 15:28:00 CSTNotes: (Same As: DDAVP) MEDICATION WASTE Product Size: 4 microgram Product Wasted: ___ microgram Inactive 04/26/2017 [facility] Zosyn 3.375 gm, Route: IVPB, [id number], Dosing Weight 115.864, kg, CrCl >=20 ml/min infuse over 4 hours, Start date: 04/26/17 15:00:00 [employer]NER, Stop date: 05/10/17 7:00:00 [employer], ABX Indication: Skin/Soft Tissue InfectionNotes: (Same as: Zosyn) MEDICATION WASTE Product Size: 3375 mg Product Waste0 mg No Longer Active 04/26/2017 [facility] Beneprotein 7 gm pkt 2 pkt, Route: T FEED, Drug Form: PWDR, Dosing Weight 115.864, kg, TID-Before Meals, Start date: 04/26/17 11:30:00 [employer]NER, Duration: 30 day, Stop date: 05/26/17 7:30:00 CSTNotes: (Same as: Beneprotein) No Longer Active 04/26/2017 [facility] POLYETHYLENE GLYCOL 3350 17 gm, 1 pkt, Route: PO, Drug form: PWDR, Daily, Dosing Weight 115.864, kg, Start date: 04/26/17 11:00:00 [employer]ATOR [employer]NER, Duration: 30 day, Stop date: 05/26/17 9:00:00 CSTNotes: Dissolve in 8 oz of water or juice. (Same as: Miralax) No Longer Active 04/26/2017 [facility] Sodium Chloride 3% (Hypertonic) IV 60 mL 60 mL, Rate: 15 ml/hr, Infuse over: 4 hr, Route: IV, Dosing Weight 115.864 kg, Total Volume: 60, Start date: 04/26/17 10:27:00 [employer]NER, Duration: 2 doses or times, Stop date: 04/26/17 18:26:00 [employer]NER, 2.31, [id number]: (Same as: Hypertonic Saline 3%) Inactive 04/26/2017 [facility] Saline Flush 0.9% 10 ml, Route: IVP, Drug Form: INJ, Dosing Weight 115.864, kg, Q12H, Start date: 04/26/17 9:00:00 [employer], Duration: 30 day, Stop date: 05/25/17 21:00:00 CSTNotes: (Same as: BD Posiflush) No Longer Active 04/26/2017 [facility] Famotidine 20 mg, 2 mL, Route: IVP, Drug form: INJ, Q12H, Dosing Weight 115.864, kg, Start date: 04/26/17 9:00:00 [employer]ATOR [employer]NER, Stop date: 04/29/17 7:45:00 CSTNotes: (Same as: Pepcid) Can be dilute in 5-10cc NS IVP: Sl ow IV push over at least 2 minutes. No Longer Active 04/26/2017 [facility] chlorhexidine gluconate 1.2 MG/ML Mouthwash 15 mL, Route: Swab Mouth, Q12H, Drug form: LIQ, Start date: 04/26/17 9:00:00 [employer]ATOR [employer]NER, Duration: 30 day, Stop date: 05/25/17 21:00:00 CSTNotes: (Same As: Peridex) No Longer Active 04/26/2017 [facility] Enoxaparin 40 mg, 0.4 mL, Route: SUB-Q, Drug form: INJ, [id number], Dosing Weight 115.864, kg, Consider for obese patients, Start date: 04/26/17 9:00:00 [employer]ATOR [employer]NER, Stop date: 05/25/17 21:00:00 CSTNotes: (Same as: Lovenox) No Longer Active 04/26/2017 [facility] Clonidine 0.1 mg, 1 tab, Route: PO, Drug form: TAB, Q4H, Dosing Weight 115.864, kg, Start date: 04/26/17 8:00:00 [employer]ATOR [employer]NER, Duration: 30 day, Stop date: 05/26/17 4:00:00 CSTNotes: (Same As: Catapres) No Longer Active 04/26/2017 [facility] Sodium Chloride 3% (Hypertonic) IV 60 mL 60 mL, Rate: 15 ml/hr, Infuse over: 4 hr, Route: IV, Dosing Weight 115.864 kg, Total Volume: 60, Start date: 04/26/17 6:50:00 [employer]ATOR [employer]NER, Duration: 2 doses or times, Stop date: 04/26/17 14:49:00 [employer]ATOR [employer]NER, 2.31, [id number]: "Administer by central venous catheter or a peripherally inserted central catheter (PICC) line. 3% Sodium Chloride may be infused via peripheral administration into large vein (antecubital) only in the case of emergency for short term use until a central line can be inserted" (Same as: Hypertonic Saline 3%) concentration=0.513 mEq/mL Inactive 04/26/2017 [facility] Succinylcholine 140 mg, 7 mL, Route: IV, Drug form: INJ, ONCE, Dosing Weight 115.864, kg, Start date: 04/26/17 6:15:00 [employer]ATOR [employer]NER, Stop date: 04/26/17 6:15:00 CSTNotes: (Same As: Anectine) No Longer Active 04/26/2017 [facility] Etomidate 40 mg, 20 mL, Route: IV, Drug form: INJ, ONCE, Dosing Weight 115.864, kg, Priority: STAT, Start date: 04/26/17 6:14:00 E[employer]ATOR [employer]NER, Stop date: 04/26/17 6:14:00 CSTNotes: (Same as: Amidate). Per state nursing law etomidate can only be given by a nurse if patient is intubated or being intubated (unless the nurse is a HEALTHCARE CONSULTING MANAGER). No Longer Active 04/26/2017 [facility] chlorhexidine gluconate 1.2 MG/ML Mouthwash 15 mL, Route: Swab Mouth, PRN, Drug form: LIQ, PRN Other -See Comment, Start date: 04/26/17 6:12:00 [employer]ATOR [employer]NER, Duration: 30 day, Stop date: 05/26/17 6:11:00 CSTNotes: (Same As: Peridex) No Longer Active 04/26/2017 [facility] propofol 10 mg/mL (Titrate.) IV 1,000 mg 1,000 mg, 100 mL, Rate: Titrate, Start Dose: 5 microgram/kg/min, Titration: 5 microgram/kg/min every 15 minutes, Goal(s): RASS -2, Max Dose: 50 mcg/kg/min, Route: IV, Dosing Weight 115.864 kg, Total Volume: 100, Start date: 04/26/17 6:03:00 ELEVATOR [employer]NER, Durat...Notes: If Diprivan - change bottle & tubing every 12 hr Per state nursing law propofol can only be given by a nurse if patient is intubated or marcia ng intubated (unless the nurse is a HEALTHCARE CONSULTING MANAGER). Same as: Diprivan No Longer Active 04/26/2017 [facility] vancomycin + NS 250 mL 1,000 mg, Route: IVPB, [id number], Start date: 04/26/17 6:00:00 [employer]ATOR [employer]NER, Stop date: 04/30/17 18:00:00 ELEVATOR [employer]NER, ABX Indication: Skin/Soft Tissue InfectionNotes: (Same As: Vancocin) No Longer Active 04/26/2017 [facility] Vancomycin 1 ea, Route: IV, ONCALL, Dosing Weight 115.864, kg, Start date: 04/26/17 5:00:00 E[employer]ATOR [employer]NER, Duration: 5 day, Stop date: 05/01/17 4:59:00 E[employer]ATOR [employer]NER, ABX Indication: Skin/Soft Tissue Infection Inactive 04/26/2017 [facility] Sodium Chloride 0.9% IV 1,000 mL 1,000 mL, Rate: 100 ml/hr, Infuse over: 10 hr, Route: IV, Dosing Weight 115.864 kg, Total Volume: 1,000, Start date: 04/26/17 4:46:00 E[employer]ATOR [employer]NER, Stop date: 04/29/17 4:41:00 E[employer]ATOR [employer]NER, 2.31, m2 Inactive 04/26/2017 [facility] Metronidazole 500 mg, 100 mL, Route: IVPB, Drug form: INJ, [id number], Dosing Weight 115.864, kg, Priority: STAT, Start date: 04/26/17 4:45:00 E[employer]ATOR [employer]NER, Duration: 7 day, Stop date: 05/02/17 21:00:00 E[employer]ATOR [employer]NER, ABX Indication: Skin/ Soft Tissue InfectionNotes: (Same as: Flagyl) Avoid alcohol. Inactive 04/26/2017 [facility] Haloperidol 5 mg, 1 mL, Route: IVP, Drug form: INJ, Q8H, Dosing Weight 115.864, kg, PRN Agitation, Start date: 04/26/17 4:42:00 [employer]ATOR [employer]NER, Duration: 30 day, Stop date: 05/26/17 4:41:00 CSTNotes: (Same as: Haldol) No Longer Active 04/26/2017 [facility] Sodium Chloride 0.9% IV 1,000 mL + M.V.I.-12 10 mL Daily + folic acid IV 1 mg Daily + thiamine IV 1 1,000 mL, Rate: 100 ml/hr, Infuse over: 10.1 hr, Route: IV, Dosing Weight 115.864 kg, Total Volume: 1,011.2, Start date: 04/26/17 4:42:00 [employer]ATOR [employer]NER, Duration: 3 day, Stop date: 04/29/17 4:41:00 E[employer]ATOR [employer]NER, 2.31, m2 Inactive 04/26/2017 [facility] Lorazepam 2 mg, 1 mL, Route: IVP, Drug form: INJ, Q2H, Dosing Weight 115.864, kg, PRN Other -See Comment, CIWA Score 8 -14, Start date: 04/26/17 4:42:00 [employer]ATOR [employer]NER, Duration: 30 day, Stop date: 05/26/17 4:41:00 CSTNotes: (Same as: Ativan) No Longer Active 04/26/2017 [facility] Saline Flush 0.9% 10 ml, Route: IVP, Drug Form: INJ, Dosing Weight 115.864, kg, PRN, PRN Line Flush, Start date: 04/26/17 4:40:00 [employer]ATOR [employer]NER, Duration: 30 day, Stop date: 05/26/17 4:39:00 CSTNotes: (Same as: BD Posiflush) No Longer Active 04/26/2017 [facility] Ondansetron 4 mg, 2 mL, Route: IVP, Drug form: INJ, Q8H, Dosing Weight 115.864, kg, PRN Nausea & Vomiting, Start date: 04/26/17 4:40:00 [employer]ATOR [employer]NER, Duration: 30 day, Stop date: 05/26/17 4:39:00 CSTNotes: (Same as: Zofran) MEDICATION WASTE Product Size: 4 mg Product Wasted: ___ mg No Longer Active 04/26/2017 [facility] Acetaminophen 650 mg, 2 tab, Route: PO, Drug form: TAB, Q4H, Dosing Weight 115.864, kg, PRN For Temp > 100.4 F, Start date: 04/26/17 4:40:00 [employer]ATOR [employer]NER, Duration: 30 day, Stop date: 05/26/17 4:39:00 CSTNotes: Do not exce ed 4 gm/day. (Same as: Tylenol) No Longer Active 04/26/2017 [facility] Lorazepam 2 mg, 1 mL, Route: IV, Drug form: INJ, PRN, Dosing Weight 115.864, kg, PRN Agitation, Start date: 04/26/17 0:10:00 E[employer]ATOR [employer]NER, Duration: 30 day, Stop date: 05/26/17 0:09:00 CSTNotes: (Same as: Ativan) Inactive 04/26/2017 [facility] Sodium Chloride 3% (Hypertonic) IV 50 mL 50 mL, Rate: 250 ml/hr, Infuse over: 0.2 hr, Route: IV, Dosing Weight 113.636 kg, Total Volume: 50 mL, Start date: 04/25/17 21:43:00 ELEVATOR [employer]NER, Duration: 1 doses or times, Stop date: 04/25/17 21:54:00 ELEVATOR [employer]NER, 2.29, [id number]: "Administer by central venous catheter or a peripherally inserted central catheter (PICC) line. 3% Sodium Chloride may be infused via peripheral administration into large vein (antecubital) only in the case of emergency for short term use until a central line can be inserted" (Same as: Hypertonic Saline 3%) concentration=0.513 mEq/mL Inactive 04/26/2017 [facility] Calcium Gluconate 1,000 mg, 10 mL, Route: IVPB, ONCE, Dosing Weight 113.636, kg, Start date: 04/25/17 21:21:00 ELEVATOR [employer]NER, Stop date: 04/25/17 21:21:00 CSTNotes: WASTE: F/P - Sink; E - Municipal Trash Bin No Longer Active 04/26/2017 [facility] Sodium Chloride 3% (Hypertonic) IV 180 mL 180 mL, Rate: 20 ml/hr, Infuse over: 9 hr, Route: IV, Dosing Weight 113.636 kg, Total Volume: 180 mL, Start date: 04/25/17 20:40:00 ELEVATOR [employer]NER, Stop date: 04/26/17 5:39:00 ELEVATOR [employer]NER, 2.29, [id number]: "Administer by central venous catheter or a peripherally inserted central catheter (PICC) line. 3% Sodium Chloride may be infused via peripheral administration into large vein (antecubital) only in the case of emergency for short term use until a central line can be inserted" (Same as: Hypertonic Saline 3%) concentration=0.513 mEq/mL No Longer Active 04/26/2017 [facility] Sodium Chloride 3% (Hypertonic) IV 50 mL 50 mL, Rate: 250 ml/hr, Infuse over: 0.2 hr, Route: IV Central, Dosing Weight 113.636 kg, Total Volume: 50 mL, Start date: 04/25/17 20:39:00 ELEVATOR [employer]NER, Duration: 1 doses or times, Stop date: 04/25/17 20:50:00 ELEVATOR RUNNER, 2.29, [id number]: "Administer by central venous catheter or a peripherally inserted central catheter (PICC) line. 3% Sodium Chloride may be infused via peripheral administration into large vein (antecubital) only in the case of emergency for short term use until a central line can be inserted" (Same as: Hypertonic Saline 3%) concentration=0.513 mEq/mL Inactive 04/26/2017 [facility] Flagyl 500 mg, 100 mL, Route: IVPB, Drug form: INJ, ONCE, Dosing Weight 113.636, kg, Priority: STAT, Start date: 04/25/17 20:25:00 E[employer]ATOR [employer]NER, Stop date: 04/25/17 20:25:00 E[employer]ATOR [employer]NER, ABX Indication: Skin/Soft Tissue Inf ectionNotes: (Same as: Flagyl) Avoid alcohol. Inactive 04/26/2017 [facility] Thiamine 100 mg, Route: PO, Drug form: TAB, ONCE, Dosing Weight 113.636, kg, Priority: STAT, Start date: 04/25/17 19:36:00 ELEVATOR [employer]NER, Stop date: 04/25/17 19:36:00 E[employer]ATOR [employer]NER Inactive 04/26/2017 [facility] Folic Acid 1 mg, Route: PO, ONCE, Dosing Weight 113.636, kg, Start date: 04/25/17 19:36:00 ELEVATOR [employer]NER, Stop date: 04/25/17 19:36:00 E[employer]ATOR [employer]NER Inactive 04/26/2017 [facility] Vancomycin 2,000 mg, 500 mL, Route: IVPB, Drug form: SOLN, ONCE, Dosing Weight 113.636, kg, Priority: STAT, Start date: 04/25/17 18:53:00 ELEVATOR [employer]NER, Stop date: 04/25/17 18:53:00 ELEVATOR [employer]NER, ABX Indication: Skin/Soft Tissue Inf ectionNotes: TIME CRITICAL MEDICATION Same as: Vancocin Infusion rate 2001 mg: infuse over 2.5 hours Inactive 04/26/2017 [facility] Saline Flush 0.9% 10 mL, Route: IVP, Drug Form: INJ, Dosing Weight 113.636, kg, PRN, PRN Line Flush, Start date: 04/25/17 17:58:00 ELEVATOR [employer]NER, Duration: 30 day, Stop date: 05/25/17 17:57:00 CSTNotes: (Same as: BD Posiflush) No Longer Active 04/25/2017 [facility] Sodium Chloride 0.9% (Bolus) IV 1,000 mL, 1,000 ml/hr, Infuse Over: 1 hr, Route: IV, 1,000, Drug form: INJ, ONCE, Priority: STAT, Dosing Weight 113.636 kg, Start date: 04/25/17 17:58:00 ELEVATOR [employer]NER, Stop date: 04/25/17 17:58:00 ELEVATOR [employer]NER Inactive 04/25/2017 [facility] tramadol hydrochloride 50 MG Oral Tablet [Ultram] 50 mg=1 tab, PO, Q6H, PRN pain, X 3 day, # 12 tab, 0 Refill(s) Active 02/15/2015 [facility] Acetaminophen 325 MG / Hydrocodone Bitartrate 5 MG Oral Tablet [[place] 5/325] 1 tab, Route: PO, Dosing Weight 113.636, kg, ONCE, Start date: 02/15/15 13:28:00, Stop date: 02/15/15 13:28:00 Inactive 02/15/2015 [facility] Sodium Chloride 0.154 MEQ/ML Injectable Solution 1,000 mL, 1,000 ml/hr, Infuse Over: 1 hr, Route: IV, ONCE, Priority: STAT, Dosing Weight 113.636 kg, Start date: 02/15/15 13:12:00, Duration: 1 doses or times, Stop date: 02/15/15 13:12:00 Inactive 02/15/2015 [facility] Morphine 6 mg, Route: IVP, Drug form: INJ, ONCE, Dosing Weight 113.636, kg, Priority: STAT, Start date: 02/15/15 9:51:00, Stop date: 02/15/15 9:51:00 Inactive 02/15/2015 [facility] Omnipaque 240 50 mL, Route: PO, Drug Form: SOLN, Dosing Weight 113.636, kg, ONCE, Start date: 02/15/15 9:39:00, Stop date: 02/15/15 9:39:00Notes: (Same as:Omnipaque 240) 12,000mg/50ml Inactive 02/15/2015 [facility] Allergies, Adverse Reactions, Alerts Substance Category Reaction Severity Reaction type Status Date Reported Comments Source clindamycin Assertion Drug allergy Active [facility] Immunizations Immunization Date Given Site Status Last Updated Comments Source pneumococcal 23-valent vaccine 05/16/2018 Not Given [facility] Results Order Name Results Value Reference Range Date Interpretation Comments Source DRUG SCREEN UDS Note See Note *NA* (09/15/18 12:57 AM) 09/15/2018 [facility] DRUG SCREEN U Cannab Scr Negative *NA* (09/15/18 12:57 AM) Negative 09/15/2018 [facility] DRUG SCREEN U Cocaine Scr Negative *NA* (09/15/18 12:57 AM) Negative 09/15/2018 [facility] DRUG SCREEN U Benzodiaz Scr Negative *NA* (09/15/18 12:57 AM) Negative 09/15/2018 [facility] DRUG SCREEN U Susie Scr Negative *NA* (09/15/18 12:57 AM) Negative 09/15/2018 [facility] DRUG SCREEN U Amph Scr Negative *NA* (09/15/18 12:57 AM) Negative 09/15/2018 [facility] DRUG SCREEN U Phencyclidine Scr Negative *NA* (09/15/18 12:57 AM) Negative 09/15/2018 [facility] DRUG SCREEN U Opiate Scr Negative *NA* (09/15/18 12:57 AM) Negative 09/15/2018 [facility] URINE AND STOOL UA Sq Epi None Seen 09/15/2018 [facility] URINE AND STOOL UA Spec Grav 1.015 <=1.030 09/15/2018 [facility] URINE AND STOOL UA Ketones Negative mg/dL Negative mg/dL 09/15/2018 [facility] URINE AND STOOL UA Glucose Negative mg/dL Negative mg/dL 09/15/2018 [facility] URINE AND STOOL UA Protein Negative mg/dL Negative mg/dL 09/15/2018 [facility] URINE AND STOOL UA pH 5.0 5.0 - 8.0 09/15/2018 [facility] URINE AND STOOL UA Mucus Few /LPF None Seen /LPF 09/15/2018 [facility] URINE AND STOOL UA Bacteria Occasional /HPF None Seen /HPF 09/15/2018 [facility] URINE AND STOOL UA RBC 2 /HPF 0 - 2 09/15/2018 [facility] URINE AND STOOL UA WBC 1 /HPF 0 - 5 09/15/2018 [facility] URINE AND STOOL UA Blood Negative (09/15/18 12:57 AM) Negative 09/15/2018 [facility] URINE AND STOOL UA Nitrite Negative (09/15/18 12:57 AM) Negative 09/15/2018 [facility] URINE AND STOOL UA Bili Negative *NA* (09/15/18 12:57 AM) Negative 09/15/2018 [facility] URINE AND STOOL UA Leuk Est Negative (09/15/18 12:57 AM) Negative 09/15/2018 [facility] URINE AND STOOL UA Urobilinogen <=1.0 mg/dL 0.1 - 1.0 09/15/2018 [facility] URINE AND STOOL UA Color Yellow *NA* (09/15/18 12:57 AM) Yellow 09/15/2018 [facility] URINE AND STOOL UA Turbidity Clear (09/15/18 12:57 AM) Clear 09/15/2018 [facility] CARDIAC ENZYMES Troponin-I null 0.00 - 0.40 09/15/2018 [facility] CARDIAC ENZYMES BNP 27 pg/mL <=100 pg/mL 09/15/2018 [facility] CHEM PANEL Lipase Lvl 118 unit/L 73 - 393 09/15/2018 [facility] CHEM PANEL Calcium Lvl 9.0 mg/dL 8.5 - 10.5 09/15/2018 [facility] CHEM PANEL Total Protein 6.9 g/dL 6.4 - 8.4 09/15/2018 [facility] CHEM PANEL Alk Phos 87 unit/L 39 - 136 09/15/2018 [facility] CHEM PANEL Potassium Lvl 3.5 meq/L 3.5 - 5.1 09/15/2018 [facility] CHEM PANEL Albumin Lvl 3.1 g/dL 3.5 - 5.0 09/15/2018 [facility] CHEM PANEL Glucose Lvl 110 mg/dL 70 - 99 09/15/2018 [facility] CHEM PANEL Chloride Lvl 97 meq/L 95 - 109 09/15/2018 [facility] CHEM PANEL CO2 25 meq/L 24 - 32 09/15/2018 [facility] CHEM PANEL BUN 9 mg/dL 7 - 22 09/15/2018 [facility] CHEM PANEL Sodium Lvl 134 meq/L 135 - 145 09/15/2018 [facility] CHEM PANEL Creatinine Lvl 0.59 mg/dL 0.50 - 1.40 09/15/2018 [facility] CHEM PANEL eGFR 113 mL/min/1.73m2 09/15/2018 [...] should be multiplied by the estimated BMI. [facility] CHEM PANEL Bili Total 0.7 mg/dL 0.2 - 1.3 09/15/2018 [facility] CHEM PANEL ALT 25 unit/L 0 - 65 09/15/2018 [facility] CHEM PANEL AST 17 unit/L 0 - 37 09/15/2018 [facility] CHEM PANEL B/C Ratio 15 6 - 25 09/15/2018 [facility] CHEM PANEL AGAP 15.5 meq/L 10.0 - 20.0 09/15/2018 [facility] CHEM PANEL Globulin 3.8 g/dL 2.7 - 4.2 09/15/2018 [facility] CHEM PANEL A/G Ratio 0.8 0.7 - 1.6 09/15/2018 [facility] Segs 78.1 % 45.0 - 75.0 09/15/2018 Result Comment: diff count reviewed manually, b09/15/2018 01:50 [facility] RBC Morph Normal (09/15/18 12:08 AM) Normal 09/15/2018 [facility] Plt Morph Normal (09/15/18 12:08 AM) Normal 09/15/2018 [facility] Monocytes 11.5 % 2.0 - 12.0 09/15/2018 [facility] HEMATOLOGY Eosinophils 1.6 % 0.0 - 4.0 09/15/2018 [facility] Lymphocytes 8.4 % 20.0 - 40.0 09/15/2018 [facility] Basophils # 0.1 K/CMM 0.0 - 0.2 09/15/2018 [facility] Basophils 0.4 % 0.0 - 1.0 09/15/2018 [facility] Neutrophils # 12.1 K/CMM 1.5 - 8.1 09/15/2018 [facility] Monocytes # 1.8 K/CMM 0.0 - 0.8 09/15/2018 [facility] Eosinophils # 0.3 K/CMM 0.0 - 0.5 09/15/2018 [facility] Lymphocytes # 1.3 K/CMM 1.0 - 5.5 09/15/2018 [facility] Hct 30.6 % 42.0 - 54.0 09/15/2018 [facility] Hgb 10.0 g/dL 14.0 - 18.0 09/15/2018 [facility] RBC 3.79 M/CMM 4.70 - 6.10 09/15/2018 [facility] WBC 15.5 K/CMM 3.7 - 10.4 09/15/2018 [facility] MPV 6.9 fL 7.4 - 10.4 09/15/2018 [facility] Platelet 254 K/CMM 133 - 450 09/15/2018 [facility] MCH 26.3 pg 27.0 - 31.0 09/15/2018 [facility] MCV 80.8 fL 80.0 - 94.0 09/15/2018 [facility] MCHC 32.6 g/dL 32.0 - 36.0 09/15/2018 [facility] RDW 17.1 % 11.5 - 14.5 09/15/2018 [facility] Acetaminoph Lvl <2
(09/15/18 12:08 AM) 10 - 20 09/15/2018 [facility] Ethanol Lvl null 09/15/2018 [facility] Etoh (%) null 09/15/2018 [facility] Salicylate Lvl null 0.0 - 30.0 09/15/2018 [facility] Chest 1view DX Chest 1view DX [...] pneumonia. 2. Enlargement of the cardiac silhouette. : [id number] 09/15/2018 - - Read by: Gil Corey MD Dictated Date/time: 09/15/18 00:12 Electronically Signed by: Gil Corey MD 09/15/18 00:14 FINAL REPORT [facility] Retroperitoneal Complete US Retroperitoneal Complete US STUDY: Retroperitoneal Complete US 05/14/2018 3:05 PM [employer] Ordering Physician: Shannon Baker MD Patient Name: NICKI HELM MR: [id number] : 1960; Age: 58 years y/o Male [...] 1. Small simple right renal cyst. SL: TPAINTER-PC 05/14/2018 - - Read by: Aubrey Anders MD Dictated Date/time: 05/14/18 17:12 Electronically Signed by: Aubrey Anders MD 05/14/18 17:13 FINAL REPORT [facility] Chest 1view DX Chest 1view DX Clinical [...] pulmonary vascularity. Minimal left basilar atelectasis. SL: [id number] 05/14/2018 - - Read by: Yuval Whittaker MD Dictated Date/time: 05/14/18 10:41 Electronically Signed by: Yuval Whittaker MD 05/14/18 10:41 FINAL REPORT [facility] CARDIAC ENZYMES BNP 8 pg/mL <=100 pg/mL 03/24/2018 [facility] CHEM PANEL Lactic Acid Lvl 1.6 mMol/L 0.5 - 2.2 03/24/2018 [facility] ELECTROLYTES AGAP 11.3 meq/L 10.0 - 20.0 03/24/2018 [facility] ELECTROLYTES Potassium Lvl 3.3 meq/L 3.5 - 5.1 03/24/2018 [facility] ELECTROLYTES Sodium Lvl 140 meq/L 135 - 145 03/24/2018 [facility] ELECTROLYTES Glucose Lvl 99 mg/dL 70 - 99 03/24/2018 [facility] ELECTROLYTES Creatinine Lvl 0.88 mg/dL 0.50 - 1.40 03/24/2018 [facility] ELECTROLYTES BUN 17 mg/dL 7 - 22 03/24/2018 [facility] ELECTROLYTES Calcium Lvl 8.2 mg/dL 8.5 - 10.5 03/24/2018 [facility] ELECTROLYTES CO2 34 meq/L 24 - 32 03/24/2018 [facility] ELECTROLYTES Chloride Lvl 98 meq/L 95 - 109 03/24/2018 [facility] ELECTROLYTES eGFR 96 mL/min/1.73m2 03/24/2018 Result Comment: The eGFR is calculated using [...] should be multiplied by the estimated BMI. [facility] HEMATOLOGY Eosinophils # 0.4 K/CMM 0.0 - 0.5 03/24/2018 [facility] Basophils # 0.1 K/CMM 0.0 - 0.2 03/24/2018 [facility] Polychrom Moderate *ABN* (03/24/18 3:11 AM) None Seen 03/24/2018 [facility] Monocytes # 1.6 K/CMM 0.0 - 0.8 03/24/2018 [facility] Lymphocytes 18.4 % 20.0 - 40.0 03/24/2018 [facility] Basophils 0.6 % 0.0 - 1.0 03/24/2018 [facility] Neutrophils # 6.3 K/CMM 1.5 - 8.1 03/24/2018 [facility] Lymphocytes # 1.9 K/CMM 1.0 - 5.5 03/24/2018 [facility] Monocytes 15.8 % 2.0 - 12.0 03/24/2018 [facility] Eosinophils 3.6 % 0.0 - 4.0 03/24/2018 [facility] Plt Morph Normal (03/24/18 3:11 AM) 03/24/2018 [facility] Segs 61.6 % 45.0 - 75.0 03/24/2018 [facility] RBC Morph See Note (03/24/18 3:11 AM) 03/24/2018 [facility] Hgb 10.1 g/dL 14.0 - 18.0 03/24/2018 [facility] MPV 7.4 fL 7.4 - 10.4 03/24/2018 [facility] Platelet 208 K/CMM 133 - 450 03/24/2018 [facility] RDW 14.5 % 11.5 - 14.5 03/24/2018 [facility] MCV 87.2 fL 80.0 - 94.0 03/24/2018 [facility] Hct 30.0 % 42.0 - 54.0 03/24/2018 [facility] MCHC 33.8 g/dL 32.0 - 36.0 03/24/2018 [facility] MCH 29.5 pg 27.0 - 31.0 03/24/2018 [facility] RBC 3.44 M/CMM 4.70 - 6.10 03/24/2018 [facility] WBC 10.2 K/CMM 3.7 - 10.4 03/24/2018 [facility] Chest 1view DX Chest 1view DX Clinical Indication: Chest pain - edema [...] Suraj Perdomo MD 03/24/18 03:06 FINAL REPORT [facility] ED Abdomen/Pelvis IV contrast only CT [...] Alan Napoles MD 09/27/17 03:05 FINAL REPORT [facility] CARDIAC ENZYMES Troponin-I null 0.00 - 0.40 09/27/2017 [facility] CARDIAC ENZYMES CK MB null 0.5 - 3.6 09/27/2017 [facility] CARDIAC ENZYMES Total CK 148 unit/L 12 - 191 09/27/2017 [facility] CARDIAC ENZYMES CK MB Index null 0.0 - 2.5 09/27/2017 [facility] CHEM PANEL eGFR 104 mL/min/1.73m2 09/27/2017 [...] should be multiplied by the estimated BMI. [facility] CHEM PANEL CO2 31 meq/L 24 - 32 09/27/2017 [facility] CHEM PANEL Chloride Lvl 97 meq/L 95 - 109 09/27/2017 [facility] CHEM PANEL Potassium Lvl 3.6 meq/L 3.5 - 5.1 09/27/2017 [facility] CHEM PANEL Sodium Lvl 135 meq/L 135 - 145 09/27/2017 [facility] CHEM PANEL Calcium Lvl 9.5 mg/dL 8.5 - 10.5 09/27/2017 [facility] CHEM PANEL Alk Phos 75 unit/L 39 - 136 09/27/2017 [facility] CHEM PANEL AST 21 unit/L 0 - 37 09/27/2017 [facility] CHEM PANEL ALT 24 unit/L 0 - 65 09/27/2017 [facility] CHEM PANEL Albumin Lvl 4.2 g/dL 3.5 - 5.0 09/27/2017 [facility] CHEM PANEL Total Protein 7.8 g/dL 6.4 - 8.4 09/27/2017 [facility] CHEM PANEL Globulin 3.6 g/dL 2.7 - 4.2 09/27/2017 [facility] CHEM PANEL B/C Ratio 23 6 - 25 09/27/2017 [facility] CHEM PANEL AGAP 10.6 meq/L 10.0 - 20.0 09/27/2017 [facility] CHEM PANEL Bili Total 0.3 mg/dL 0.2 - 1.3 09/27/2017 [facility] CHEM PANEL A/G Ratio 1.2 0.7 - 1.6 09/27/2017 [facility] CHEM PANEL Glucose Lvl 96 mg/dL 70 - 99 09/27/2017 [facility] CHEM PANEL Creatinine Lvl 0.74 mg/dL 0.50 - 1.40 09/27/2017 [facility] CHEM PANEL BUN 17 mg/dL 7 - 22 09/27/2017 [facility] HEMATOLOGY INR 1.38 0.85 - 1.17 09/27/2017 [facility] HEMATOLOGY PT 17.0 s 12.0 - 14.7 09/27/2017 [facility] PTT 40.0 s 22.9 - 35.8 09/27/2017 [facility] MCV 87.3 fL 80.0 - 94.0 09/27/2017 [facility] WBC 13.0 K/CMM 3.7 - 10.4 09/27/2017 [facility] Hct 38.4 % 42.0 - 54.0 09/27/2017 [facility] RBC 4.40 M/CMM 4.70 - 6.10 09/27/2017 [facility] Hgb 13.0 g/dL 14.0 - 18.0 09/27/2017 [facility] MCH 29.7 pg 27.0 - 31.0 09/27/2017 [facility] MCHC 33.9 g/dL 32.0 - 36.0 09/27/2017 [facility] Platelet 218 K/CMM 133 - 450 09/27/2017 [facility] MPV 7.7 fL 7.4 - 10.4 09/27/2017 [facility] RDW 14.1 % 11.5 - 14.5 09/27/2017 [facility] HEMATOLOGY Segs-Bands # 8.5 K/CMM 1.5 - 8.1 09/27/2017 [facility] Monocytes # 1.4 K/CMM 0.0 - 0.8 09/27/2017 [facility] Lymphocytes # 2.2 K/CMM 1.0 - 5.5 09/27/2017 [facility] Eosinophils # 0.8 K/CMM 0.0 - 0.5 09/27/2017 [facility] Basophils # 0.1 K/CMM 0.0 - 0.2 09/27/2017 [facility] HEMATOLOGY RBC Morph Normal (09/26/17 9:25 PM) 09/27/2017 [facility] Eosinophils 6.3 % 0.0 - 4.0 09/27/2017 [facility] Basophils 0.8 % 0.0 - 1.0 09/27/2017 [facility] Monocytes 11.0 % 2.0 - 12.0 09/27/2017 [facility] Plt Morph Normal (09/26/17 9:25 PM) 09/27/2017 [facility] Segs 65.0 % 45.0 - 75.0 09/27/2017 [facility] Lymphocytes 16.9 % 20.0 - 40.0 09/27/2017 [facility] Ext Lower Venous Doppler Bilat US [...] Reggie Girard MD 09/27/17 02:02 FINAL REPORT [facility] Chest 1view DX Chest 1view DX [...] noted. IMPRESSION: No acute cardiopulmonary abnormality. SL: [id number] 09/26/2017 - - Read by: Gil Corey MD Dictated Date/time: 09/26/17 21:40 Electronically Signed by: Gil Corey MD 09/26/17 21:44 FINAL REPORT [facility] ELECTROLYTES AGAP 12.1 meq/L 10.0 - 20.0 05/10/2017 [facility] ELECTROLYTES eGFR 48 mL/min/1.73m2 05/10/2017 Result Comment: [...] should be multiplied by the estimated BMI. [facility] ELECTROLYTES Calcium Lvl 9.6 mg/dL 8.5 - 10.5 05/10/2017 [facility] ELECTROLYTES Glucose Lvl 102 mg/dL 70 - 99 05/10/2017 [facility] ELECTROLYTES BUN 32 mg/dL 7 - 22 05/10/2017 [facility] ELECTROLYTES CO2 26 meq/L 24 - 32 05/10/2017 [facility] ELECTROLYTES Potassium Lvl 4.1 meq/L 3.5 - 5.1 05/10/2017 [facility] ELECTROLYTES Chloride Lvl 106 meq/L 95 - 109 05/10/2017 [facility] ELECTROLYTES Creatinine Lvl 1.59 mg/dL 0.50 - 1.40 05/10/2017 [facility] ELECTROLYTES Sodium Lvl 140 meq/L 135 - 145 05/10/2017 [facility] HEMATOLOGY RDW 15.9 % 11.5 - 14.5 05/10/2017 [facility] HEMATOLOGY Platelet 402 K/CMM 133 - 450 05/10/2017 [facility] HEMATOLOGY MPV 6.6 fL 7.4 - 10.4 05/10/2017 [facility] HEMATOLOGY MCV 88.6 fL 80.0 - 94.0 05/10/2017 [facility] HEMATOLOGY MCH 29.3 pg 27.0 - 31.0 05/10/2017 [facility] HEMATOLOGY MCHC 33.1 g/dL 32.0 - 36.0 05/10/2017 [facility] HEMATOLOGY RBC 3.59 M/CMM 4.70 - 6.10 05/10/2017 [facility] HEMATOLOGY Hgb 10.5 g/dL 14.0 - 18.0 05/10/2017 [facility] HEMATOLOGY Hct 31.8 % 42.0 - 54.0 05/10/2017 [facility] HEMATOLOGY WBC 9.3 K/CMM 3.7 - 10.4 05/10/2017 [facility] HEMATOLOGY Monocytes # 0.7 K/CMM 0.0 - 0.8 05/10/2017 [facility] HEMATOLOGY Eosinophils # 0.3 K/CMM 0.0 - 0.5 05/10/2017 [facility] HEMATOLOGY Basophils # 0.1 K/CMM 0.0 - 0.2 05/10/2017 [facility] HEMATOLOGY Segs-Bands # 6.5 K/CMM 1.5 - 8.1 05/10/2017 [facility] HEMATOLOGY Lymphocytes # 1.7 K/CMM 1.0 - 5.5 05/10/2017 [facility] HEMATOLOGY Basophils 0.9 % 0.0 - 1.0 05/10/2017 [facility] HEMATOLOGY Lymphocytes 17.8 % 20.0 - 40.0 05/10/2017 [facility] HEMATOLOGY Segs 70.3 % 45.0 - 75.0 05/10/2017 [facility] HEMATOLOGY Monocytes 8.0 % 2.0 - 12.0 05/10/2017 [facility] HEMATOLOGY Eosinophils 3.0 % 0.0 - 4.0 05/10/2017 [facility] URINE CHEM U Sodium 59 meq/L 05/10/2017 [facility] URINE CHEM U Osmolality 373 mOsm/kg 300 - 800 05/10/2017 [facility] URINE CHEM U Creatinine 54.20 mg/dL 05/10/2017 [facility] URINE CHEM U Chloride 65 meq/L 05/10/2017 [facility] URINE AND STOOL UA Urobilinogen <=1.0 mg/dL 0.1 - 1.0 05/09/2017 [facility] URINE AND STOOL UA Sq Epi [...] UA pH 5.0 5.0 - 8.0 05/09/2017 [facility] URINE AND STOOL UA Turbidity Clear (05/09/17 4:57 AM) Clear 05/09/2017 [facility] URINE AND STOOL UA Color Light Yellow *NA* (05/09/17 4:57 AM) Yellow 05/09/2017 [facility] URINE AND STOOL UA Mucus Few /LPF None Seen /LPF 05/09/2017 [facility] URINE AND STOOL UA RBC 1 /HPF 0 - 2 05/09/2017 [facility] URINE AND STOOL UA WBC 4 /HPF 0 - 5 05/09/2017 [facility] URINE AND STOOL UA Bacteria Occasional /HPF None Seen /HPF 05/09/2017 [facility] URINE CHEM U Protein 12.5 mg/dL 05/09/2017 [facility] URINE CHEM U Sodium 64 meq/L 05/09/2017 [facility] URINE CHEM U Creatinine 52.50 mg/dL 05/09/2017 [facility] URINE CHEM U Chloride 67 meq/L 05/09/2017 [facility] URINE CHEM U Osmolality 366 mOsm/kg 300 - 800 05/09/2017 [facility] CHEM PANEL Ammonia 36.0 umol/L <=45.0 uMol/L 05/08/2017 [facility] CHEM PANEL eGFR 47 mL/min/1.73m2 05/08/2017 Result [...] by the estimated BMI. [facility] CHEM PANEL Chloride Lvl 106 meq/L 95 - 109 05/08/2017 [facility] CHEM PANEL CO2 23 meq/L 24 - 32 05/08/2017 [facility] CHEM PANEL Bili Total 0.5 mg/dL 0.2 - 1.3 05/08/2017 [facility] CHEM PANEL B/C Ratio 18 6 - 25 05/08/2017 [facility] CHEM PANEL AGAP 15.3 meq/L 10.0 - 20.0 05/08/2017 [facility] CHEM PANEL Globulin 4.0 g/dL 2.7 - 4.2 05/08/2017 [facility] CHEM PANEL A/G Ratio 0.8 0.7 - 1.6 05/08/2017 [facility] CHEM PANEL Albumin Lvl 3.3 g/dL 3.5 - 5.0 05/08/2017 [facility] CHEM PANEL Total Protein 7.3 g/dL 6.4 - 8.4 05/08/2017 [facility] CHEM PANEL Calcium Lvl 8.9 mg/dL 8.5 - 10.5 05/08/2017 [facility] CHEM PANEL ALT 52 unit/L 0 - 65 05/08/2017 [facility] CHEM PANEL AST 29 unit/L 0 - 37 05/08/2017 [facility] CHEM PANEL Alk Phos 101 unit/L 39 - 136 05/08/2017 [facility] CHEM PANEL Glucose Lvl 106 mg/dL 70 - 99 05/08/2017 [facility] CHEM PANEL Creatinine Lvl 1.63 mg/dL 0.50 - 1.40 05/08/2017 [facility] CHEM PANEL BUN 29 mg/dL 7 - 22 05/08/2017 [facility] CHEM PANEL Sodium Lvl 140 meq/L 135 - 145 05/08/2017 [facility] CHEM PANEL Potassium Lvl 4.3 meq/L 3.5 - 5.1 05/08/2017 [facility] CHEM PANEL Ammonia 22.0 umol/L <=45.0 uMol/L 05/07/2017 [facility] CHEM PANEL eGFR 45 mL/min/1.73m2 05/07/2017 Result [...] Lvl 3.1 g/dL 3.5 - 5.0 05/07/2017 [facility] CHEM PANEL ALT 57 unit/L 0 - 65 05/07/2017 [facility] CHEM PANEL AST 37 unit/L 0 - 37 05/07/2017 [facility] CHEM PANEL Alk Phos 110 unit/L 39 - 136 05/07/2017 [facility] CHEM PANEL Calcium Lvl 9.3 mg/dL 8.5 - 10.5 05/07/2017 [facility] CHEM PANEL Total Protein 7.7 g/dL 6.4 - 8.4 05/07/2017 [facility] CHEM PANEL Chloride Lvl 108 meq/L 95 - 109 05/07/2017 [facility] CHEM PANEL CO2 22 meq/L 24 - 32 05/07/2017 [facility] CHEM PANEL Creatinine Lvl 1.68 mg/dL 0.50 - 1.40 05/07/2017 [facility] CHEM PANEL Sodium Lvl 137 meq/L 135 - 145 05/07/2017 [facility] CHEM PANEL Potassium Lvl 4.7 meq/L 3.5 - 5.1 05/07/2017 [facility] CHEM PANEL BUN 30 mg/dL 7 - 22 05/07/2017 [facility] CHEM PANEL Glucose Lvl 103 mg/dL 70 - 99 05/07/2017 [facility] CHEM PANEL A/G Ratio 0.7 0.7 - [...] Globulin 4.4 g/dL 2.7 - 4.2 05/06/2017 [facility] CHEM PANEL A/G Ratio 0.7 0.7 - 1.6 05/06/2017 [facility] HEMATOLOGY Eosinophils # 0.1 K/CMM 0.0 - 0.5 05/05/2017 [facility] HEMATOLOGY Basophils # 0.1 K/CMM 0.0 - 0.2 05/05/2017 [facility] HEMATOLOGY Monocytes # 0.8 K/CMM 0.0 - 0.8 05/05/2017 [facility] HEMATOLOGY Lymphocytes # 1.3 K/CMM 1.0 - 5.5 05/05/2017 [facility] HEMATOLOGY Basophils 0.6 % 0.0 - 1.0 05/05/2017 [facility] HEMATOLOGY Segs-Bands # 8.9 K/CMM 1.5 - 8.1 05/05/2017 [facility] HEMATOLOGY Monocytes 7.0 % 2.0 - 12.0 05/05/2017 [facility] HEMATOLOGY Eosinophils 1.0 % 0.0 - 4.0 05/05/2017 [facility] HEMATOLOGY Lymphocytes 11.2 % 20.0 - 40.0 05/05/2017 [facility] HEMATOLOGY Segs 80.2 % 45.0 - 75.0 05/05/2017 [facility] HEMATOLOGY Platelet 352 K/CMM 133 - 450 05/05/2017 [facility] HEMATOLOGY MPV 6.3 fL 7.4 - 10.4 05/05/2017 [facility] HEMATOLOGY MCHC 33.0 g/dL 32.0 - 36.0 05/05/2017 [facility] HEMATOLOGY RDW 15.9 % 11.5 - 14.5 05/05/2017 [facility] HEMATOLOGY MCV 88.6 fL 80.0 - 94.0 05/05/2017 [facility] HEMATOLOGY MCH 29.2 pg 27.0 - 31.0 05/05/2017 [facility] HEMATOLOGY Hct 29.9 % 42.0 - 54.0 05/05/2017 [facility] HEMATOLOGY RBC 3.37 M/CMM 4.70 - 6.10 05/05/2017 [facility] HEMATOLOGY Hgb 9.8 g/dL 14.0 - 18.0 05/05/2017 [facility] HEMATOLOGY WBC 11.1 K/CMM 3.7 - 10.4 05/05/2017 [facility] CHEM PANEL Ammonia 46.0 umol/L <=45.0 uMol/L 05/04/2017 [facility] HEMATOLOGY Lymphocytes 14.3 % 20.0 - 40.0 05/04/2017 [facility] HEMATOLOGY Monocytes 9.2 % 2.0 - 12.0 05/04/2017 [facility] HEMATOLOGY Eosinophils 0.7 % 0.0 - 4.0 05/04/2017 [facility] HEMATOLOGY Segs 75.0 % 45.0 - 75.0 05/04/2017 [facility] HEMATOLOGY Lymphocytes # 1.5 K/CMM 1.0 - 5.5 05/04/2017 [facility] HEMATOLOGY Segs-Bands # 7.8 K/CMM 1.5 - 8.1 05/04/2017 [facility] HEMATOLOGY Basophils 0.8 % 0.0 - 1.0 05/04/2017 [facility] HEMATOLOGY Basophils # 0.1 K/CMM 0.0 - 0.2 05/04/2017 [facility] HEMATOLOGY Eosinophils # 0.1 K/CMM 0.0 - 0.5 05/04/2017 [facility] HEMATOLOGY Monocytes # 1.0 K/CMM 0.0 - 0.8 05/04/2017 [facility] HEMATOLOGY WBC 10.4 K/CMM 3.7 - 10.4 05/04/2017 [facility] Hct 30.8 % 42.0 - 54.0 05/04/2017 [facility] MPV 6.3 fL 7.4 - 10.4 05/04/2017 [facility] MCHC 33.6 g/dL 32.0 - 36.0 05/04/2017 [facility] RDW 16.1 % 11.5 - 14.5 05/04/2017 [facility] MCV 87.8 fL 80.0 - 94.0 05/04/2017 [facility] MCH 29.5 pg 27.0 - 31.0 05/04/2017 [facility] Platelet 343 K/CMM 133 - 450 05/04/2017 [facility] RBC 3.51 M/CMM 4.70 - 6.10 05/04/2017 [facility] Hgb 10.3 g/dL 14.0 - 18.0 05/04/2017 [facility] ANEMIA STUDY Ferritin Lvl 297 ng/mL 22 - 275 05/03/2017 [facility] ANEMIA STUDY TIBC 310 ug/dl 228 - 428 05/03/2017 [facility] ANEMIA STUDY Iron 93 ug/dl 45 - 160 05/03/2017 [facility] ANEMIA STUDY % [place] 30 % 12 - 57 05/03/2017 [facility] ANEMIA STUDY UIBC 217 ug/dl 110 - 370 05/03/2017 [facility] PT 13.9 s 12.0 - 14.7 05/03/2017 [facility] INR 1.07 0.85 - 1.17 05/03/2017 [facility] Liver US Liver US Clinical Indication: - [...] cholecystitis. 2. Hepatomegaly and hepatic steatosis. SL: [id number] 05/02/2017 - - Read by: Taqueria Osborne DO Dictated Date/time: 05/02/17 11:22 Electronically Signed by: Taqueria Osborne DO 05/02/17 11:23 FINAL REPORT [facility] URINE CHEM U Sodium 22 meq/L 05/01/2017 [facility] URINE CHEM U Creatinine 43.10 mg/dL 05/01/2017 [facility] URINE CHEM U Chloride null 05/01/2017 [facility] HEMATOLOGY RBC Morph Normal (05/01/17 1:53 AM) 05/01/2017 [facility] HEMATOLOGY Plt Morph Normal (05/01/17 1:53 AM) 05/01/2017 [facility] TOXICOLOGY Vanco Lvl 14.4 ug/ml 05/01/2017 [facility] URINE CHEM U Osmolality 242 mOsm/kg 300 - 800 04/30/2017 [facility] TOXICOLOGY Vanco Lvl 17.1 ug/ml 04/30/2017 [facility] TOXICOLOGY Vanco Lvl 24.0 ug/ml 04/29/2017 [facility] Chest 1view DX Chest 1view DX Clinical [...] opacities. Unchanged tiny left pleural effusion. SL: [id number] 04/29/2017 - - Read by: Yuval Whittaker MD Dictated Date/time: 04/29/17 07:22 Electronically Signed by: Yuval Whittaker MD 04/29/17 07:23 FINAL REPORT [facility] CHEM PANEL Osmolality 258 mOsm/kg 280 - 300 04/28/2017 [facility] Chest 1view DX Chest 1view DX Clinical [...] the chest. No significant interval change. SL: [id number] 04/28/2017 - - Read by: Christ Condon MD Dictated Date/time: 04/28/17 08:19 Electronically Signed by: Christ Condon MD 04/28/17 08:21 FINAL REPORT [facility] TOXICOLOGY Vanco Tr 21.7 ug/ml 04/27/2017 [facility] TOXICOLOGY Vanco Tr TND see emar 04/27/2017 [facility] CHEM PANEL Bili Indirect 0.7 mg/dL 0.0 - 1.0 04/27/2017 [facility] CHEM PANEL Bili Direct 0.3 mg/dL 0.0 - 0.3 04/27/2017 [facility] ENDOCRINOLOGY Cortisol 30.4 ug/dl 04/27/2017 [facility] Chest 1view DX Chest 1view DX Clinical [...] venous congestion. No focal pulmonary consolidation. SL: [id number] 04/27/2017 - - Read by: Micheal Patrick MD Dictated Date/time: 04/27/17 08:18 Electronically Signed by: Micheal Patrick MD 04/27/17 08:20 FINAL REPORT [facility] URINE CHEM U Protein 55.4 mg/dL 04/26/2017 [facility] URINE CHEM U Prot/Creat 0.32 04/26/2017 [facility] CHEM PANEL Osmolality 227 mOsm/kg 280 - 300 04/26/2017 [facility] URINE AND STOOL Micro? Performed *NA* (04/26/17 6:16 AM) 04/26/2017 [facility] URINE AND STOOL UA Protein Negative mg/dL Negative mg/dL 04/26/2017 [facility] URINE AND STOOL UA Leuk Est Negative (04/26/17 6:16 AM) Negative 04/26/2017 [facility] URINE AND STOOL UA Nitrite Negative (04/26/17 6:16 AM) Negative 04/26/2017 [facility] URINE AND STOOL UA RBC 1 /HPF 0 - 2 04/26/2017 [facility] URINE AND STOOL UA WBC 3 /HPF 0 - 5 04/26/2017 [facility] URINE AND STOOL UA Sq Epi Occasional /LPF Few /LPF 04/26/2017 [facility] URINE AND STOOL UA Urobilinogen 2.0 mg/dL 0.1 - 1.0 04/26/2017 [facility] URINE AND STOOL UA Bacteria Occasional /HPF None Seen /HPF 04/26/2017 [facility] URINE AND STOOL UA Mucus Few /LPF None Seen /LPF 04/26/2017 [facility] URINE AND STOOL UA Color Yellow *NA* (04/26/17 6:16 AM) Yellow 04/26/2017 [facility] URINE AND STOOL UA Spec Grav 1.011 <=1.030 04/26/2017 [facility] URINE AND STOOL UA Turbidity Clear (04/26/17 6:16 AM) Clear 04/26/2017 [facility] URINE AND STOOL UA pH 7.0 5.0 - 8.0 04/26/2017 [facility] URINE AND STOOL UA Ketones Trace mg/dL Negative mg/dL 04/26/2017 [facility] URINE AND STOOL UA Glucose Negative mg/dL Negative mg/dL 04/26/2017 [facility] URINE AND STOOL UA Blood Small *ABN* (04/26/17 6:16 AM) Negative 04/26/2017 [facility] URINE AND STOOL UA Bili Negative *NA* (04/26/17 6:16 AM) Negative 04/26/2017 [facility] CHEM PANEL Lactic Acid Lvl 1.7 mMol/L 0.5 - 2.2 04/26/2017 [facility] CHEM PANEL Procalcitonin Lvl 0.11 ng/mL 0.00 - 0.10 04/26/2017 [facility] BACTERIAL - SEROLOGY MRSA by PCR Negative (04/26/17 2:38 AM) 04/26/2017 [facility] Abdomen 1 v for Placement DX Abdomen [...] in the distal stomach. END IMPRESSION SL: [id number] 04/26/2017 - - Read by: Joe Ward MD Dictated Date/time: 04/26/17 08:43 Electronically Signed by: Joe Ward MD 04/26/17 08:44 FINAL REPORT [facility] Chest 1 v for Placement DX Chest [...] Suraj Perdomo MD 04/26/17 06:43 FINAL REPORT [facility] DRUG SCREEN U Cannab Scr Negative *NA* (04/25/17 8:11 PM) Negative 04/26/2017 [facility] DRUG SCREEN U Opiate Scr Negative *NA* (04/25/17 8:11 PM) Negative 04/26/2017 [facility] DRUG SCREEN U Phencyc Scr Negative *NA* (04/25/17 8:11 PM) Negative 04/26/2017 [facility] DRUG SCREEN U Susie Scr Negative *NA* (04/25/17 8:11 PM) Negative 04/26/2017 [facility] DRUG SCREEN UDS Note See Note (04/25/17 8:11 PM) 04/26/2017 [facility] DRUG SCREEN U Amph Scr Negative *NA* (04/25/17 8:11 PM) Negative 04/26/2017 [facility] DRUG SCREEN U Benzodia Scr Negative *NA* (04/25/17 8:11 PM) Negative 04/26/2017 [facility] DRUG SCREEN U Cocaine Scr Negative *NA* (04/25/17 8:11 PM) Negative 04/26/2017 [facility] URINE AND STOOL UA Spec Grav 1.006 <=1.030 04/26/2017 [facility] URINE AND STOOL UA Turbidity Clear (04/25/17 8:11 PM) Clear 04/26/2017 [facility] URINE AND STOOL UA Protein Negative mg/dL Negative mg/dL 04/26/2017 [facility] URINE AND STOOL UA pH 6.0 5.0 - 8.0 04/26/2017 [facility] URINE AND STOOL UA Bili Negative *NA* (04/25/17 8:11 PM) Negative 04/26/2017 [facility] URINE AND STOOL UA Ketones Negative mg/dL Negative mg/dL 04/26/2017 [facility] URINE AND STOOL UA Glucose Negative mg/dL Negative mg/dL 04/26/2017 [facility] URINE AND STOOL UA WBC null 0 - 5 04/26/2017 [facility] URINE AND STOOL UA Sq Epi Occasional /LPF Few /LPF 04/26/2017 [facility] URINE AND STOOL UA Leuk Est Negative (04/25/17 8:11 PM) Negative 04/26/2017 [facility] URINE AND STOOL UA Nitrite Negative (04/25/17 8:11 PM) Negative 04/26/2017 [facility] URINE AND STOOL UA Blood Moderate *ABN* (04/25/17 8:11 PM) Negative 04/26/2017 [facility] URINE AND STOOL UA Urobilinogen <=1.0 mg/dL 0.1 - 1.0 04/26/2017 [facility] URINE AND STOOL UA RBC 2 /HPF 0 - 2 04/26/2017 [facility] URINE AND STOOL UA Color Light Yellow *NA* (04/25/17 8:11 PM) Yellow 04/26/2017 [facility] CARDIAC ENZYMES CK MB Index 1.0 0.0 - 2.5 04/26/2017 [facility] CARDIAC ENZYMES Troponin-I 0.02 ng/mL 0.00 - 0.40 04/26/2017 [facility] CARDIAC ENZYMES CK MB 36.8 ng/mL 0.5 - 3.6 04/26/2017 [facility] [place] 3681 unit/L 12 - 191 04/26/2017 [facility] CHEM PANEL Lactic Acid Lvl 4.6 mMol/L 0.5 - 2.2 04/26/2017 Result Comment: Critical Result(s) called to yasmin low at 04/25/2017 20:06 bylw. Read back OK. [facility] HEMATOLOGY PTT 33.4 s 22.9 - 35.8 04/26/2017 [facility] HEMATOLOGY PT 15.3 s 12.0 - 14.7 04/26/2017 [facility] HEMATOLOGY INR 1.20 0.85 - 1.17 04/26/2017 [facility] TOXICOLOGY [place] Lvl None Detected 10.0 - 40.0 04/26/2017 Result Comment: Performed At: [facility] [id number] Thalia Garcia MD Ph:[phone] [facility] Brain wo contrast CT Brain wo contrast CT EXAM: CT BRAIN WITHOUT CONTRAST DATE: 04/25/2017 5:58 PM [employer] INDICATION: Seizure. COMPARISON: None. TECHNIQUE: CT images [...] within the limits of motion artifact. SL: [id number] 04/25/2017 - - Read by: Gil Corey MD Dictated Date/time: 04/25/17 18:36 Electronically Signed by: Gil Corey MD 04/25/17 18:40 FINAL REPORT [facility] CARDIAC ENZYMES CK MB 4.9 ng/mL 0.5 - 3.6 02/15/2015 [facility] CARDIAC ENZYMES Troponin-I 0.03 ng/mL 0.00 - 0.40 02/15/2015 [facility] CARDIAC ENZYMES Troponin-I 0.03 ng/mL 0.00 - 0.40 02/15/2015 [facility] CARDIAC ENZYMES CK MB 4.4 ng/mL 0.5 - 3.6 02/15/2015 [facility] CHEM PANEL eGFR 102 mL/min/1.73m2 02/15/2015 Result [...] should be multiplied by the estimated BMI. [facility] CHEM PANEL Glucose Lvl 122 mg/dL 70 - 99 02/15/2015 [facility] CHEM PANEL BUN 4 mg/dL 7 - 22 02/15/2015 [facility] CHEM PANEL Creatinine Lvl 0.8 mg/dL 0.5 - 1.4 02/15/2015 [facility] CHEM PANEL Sodium Lvl 125 meq/L 135 - 145 02/15/2015 [facility] CHEM PANEL Potassium Lvl 3.7 meq/L 3.5 - 5.1 02/15/2015 [facility] CHEM PANEL Chloride Lvl 90 meq/L 95 - 109 02/15/2015 [facility] CHEM PANEL CO2 21 meq/L 24 - 32 02/15/2015 [facility] CHEM PANEL Bili Total 1.4 mg/dL 0.2 - 1.3 02/15/2015 [facility] CHEM PANEL AST 137 unit/L 0 - 37 02/15/2015 [facility] CHEM PANEL Total Protein 8.5 g/dL 6.4 - 8.4 02/15/2015 [facility] CHEM PANEL Calcium Lvl 8.7 mg/dL 8.5 - 10.5 02/15/2015 [facility] CHEM PANEL Albumin Lvl 3.9 g/dL 3.5 - 5.0 02/15/2015 [facility] CHEM PANEL ALT 74 unit/L 0 - 65 02/15/2015 [facility] CHEM PANEL Alk Phos 135 unit/L 39 - 136 02/15/2015 [facility] CHEM PANEL Globulin 4.6 g/dL 2.0 - 4.0 02/15/2015 [facility] CHEM PANEL A/G Ratio 0.8 0.7 - 1.6 02/15/2015 [facility] CHEM PANEL AGAP 17.7 meq/L 10.0 - 20.0 02/15/2015 [facility] CHEM PANEL B/C Ratio 5 6 - 25 02/15/2015 [facility] CHEM PANEL Lipase Lvl 234 unit/L 73 - 393 02/15/2015 [facility] HEMATOLOGY MCHC 34.4 g/dL 32.0 - 36.0 02/15/2015 [facility] MCH 30.9 pg 27.0 - 31.0 02/15/2015 [facility] Hct 39.7 % 42.0 - 54.0 02/15/2015 [facility] MCV 89.9 fL 80.0 - 94.0 02/15/2015 [facility] HEMATOLOGY Platelet 228 K/CMM 133 - 450 02/15/2015 [facility] HEMATOLOGY MPV 7.0 fL 7.4 - 10.4 02/15/2015 [facility] HEMATOLOGY RDW 13.7 % 11.5 - 14.5 02/15/2015 [facility] HEMATOLOGY Hgb 13.7 g/dL 14.0 - 18.0 02/15/2015 [facility] HEMATOLOGY RBC 4.42 M/CMM 4.70 - 6.10 02/15/2015 [facility] HEMATOLOGY WBC 10.2 K/CMM 3.7 - 10.4 02/15/2015 [facility] HEMATOLOGY Monocytes # 0.6 K/CMM 0.0 - 0.8 02/15/2015 [facility] HEMATOLOGY Basophils # 0.1 K/CMM 0.0 - 0.2 02/15/2015 [facility] HEMATOLOGY Lymphocytes # 1.0 K/CMM 1.0 - 5.5 02/15/2015 [facility] HEMATOLOGY Segs-Bands # 8.5 K/CMM 1.5 - 8.1 02/15/2015 [facility] HEMATOLOGY Basophils 0.6 % 0.0 - 1.0 02/15/2015 [facility] HEMATOLOGY Eosinophils 0.1 % 0.0 - 4.0 02/15/2015 [facility] HEMATOLOGY Monocytes 5.9 % 2.0 - 12.0 02/15/2015 [facility] HEMATOLOGY Lymphocytes 9.7 % 20.0 - 40.0 02/15/2015 [facility] HEMATOLOGY Segs 83.7 % 45.0 - 75.0 02/15/2015 [facility] URINE AND STOOL UA Bacteria Few /HPF None Seen /HPF 02/15/2015 [facility]INE [facility] STOOL UA RBC 0-2 /HPF 0 - 2 02/15/2015 [facility]INE [facility] UA Sq Epi Rare /LPF Few /LPF 02/15/2015 [facility]INE [facility] STO[facility] UA WBC 0-2 /HPF None Seen /HPF 02/15/2015 [facility]INE [facility] STOOL Micro? Performed (02/15/15 8:48 AM) 02/15/2015 [facility]INE [facility] STOOL UA Nitrite Positive *ABN* (02/15/15 8:48 AM) Negative 02/15/2015 [facility] URINE AND STOOL UA Leuk Est Negative (02/15/15 8:48 AM) Negative 02/15/2015 [facility] URINE AND STOOL UA Bili Moderate *ABN* (02/15/15 8:48 AM) Negative 02/15/2015 [facility] URINE AND STOOL UA Glucose Negative (02/15/15 8:48 AM) Negative 02/15/2015 [facility] URINE AND STOOL UA Ketones 15 mg/dL Negative mg/dL 02/15/2015 [facility] URINE AND STOOL UA Blood Trace *ABN* (02/15/15 8:48 AM) Negative 02/15/2015 [facility] URINE AND STOOL UA Urobilinogen 2.0 EU/dL 0.1 - 1.0 02/15/2015 [facility] URINE AND STOOL UA Color Yellow *NA* (02/15/15 8:48 AM) Yellow 02/15/2015 [facility] URINE AND STOOL UA Turbidity Clear (02/15/15 8:48 AM) Clear 02/15/2015 [facility] URINE AND STOOL UA Spec Grav 1.015 <=1.030 02/15/2015 [facility] URINE AND STOOL UA Protein 100 mg/dL Negative mg/dL 02/15/2015 [facility] URINE AND STOOL UA pH 6.5 5.0 - 8.0 02/15/2015 [facility] [facility] Abdomen/Pelvis w IV contrast CT Abdomen/Pelvis w [...] Jayme Francis MD 02/15/15 12:08 FINAL REPORT [facility] Vital Signs Vital Sign Value Date Comments Source Respitory Rate 18 09/15/2018 [facility] Systolic (mm Hg) 123 09/15/2018 [facility] Diastolic (mm Hg) 67 09/15/2018 [facility] Heart Rate 88 09/15/2018 [facility] Temperature Oral (F) 98.3 F 09/15/2018 [facility] Respitory Rate 16 09/15/2018 [facility] Temperature Oral (F) 98.3 F 09/15/2018 [facility] Systolic (mm Hg) 121 09/15/2018 [facility] Diastolic (mm Hg) 66 09/15/2018 [facility] Heart Rate 87 09/15/2018 [facility] Respitory Rate 14 09/15/2018 [facility] Temperature Oral (F) 98.7 F 09/15/2018 [facility] Systolic (mm Hg) 144 09/15/2018 [facility] Diastolic (mm Hg) 80 09/15/2018 [facility] Heart Rate 91 09/15/2018 [facility] BMI Calculated 57.87 09/15/2018 [facility] Weight 148.182 09/15/2018 [facility] Height 160.02 cm 09/15/2018 [facility] Height 167.64 cm 09/15/2018 [facility] BMI Calculated 58.23 09/15/2018 [facility] Weight 163.636 09/15/2018 [facility] Temperature Oral (F) 98.0 F 03/24/2018 [facility] Respitory Rate 18 03/24/2018 [facility] Systolic (mm Hg) 120 03/24/2018 [facility] Diastolic (mm Hg) 72 03/24/2018 [facility] Respitory Rate 19 03/24/2018 [facility] Systolic (mm Hg) 130 03/24/2018 [facility] Diastolic (mm Hg) 66 03/24/2018 [facility] Heart Rate 84 03/24/2018 [facility] Respitory Rate 18 03/24/2018 [facility] Temperature Oral (F) 97.9 F 03/24/2018 [facility] Systolic (mm Hg) 128 03/24/2018 [facility] Diastolic (mm Hg) 88 03/24/2018 [facility] Systolic (mm Hg) 140 09/27/2017 [facility] Diastolic (mm Hg) 60 09/27/2017 [facility] Heart Rate 73 09/27/2017 [facility] Respitory Rate 18 09/27/2017 [facility] Systolic (mm Hg) 131 09/27/2017 [facility] Diastolic (mm Hg) 87 09/27/2017 [facility] Respitory Rate 18 09/27/2017 [facility] Heart Rate 67 09/27/2017 [facility] Height 160.02 cm 09/27/2017 [facility] BMI Calculated 50.06 09/27/2017 [facility] Weight 128.182 09/27/2017 [facility] Respitory Rate 18 09/27/2017 [facility] Heart Rate 75 09/27/2017 [facility] Temperature Oral (F) 98.2 F 09/27/2017 [facility] [...] 02/15/2015 [facility] Diastolic (mm Hg) 86 02/15/2015 [facility] Systolic (mm Hg) 185 02/15/2015 [facility] Diastolic (mm Hg) 93 02/15/2015 [facility] Heart Rate 101 02/15/2015 [facility] Respitory Rate 18 02/15/2015 [facility] Systolic (mm Hg) 166 02/15/2015 [facility] Diastolic (mm Hg) 86 02/15/2015 [facility] Heart Rate 104 02/15/2015 [facility] Respitory Rate 18 02/15/2015 [facility] Weight 113.636 02/15/2015 [facility] BMI Calculated 44.38 02/15/2015 [facility] Height 160.02 cm 02/15/2015 [facility] Temperature Oral (F) 96.8 F 02/15/2015 [facility] Encounters Location Location Details Encounter Type Encounter Number Reason For Visit Attending Provider ADM Date DC Date Status Source [facility] [id number] Pipe Hong Jr 02/15/2015 02/15/2015 [facility] Inpatient [id number] Gerardo Gutierrez 04/25/2017 05/10/2017 [facility] Emergency [id number] Jodie Jay 09/27/2017 09/27/2017 [facility] General Surgery [facility] Ambulatory Pre-Reg [id number] Perico Haley 11/08/2017 11/08/2017 [facility] Emergency [id number] Lesa Valdez 03/24/2018 03/24/2018 [facility] Observation [id number] Ever Chandra Jr 09/15/2018 09/15/2018 [facility] Procedures Procedure Code Date Perfomer Comments Source Hernia repair [id number] [facility] Hernia repair [id number] [facility] Hernia repair [id number] [facility]
--- OUTSIDE RECORDS SUMMARY | 2018-10-31 12:39 | XMS REPORT | Summary of Care ---
Author Author [facility] Organization [facility] Address Unknown Phone Unavailable Encounter HQ Talisha(ANDREW) [id number] Date(s): 03/24/18 - 03/24/18 [facility] [address] [place] [address]- [phone] Encounter Diagnosis Generalized edema (Discharge Diagnosis) - 03/24/18 Hernia, ventral (Discharge Diagnosis) - 03/24/18 Generalized pain (Discharge Diagnosis) - 03/24/18 Ventral hernia without obstruction or gangrene (Final) - 03/28/18 Pain, unspecified (Final) - Generalized edema (Final) - Type 2 diabetes mellitus with diabetic neuropathy, unspecified (Final) - Hypertensive heart disease with heart failure (Final) - Heart failure, unspecified (Final) - Personal history of other venous thrombosis and embolism (Final) - Dependence on supplemental oxygen (Final) - Personal history of nicotine dependence (Final) - Discharge Disposition: Home or Self Care Attending Physician: Lesa Valdez MD Vital Signs 1 2 3 Most recent to oldest [Reference Range]: 98.0 DegF (03/24/18 4:20 AM) 97.9 DegF (03/24/18 2:13 AM) Temperature Oral [96.4-99.1 DegF] 120/72 mmHg (03/24/18 4:20 AM) 130/66 mmHg (03/24/18 3:08 AM) 128/88 mmHg (03/24/18 2:13 AM) Blood Pressure [90-140/60-90 mmHg] 18 BRMIN (03/24/18 4:20 AM) 19 BRMIN (03/24/18 3:08 AM) 18 BRMIN (03/24/18 2:13 AM) Respiratory Rate [14-20 BRMIN] 84 bpm (03/24/18 2:13 AM) Peripheral Pulse Rate [60-100 bpm] Problem List Condition Effective Dates Status Health Status Informant Chronic obstructive Resolved pulmonary disease (COPD)(Confirmed) Diabetes(Confirmed) Active Diabetic Active neuropathy(Confirmed ) Homelessness(Confirm Active ed) Hypertension(Confirm Active ed) Allergies, Adverse Reactions, Alerts Substance Reaction Severity Status clindamycin Active Medications Lasix 80 mg, Route: IVP, Drug form: INJ, ONCE, Dosing Weight 128.182, kg, Priority: ST AT, Start date: 03/24/18 2:41:00 [employer], Stop date: 03/24/18 2:41:00 [employer] Start Date: 03/24/18 Stop Date: 03/24/18 Status: Completed [place] 5/325 oral tablet 1 tab, Route: PO, Drug Form: TAB, Dosing Weight 128.182, kg, ONCE, STAT, Start d ate: 03/24/18 2:41:00 [employer], Stop date: 03/24/18 2:41:00 [employer] Start Date: 03/24/18 Stop Date: 03/24/18 Status: Completed Tylenol with Codeine #3 oral tablet 1 tab, PO, Q6H, PRN Pain, X 5 day, # 20 tab, 0 Refill(s) Start Date: 03/24/18 Stop Date: 03/29/18 Status: Completed Results Most recent to 1 oldest [Reference Range]: Neutrophils # 6.3 K/CMM [1.5-8.1 K/CMM] (03/24/18 3:11 AM) Lymphocytes # 1.9 K/CMM [1.0-5.5 K/CMM] (03/24/18 3:11 AM) Monocytes # [0.0-0.8 1.6 K/CMM K/CMM] *HI* (03/24/18 3:11 AM) Eosinophils # 0.4 K/CMM [0.0-0.5 K/CMM] (03/24/18 3:11 AM) Basophils # [0.0-0.2 0.1 K/CMM K/CMM] (03/24/18 3:11 AM) BNP [<=100 pg/mL] 8 pg/mL (03/24/18 3:11 AM) Plt Morph Normal (03/24/18 3:11 AM) eGFR 96 mL/min/1.73m2 1 *NA* (03/24/18 3: AM) AGAP [10.0-20.0 11.3 mEq/L mEq/L] (03/24/18 3: AM) Basophils [0.0-1.0 0.6 % %] (03/24/18 3: AM) BUN [7-22 mg/dL] 17 mg/dL (03/24/18 3: AM) Calcium Lvl 8.2 mg/dL [8.5-10.5 mg/dL] *LOW* (03/24/18: AM) Chloride Lvl [95-109 98 mEq/L mEq/L] (03/24/18 3: AM) CO2 [24-32 mEq/L] 34 mEq/L *HI* (03/24/18: AM) Creatinine Lvl 0.88 mg/dL [0.50-1.40 mg/dL] (03/24/18 3: AM) Eosinophils [0.0-4.0 3.6 % %] (03/24/18 3: AM) Glucose Lvl [70-99 99 mg/dL mg/dL] (03/24/18 3: AM) Hct [42.0-54.0 %] 30.0 % *LOW* (03/24/18 3: AM) Hgb [14.0-18.0 g/dL] 10.1 g/dL *LOW* (03/24/18 3: AM) Potassium Lvl 3.3 mEq/L [3.5-5.1 mEq/L] *LOW* (03/24/18 3: AM) Lactic Acid Lvl 1.6 mMol/L [0.5-2.2 mMol/L] (03/24/18 3: AM) Lymphocytes 18.4 % [20.0-40.0 %] *LOW* (03/24/18 3: AM) MCH [27.0-31.0 pg] 29.5 pg (03/24/18 3: AM) MCHC [32.0-36.0 33.8 g/dL g/dL] (03/24/18 3: AM) MCV [80.0-94.0 fL] 87.2 fL (03/24/18 3:11 AM) Monocytes [2.0-12.0 15.8 % %] *HI* (03/24/18 3:11 AM) MPV [7.4-10.4 fL] 7.4 fL (03/24/18 3:11 AM) Sodium Lvl [135-145 140 mEq/L mEq/L] (03/24/18 3:11 AM) Platelet [133-450 208 K/CMM K/CMM] (03/24/18 3:11 AM) Polychrom [None Moderate Seen] *ABN* (03/24/18 3:11 AM) Segs [45.0-75.0 %] 61.6 % (03/24/18 3: AM) RBC [4.70-6.10 3.44 M/CMM M/CMM] *LOW* (03/24/18 3:11 AM) RBC Morph See Note (03/24/18 3:11 AM) RDW [11.5-14.5 %] 14.5 % (03/24/18 3:11 AM) WBC [3.7-10.4 K/CMM] 10.2 K/CMM (03/24/18 3:11 AM) 1Result Comment: The eGFR is calculated [...] be mul tiplied by the estimated BMI. Immunizations Not Given Vaccine Date Status Refusal [...] No entered on: 09/14/18 Assessment and Plan No data available for this section
--- OUTSIDE RECORDS SUMMARY | 2018-10-31 12:40 | XMS REPORT ---
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 Name Role Phone UNKNOWN, REFFERING PP Unavailable Jericho SALES Unavailable Unavailable Alfredo PAEZ Unavailable Unavailable JAMIE HORAN [...] MED [id number] 2017-02-21 15:30:23 2017-02-21 15:30:23 Outpatient [facility] [id number] 2017-01-03 10:52:45 2017-01-03 10:52:45 Outpatient [facility] [id number] 2016-12-13 00:00:00 2016-12-13 00:00:00 Outpatient [facility] [id number] 2016-12-03 15:48:15 2016-12-03 15:48:15 Outpatient [facility] [id number] 2016-11-01 14:02:43 2016-11-01 14:02:43 Outpatient [facility] [id number] 2016-10-30 04:37:58 2016-10-30 04:37:58 Emergency [facility] [id number] 2016-10-29 21:17:49 2016-10-29 21:17:49 Emergency [facility] [id number] 2016-10-29 19:48:10 2016-10-29 19:48:10 Emergency [facility] [id number] 2016-10-29 14:36:38 2016-10-29 14:36:38 Outpatient [facility] [id number] Results Test Description Test Time Test Comments Text Results Atomic Results Result Comments - XR HUMERUS 2 + V RT 2018-10-11 13:40:00 FAX: Homa Don [phone] [place]: St: REG FAX: Jolene Davidson [phone] Name: NICKI HELM [facility] : 1960 Age/S: 58/M [address] [facility] Unit #: [id number] Loc: [place] [address] Phys: Jolene Parekh MD Acct: [id number] Dis Date: Status: REG ER PHONE #: [phone] Exam Date: 10/11/2018 1303 FAX #: [phone] Reason: swelling, fall EXAMS: CPT CODE: [id number] XR HUMERUS 2 + V RT 34355 HISTORY: Fall and swelling. COMPARISON: None available. 2 views of the right humerus: No acute fracture or dislocation. Mildly narrowed shoulder and elbow joints. No joint fluid. Mineralization is normal. Mild soft tissue swelling of unclear etiology. IMPRESSION: No acute fracture or dislocation. Mildly narrowed joint spaces. Mild soft tissue swelling. at 1340 Reported and signed by: Dwight Hurst M.D. CC: Homa Carmona M.D.; Jolene Parekh MD Technologist: Rabia Way(Susana) Trnscrd Date/Time/By: 10/11/2018 (1770) : By: [email or web address] Orig Print D/T: S: 10/11/2018 (8708) PAGE 1 Signed Report - XR HAND 3 + V RT 2018-10-11 12:06:00 FAX: Homa Don [phone] [place]: St: REG FAX: Jolene Davidson [phone] Name: NICKI HELM [facility] : 1960 Age/S: 58/M [address] [facility] Unit #: [id number] Loc: [place] [address] Phys: Jolene Parekh MD Acct: [id number] Dis Date: Status: REG ER PHONE #: [phone] Exam Date: 10/11/2018 1136 FAX #: [phone] Reason: swelling, fall EXAMS: CPT CODE: [id number] XR HAND 3 + V RT [address]1362 HISTORY: Swelling after fall. COMPARISON: None available. 3 VIEWS OF THE RIGHT HAND AND WRIST: No acute fracture or dislocation of the hand. The joint spaces in the hands are mildly narrowed. No erosive or destructive changes. Old fracture deformity of the bases of the 3rd to the 5th metacarpal bones with callus formation. An old fracture deformity of the distal end of the 5th metacarpal bone as well. Diffuse soft tissue swelling of the hand. The wrist joint is preserved. Old fracture deformity of the distal radius with acute oblique nondisplaced fracture of the radial margin of the distal radius as well with intra-articular extension. Soft tissue swelling. Old fracture fragment of the ulnar styloid. Carpal arcs are preserved. IMPRESSION: Acute traumatic oblique fracture of the radial margin of the distal radius with intra-articular extension and diffuse soft tissue swelling. Multiple old fracture deformities of the hand as well. 2 VIEWS OF THE RIGHT FOREARM: Oblique fracture of the distal radius along the radial margin noted again. Elbow joint is preserved. No elbow joint fluid. Fracture of the distal radius noted again. IMPRESSION: Acute traumatic fracture of the distal radius noted again. No other fractures. Elbow joint is unremarkable. at 1206 Reported and signed by: Dwight Hurst M.D. PAGE 1 Signed Report (CONTINUED) FAX: Homa Don [phone] [place]: St: REG FAX: Jolene Davidson [phone] Name: NICKI HELM [facility] : 1960 Age/S: 58/M [address] [facility] Unit #: [id number] Loc: [place] [address] Phys: Jolene Parekh MD Acct: [id number] Dis Date: Status: REG ER PHONE #: [phone] Exam Date: 10/11/2018 1136 FAX #: [phone] Reason: swelling, fall EXAMS: CPT CODE: [id number] XR HAND 3 + V RT [address]166 <Continued> CC: Homa Carmona M.D.; Jolene Parekh MD Technologist: Rabia Way(Susana) Trnscrd Date/Time/By: 10/11/2018 (7115) : By: [email or web address] Orig Print D/T: S: 10/11/2018 (5161) PAGE 2 Signed Report - XR FOREARM 2 VIEWS RT 2018-10-11 12:06:00 FAX: Homa Don [phone] [place]: St: REG FAX: Jolene Davidson [phone] Name: NICKI HELM [facility] : 1960 Age/S: 58/M [address] [facility] Unit #: [id number] Loc: [place] [address] Phys: Jolene Parekh MD Acct: [id number] Dis Date: Status: REG ER PHONE #: [phone] Exam Date: 10/11/2018 1136 FAX #: [phone] Reason: swelling, fall EXAMS: CPT CODE: [id number] XR FORE[place] [address] [place] [address] HISTORY: Swelling after fall. COMPARISON: None available. 3 VIEWS OF THE RIGHT HAND AND WRIST: No acute fracture or dislocation of the hand. The joint spaces in the hands are mildly narrowed. No erosive or destructive changes. Old fracture deformity of the bases of the 3rd to the 5th metacarpal bones with callus formation. An old fracture deformity of the distal end of the 5th metacarpal bone as well. Diffuse soft tissue swelling of the hand. The wrist joint is preserved. Old fracture deformity of the distal radius with acute oblique nondisplaced fracture of the radial margin of the distal radius as well with intra-articular extension. Soft tissue swelling. Old fracture fragment of the ulnar styloid. Carpal arcs are preserved. IMPRESSION: Acute traumatic oblique fracture of the radial margin of the distal radius with intra-articular extension and diffuse soft tissue swelling. Multiple old fracture deformities of the hand as well. 2 VIEWS OF THE RIGHT FOREARM: Oblique fracture of the distal radius along the radial margin noted again. Elbow joint is preserved. No elbow joint fluid. Fracture of the distal radius noted again. IMPRESSION: Acute traumatic fracture of the distal radius noted again. No other fractures. Elbow joint is unremarkable. at 1206 Reported and signed by: Dwight Hurst M.D. PAGE 1 Signed Report (CONTINUED) FAX: Homa Don [phone] [place]: St: REG FAX: Jolene Davidson [phone] Name: NICKI HELM [facility] : 1960 Age/S: 58/M [address] [facility] Unit #: [id number] Loc: [place] [address] Phys: Jolene Parekh MD Acct: [id number] Dis Date: Status: REG ER PHONE #: [phone] Exam Date: 10/11/2018 1136 FAX #: [phone] Reason: swelling, fall EXAMS: CPT CODE: [id number] XR FORE[place] [address] [place] [address] <Continued> CC: Homa Carmona M.D.; Jolene Parekh MD Technologist: Rabia Way(R) Trnscrd Date/Time/By: 10/11/2018 (1206) : By: [email or web address] Orig Print D/T: S: 10/11/2018 (1210) PAGE 2 Signed Report - XR WRIST 3 + V RT 2018-10-11 12:06:00 FAX: Homa Don [phone] [place]: St: REG FAX: Jolene Davidson [phone] Name: NICKI HELM [facility] : 1960 Age/S: 58/M [address] [facility] Unit #: [id number] Loc: [place] [address] Phys: Jolene Parekh MD Acct: [id number] Dis Date: Status: REG ER PHONE #: [phone] Exam Date: 10/11/2018 1136 FAX #: [phone] Reason: swelling, fall EXAMS: CPT CODE: [id number] XR WRIST 3 + V RT [address] HISTORY: Swelling after fall. COMPARISON: None available. 3 VIEWS OF THE RIGHT HAND AND WRIST: No acute fracture or dislocation of the hand. The joint spaces in the hands are mildly narrowed. No erosive or destructive changes. Old fracture deformity of the bases of the 3rd to the 5th metacarpal bones with callus formation. An old fracture deformity of the distal end of the 5th metacarpal bone as well. Diffuse soft tissue swelling of the hand. The wrist joint is preserved. Old fracture deformity of the distal radius with acute oblique nondisplaced fracture of the radial margin of the distal radius as well with intra-articular extension. Soft tissue swelling. Old fracture fragment of the ulnar styloid. Carpal arcs are preserved. IMPRESSION: Acute traumatic oblique fracture of the radial margin of the distal radius with intra-articular extension and diffuse soft tissue swelling. Multiple old fracture deformities of the hand as well. 2 VIEWS OF THE RIGHT FOREARM: Oblique fracture of the distal radius along the radial margin noted again. Elbow joint is preserved. No elbow joint fluid. Fracture of the distal radius noted again. IMPRESSION: Acute traumatic fracture of the distal radius noted again. No other fractures. Elbow joint is unremarkable. at 1206 Reported and signed by: Dwight Hurst M.D. PAGE 1 Signed Report (CONTINUED) FAX: Homa Don [phone] [place]: St: REG FAX: Y Jolene Parekh [phone] Name: NICKI HELM [facility] : 1960 Age/S: 58/M [address] [facility] Unit #: [id number] Loc: [place] [address] Phys: Jolene Parekh MD Acct: [id number] Dis Date: Status: REG ER PHONE #: [phone] Exam Date: 10/11/2018 1136 FAX #: [phone] Reason: swelling, fall EXAMS: CPT CODE: [id number] XR WRIST 3 + V RT [address] <Continued> CC: Homa Carmona M.D.; Jolene Parekh MD Technologist: Rabia Way(R) Trnscrd Date/Time/By: 10/11/2018 (1206) : By: [email or web address] Orig Print D/T: S: 10/11/2018 (2122) PAGE 2 Signed Report BASIC METABOLIC PANEL 2018-10-11 10:50:00 SODIUM (test code=NA) 137 mmol/L 136-145 POTASSIUM (test code=K) 3.3 mmol/L 3.5-5.1 CHLORIDE (test code=CL) 101.0 mmol/L 98-107 CARBON DIOXIDE (test code=CO2) 28.0 mmol/L 21-32 ANION GAP (test code=GAP) 11.3 10-20 GLUCOSE (test code=GLU) 114 mg/dL 74-106 BLOOD UREA NITROGEN (test code=BUN) 14 mg/dL 7-18 GLOMERULAR FILTRATION RATE (test code=GFR) > 60 mL/min >=60 Estimated GFR by using Modified MDRD formula.Chronic kidney disease is defined as either kidney damageor GFR <60 mL/min/1.73 m2 for >3 months. CREATININE (test code=CREAT) 0.60 mg/dL 0.7-1.3 BUN/CREATININE RATIO (test code=BUN/CREA) 23.3 10-20 CALCIUM (test code=CA) 8.9 mg/dL 8.5-10.1 BASIC METABOLIC [id number] 10:45:00* Test Item Value Reference Range Comments SODIUM (test code=NA) 137 mmol/L 136-145 POTASSIUM (test code=K) 3.3 mmol/L 3.5-5.1 CHLORIDE (test code=CL) 101.0 mmol/L 98-107 CARBON DIOXIDE (test code=CO2) mmol/L 21-32 ANION GAP (test code=GAP) 10-20 GLUCOSE (test code=GLU) mg/dL 74-106 BLOOD UREA NITROGEN (test code=BUN) mg/dL 7-18 GLOMERULAR FILTRATION RATE (test code=GFR) mL/min >=60 CREATININE (test code=CREAT) mg/dL 0.7-1.3 BUN/CREATININE RATIO (test code=BUN/CREA) 10-20 CALCIUM (test code=CA) 8.9 mg/dL 8.5-10.1 PROTHROMBIN [id number] 10:43:00* Test Item Value Reference Range Comments PROTHROMBIN TIME PATIENT (test code=PTP) 12.5 seconds 9.0-14.0 INTERNATIONAL NORMAL RATIO (test code=INR) 1.1 0.8-1.2 The therapeutic range for oral anticoagulant [...] heart valves (2.5-3.5) IS PATIENT ON ANTICOAGULANTS? YLIST ANTICOAGULANTS ASPIRINTHROMBOPLASTIN TIME [id number] 10:43:00* Test Item Value Reference Range Comments THROMBOPLASTIN TIME PARTIAL (test code=PTT) 27.2 seconds 25.0-36.5 IS PATIENT ON ANTICOAGULANTS? YLIST ANTICOAGULANTS ASPIRINCBC W/AUTO DIFF 2018-10-11 10:35:00* Test Item Value Reference Range Comments WHITE BLOOD CELL (test code=WBC) 12.4 K/mm3 4.5-12.5 RED BLOOD CELL (test code=RBC) 3.89 mill/mm3 4.0-5.8 HEMOGLOBIN (test code=HGB) 9.8 gram/dL 13.0-17.5 HEMATOCRIT (test code=HCT) 32.0 % 42.0-52.0 MEAN CELL VOLUME (test code=MCV) 82.3 fL 80-98 MEAN CELL HGB (test code=MCH) 25.2 picogram 27.0-33.0 MEAN CELL HGB CONCETRATION (test code=MCHC) 30.6 gram/dL 33.0-36.0 RED CELL DISTRIBUTION WIDTH (test code=RDW) 16.0 % 11.6-16.2 RED CELL DISTRIBUTION WIDTH SD (test code=RDW-SD) 47.9 fL 37.0-51.0 PLATELET COUNT (test code=PLT) 242 K/mm3 150-450 MEAN PLATELET VOLUME (test code=MPV) 8.5 fL 6.7-11.0 NEUTROPHIL % (test code=NT%) 74.9 % 39.0-69.0 IMMATURE GRANULOCYTE % (test code=IG%) 4.4 % 0.0-5.0 LYMPHOCYTE % (test code=LY%) 9.3 % 25.0-55.0 MONOCYTE % (test code=MO%) 9.8 % 0.0-10.0 EOSINOPHIL % (test code=EO%) 1.3 % 0.0-5.0 BASOPHIL % (test code=BA%) 0.3 % 0.0-1.0 NUCLEATED RBC % (test code=NRBC%) 0.0 % 0-0 NEUTROPHIL # (test code=NT#) 9.31 K/mm3 1.8-7.7 IMMATURE GRANULOCYTE # (test code=IG#) 0.54 x10 3/uL 0-0.03 LYMPHOCYTE # (test code=LY#) 1.15 K/mm3 1.0-5.0 MONOCYTE # (test code=MO#) 1.21 K/mm3 0-0.8 EOSINOPHIL # (test code=EO#) 0.16 K/mm3 0.0-0.5 BASOPHIL # (test code=BA#) 0.04 K/mm3 0.0-0.2 NUCLEATED RBC # (test code=NRBC#) 0.00 K/mm3 0.0-0.1 MANUAL DIFF REQUIRED (test code=MDIFF) NO CT CHEST [id number] 17:49:00 [place] [address] Patient Name: NICKI HELM MR #: [id number] : 1960 Age/Sex: 58/M Req #: [id number] Adm Physician: VINCE SALES MD Ordered by: CHRIS PERALTA MD Report #: [id number] Location: MED/SURG2 Room/Bed: [facility] Procedure: [id number] CT/CT CHEST W Exam Date: Exam Time: REPORT STATUS: Signed EXAMINATION: CT of the chest with contrast, PE protocol. TECHNIQUE: Spiral CT images of the chest were performed from the lung apices through the level of the adrenal glands a fter the IV administration of 100 cc of Isovue 370. Thin section reconstructi ons were obtained with special concentration on the pulmonary arteries. Puckett l and sagittal reformatted images were performed. COMPARISON: <none> CLINICAL HISTORY:Elevated D dimer, shortness of breath DISCUSSION: Suboptimal exam with poor opacification of subsegmental pulmonary arteries. Exam limited as it was acquired during partial expiratory phase and due to ph oton starvation from patient's large body habitus. Lungs: Filling defects are identified in segmental branches of the left lower lobe (for example 2, im ages 55, 58, 59 and 62). No filling defects are noted in the main, right or le ft pulmonary arteries. No saddle emboli. Linear opacities in the lingula and bilateral lower lobes consistent with subsegmental atelectasis or scarring. No consolidation or pulmonary nodules or masses. Airways: <The major airways are clear.> Pleura: <There is no evidence of pleural effusion or pneumothorax. Bilateral posterior lower lobe pleural thickening..> Heart and mediastinum: Thyroid is unremarkable. Mild cardiomegaly. Atherosclerotic calcification of the coronary arteries and thoracic aortic arch. The aorta is nonaneurysmal. Main pulmonary artery borderline to mildly enlarged, measuring 3.2 cm. Lymph nodes: No mediastinal, hilar or axillary adenopathy. Abdomen: The visualized portions of the liver, spleen, pancreas and kidneys are unremarkable. Mild thickening of bilateral adrenal glands. Bones and soft tissues: No acute bony abnormalities. Visualized soft tissues are unremarkable. IMPRESSION: 1. Pulmonary emboli in segmental branches o f the left lower lobe. No filling defects in the main, right or left pulmonary arteries. No saddle emboli. 2. Lingular and bilateral lower lobe subsegmental atelectasis versus scarring. No consolidation 3. Mild cardiomegaly. Borderl ine to mildly enlarged main pulmonary artery. 4. Findings discussed with Dr. Rosmery santos October 02, 2018 at 1750 hours Signed by: Dr. Francisco Javier clark M.D. on 10/01/2018 5:56 PM Dictated By: FRANCISCO JAVIER TAN MD Electronical ly Signed By: FRANCISCO JAVIER TAN MD on 10/01/181755 Transcribed By: MOSES on 1755 COPY TO: CHRIS PERALTA MD CHEST SINGLE (PORTABLE) 2018-10-01 13:05:00 [place] [address] Patient Name: NICKI HELM MR #: [id number] : 1960 Age/Sex: 58/M Req #: [id number] Adm Physician: Ordered by: CHRIS PERALTA MD Report #: [id number] Location: ER Room/Bed: Procedure: [id number] DX/CHEST SINGLE (PORTABLE) Exam Date: Exam Time: REPORT STATUS: Signed Examination: Single AP view of the chest. COMPARISON: CT abdomen and pelvis same day. INDICATION: Shortness of breath DISCUSSION: Lungs are well-i nflated. Linear atelectasis in the right middle lobe. No airspace consolidatio n, pleural effusion, or pneumothorax. Enlargement of the cardiac silhouette sh own to represent prominent epicardial fat on comparison CT abdomen and pelvis same day. No acute osseous abnormality. IMPRESSION: Linear atele ctasis in the right middle lobe. Otherwise no acute cardiopulmonary abnormalit y. Signed by: Dr. Bal Mosqueda M.D. on 10/01/2018 1:06 PM Dictated By: BAL MOSQUEDA MD 130 6 Transcribed By: MOSES on 10/01/18 1306 COPY TO: CHRIS PERALTA CT BRAIN [id number] 12:57:00 [place] [address] Patient Name: NICKI HELM MR #: [id number] : 1960 Age/Sex: 58/M Req #: [id number] Adm Physician: Ordered by: CHRIS PERALTA MD Report #: [id number] Location: ER Room/Bed: Procedure: [id number] CT/CT BRAIN WO Exam Date: 10/01/18 Exam Time: 1200 REPORT STATUS: Signed Exam: Head CT without contrast History: Trauma, fall Comparison studies: None Te chnique: Axial images were obtained from the skull base to the vertex. Coron al and sagittal images reconstructed from the axial data. Dose modulation, it erative reconstruction, and/or weight based adjustment of the mA/kV was utiliz ed to reduce the radiation dose to as low as reasonably achievable. Rad iation dose: Total DLP: 936 mGy*cm. Estimated effective dose: DLP x 0.015 Intravenous contrast: None Findings: Evaluation of the posterior fo ssa and inferior frontal and temporal lobes are somewhat limited by motion art ifacts. Artifact from metallic foreign body in the left parietal scalp also so mewhat limits evaluation of the underlying regional brain parenchyma. Sca lp: 8 mm retained metallic foreign body/retinal in the left parietal scalp. Bones: No fractures, blastic or lytic lesions. Brain sulci: Appropriate for age. Ventricles: Normal in size and configuration. No hydrocephalus. Extra- axial spaces: No masses, no fluid collection. Parenchyma: No mass, acu te hemorrhage or acute cortical insult. A few subtle hypodensities in the supr atentorial white matter are nonspecific but may reflect mild chronic microvasc ular ischemic changes Sellar/suprasellar region: No abnormalities. Cranio cervical junction: Patent foramen magnum. No Chiari one malformation. IM PRESSION: 1. No acute abnormalities. 2. Mild chronic microvascular isc hemic changes. 3. Retained metallic foreign body/shrapnel in the left parieta l scalp without underlying calvarial abnormality. Signed by: Dr. Bal Hatfield M.D. on 10/01/2018 1:03 PM Dictated By: BAL JARRELL MD Electro nically Signed By: BAL JARRELL MD on 10/01/18 2305 Transcribed By: MOSES on 10/01/18 1305 COPY TO: CHRIS PERALTA MD CT ABDOMEN/PELVIS [id number] 12:55:00 [facility] [address] [place] [address] Patient Name: NICKI HELM MR #: [id number] : 1960 Age/Sex: 58/M Req #: [id number] Adm Physician: Ordered by: CHRIS PERALTA MD Report #: [id number] Location: ER Room/Bed: Procedure: [id number] CT/CT ABDOMEN/PELVIS W Exam Date: 10/01/18 Exam Time : 1230 REPORT STATUS: Signed EXA MINATION: CT of the abdomen and pelvis with contrast. TECHNIQUE: Spiral CT images of the abdomen and pelvis were performed from the lung bases to the lesser trochanters after the intravenous administration of 100 cc Isovue-370. Coronal and sagittal reformatted images were obtained. COMPARISON: None. CLINICAL HISTORY:Painful ventral hernia evaluate for incarceration. DISCUSSION: ABDOMEN/PELVIS: LOWER THORAX:Subsegmental atelectasis in the dependent lower lobes and lingula. HEPATOBILIARY: Nodular hepatic cont our. 7 mm hypoattenuating lesion in segment 5-6 is too small to further charac terize though may represent a small cyst. No intra-or extrahepatic biliary kelly yadi dilation. The gallbladder is normal. SPLEEN: No splenomegaly. PANCREAS: No focal masses or ductal dilatation. ADRENALS: No adrenal nodul es. KIDNEYS/URETERS: No hydronephrosis, stones, or solid mass lesions. PELVIC ORGANS/BLADDER: The bladder is normal. PERITONEUM/RETROPERITONEUM: No free air or fluid. LYMPH NODES: No intra-abdominal, retroperitoneal, p elvic or inguinal lymphadenopathy. VESSELS: Atherosclerotic calcification of the abdominal aorta without aneurysmal dilatation. Portal vein, splenic ve in, and central superior mesenteric vein are patent. GI TRACT: The large bowel shows no distention or wall thickening. Scattered sigmoid diverticula wi thout wall thickening or mesocolic inflammation. The appendix is normal. The s tomach is collapsed with prominent rugal folds. No small bowel dilatation to s uggest obstruction. BONES AND SOFT TISSUE: No osseous destructive lesions. Probable bone island left iliac wing. Degenerative disc changes of the lumbar spine. Fat-containing supraumbilical midline ventral hernia neck measures 3 cm transverse. The hernia sac contains omental fat without significant inflammat ory change. Skin thickening and subcutaneous fat stranding along the low anter ior abdominal wall subcutaneous fat. No loculated fluid collection. IMPRESSION: Ventral supraumbilical abdominal wall hernia contains omental fat, without evidence of inflammation. Skin thickening and subcutaneous e carey along the bilateral low anterior abdominal wall is of uncertain etiology. No drainable fluid collections. Nodular hepatic contour suggestive of cirr hosis. Correlate for chronic hepatitis or alcohol abuse. Large bowel dive rticulosis without findings of diverticulitis. Signed by: Dr. Bal forrester M.D. on 10/01/2018 1:05 PM Dictated By: BAL MOSQUEDA MD Electronica lly Signed By: BAL MOSQUEDA MD on 10/01/18 1304 Transcribed By: MOSES on 1302 COPY TO: CHRIS PERALTA MD [id number] 12:54:00* Test Item Value Reference Range Comments GLUBED (test code=GLUBED) 180 mg/dL 74-106 Performed by certified continuous absorption process operator at [facility] - XR FOOT 2 VIEWS [id number] 10:18:00 FAX: Scooter Sanchez MD [phone] [place]: B St: REG FAX: Homa Don [phone] Name: HELM,ROGER [facility] : 1960 Age/S: 58/M [address] Unit #: [id number] Loc: [place] [address] Phys: Scooter Sanchez MD Acct: [id number] Dis Date: Status: REG ER PHONE #: [phone] Exam Date: 09/13/2018 09 FAX #: [phone] Reason: fall EXAMS: CPT CODE: [id number] XR [address] [address] [place] [address] EXAM: Left ankle, 2 views and left [...] Sanchez MD; Homa Carmona M.D. Technologist: Jameson THURSTON(R); Josette Wong(R) Trnscrd Date/Time/By: 09/13/2018 (1018) : By: [email or web address] Orig Print D/T: S: 09/13/2018 (1021) PAGE 1 Signed Report - XR ANKLE 2 VIEWS [id number] 10:18:00 FAX: Scooter Sanchez MD [phone] [place]: St: REG FAX: Homa Don [phone] Name: NICKI HELM [facility] : 1960 Age/S: 58/M [address] [place] [address] Unit #: [id number] Loc: [place] [address] Phys: Scooter Sanchez MD Acct: [id number] Dis Date: Status: REG ER PHONE #: [phone] Exam Date: 09/13/2018 0944 FAX #: [phone] Reason: fall EXAMS: CPT CODE: [id number] XR [address]K[place] [address] [place] [id number] EXAM: Left ankle, 2 views and left [...] (1021) PAGE 1 Signed Report - XR ELBOW 2 VIEWS LT 2018-09-13 10:16:00 FAX: Scooter Sanchez MD [phone] [place]: St: [facility] FAX: Y Hoam Carmona [phone] Name: NICKI HELM [facility] : 1960 Age/S: 58/M [facility] Unit #: [id number] Loc: [place] [address] Phys: Scooter Sanchez MD Acct: [id number] Dis Date: Status: REG ER PHONE #: [phone] Exam Date: 09/13/2018 0947 FAX #: [phone] Reason: fall EXAMS: CPT CODE: [id number] XR ELB[place] [address] [place] [id number] EXAM: Left elbow, 2 views and left [...] Trn scrd Date/Time/By: 09/13/2018 (1016) : By: [email or web address] Orig Print D/T: S : 09/13/2018 (1019) PAGE 1 Signed Report - XR FOREARM 2 VIEWS [id number] 10:16:00 FAX: Scooter Sanchez MD [phone] [place]: St: REG FAX: Homa Don [phone] Name: NICKI HELM [facility] : 1960 Age/S: 58/M [address] [facility] [facility] [id number] Loc: [place] [address] Phys: Scooter Sanchez MD Acct: [id number] Dis Date: Status: REG ER PHONE #: [phone] Exam Date: 09/13/2018 0950 FAX #: [phone] Reason: fall EXAMS: CPT CODE: [id number] XR FORE[place] [address] [place] [address] EXAM: Left elbow, 2 views and left [...] 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 There is also fracture [...] Trn scrd Date/Time/By: 09/13/2018 (1016) : By: Jose Antonio Orig Print D/T: S : 09/13/2018 (1014) PAGE 1 Signed Report - XR HUMERUS 2 + V [id number] 10:12:00 FAX: Scooter Sanchez MD [phone] [place]: St: REG FAX: Homa Don [phone] Name: NICKI HELM [facility] : 1960 Age/S: 58/M [address] [facility] Unit #: [id number] Loc: [place] [address] Phys: Scooter Sanchez MD Acct: [id number] Dis Date: Status: REG ER PHONE #: [phone] Exam Date: 09/13/2018937 FAX #: [phone] Reason: fall EXAMS: CPT CODE: [id number] XR HUMERUS 2 + V LT [address] EXAM: Left humerus, 2 views; INFORMATION: Arm [...] S: 09/13/2018 (1015) PAGE 1 Signed Report [id number] 17:45:00* Test Item Value Reference Range Comments GLUBED (test code=GLUBED) 277 mg/dL 74-106 Performed by certified continuous absorption process operator at [facility] [id number] 17:45:00* Test Item Value Reference Range Comments GLUBED (test code=GLUBED) 177 mg/dL 74-106 Performed by certified continuous absorption process operator at [facility] CBC W/AUTO [id number] 14:15:00* Test Item Value Reference Range Comments [...] (test code=MDIFF) NO, ONLY SCAN NEEDED DIFFERENTIAL [id number] 14:15:00* Test Item Value Reference Range Comments STAIN ACCEPTABILITY (test code=STN ACCEPTABLE) STAIN ACCEPTABLE MORPHOLOGY COMMENT (test code=MOC) NORMAL PLATELET ESTIMATE (test code=PLTEST) ADEQUATE PLATELET MORPHOLOGY (test code=PLTMORPH) NORMAL BASIC METABOLIC [id number] 12:40:00* Test Item Value Reference Range Comments [...] (test code=CA) 10.3 mg/dL 8.5-10.1 BASIC METABOLIC [id number] 12:35:00* Test Item Value Reference Range Comments [...] CALCIUM (test code=CA) mg/dL 8.5-10.1 CBC W/AUTO [id number] 12:22:00* Test Item Value Reference Range Comments [...] (test code=MDIFF) NO, ONLY SCAN NEEDED DIFFERENTIAL [id number] 12:22:00* Test Item Value Reference Range Comments STAIN ACCEPTABILITY (test code=STN ACCEPTABLE) CABOT RINGS (test code=CAB) MORPHOLOGY COMMENT (test code=MOC) PLATELET ESTIMATE (test code=PLTEST) PLATELET MORPHOLOGY (test code=PLTMORPH) CBC W/AUTO [id number] 12:22:00* Test Item Value Reference Range Comments [...] (test code=MDIFF) NO, ONLY SCAN NEEDED DIFFERENTIAL [id number] 12:22:00* Test Item Value Reference Range Comments STAIN ACCEPTABILITY (test code=STN ACCEPTABLE) CABOT RINGS (test code=CAB) MORPHOLOGY COMMENT (test code=MOC) PLATELET ESTIMATE (test code=PLTEST) PLATELET MORPHOLOGY (test code=PLTMORPH) CBC W/AUTO [id number] 12:22:00* Test Item Value Reference Range Comments [...] (test code=MDIFF) NO, ONLY SCAN NEEDED DIFFERENTIAL [id number] 12:22:00* Test Item Value Reference Range Comments STAIN ACCEPTABILITY (test code=STN ACCEPTABLE) MORPHOLOGY COMMENT (test code=MOC) PLATELET ESTIMATE (test code=PLTEST) PLATELET MORPHOLOGY (test code=PLTMORPH) CBC W/AUTO [id number] 12:22:00* Test Item Value Reference Range Comments [...] (test code=MDIFF) NO, ONLY SCAN NEEDED DIFFERENTIAL [id number] 12:22:00* Test Item Value Reference Range Comments STAIN ACCEPTABILITY (test code=STN ACCEPTABLE) CABOT RINGS (test code=CAB) MORPHOLOGY COMMENT (test code=MOC) PLATELET ESTIMATE (test code=PLTEST) PLATELET MORPHOLOGY (test code=PLTMORPH) CBC W/AUTO [id number] 12:17:00* Test Item Value Reference Range Comments [...] 0.0-0.5 BASOPHIL # (test code=BA#) K/mm3 0.0-0.2 [id number] 06:46:00* Test Item Value Reference Range Comments GLUBED (test code=GLUBED) 181 mg/dL 74-106 Performed by certified continuous absorption process operator at [facility] [id number] 05:16:00* Test Item Value Reference Range Comments GLYCOSYLATED HEMOGLOBIN (HA1C) (test code=GLYHGB) 6.3 % HbA1 4.8-6.0 ESTIMATED AVERAGE GLUCOSE (test code=EAG) 134 MG/DL [id number] 22:36:00* Test Item Value Reference Range Comments GLUBED (test code=GLUBED) 166 mg/dL 74-106 Performed by certified continuous absorption process operator at [facility] [id number] 17:14:00* Test Item Value Reference Range Comments GLUBED (test code=GLUBED) 147 mg/dL 74-106 Performed by certified continuous absorption process operator at [facility] [id number] 00:20:00* Test Item Value Reference Range Comments GLUBED (test code=GLUBED) 198 mg/dL 74-106 Performed by certified continuous absorption process operator at [facility] BASIC METABOLIC [id number] 12:17:00* Test Item Value Reference Range Comments [...] (test code=CA) 10.0 mg/dL 8.5-10.1 BASIC METABOLIC [id number] 12:15:00* Test Item Value Reference Range Comments [...] 10-20 CALCIUM (test code=CA) 10.0 mg/dL 8.5-10.1 [id number] 12:10:00* Test Item Value Reference Range Comments GLUBED (test code=GLUBED) 167 mg/dL 74-106 Performed by certified continuous absorption process operator at [facility] CBC W/O [id number] 11:31:00* Test Item Value Reference Range Comments [...] PLATELET VOLUME (test code=MPV) 8.9 fL 6.7-11.0 [id number] 06:17:00* Test Item Value Reference Range Comments GLUBED (test code=GLUBED) 201 mg/dL 74-106 Performed by certified continuous absorption process operator at [facility] - CT CHEST W/O [id number] 21:24:00 [facility] 1960 Age/S: 58 / M [place] Unit #: [id number] Loc: [place] [address] Phys: Jeanette Perez MD Acct: [id number] Dis Date: Status: ADM IN PHONE #: [phone] Exam Date: 09/02/20182120 FAX #: [phone] Reason: ? asbestos EXAMS: CPT CODE: [id number] CT CHEST W/O CONTRAST 58351 REASON FOR EXAM: ? asbestos EXAM ORDER [...] CT CTDI: DLP: Trnscb Date/Time: 09/02/2018 (2123) Felipe Orig Print D/T: S: 09/02/2018 (2126) CTDI: DLP: PAGE 1 Signed Report [id number] 21:21:00* Test Item Value Reference Range Comments TROPONIN-I (test code=TROPI) <0.015 ng/mL 0-0.045 COMMENTS TO LABOR STANDARDS DIRECTOR: COLLECT 3 HOURS AFTER PREVIOUS [id number] 15:37:00* Test Item Value Reference Range Comments TROPONIN-I (test code=TROPI) <0.015 ng/mL 0-0.045 PER SNICERE MCCLAIN TIMED DRAW SHOULD BE 1500 V.LAB.TS1 09/02/003032HVXBXFCF TO PHLEBO TOMIST: COLLECT 3 HOURS AFTER PREVIOUS SAMPLE URINALYSIS [id number] 13:33:00* Test Item Value Reference Range Comments [...] HPF FEW Urine Source? Clean CatchB-TYPE NATRIURETIC [id number] 12:55:00* Test Item Value Reference Range Comments B-TYPE NATRIURETIC PEPTIDE (test code=BNP) 5.79 pgram/mL 0-100 BASIC METABOLIC [id number] 12:47:00* Test Item Value Reference Range Comments [...] (test code=CA) 9.6 mg/dL 8.5-10.1 HEPATIC FUNCTION [id number] 12:47:00* Test Item Value Reference Range Comments [...] reference range due to change in reagent. [id number] 12:47:00* Test Item Value Reference Range Comments LIPASE (test code=LIP) 132 U/L 73.0-393.0 [id number] 12:47:00* Test Item Value Reference Range Comments MAGNESIUM (test code=MAG) 2.1 mg/dL 1.8-2.4 [id number] 12:47:00* Test Item Value Reference Range Comments TROPONIN-I (test code=TROPI) <0.015 ng/mL 0-0.045 URINALYSIS [id number] 12:45:00* Test Item Value Reference Range Comments [...] per HPF NONE Urine Source? Clean CatchPROTHROMBIN [id number] 12:38:00* Test Item Value Reference Range Comments [...] (2.5-3.5) IS PATIENT ON ANTICOAGULANTS? NTHROMBOPLASTIN TIME [id number] 12:38:00* Test Item Value Reference Range Comments THROMBOPLASTIN TIME PARTIAL (test code=PTT) 37.8 seconds 25.0-36.5 IS PATIENT ON ANTICOAGULANTS? NBASIC METABOLIC [id number] 12:38:00* Test Item Value Reference Range Comments [...] CALCIUM (test code=CA) mg/dL 8.5-10.1 HEPATIC FUNCTION [id number] 12:38:00* Test Item Value Reference Range Comments TOTAL PROTEIN (test code=PROT) gram/dL 6.4-8.2 ALBUMIN (test code=ALB) g/dL 3.4-5.0 GLOBULIN (test code=GLOB) gram/dL 2.7-4.2 ALBUMIN/GLOBULIN RATIO (test code=A/G) 0.75-1.50 BILIRUBIN TOTAL (test code=BILT) mg/dL 0.0-1.0 BILIRUBIN DIRECT (test code=BILD) mg/dL 0.0-0.20 SGOT/AST (test code=AST) IUnit/L 15-37 SGPT/ALT (test code=ALT) IUnit/L 12-78 ALKALINE PHOSPHATASE TOTAL (test code=ALKP) IUnit/L 45-117 [id number] 12:38:00* Test Item Value Reference Range Comments LIPASE (test code=LIP) U/L 73.0-393.0 [id number] 12:38:00* Test Item Value Reference Range Comments MAGNESIUM (test code=MAG) mg/dL 1.8-2.4 [id number] 12:38:00* Test Item Value Reference Range Comments TROPONIN-I (test code=TROPI) ng/mL 0-0.045 URINALYSIS [id number] 12:20:00* Test Item Value Reference Range Comments [...] HPF NONE Urine Source? Clean CatchCBC W/O [id number] 12:15:00* Test Item Value Reference Range Comments [...] 242 K/mm3 150-450 Results called to by CARMELO 09/02/18 1215Critical results verified and read back by Nurse? MEAN PLATELET VOLUME (test code=MPV) 8.4 fL 6.7-11.0 URINALYSIS [id number] 12:13:00* Test Item Value Reference Range Comments [...] Urine Source? Clean Catch- XR CHEST 1 [id number] 11:49:00 FAX: Homa Don [phone] [place]: B St: REG FAX: Jolene Davidson [phone] Name: NICKI HELM [facility] : 1960 Age/S: 58/M [address] [facility] Unit #: [id number] Loc: [place] [address] Phys: Jolene Parekh MD Acct: [id number] Dis Date: Status: REG ER PHONE #: [phone] Exam Date: 09/02/2018 1134 FAX #: [phone] Reason: CHEST PAIN EXAMS: CPT CODE: [id number] XR CHEST 1 V 60517 HISTORY: Chest pain. COMPARISON: Chest x-ray from August 17, 2018. No acute infiltrates, effusion or congestion is not ed. Suboptimal inspiration with dependent changes. Cardiomeg alexis. IMPRESSION: No acute infiltrates, effus ion or congestion. Electronically Signed by Shira Hurst on at 1149 Reported and signed by: Ron Becker CC: Homa Carmona M.D.; Jolene Parekh MD Technologist: Sweetie Rust RT(R); STUDENT TECHNOLOGIST Tr nscrd Date/Time/By: 09/02/2018 (1369) : By: [email or web address] Orig Print D/T: S: 09/02/2018 (8626) PAGE 1 Leonor d Report B-TYPE NATRIURETIC [id number] 01:49:00* Test Item Value Reference Range Comments B-TYPE NATRIURETIC PEPTIDE (test code=BNP) 5.76 pgram/mL 0-100 BASIC METABOLIC [id number] 00:32:00* Test Item Value Reference Range Comments [...] 10-20 CALCIUM (test code=CA) 8.9 mg/dL 8.5-10.1 [id number] 00:32:00* Test Item Value Reference Range Comments TROPONIN-I (test code=TROPI) <0.015 ng/mL 0-0.045 BASIC METABOLIC [id number] 00:21:00* Test Item Value Reference Range Comments [...] code=BUN/CREA) 10-20 CALCIUM (test code=CA) mg/dL 8.5-10.1 [id number] 00:21:00* Test Item Value Reference Range Comments TROPONIN-I (test code=TROPI) ng/mL 0-0.045 CBC W/O [id number] 00:15:00* Test Item Value Reference Range Comments [...] 8.7 fL 6.7-11.0 - XR CHEST 1 [id number] 21:59:00 FAX: Homa Don [phone] [place]: St: REG FAX: Gm Eid DO Name: NICKI HELM [facility] : 1960 Age/S: 58/M [address] [facility] Unit #: [id number] Loc: [place] [address] Phys: Gm Eid DO Acct: [id number] Dis Date: Status: REG ER PHONE #: [phone] Exam Date: 08/17/20182141 FAX #: [phone] Reason: Shortness of Breath EXAMS: CPT CODE: [id number] XR CHEST 1 V 64616 EXAM: Chest x-ray, one view; INFORMATION: Shortness [...] THURSTON(R) Trnscrd Date/Time/By: 08/17/2018 (2158) : By: tJUAN CARLOSGRW Orig Print D/T: S: 08/17/2018 (1) PAGE 1 Signed Report POC Glucose, [id number] 23:20:00* Test Item Value Reference Range Comments POC Glucose (test code=POCGLUC) 98 mg/dL 70-115 If you consider your patient critically ill, the Tanisha Accu-Chek InformII metershould not be used for Glucose determinations.Draw a venous Glucose and send to the Main Lab for Analysis. [id number] 22:14:00* Test Item Value Reference Range Comments [...] (test code=ETOHU) 0.26 g/dL 0.00-0.01 Comprehensive Metabolic [id number] 22:13:00* Test Item Value Reference Range Comments [...] race is not provided, and the patient isAfrican-Citizen Of [place], multiply by 1.212. If sex is not [...] the National Kidney Foundat ion,http://nkdep.nih.gov CBC with [id number] 22:04:00* Test Item Value Reference Range Comments [...] Lymph Abs (test code=ALYMPH) 2.5 K/cumm 0.5-4.6 Dunn Abs (test code=AMONO) 0.9 K/cumm 0.0-1.2 Eos Abs (test code=AEOS) 0.08 K/cumm 0.00-0.74 Baso Abs (test code=ABASO) 0.1 K/cumm 0.00-0.21 Urinalysis [id number] 22:00:00* Test Item Value Reference Range Comments Color (test code=COLOR) Yellow Yellow,Straw,Pl yellow Clarity (test code=CLAR) Clear Clear Specific [place] (test code=SPGR) 1.008 1.001-1.035 pH (test code=PH) [...]
[2018-10-31] MEDS ORDERED: ALBUTEROL/IPRATROPIUM 3 ML NEB NEB ONE (13:00)
[2018-10-31 13:29] LABS: BASOPHILS # (AUTO) 0.1 (0.0-0.1); BASOPHILS % 0.5 % (0.0-1.0); EOSINOPHILS # (AUTO) 0.5 (0.0-0.4); EOSINOPHILS % 4.8 % (0.0-6.0); HEMATOCRIT 32.2 % (38.2-49.6); HEMOGLOBIN 10.3 g/dL (14.0-18.0); LYMPHOCYTES # (AUTO) 1.1 (1.0-3.2); LYMPHOCYTES % 10.8 % (18.0-39.1); MEAN CORPUSCULAR HEMOGLOBIN 25.5 pg (28-32); MEAN CORPUSCULAR VOLUME 79.7 fL (81-99); MONOCYTES % 10.2 % (4.4-11.3); NEUTROPHILS # (AUTO) 7.1 (2.1-6.9); NEUTROPHILS % 71.8 % (38.7-80.0); PLATELET COUNT 253 x10e3/uL (140-360); RED BLOOD COUNT 4.04 x10e6/uL (4.3-5.7); RED CELL DISTRIBUTION WIDTH 16.5 % (11.7-14.4)
[2018-10-31] MEDS ORDERED: ONDANSETRON HCL INJ 2MG/ML 2ML 2 MG/ML VIAL IV ONE (13:30)
[2018-10-31] MEDS ORDERED: MORPHINE SULFATE INJ 4 MG/ML INJ 1ML IV ONE (13:30)
[2018-10-31 13:48] LABS: INR 0.89; PROTHROMBIN TIME 12.5 seconds (11.9-14.5)
[2018-10-31 13:51] LABS: ALANINE AMINOTRANSFERASE 16 IU/L (0-55); ALBUMIN 3.6 g/dL (3.5-5.0); ALBUMIN/GLOBULIN RATIO 0.9 (0.8-2.0); ALKALINE PHOSPHATASE 102 IU/L (40-150); BLOOD UREA NITROGEN 14 mg/dL (7-26); BUN/CREATININE RATIO 15 (6-25); CALCIUM 9.4 mg/dL (8.4-10.2); CARBON DIOXIDE 26 mmol/L (22-29); CHLORIDE 96 mmol/L (98-107); CREATINE KINASE 68 IU/L (30-200); CREATININE, SERUM 0.94 mg/dL (0.72-1.25); EST GLOMERULAR FILTRATION RATE > 60 ML/MIN (60-); GLUCOSE 125 mg/dL (74-118); SODIUM 133 mmol/L (136-145)
--- NOTE | 2018-10-31 14:16 | Diagnostic Imaging Report ---
EXAM: CHEST SINGLE (PORTABLE), AP Portable DATE: 10/31/2018 Time stamp on exam: 1:51 PM INDICATION: Edema COMPARISON: 10/01/2018 FINDINGS: LINES/TUBES: None LUNGS: No consolidations or edema. Bibasilar subsegmental atelectasis. PLEURA: No effusions or pneumothorax. HEART AND MEDIASTINUM: Heart is enlarged. BONES AND SOFT TISSUES: No acute findings. IMPRESSION: Bibasilar subsegmental atelectasis. Signed by: Dr. Mitchell Odom DO on 10/31/2018 2:12 PM
[2018-10-31 15:10] LABS: BILIRUBIN,URINE NEGATIVE (NEGATIVE); CLARITY,URINE CLEAR (CLEAR); COLOR,URINE YELLOW (YELLOW); KETONES,URINE NEGATIVE (NEGATIVE); LEUKOCYTE ESTERASE ,URINE NEGATIVE (NEGATIVE); NITRITE,URINE NEGATIVE (NEGATIVE); PROTEIN,URINE DIPSTICK NEGATIVE (NEGATIVE); URINE UROBILINOGEN 0.2 mg/dL (0.2 - 1)
[2018-10-31 15:25] LABS: BACTERIA,URINE FEW /HPF
[2018-10-31] MEDS ORDERED: ONDANSETRON HCL INJ 2MG/ML 2ML 2 MG/ML VIAL IV PRN (16:00)
[2018-10-31] MEDS ORDERED: DEXTROSE 50% SYRINGE 50 ML IV PRN (16:00)
[2018-10-31] MEDS ORDERED: SODIUM CHLORIDE 0.9% 1000ML 1,000 ML IV ONE (16:00)
[2018-10-31] MEDS ORDERED: HYDROMORPHONE 1MG/1ML INJ IV PRN (16:00)
[2018-10-31] MEDS: INSULIN LISPRO 100 UNIT/1 ML 3ML VIAL SQ SCH ×2 (16:26→21:00)
[2018-10-31] MEDS: VANCOMYCIN 1GM/NS 250 ML 250 ML IV SCH (16:39)
[2018-10-31] MEDS: HYDROMORPHONE 2MG/ML 2 MG/ML ML IV PRN ×2 (16:40→20:25)
[2018-10-31 17:38] VITALS: BP 127/57
[2018-10-31 17:52] VITALS: BP 127/57
[2018-10-31 18:05] VITALS: BP 123/56
[2018-10-31] MEDS: ALBUTEROL SULF 0.083% NEB SOLN 3 ML NEB NEB SCH ×2 (18:45→22:22)
[2018-10-31] MEDS: IPRATROPIUM BROMIDE 0.02% 2.5 ML NEB NEB SCH ×2 (18:45→22:22)
[2018-10-31] MEDS ORDERED: NON-FORMULARY MEDICATION (Zolpidem Tartrate 10 MG) PO PRN (19:00)
[2018-10-31] MEDS ORDERED: ACETAMINOPHEN 325 MG TAB PO PRN (19:00)
[2018-10-31] MEDS: PIPER-TAZ 3.375 GM 50 ML IV SCH (19:45)
[2018-10-31] MEDS: ATORVASTATIN 20 MG TAB PO SCH (20:25)
[2018-10-31] MEDS: GABAPENTIN 300 MG CAP PO SCH (20:25)
[2018-10-31 20:40] VITALS: BP 126/57
[2018-10-31] MEDS ORDERED: ZOLPIDEM TARTRATE 10 MG TAB PO PRN (21:00)
--- NOTE | 2018-10-31 21:17 | NUR ---
PATIENT RECEIVED FROM EMERGENCY DEPARTMENT PER YOVANI AT 194. SHE'S ALERT AND ORIENTED X3, NON PRODUCTIVE COUGH NOTED AND SHE DENIES RESPIRATORY DISTRESS. TWO JANAY OBSERVED TO THE BACK OF THE HEAD, BRUISES TO THE LEFT ARM WITH SKIN TEAR AND REDNESS TO THE SACRUM. PATIENT IS BLIND, SOFT CALL LIGHT WITHIN EASY REACH AND SHE DENIES PAIN AT THIS TIME. IV INTACT TO THE RIGHT WRIST WITH IV FLUID INFUSING. BED ALARM ON, WILL CONTINUE TO MONITOR. Addendum: 10/31/18 at 6957 by Macrina Roach RN WRONG PATIENT
[2018-11-01] VITALS (7 sets, daily range): BP systolic 119–139; BP diastolic 58–61
[2018-11-01] MEDS: PIPER-TAZ 3.375 GM 50 ML IV SCH ×4 (00:52→18:32)
[2018-11-01] MEDS: HYDROMORPHONE 2MG/ML 2 MG/ML ML IV PRN ×2 (00:59→05:03)
--- NOTE | 2018-11-01 01:00 | NUR ---
PATIENT C/O GENERALIZED ACHES, MEDICATED WITH DILAUDID ORDERED. CALL LIGHT WITHIN EASY REACH, INSTRUCTED TO CALL FOR ASSISTANCE NEEDED.
[2018-11-01] MEDS: IPRATROPIUM BROMIDE 0.02% 2.5 ML NEB NEB SCH ×6 (02:20→22:38)
[2018-11-01] MEDS: ALBUTEROL SULF 0.083% NEB SOLN 3 ML NEB NEB SCH ×6 (02:20→22:38)
[2018-11-01] MEDS: VANCOMYCIN 1GM/NS 250 ML 250 ML IV SCH ×2 (04:39→16:33)
--- NOTE | 2018-11-01 04:53 | NUR ---
PATIENT C/O SHORTNESS OF BREATH; AUDIBLE WHEEZING HEARD, OXYGEN SATURATION 89-91% ON 3L/NC. HEAD OF BED ELEVATED AT 90DEGREES, SPOKE WITH RESPIRATORY THERAPIST REGARDING THE OXYGEN SATURATION, O2 INCREASED TO 4L/NC PER RT AND SATURATION INCREASED TO 93%. WILL MONITOR CLOSELY.
--- NOTE | 2018-11-01 05:15 | NUR ---
CONDITION STABLE, PATIENT STATES "I FEEL MUCH BETTER WITH MY BREATHING". ASSISTED WITH ADLS, CALL LIGHT WITHIN EASY REACH.
[2018-11-01 06:13] LABS: BASOPHILS % 0.3 % (0.0-1.0); EOSINOPHILS # (AUTO) 0.4 (0.0-0.4); EOSINOPHILS % 4.2 % (0.0-6.0); HEMATOCRIT 30.6 % (38.2-49.6); HEMOGLOBIN 9.5 g/dL (14.0-18.0); LYMPHOCYTES # (AUTO) 1.2 (1.0-3.2); LYMPHOCYTES % 12.2 % (18.0-39.1); MEAN CORPUSCULAR HEMOGLOBIN 25.3 pg (28-32); MEAN CORPUSCULAR VOLUME 81.6 fL (81-99); MONOCYTES # (AUTO) 1.2 (0.2-0.8); MONOCYTES % 11.8 % (4.4-11.3); NEUTROPHILS # (AUTO) 6.8 (2.1-6.9); NEUTROPHILS % 69.8 % (38.7-80.0); PLATELET COUNT 229 x10e3/uL (140-360); RED BLOOD COUNT 3.75 x10e6/uL (4.3-5.7); RED CELL DISTRIBUTION WIDTH 16.4 % (11.7-14.4)
[2018-11-01 06:19] LABS: ALANINE AMINOTRANSFERASE 13 IU/L (0-55); ALBUMIN 3.3 g/dL (3.5-5.0); ALBUMIN/GLOBULIN RATIO 0.9 (0.8-2.0); ALKALINE PHOSPHATASE 93 IU/L (40-150); ANION GAP 11.1 mmol/L (8-16); BLOOD UREA NITROGEN 14 mg/dL (7-26); BUN/CREATININE RATIO 18 (6-25); CALCIUM 9.2 mg/dL (8.4-10.2); CARBON DIOXIDE 31 mmol/L (22-29); CHLORIDE 100 mmol/L (98-107); CREATININE, SERUM 0.76 mg/dL (0.72-1.25); EST GLOMERULAR FILTRATION RATE > 60 ML/MIN (60-); GLUCOSE 101 mg/dL (74-118); POTASSIUM 4.1 mmol/L (3.5-5.1); SODIUM 138 mmol/L (136-145)
[2018-11-01] MEDS: FAMOTIDINE 20 MG TAB PO SCH ×2 (07:30→16:23)
[2018-11-01] MEDS ORDERED: INSULIN LISPRO 100 UNIT/1 ML 3ML VIAL SQ SCH (07:30)
[2018-11-01] MEDS: INSULIN LISPRO 100 UNIT/1 ML 3ML VIAL SQ SCH ×4 (07:30→21:00)
[2018-11-01] MEDS ORDERED: DEXTROSE 50% SYRINGE 50 ML IV PRN (07:30)
[2018-11-01] MEDS ORDERED: FUROSEMIDE INJ 10 MG/ML 4 ML VIAL IV ONE (07:45)
[2018-11-01] MEDS ORDERED: HYDRALAZINE HCL 20 MG/ML VIAL IV PRN (07:45)
[2018-11-01] MEDS ORDERED: APIXABAN 5 MG PO SCH (09:00)
[2018-11-01] MEDS: HYDROCODONE/APAP 5MG-325MG TAB PO PRN ×2 (09:12→20:00)
[2018-11-01] MEDS: METHYLPREDNISOLONE SOD SUCC 40 MG/ML VIAL 1ML IV SCH ×2 (09:13→22:05)
[2018-11-01] MEDS: GABAPENTIN 300 MG CAP PO SCH ×3 (09:13→22:05)
[2018-11-01] MEDS: DULOXETINE HCL 30 MG DELAYED RELEASE PO SCH (09:13)
[2018-11-01] MEDS: APIXABAN 5 MG TABLET PO SCH ×2 (09:13→16:23)
--- NOTE | 2018-11-01 09:30 | Diagnostic Imaging Report ---
EXAM: US Abdomen Limited INDICATION: ^R/O ASCITES ^[id number] ^[id number] COMPARISON: CT chest 10/01/2018 TECHNIQUE: Transverse and longitudinal limited images of the abdomen were obtained. FINDINGS: Free Fluid: No ascites IMPRESSION: No ascites. Signed by: Dr. Marcelina Dodd M.D. on 11/01/2018 9:26 AM
[2018-11-01] MEDS: LACTULOSE SYRUP 20 GM/30 ML UDC PO SCH (09:41)
[2018-11-01] MEDS ORDERED: ONDANSETRON HCL 4 MG ORAL DISINTEGRATING TAB PO PRN (10:30)
[2018-11-01] MEDS: GUAIFENESIN 600 MG TAB PO SCH ×2 (12:08→18:32)
--- NOTE | 2018-11-01 20:00 | NUR ---
PATIENT C/O PAIN TO THE LOWER BACK WITH PAIN SCORE #8, MEDICATED WITH NORCO 1 TAB ORDERED. NON PITTING EDEMA TO THE LOWER EXTREMITIES, PATIENT AMBULATING IN THE ROOM. HE DENIES SHORTNESS OF BREATH, OXYGEN AT 4L/NC, RHONCHI HEARD ON LUNG SOUNDS. CALL LIGHT WITHIN EASY REACH, HE'S INSTRUCTED TO CALL FOR ASSISTANCE NEEDED.
[2018-11-01] MEDS: ATORVASTATIN 20 MG TAB PO SCH (22:05)
[2018-11-01 23:21] LABS: CREATINE KINASE MB 1.1 ng/mL (0-5.0)
--- NOTE | 2018-11-01 23:40 | NUR ---
PATIENT IS ASLEEP WITH C-PAPA ON, NO RESPIRATORY DISTRESS OBSERVED. HE'S EASY TO AROUSE, HE DENIES PAIN. CALL LIGHT WITHIN EASY REACH, WILL CONTINUE TO MONITOR.
[2018-11-02] VITALS (8 sets, daily range): BP systolic 126–147; BP diastolic 59–86
[2018-11-02] MEDS: PIPER-TAZ 3.375 GM 50 ML IV SCH ×4 (00:14→19:01)
[2018-11-02] MEDS: GUAIFENESIN 600 MG TAB PO SCH ×4 (00:14→17:29)
--- NOTE | 2018-11-02 01:42 | NUR ---
PATIENT REQUEST THAT HIS C-PAP BE REMOVED, STATED " I DON'T WANT IT". HE WAS EDUCATED ABOUT THE IMPORTANCE OF WEARING THE C-PAP WHILE ASLEEP BUT HE CONTINUE TO REFUSED IT. RESPIRATORY THERAPIST NOTIFIED THAT THE PATIENT WANTED THE MACHINE OFF.
[2018-11-02] MEDS: IPRATROPIUM BROMIDE 0.02% 2.5 ML NEB NEB SCH ×6 (03:10→23:00)
[2018-11-02] MEDS: ALBUTEROL SULF 0.083% NEB SOLN 3 ML NEB NEB SCH ×6 (03:10→23:00)
[2018-11-02] MEDS: VANCOMYCIN 1GM/NS 250 ML 250 ML IV SCH ×2 (03:52→17:23)
[2018-11-02] MEDS: HYDROCODONE/APAP 5MG-325MG TAB PO PRN ×3 (04:01→22:00)
--- NOTE | 2018-11-02 04:03 | NUR ---
PATIENT SITTING UP IN THE CHAIR, HE C/O PAIN TO THE BACK WITH PAIN SCORE #8, MEDICATED WITH NORCO 1TAB ORDERED. CALL LIGHT WITHIN EASY REACH, HE'S INSTRUCTED TO CALL FOR ASSISTANCE NEEDED.
[2018-11-02 05:26] LABS: BASOPHILS % 0.1 % (0.0-1.0); HEMATOCRIT 33.5 % (38.2-49.6); HEMOGLOBIN 10.5 g/dL (14.0-18.0); LYMPHOCYTES # (AUTO) 0.9 (1.0-3.2); LYMPHOCYTES % 6.1 % (18.0-39.1); MEAN CORPUSCULAR HEMOGLOBIN 25.2 pg (28-32); MEAN CORPUSCULAR HGB CONC 31.3 g/dL (31-35); MEAN CORPUSCULAR VOLUME 80.3 fL (81-99); MONOCYTES # (AUTO) 0.3 (0.2-0.8); MONOCYTES % 1.9 % (4.4-11.3); NEUTROPHILS # (AUTO) 12.9 (2.1-6.9); NEUTROPHILS % 88.9 % (38.7-80.0); PLATELET COUNT 246 x10e3/uL (140-360); RED BLOOD COUNT 4.17 x10e6/uL (4.3-5.7)
[2018-11-02 05:54] LABS: ALANINE AMINOTRANSFERASE 17 IU/L (0-55); ALKALINE PHOSPHATASE 109 IU/L (40-150); ANION GAP 15.4 mmol/L (8-16); BILIRUBIN,DIRECT 0.3 mg/dL (0.0-0.5); BLOOD UREA NITROGEN 13 mg/dL (7-26); BUN/CREATININE RATIO 18 (6-25); CARBON DIOXIDE 26 mmol/L (22-29); CHLORIDE 99 mmol/L (98-107); CREATININE, SERUM 0.72 mg/dL (0.72-1.25); EST GLOMERULAR FILTRATION RATE > 60 ML/MIN (60-); GLUCOSE 163 mg/dL (74-118); MAGNESIUM 2.2 MG/DL (1.3-2.1); POTASSIUM 4.4 mmol/L (3.5-5.1); SODIUM 136 mmol/L (136-145)
[2018-11-02 06:10] LABS: B-TYPE NATRIURETIC PEPTIDE2 61.1 pg/mL (0-100)
[2018-11-02 06:14] LABS: FREE T4 (FREE THYROXINE) 0.86 ng/dL (0.8-1.8)
[2018-11-02] MEDS ORDERED: FUROSEMIDE INJ 10 MG/ML 4 ML VIAL IV ONE (06:15)
[2018-11-02] MEDS: FAMOTIDINE 20 MG TAB PO SCH ×2 (07:32→17:23)
[2018-11-02] MEDS: INSULIN LISPRO 100 UNIT/1 ML 3ML VIAL SQ SCH ×4 (07:32→21:15)
[2018-11-02] MEDS: LACTULOSE SYRUP 20 GM/30 ML UDC PO SCH (09:00)
[2018-11-02] MEDS: DULOXETINE HCL 30 MG DELAYED RELEASE PO SCH (09:28)
[2018-11-02] MEDS: APIXABAN 5 MG TABLET PO SCH ×2 (09:28→17:22)
[2018-11-02] MEDS: GABAPENTIN 300 MG CAP PO SCH ×3 (09:28→21:45)
[2018-11-02] MEDS: METHYLPREDNISOLONE SOD SUCC 40 MG/ML VIAL 1ML IV SCH ×2 (09:28→21:45)
--- NOTE | 2018-11-02 16:17 | Consultation ---
DATE OF CONSULTATION: 11/02/2018 Pulmonary Critical Care Consultation CHIEF COMPLAINT: Obstructive sleep apnea and pulmonary emboli. HISTORY OF PRESENT ILLNESS: The patient is a 58-year-old man. He has a history of COPD as well as hypertension and peripheral neuropathy. He has a history of liver disease. He was recently hospitalized at [facility] in September 2018 with an acute pulmonary embolism. He was treated with anticoagulation and discharged home on Eliquis. He has been staying at an assisted living facility. He uses oxygen at home. He has also been using BiPAP for his obstructive sleep apnea. He takes Eliquis for his pulmonary embolism. He came back to the emergency department because of worsening swelling in his legs as well as some chest discomfort. PAST SURGICAL HISTORY: Noncontributory. PAST MEDICAL HISTORY: 1. Type 2 diabetes. 2. Hypertension. 3. COPD. 4. Obstructive sleep apnea. 5. Ventral hernia. FAMILY HISTORY: Family history is significant for hypertension and diabetes. SOCIAL HISTORY: The patient quit drinking many years ago. He also quit smoking many years ago. He lives in assisted living. ALLERGIES: THERE ARE NO KNOWN DRUG ALLERGIES. REVIEW OF SYSTEMS: He does not report fevers. There is no headache. He has no neck pain. He did have some chest pain on presentation to the emergency department, but this has improved. He does report some dyspnea with exertion. He uses oxygen at home. His abdomen is soft. He has a ventral hernia. He reports bilateral leg edema, worse on the right. He complains of neuropathy in his legs. PHYSICAL EXAMINATION: VITAL SIGNS: The blood pressure is 137/61 and the saturation is 96%. The pulse is 74. HEENT: Shows no facial swelling or erythema. The oropharynx is normal. LYMPHATIC: Shows no submandibular, cervical, or supraclavicular adenopathy. CARDIAC: Reveals a regular rate and rhythm with a normal S1 and S2. There are no murmurs or rubs. LUNGS: Auscultation of lungs reveals decreased breath sounds at the bases. There is no wheezing. ABDOMEN: Soft. There is easily reducible ventral hernia. EXTREMITIES: There is 2+ leg edema bilaterally. NEUROLOGICAL: Shows no focal abnormalities. LABORATORY DATA: The white blood cell count is 14.5 and the hemoglobin is 10.5. The platelet count is 246. BUN to creatinine ratio is normal. The other electrolytes are within normal limits. Abdominal ultrasound shows no evidence of ascites. Chest x-ray shows subsegmental atelectasis at both bases. IMPRESSION: 1. Obesity hypoventilation syndrome. 2. Obstructive sleep apnea. 3. Morbid obesity. 4. Cellulitis of the lower extremity. 5. Cirrhosis. 6. History of subacute pulmonary embolism. PLAN: 1. Continue Eliquis. 2. The patient should have BiPAP at night. 3. Continue oxygen. 4. Echocardiogram to assess right heart function. 5. Continue antibiotics. 6. The patient was seen by Dr. Isai Serrano of Pulmonology on the last admission. 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 Harsha Moran MD [facility]/IJEOMA /[id number]
--- NOTE | 2018-11-02 20:00 | NUR ---
RECEIVED PATIENT. PATIENT IS SITTING IN THE CHAIR, AAOX3. RESP EVEN AND UNLABORED WITH O2 4L. NO ACUTE DISTRESS NOTED. PATIENT REFUSES IV FLUID. CALL LIGHT WITHIN REACH. BED LOW/LOCKED. CONTINUE TO MONITOR CLOSELY
--- NOTE | 2018-11-02 20:20 | NUR ---
PATIENT STATED HIS RIGHT LEG BLISTER BURSTED WHILE HE WAS IN THE SHOWER. APPLIED DRESSING. CONTINUE TO MONITOR CLOSELY
[2018-11-02] MEDS: ATORVASTATIN 20 MG TAB PO SCH (21:45)
--- NOTE | 2018-11-02 23:45 | NUR ---
PATIENT IS SLEEP COMFORTABLY WITH BIPAP ON. NO ACUTE DISTRESS NOTED. CONTINUE TO MONITOR CLOSELY
[2018-11-03] VITALS (7 sets, daily range): BP systolic 128–165; BP diastolic 70–85
[2018-11-03] MEDS: GUAIFENESIN 600 MG TAB PO SCH ×5 (01:29→23:37)
[2018-11-03] MEDS: PIPER-TAZ 3.375 GM 50 ML IV SCH ×3 (01:29→13:31)
[2018-11-03] MEDS: ALBUTEROL SULF 0.083% NEB SOLN 3 ML NEB NEB SCH ×6 (02:53→23:41)
[2018-11-03] MEDS: IPRATROPIUM BROMIDE 0.02% 2.5 ML NEB NEB SCH ×6 (02:53→23:41)
--- NOTE | 2018-11-03 03:00 | NUR ---
PATIENT REFUSED 0300 LAB
[2018-11-03] MEDS: VANCOMYCIN 1GM/NS 250 ML 250 ML IV SCH ×2 (04:00→16:32)
[2018-11-03 06:02] LABS: BASOPHILS % 0.2 % (0.0-1.0); HEMATOCRIT 30.8 % (38.2-49.6); HEMOGLOBIN 9.4 g/dL (14.0-18.0); LYMPHOCYTES # (AUTO) 0.9 (1.0-3.2); LYMPHOCYTES % 7.3 % (18.0-39.1); MEAN CORPUSCULAR HEMOGLOBIN 24.8 pg (28-32); MEAN CORPUSCULAR HGB CONC 30.5 g/dL (31-35); MEAN CORPUSCULAR VOLUME 81.3 fL (81-99); MONOCYTES # (AUTO) 0.9 (0.2-0.8); MONOCYTES % 7.1 % (4.4-11.3); NEUTROPHILS # (AUTO) 9.7 (2.1-6.9); NEUTROPHILS % 81.1 % (38.7-80.0); PLATELET COUNT 242 x10e3/uL (140-360); RED BLOOD COUNT 3.79 x10e6/uL (4.3-5.7); RED CELL DISTRIBUTION WIDTH 15.9 % (11.7-14.4)
[2018-11-03 06:31] LABS: ANION GAP 12.4 mmol/L (8-16); BLOOD UREA NITROGEN 20 mg/dL (7-26); BUN/CREATININE RATIO 26 (6-25); CALCIUM 9.8 mg/dL (8.4-10.2); CARBON DIOXIDE 27 mmol/L (22-29); CHLORIDE 102 mmol/L (98-107); CREATININE, SERUM 0.77 mg/dL (0.72-1.25); EST GLOMERULAR FILTRATION RATE > 60 ML/MIN (60-); GLUCOSE 148 mg/dL (74-118); POTASSIUM 4.4 mmol/L (3.5-5.1); SODIUM 137 mmol/L (136-145)
--- NOTE | 2018-11-03 06:35 | NUR ---
PATIENT WOKE UP, CONFUSED, WALKED TO THE [address] WAY BLEEDING FROM HIS HIS WHERE HIS IV WAS. PRESSURE DRESSING APPLIED TO LEFT HAND, BLEEDING STOP. REORIENTED PATIENT TO ROOM
--- NOTE | 2018-11-03 07:00 | NUR ---
BEDSIDE SHIFT REPORT RECEIVED FROM [facility] RN. PT DENIES NEEDS AT THIS TIME.
[2018-11-03] MEDS: FAMOTIDINE 20 MG TAB PO SCH ×2 (08:29→16:32)
[2018-11-03] MEDS: INSULIN LISPRO 100 UNIT/1 ML 3ML VIAL SQ SCH ×4 (08:30→23:35)
[2018-11-03] MEDS: LACTULOSE SYRUP 20 GM/30 ML UDC PO SCH (09:02)
[2018-11-03] MEDS: DULOXETINE HCL 30 MG DELAYED RELEASE PO SCH (09:02)
[2018-11-03] MEDS: APIXABAN 5 MG TABLET PO SCH ×2 (09:02→16:32)
[2018-11-03] MEDS: METHYLPREDNISOLONE SOD SUCC 40 MG/ML VIAL 1ML IV SCH (09:02)
[2018-11-03] MEDS: GABAPENTIN 300 MG CAP PO SCH ×3 (09:02→23:34)
[2018-11-03 09:10] LABS: BAND NEUTROPHILS % (MANUAL) 1 %; LYMPHOCYTES % (MANUAL) 7 % (19-48); MONOCYTES % (MANUAL) 5 % (3.4-9.0); NEUTROPHILS % (MANUAL) 87 % (40-74); PLATELET ESTIMATE ADEQUATE; PLATELET MORPHOLOGY COMMENT NORMAL; RBC MORPHOLOGY COMMENT NORMAL
--- NOTE | 2018-11-03 11:03 | NUR ---
WOUND CARE NURSE INITIAL CONSULTATION. 58 YEAR O[address] TO [facility] WITH DX OF CELLULITIS AND COPD WITH EXACERBATION. HEAD TO TOE SKIN ASSESSMENT PERFORMED TODAY. PT PRESENTS WITH A 3X3X0.1CM VENOUS ULCER TO RIGHT LATERAL LOWER LEG. 2+ PITTING EDEMA TO BILATERAL LOWER EXTREMITIES. CELLULITIS IS RESOLVING. PALPABLE DP AND PT PULSES. RIGHT WRIST FRACTURE WITH CAST POST FALL AT HOME. NO S/S OF INFECTION PRESENT. THERE ARE NO OTHER AREAS OF CONCERN NOTED AT THIS TIME. LABS: WBC: 11.98 HGBA1C:6.1 GLUCOSE: 181 4L O2 PER N/C RIGHT LEG WOUND CX RESULTS ARE PENDING AT THIS TIME. RECOMMENDATIONS: CONTINUE WITH ALTERNATING LOW AIR LOSS MATTRESS PROVIDE PT BILATERAL HEEL PROTECTORS AND PILLOW SUSPENSIONS ENCOURAGE PT TO TURN EVERY TWO HOURS AND PRN. CLEAN RIGHT LATERAL LOWER LEG WITH NS, APPLY PURACOL/FIBRACOL AND COVER WITH 4X4 GAUZE, KERLIX AND TAPE. CHANGE DRESSING DAILY THANKS DR. GU FOR THIS CONSULTATION. Addendum: 11/03/18 at 1112 by Jennifer Clayton RN Amended: Links added.
--- NOTE | 2018-11-03 12:51 | NUR ---
Received order for inpatient rehab. Spoke to pt at bedside. Pt states he wants to stay in the area. Explained to pt that he would need to meet criteria and would need insurance approval prior to transferring. Choice letter signed for [facility]. Signed copy placed in chart. Copy to pt. CM faxed referral to [facility] ([facility]) and asked Crystal to look at clinicals and let CM know if pt would meet criteria.
[2018-11-03] MEDS ORDERED: FUROSEMIDE INJ 10 MG/ML 4 ML VIAL IV SCH (13:00)
[2018-11-03] MEDS: HYDROCODONE/APAP 5MG-325MG TAB PO PRN ×2 (13:31→23:35)
--- NOTE | 2018-11-03 14:51 | Progress Note ---
DATE: 11/03/2018 Pulmonary Medicine Progress Note SUBJECTIVE: Mr. Donahue was seen and examined at bedside. He is having steady progress. He continues to have his legs shrink in girth. The patient has walked up and down the hallway today and did at least 60 feet walking with PT. 4 L/minute oxygen therapy. He uses CPAP at night at 10 cm water, 40% FiO2. 2.9 L in and 1.0 L out were recorded. One bowel movement. REVIEW OF SYSTEMS: No headaches, no bleeding. OBJECTIVE: VITAL SIGNS: Afebrile, vital signs noted and reviewed per the chart record. GENERAL: In no acute distress, alert and calm. HEENT: Normocephalic, atraumatic. NECK: Supple. Throat midline. LUNGS: Bilateral air entry, few rare rhonchi. CARDIOVASCULAR: S1, S2. No murmurs, rubs, or gallops. ABDOMEN: Soft and nontender. EXTREMITIES: No clubbing, no cyanosis, there is 2+ edema. INTEGUMENT: No rash no purpura. There are some stasis changes of the legs. LABORATORY DATA: Potassium 4.4, bicarbonate 27, creatinine 0.77. White count 12, hematocrit 31, platelets 242. LFTs noted mostly unremarkable. IMPRESSION: 1. Obesity hypoventilation syndrome. 2. Obstructive sleep apnea. 3. Morbid obesity. 4. Cellulitis of the leg. 5. History of pulmonary embolism, subacute. 6. Reported asthma versus chronic obstructive pulmonary disease. 7. History of hypersomnia/narcolepsy per outside reports. 8. Secondary pulmonary hypertension. 9. History of recent right middle lobe atelectasis/pneumonia a month ago. PLAN: Continue serial followup. Diuretics. BiPAP at night. Continue to mobilize him. Continue blood thinners of apixaban for the pulmonary embolism. Wean down steroids. I will continue to follow. MD MAKAYLA Cali/MODL /[id number]
--- NOTE | 2018-11-03 21:09 | Consultation ---
DATE OF CONSULTATION: 11/03/2018 REASON FOR CONSULTATION: Cellulitis of the right leg. HISTORY OF PRESENT ILLNESS: This patient is a morbidly obese patient, a 58-year-old male with a history of COPD, hypertension, severe neuropathy, liver disease. He was recently in the hospital in September 2018, with pulmonary embolism, started on Eliquis, discharged to a living facility, comes back with redness and swelling of his right leg. He also has been having problem with recurrent boils to the skin. The patient does have a problem with dry skin and he cannot reach his feet because of his obesity. The patient also has a history of diabetes mellitus, hypertension, obstructive sleep apnea, and ventral hernia. He came here because he was just not doing well as mentioned above and with a worsening condition of his leg. The patient is admitted. Infectious Disease to see the patient. He is currently lying in the bed comfortably. PAST MEDICAL HISTORY: As above. PAST SURGICAL HISTORY: Denies. ALLERGIES: NKA. SOCIAL HISTORY: There is no smoking, drug abuse, or alcohol abuse. FAMILY HISTORY: Hypertension and diabetes. REVIEW OF SYSTEMS: HEENT: Negative. PULMONARY: There is shortness of breath with exertion, but this is old. : Negative. GI: Negative. SKIN: There are no other rashes. Review of systems is otherwise unremarkable. LABORATORY DATA: Reviewed. White count 9.86, hemoglobin 10.3, hematocrit 32, his platelet count 53. His sodium 137, potassium 4.4, creatinine 0.77. MEDICATIONS: His medication list reviewed. He is currently on Mucinex, Zosyn, Neurontin, Pepcid, vancomycin. PHYSICAL EXAMINATION: GENERAL: He is currently alert, oriented, obese, does not seem to be in acute distress. VITAL SIGNS: Stable, currently afebrile. HEENT: He is not icteric. NECK: Supple. CHEST: Clear. HEART: S1 and S2. No S3, S4, or murmur. ABDOMEN: Soft. Bowel sounds present. No tenderness. Obese. EXTREMITIES: The leg, there is dry skin. There is some erythema and edema noted in the lower third of the leg. IMPRESSION AND PLAN: 1. Cellulitis of the leg, open ulcer. The patient is morbidly obese, probably venous stasis dermatitis. Also, history of deep vein thrombosis, history of pulmonary embolism, history of sleep apnea, concerned about congestive heart failure. 2. Dry skin. I agree with vancomycin. We will follow trough. Discontinue Zosyn. Continue with wound care and local care. 3. Neuropathy. 4. Liver cirrhosis. 5. Alcoholism. We will follow. MD DORYS Beck/IJEOMA /[id number]
[2018-11-03] MEDS: ATORVASTATIN 20 MG TAB PO SCH (23:34)
[2018-11-04] VITALS (8 sets, daily range): BP systolic 149–174; BP diastolic 67–81
[2018-11-04] MEDS: ALBUTEROL SULF 0.083% NEB SOLN 3 ML NEB NEB SCH ×4 (03:21→14:28)
[2018-11-04] MEDS: IPRATROPIUM BROMIDE 0.02% 2.5 ML NEB NEB SCH ×4 (03:21→12:28)
[2018-11-04] MEDS: VANCOMYCIN 1GM/NS 250 ML 250 ML IV SCH (04:10)
[2018-11-04 05:01] LABS: BASOPHILS % 0.3 % (0.0-1.0); HEMATOCRIT 31.5 % (38.2-49.6); HEMOGLOBIN 9.7 g/dL (14.0-18.0); LYMPHOCYTES # (AUTO) 1.3 (1.0-3.2); MEAN CORPUSCULAR HEMOGLOBIN 25.2 pg (28-32); MEAN CORPUSCULAR HGB CONC 30.8 g/dL (31-35); MEAN CORPUSCULAR VOLUME 81.8 fL (81-99); MONOCYTES % 8.1 % (4.4-11.3); NEUTROPHILS % 75.8 % (38.7-80.0); PLATELET COUNT 253 x10e3/uL (140-360); RED BLOOD COUNT 3.85 x10e6/uL (4.3-5.7); RED CELL DISTRIBUTION WIDTH 16.2 % (11.7-14.4)
[2018-11-04 05:23] LABS: ANION GAP 13.1 mmol/L (8-16); BLOOD UREA NITROGEN 18 mg/dL (7-26); BUN/CREATININE RATIO 26 (6-25); CALCIUM 9.6 mg/dL (8.4-10.2); CARBON DIOXIDE 26 mmol/L (22-29); CHLORIDE 103 mmol/L (98-107); CREATININE, SERUM 0.69 mg/dL (0.72-1.25); EST GLOMERULAR FILTRATION RATE > 60 ML/MIN (60-); GLUCOSE 136 mg/dL (74-118); POTASSIUM 4.1 mmol/L (3.5-5.1); SODIUM 138 mmol/L (136-145)
[2018-11-04] MEDS: GUAIFENESIN 600 MG TAB PO SCH ×3 (05:41→17:46)
--- NOTE | 2018-11-04 07:00 | NUR ---
BEDSIDE SHIFT REPORT RECEIVED FROM NIGHT RN. PT DENIES NEEDS AT THIS TIME.
[2018-11-04] MEDS: DULOXETINE HCL 30 MG DELAYED RELEASE PO SCH (08:10)
[2018-11-04] MEDS: LACTULOSE SYRUP 20 GM/30 ML UDC PO SCH (08:10)
[2018-11-04] MEDS: GABAPENTIN 300 MG CAP PO SCH ×2 (08:10→14:55)
[2018-11-04] MEDS: APIXABAN 5 MG TABLET PO SCH ×2 (08:10→17:46)
[2018-11-04] MEDS: FAMOTIDINE 20 MG TAB PO SCH ×2 (08:10→16:50)
[2018-11-04] MEDS: INSULIN LISPRO 100 UNIT/1 ML 3ML VIAL SQ SCH ×3 (08:11→16:30)
[2018-11-04] MEDS ORDERED: FUROSEMIDE INJ 10 MG/ML 4 ML VIAL IV SCH (09:00)
[2018-11-04] MEDS ORDERED: PREDNISONE 10 MG TAB PO SCH (09:00)
--- NOTE | 2018-11-04 11:00 | NUR ---
Spoke to Spring Templeton with [facility]. She stated that pt does not qualify for inpatient rehab since he is ambulating 450 ft with supervision. Notified MEHDI Pinedo. Gave order to set up home health and pt can dc when ID can transition to PO abx.
--- NOTE | 2018-11-04 11:58 | NUR ---
Pulmonary Medicine Progress Note DATE: 11/04/2018 SUBJECTIVE: Mr. Donahue was seen and examined at bedside. He is urinating more now after lasix was restarted. 4 L/min oxygen by [place] CPAP 10 used during the night, until ~ 4 am. The patient continues walking. +BM, eating REVIEW OF SYSTEMS: No headaches, no bleeding. OBJECTIVE: VITAL SIGNS: vital signs noted and reviewed per the chart record. GENERAL: In no acute distress, alert and calm. HEENT: Normocephalic, atraumatic. NECK: Supple. Throat midline. LUNGS: Bilateral air entry, few rare rhonchi. CARDIOVASCULAR: S1, S2. No murmurs, rubs, or gallops. ABDOMEN: Soft and nontender. EXTREMITIES: No clubbing, no cyanosis, there is 2+ edema. INTEGUMENT: No rash no purpura. There are some stasis changes of the legs. LABORATORY DATA: 4.1 k, cr .7 12 wbc. 32 hct. IMPRESSION: 1. Obesity hypoventilation syndrome. 2. Obstructive sleep apnea. 3. Morbid obesity. 4. Cellulitis of the leg. 5. History of pulmonary embolism, subacute. 6. Reported asthma versus chronic obstructive pulmonary disease. 7. History of hypersomnia/narcolepsy per outside reports. 8. Secondary pulmonary hypertension. 9. History of recent right middle lobe atelectasis/pneumonia a month ago. PLAN: Physical therapy continue, ambulate Diuretics continue CPAP/BiPAP at night. Continue blood thinners of apixaban for the pulmonary embolism. Continue steroids wean
[2018-11-04] MEDS ORDERED: VANCOMYCIN HCL 1.25 GM in SODIUM CHLORIDE 0.9% 250ML 250 ML IV SCH (12:00)
--- NOTE | 2018-11-04 15:03 | NUR ---
Spoke to Dr. Barreto regarding DC plan. He wrote prescription for po abx. Spoke to pt at bedside regarding home health. Pt states to use any company in network with his insurance. Choice letter signed for [facility] and [facility] and placed in chart. Copy to pt. Referral was faxed to [facility]
--- NOTE | 2018-11-04 16:00 | NUR ---
DR. RUSSELL CLEARED PT FOR DISCHARGE HOME. FOLLOW UP IN HIS OFFICE IN 3 WEEKS.
--- NOTE | 2018-11-04 16:15 | NUR ---
Received call from Lynn with [facility]. They will be accepting pt. Informed her pt will discharge today.
[2018-11-04] MEDS ORDERED: CIPROFLOXACIN500 MG PO (16:23)
[2018-11-04] MEDS ORDERED: DOXYCYCLINE MO100 MG PO (16:23)
--- NOTE | 2018-11-05 08:31 | Discharge Summary ---
ADMISSION DIAGNOSES: Right lower extremity cellulitis, acute exacerbation of chronic obstructive pulmonary disease, type 2 diabetes, alcoholic cirrhosis, depression, history of pulmonary embolism, morbid obesity with ambulatory dysfunction and frequent falls. DISCHARGE DIAGNOSES: Right lower extremity cellulitis, acute exacerbation of chronic obstructive pulmonary disease, type 2 diabetes, alcoholic cirrhosis, depression, history of pulmonary embolism, morbid obesity with ambulatory dysfunction and frequent falls. Rule out deep vein thrombosis, rule out heart failure. HISTORY: The patient has a history of hypertension, PE, peripheral neuropathy, COPD with 3 L/minute O2 at home, type 2 diabetes, hyperlipidemia, insomnia, morbid obesity, ventral hernia, depression, cirrhosis. SURGICAL HISTORY: Umbilical hernia repair x2, right ankle surgery and right arm surgery. FAMILY HISTORY: The patient's dad had cancer. The patient's aunt and uncle had a stroke. SOCIAL HISTORY: Occasional alcohol use. HOSPITAL COURSE: A 58-year-old male complains of bilateral lower extremity erythema, draining and swelling that began 3 days prior to admission. He denies recent travel and fever. Symptoms are worse with weightbearing and improves with pain med. The patient denies any outpatient antibiotic use. On admission, the patient was started on vancomycin and Zosyn IV, IV Solu-Medrol, Mucinex, O2. Pulmonary was consulted as well as ID. Chest x-ray showed bibasilar subsegmental atelectasis. Ultrasound of the abdomen showed no ascites. Bilateral lower extremity was negative for DVT. Echo showed an EF of 55%. The patient was started on CPAP in the hospital at a pressure of 10. He also uses CPAP at home intermittently. He will discharge back to [facility] with 2 weeks of Cipro and doxycycline per ID recommendation. We attempted to get an inpatient rehab due to frequent falls and ambulatory dysfunction, but it was denied. The patient will be discharged back to assisted living with home health instead. The patient understands discharge instructions and agrees to plan. Vital signs stable, the patient afebrile. Dictated by Shahida Tai NP MD ADALBERTO Hayden/IJEOMA /[id number]
== END 2018-11-04 20:45 | disposition home or self-care (01) | DRG 603 ==
LOC: ER 12:35 → ERHOLD 16:34 → MED/SURG2 17:12
PROVIDERS: ADMIT Internal Medicine; ATTEND Internal Medicine
DX: L03.115 Cellulitis of right lower limb (principal); Z68.43 Body mass index [BMI] 50.0-59.9, adult; J44.1 Chronic obstructive pulmonary disease with (acute) exacerbation; K70.30 Alcoholic cirrhosis of liver without ascites; F32.9 Major depressive disorder, single episode, unspecified; Z86.711 Personal history of pulmonary embolism; Z79.01 Long term (current) use of anticoagulants; Z91.81 History of falling; R26.9 Unspecified abnormalities of gait and mobility; E66.01 Morbid (severe) obesity due to excess calories; J44.9 Chronic obstructive pulmonary disease, unspecified; E78.5 Hyperlipidemia, unspecified; G47.00 Insomnia, unspecified; Z99.81 Dependence on supplemental oxygen; E11.42 Type 2 diabetes mellitus with diabetic polyneuropathy; Z79.4 Long term (current) use of insulin
CPT/HCPCS: 36415; 71045; 76705; 80048; 80053; 80076; 80202; 81001; 82550; 82553; 82948; 83036; 83605; 83735; 83880; 84439; 84443; 84484; 85025; 85610; 85730; 87071; 87186; 87205; 93005; 93306; 93970; 94640; 94660; 96367; 96372; 96374; 96375; 96376; 97139; 99285; J1170; J1940; J2270; J2405; J2543; J2920; J3370; J7030; J7050; J7512

== ENCOUNTER 2018-11-17 13:18 | Emergency (ER) | payer OTHER ==
[~2018-11-17] VITALS: Ht 160 cm; Wt 141.1 kg
[~2018-11-17 13:18] MED LIST changes: +CIPROFLOXACIN500 MG PO; +DOXYCYCLINE MO100 MG PO
--- OUTSIDE RECORDS SUMMARY | 2018-11-17 13:23 | XMS REPORT | Continuity of Care Document ---
Author Author [employer] Address Unknown Phone Unavailable Care Team Providers Care Employment Officer Name Role Phone [employer] Unavailable Unavailable Problems Problem Status Onset Date Classification Date Reported Comments Source SUICIDAL IDEATION Active 09/14/2018 [facility] CAP (COMMUNITY ACQUIRED PNEUMONIA), COPD Active 09/14/2018 [facility] ABNORMAL LAB Active 05/14/2018 [facility] ACUTE ON CHRONIC RENAL FAILURE Active 05/14/2018 [facility] Ventral hernia without obstruction or gangrene 03/29/2018 10/11/2018 [facility] Generalized edema 03/24/2018 10/11/2018 [facility] Hernia, ventral 03/24/2018 10/11/2018 [facility] Generalized pain 03/24/2018 10/11/2018 [facility] EDEMA Active 03/24/2018 [facility] Abdominal pain 09/27/2017 09/30/2017 [facility] Abdominal hernia 09/27/2017 09/30/2017 [facility] LEG PAIN Active 09/26/2017 [facility] WEAKNESS Active 04/25/2017 [facility] Discharge Diagnosis: Hernia 02/15/2015 02/18/2015 [facility] Discharge Diagnosis: Atypical chest pain 02/15/2015 02/18/2015 [facility] ABDOMINAL PAIN Active 02/15/2015 [place] Pain, unspecified 10/11/2018 [facility] Type 2 diabetes mellitus with diabetic neuropathy, unspecified 10/11/2018 [facility] Hypertensive heart disease with heart failure 10/11/2018 [facility] Heart failure, unspecified 10/11/2018 [facility] Personal history of other venous thrombosis and embolism 10/11/2018 [facility] Dependence on supplemental oxygen 10/11/2018 [facility] Personal history of nicotine dependence 10/11/2018 [facility] Chronic obstructive pulmonary disease (Confirmed) Resolved Problem 10/11/2018 [facility] Diabetes Active Problem 10/11/2018 [facility] Diabetic neuropathy Active Problem 10/11/2018 [facility] Homelessness Active Problem 10/11/2018 [facility] Hypertension Active Problem 10/11/2018 [facility] DM (Confirmed) Resolved Problem 02/18/2015 [facility] Hernia Resolved Problem 02/18/2015 [facility] HTN - Hypertension Resolved Problem 02/18/2015 [facility] HYPO-OSMOLALITY AND HYPONATREMIA Active [facility] ACUTE KIDNEY FAILURE, UNSPECIFIED Active [facility] PNEUMONIA, UNSPECIFIED ORGANISM Active [facility] CHRONIC OBSTRUCTIVE PULMONARY DISEASE W Active [facility] Medications Medication Details Route Status Patient Instructions Ordering Provider Order Date Source Prednisone 60 mg, 3 tab, Route: PO, Drug form: TAB, Daily, Dosing Weight 163.636, kg, Start date: 09/16/18 9:00:00 CDT, Duration: 30 day, Stop date: 10/15/18 9:00:00 CDTNotes: Take with food. No Longer Active 09/16/2018 [facility] Azithromycin 250 mg, 1 tab, Route: PO, Drug form: TAB, [id number], Dosing Weight 163.636, kg, Start date: 09/16/18 0:00:00 CDT, Duration: 4 doses or times, Stop date: 09/19/18 0:00:00 CDT, ABX Indication: Non-PNA Respi ratory Tract InfectionNotes: Take 1 hour before or 2 hours after meals. (Same As: Zithromax) No Longer Active 09/16/2018 [facility] Ceftriaxone 1 gm, Route: IVPB, [id number], Dosing Weight 163.636, kg, Start date: 09/16/18 0:00:00 CDT, Duration: 5 day, Stop date: 09/20/18 0:00:00 CDT, ABX Indication: Non-PNA Respiratory Tract InfectionNotes: (Same As: Rocephin). Use with 100 mL NS and infuse over 30 min MEDICATION WASTE Product Size: 1000 mg Product Wasted: ___ mg No Longer Active 09/16/2018 [facility] atorvastatin 20 mg, 2 tab, Route: PO, Drug form: TAB, Bedtime, Dosing Weight 148.182, kg, Start date: 09/15/18 21:00:00 CDT, Duration: 30 day, Stop date: 10/14/18 21:00:00 CDTNotes: (Same As: Lipitor) Inactive 09/16/2018 [facility] *RN please bring pt own theophylline to pharmacy for label* *RN please bring pt own theophylline to pharmacy for label*, reminder, Drug form: MISC, Route: MISCMARLEN, 09/15/18 16:00:00 CDT, Duration: 30 day, Stop date: 10/15/18 8:00:00 CDT Inactive 09/15/2018 [facility] Acetaminophen 300 MG / Codeine Phosphate 30 MG Oral Tablet [Tylenol with Codeine #3] 1 tab, PO, Q6H, PRN Pain, X 7 day, # 28 tab, 0 Refill(s) Active 09/15/2018 [facility] levofloxacin 500 mg oral tablet 500 mg=1 tab, PO, Q24H, X 5 day, # 5 tab, 0 Refill(s), Pharmacy: [facility]/pharmacy #[id number] Active 09/15/2018 [facility] predniSONE 20 mg oral tablet 40 mg=2 tab, PO, Daily, X 5 day, # 10 tab, 0 Refill(s), Pharmacy: [facility]/pharmacy #[id number] Active 09/15/2018 [facility] Gage-24 600 mg, 2 cap, Route: PO, Drug form: ERCAP, Daily, Dosing Weight 148.182, kg, Start date: 09/15/18 9:00:00 CDT, Duration: 30 day, Stop date: 10/14/18 9:00:00 CDTNotes: Enteral feeds may interfere with the absorption of this medication. Inactive 09/15/2018 [facility] Losartan 100 mg, 2 tab, Route: PO, Drug form: TAB, Daily, Dosing Weight 148.182, kg, Start date: 09/15/18 9:00:00 CDT, Duration: 30 day, Stop date: 10/14/18 9:00:00 CDTNotes: (Same as: Cozaar) Inactive 09/15/2018 [facility] Lactulose 667 MG/ML Oral Solution 20 gm, 30 mL, Route: PO, Drug form: SYRP, TID, Dosing Weight 148.182, kg, Start date: 09/15/18 9:00:00 CDT, Duration: 30 day, Stop date: 10/14/18 17:00:00 CDTNotes: (Same as:Chronulac) Inactive 09/15/2018 [facility] Hydralazine 100 mg, 2 tab, Route: PO, Drug form: TAB, TID, Dosing Weight 148.182, kg, Start date: 09/15/18 9:00:00 CDT, Duration: 30 day, Stop date: 10/14/18 17:00:00 CDTNotes: (Same as: Apresoline) May interfere w/enteral feedings Take With Food Inactive 09/15/2018 [facility] Amlodipine 10 mg, 2 tab, Route: PO, Drug form: TAB, Daily, Dosing Weight 163.636, kg, Start date: 09/15/18 9:00:00 CDT, Duration: 30 day, Stop date: 10/14/18 9:00:00 CDTNotes: (Same as: Norvasc) Inactive 09/15/2018 [facility] Famotidine 20 MG Oral Tablet 20 mg, 1 tab, Route: PO, Drug form: TAB, BID, Dosing Weight 148.182, kg, Start date: 09/15/18 9:00:00 CDT, Duration: 30 day, Stop date: 10/14/18 17:00:00 CDTNotes: (Same as: Pepcid) Inactive 09/15/2018 [facility] duloxetine 30 mg, 1 cap, Route: PO, Drug form: DRC, Daily, Dosing Weight 148.182, kg, Start date: 09/15/18 9:00:00 CDT, Duration: 30 day, Stop date: 10/14/18 9:00:00 CDTNotes: (Same as: Cymbalta) (Do Not Crush) Inactive 09/15/2018 [facility] Albuterol 0.833 MG/ML / Ipratropium [place] 0.167 MG/ML Inhalant Solution 3 mL, Route: NEB, Drug Form: SOLN, Dosing Weight 163.636, kg, RQ6H, Start date: 09/15/18 8:00:00 CDT, Duration: 30 day, Stop date: 10/15/18 2:00:00 CDTNotes: (Same as: Duoneb) Inactive 09/15/2018 [facility] heparin 5,000 unit, 1 mL, Route: SUB-Q, Drug form: INJ, Q8H, Dosing Weight 163.636, kg, Start date: 09/15/18 8:00:00 CDT, Duration: 30 day, Stop date: 10/15/18 0:00:00 CDTNotes: porcine heparin Inactive 09/15/2018 [facility] Albuterol 0.83 MG/ML Inhalant Solution 2.49 mg=3 mL, INHALATION, Q6H, PRN wheezing, coughing, or shortness of breath, # 240 ea, 1 Refill(s) Active 09/15/2018 [facility] Zolpidem tartrate 10 MG Oral Tablet [Ambien] 10 mg=1 tab, PO, Bedtime, PRN for sleep, 0 Refill(s) Active 09/15/2018 [facility] Acetaminophen 325 MG / Hydrocodone Bitartrate 5 MG Oral Tablet [Bison 5/325] 1 tab, PO, Q4-6H, PRN, # 30 tab, 0 Refill(s) Inactive 09/15/2018 [facility] Furosemide 40 MG Oral Tablet [Lasix] 40 mg=1 tab, PO, Daily, # 30 tab, 0 Refill(s) Inactive 09/15/2018 [facility] Lasix 40 mg, 4 mL, Route: IV, Drug form: INJ, Q50Qrdq, Dosing Weight 163.636, kg, Start date: 09/15/18 4:00:00 CDT, Duration: 30 day, Stop date: 10/14/18 16:00:00 CDTNotes: (Same as: Lasix) MEDICATION WASTE Product Size: 40 mg Product Wasted: ___ mg Inactive 09/15/2018 [facility] Acetaminophen 325 MG / Hydrocodone Bitartrate 5 MG Oral Tablet [[place] 5/325] 1 tab, Route: PO, Drug Form: TAB, Dosing Weight 163.636, kg, Q6H, PRN Pain Score 4-6, Start date: 09/15/18 3:38:00 CDT, Duration: 30 day, Stop date: 10/15/18 3:37:00 CDTNotes: (Same as: Bison 325/5) Do not exceed 4gm/day of acetaminophen. Inactive 09/15/2018 [facility] Tessalon Perles 100 mg, 1 cap, Route: PO, Drug form: CAP, TID, Dosing Weight 163.636, kg, PRN Cough, Start date: 09/15/18 3:36:00 CDT, Duration: 30 day, Stop date: 10/15/18 3:35:00 CDTNotes: (Same As: Bhakti clark) "Do Not Crush" Inactive 09/15/2018 [facility] Acetaminophen 325 mg, 1 tab, Route: PO, Drug form: TAB, Q4H, Dosing Weight 163.636, kg, PRN Pain 1-3/Temp > 100.4 F, Start date: 09/15/18 3:36:00 CDT, Duration: 30 day, Stop date: 10/15/18 3:35:00 CDTNotes: Do not exceed 4 gm/day. (Same as: Tylenol) Inactive 09/15/2018 [facility] Melatonin 3 mg, 1 tab, Route: PO, Drug form: TAB, Bedtime, Dosing Weight 163.636, kg, PRN Insomnia, Start date: 09/15/18 3:36:00 CDT, Duration: 30 day, Stop date: 10/15/18 3:35:00 CDTNotes: (Same as: Melatonin) Inactive 09/15/2018 [facility] Ondansetron 4 mg, 2 mL, Route: IVP, Drug form: INJ, Q8H, Dosing Weight 163.636, kg, PRN Nausea & Vomiting, Start date: 09/15/18 3:36:00 CDT, Duration: 30 day, Stop date: 10/15/18 3:35:00 CDTNotes: (Same as: Zofran) MEDICATION WASTE Product Size: 4 mg Product Wasted: ___ mg Inactive 09/15/2018 [facility] Bisacodyl 10 mg, 1 supp, Route: NM, Drug form: SUPP, Daily, Dosing Weight 163.636, kg, PRN Constipation, Start date: 09/15/18 3:36:00 CDT, Duration: 30 day, Stop date: 10/15/18 3:35:00 CDTNotes: (Same As: Dulcolax, [place]-Lax) Inactive 09/15/2018 [facility] Glucagon 1 mg, Route: IM, Drug form: PDR/INJ, PRN, Dosing Weight 163.636, kg, PRN Blood Glucose Results, Start date: 09/15/18 3:36:00 CDT, Duration: 30 day, Stop date: 10/15/18 3:35:00 CDT Inactive 09/15/2018 [facility] Dextrose 50% Syringe 12.5 gm, 25 mL, Route: IVP, Drug Form: INJ, Dosing Weight 163.636, kg, PRN, PRN Blood Glucose Results, Start date: 09/15/18 3:36:00 CDT, Duration: 30 day, Stop date: 10/15/18 3:35:00 CDT Inactive 09/15/2018 [facility] Albuterol 0.83 MG/ML Inhalant Solution 2.49 mg, 3 mL, Route: NEB, Drug form: SOLN, RQ2H, Dosing Weight 163.636, kg, PRN Wheezing, Priority: Routine, Start date: 09/15/18 3:36:00 CDT, Duration: 30 day, Stop date: 10/15/18 3:35:00 CDTNotes: SEE RT DOCUMENTATION (Same as: Amanda) Inactive 09/15/2018 [facility] Magnesium Sulfate 2 gm, Route: IVPB, ONCE, Dosing Weight 163.636, kg, Priority: STAT, Start date: 09/15/18 2:43:00 CDT, Stop date: 09/15/18 2:43:00 CDT Inactive 09/15/2018 [facility] Prednisone 60 mg, Route: PO, Drug form: TAB, ONCE, Dosing Weight 163.636, kg, Start date: 09/15/18 2:43:00 CDT, Stop date: 09/15/18 2:43:00 CDT Inactive 09/15/2018 [facility] Albuterol 0.833 MG/ML / Ipratropium [place] 0.167 MG/ML Inhalant Solution [DuoNeb] 9 mL, Route: NEB, Dosing Weight 163.636, kg, ONCE, Start date: 09/15/18 2:42:00 CDT, Stop date: 09/15/18 2:42:00 CDT Inactive 09/15/2018 [facility] Azithromycin 500 mg, Route: IVPB, ONCE, Dosing Weight 163.636, kg, Priority: STAT, Start date: 09/15/18 0:23:00 CDT, Stop date: 09/15/18 0:23:00 CDT, ABX Indication: Pneumonia Inactive 09/15/2018 [facility] Rocephin 1 gm, Route: IVPB, Drug form: PDR/INJ, ONCE, Dosing Weight 163.636, kg, Priority: STAT, Start date: 09/15/18 0:23:00 CDT, Stop date: 09/15/18 0:23:00 CDT, ABX Indication: Pneumonia Inactive 09/15/2018 [facility] Acetaminophen 300 MG / Codeine Phosphate 30 MG Oral Tablet [Tylenol with Codeine #3] 1 tab, PO, Q6H, PRN Pain, X 5 day, # 20 tab, 0 Refill(s) No Longer Active 03/24/2018 [facility] Acetaminophen 325 MG / Hydrocodone Bitartrate 5 MG Oral Tablet [[place] 5/325] 1 tab, Route: PO, Drug Form: TAB, Dosing Weight 128.182, kg, ONCE, STAT, Start date: 03/24/18 2:41:00 RISK MANAGEMENT DIRECTOR, Stop date: 03/24/18 2:41:00 RISK MANAGEMENT DIRECTOR Inactive 03/24/2018 [facility] Lasix 80 mg, Route: IVP, Drug form: INJ, ONCE, Dosing Weight 128.182, kg, Priority: STAT, Start date: 03/24/18 2:41:00 RISK MANAGEMENT DIRECTOR, Stop date: 03/24/18 2:41:00 RISK MANAGEMENT DIRECTOR Inactive 03/24/2018 [facility] Fentanyl 50 microgram, Route: IVP, ONCE, Dosing Weight 128.182, kg, Priority: STAT, Start date: 09/27/17 0:32:00 CDT, Stop date: 09/27/17 0:32:00 CDT Inactive 09/27/2017 [facility] Fentanyl 50 microgram, Route: IVP, ONCE, Dosing Weight 128.182, kg, Priority: STAT, Start date: 09/26/17 22:26:00 CDT, Stop date: 09/26/17 22:26:00 CDT Inactive 09/27/2017 [facility] Folic Acid 1 MG Oral Tablet 1 mg=1 tab, PO, Daily, 0 Refill(s) Active 05/10/2017 [facility] Famotidine 20 MG Oral Tablet 20 mg=1 tab, PO, BID, 0 Refill(s) Active 05/10/2017 [facility] Enoxaparin 40 mg=0.4 mL, SUB-Q, [id number], 0 Refill(s) Active 05/10/2017 [facility] carvedilol 12.5 mg oral tablet 12.5 mg=1 tab, PO, Q12H, 0 Refill(s) Active 05/10/2017 [facility] amLODIPine 5 mg oral tablet 5 mg=1 tab, PO, Daily, 0 Refill(s) Active 05/10/2017 [facility] Albuterol 0.833 MG/ML / Ipratropium [place] 0.167 MG/ML Inhalant Solution [DuoNeb] 3 mL, INHALATION, PRN, PRN Respiratory Protocol, 0 Refill(s) Active 05/10/2017 [facility] POLYETHYLENE GLYCOL 3350 17 gm=1 pkt, PO, Daily, 0 Refill(s) Active 05/10/2017 [facility] Lactulose 667 MG/ML Oral Solution 20 gm=30 mL, PO, TID, 0 Refill(s) Active 05/10/2017 [facility] gabapentin 300 MG Oral Capsule 300 mg=1 cap, PO, TID, 0 Refill(s) Active 05/10/2017 [facility] Furosemide 20 MG Oral Tablet [Lasix] 20 mg=1 tab, PO, Daily, 0 Refill(s) Active 05/10/2017 [facility] Acetaminophen 325 MG / Hydrocodone Bitartrate 5 MG Oral Tablet [[place] 5/325] 1 tab, Route: PO, Drug Form: TAB, Dosing Weight 110.085, kg, ONCE, Start date: 05/10/17 2:32:00 RISK MANAGEMENT DIRECTOR, Stop date: 05/10/17 2:32:00 CSTNotes: (Same as: [place] 325/5) Do not exceed 4gm/day of acetaminophen. Inactive 05/10/2017 [facility] Coreg 12.5 mg, 1 tab, Route: PO, Drug form: TAB, Q12H, Dosing Weight 110.085, kg, Start date: 05/09/17 21:00:00 RISK MANAGEMENT DIRECTOR, Duration: 30 day, Stop date: 06/08/17 9:00:00 CSTNotes: Give with food. (Same As: Coreg) No Longer Active 05/10/2017 [facility] Norvasc 5 mg, 1 tab, Route: PO, Drug form: TAB, Daily, Dosing Weight 110.085, kg, Start date: 05/09/17 14:00:00 RISK MANAGEMENT DIRECTOR, Duration: 30 day, Stop date: 06/08/17 9:00:00 CSTNotes: (Same as: Norvasc) No Longer Active 05/09/2017 [facility] gabapentin 300 MG Oral Capsule 300 mg, 1 cap, Route: PO, Drug form: CAP, TID, Dosing Weight 110.085, kg, Priority: STAT, Start date: 05/09/17 11:24:00 RISK MANAGEMENT DIRECTOR, Duration: 30 day, Stop date: 06/08/17 9:00:00 CSTNotes: (Same as: Neurontin) No Longer Active 05/09/2017 [facility] gabapentin 300 mg, 1 cap, Route: PO, Drug form: CAP, ONCE, Dosing Weight 110.085, kg, Start date: 05/08/17 19:53:00 RISK MANAGEMENT DIRECTOR, Stop date: 05/08/17 19:53:00 CSTNotes: (Same as: Neurontin) Inactive 05/09/2017 [facility] Furosemide 20 MG Oral Tablet [Lasix] 20 mg, 1 tab, Route: PO, Drug form: TAB, Daily, Dosing Weight 110.085, kg, Start date: 05/08/17 15:30:00 RISK MANAGEMENT DIRECTOR, Duration: 30 day, Stop date: 06/07/17 9:00:00 CSTNotes: (Same as: Lasix) May cause GI upset. Give with food or milk. No Longer Active 05/08/2017 [facility] Lactulose 667 MG/ML Oral Solution 20 gm, 30 ml, Route: PO, Drug form: SYRP, TID, Dosing Weight 115.864, kg, Start date: 05/03/17 11:00:00 RISK MANAGEMENT DIRECTOR, Duration: 30 day, Stop date: 06/02/17 9:00:00 CSTNotes: (Same as:Chronulac) No Longer Active 05/03/2017 [facility] Trazodone Hydrochloride 50 MG Oral Tablet 50 mg, 1 tab, Route: PO, Drug form: TAB, Bedtime, Dosing Weight 115.864, kg, PRN Insomnia, Start date: 05/02/17 16:53:00 RISK MANAGEMENT DIRECTOR, Duration: 30 day, Stop date: 06/01/17 16:52:00 CSTNotes: (Same As: Desyrel) No Longer Active 05/02/2017 [facility] Furosemide 20 mg, 1 tab, Route: PO, Drug form: TAB, BID Diuretic, Dosing Weight 115.864, kg, Start date: 05/02/17 8:00:00 RISK MANAGEMENT DIRECTOR, Duration: 30 day, Stop date: 05/31/17 16:00:00 CSTNotes: (Same as: Lasix) May cause GI upset. Give with food or milk. No Longer Active 05/02/2017 [facility] Restoril 15 mg, 1 cap, Route: PO, Drug form: CAP, Bedtime, Dosing Weight 115.864, kg, PRN Sleep, Start date: 05/01/17 14:52:00 RISK MANAGEMENT DIRECTOR, Duration: 30 day, Stop date: 05/31/17 14:51:00 CSTNotes: (Same As: Restoril) No Longer Active 05/01/2017 [facility] Sodium Chloride 0.154 MEQ/ML Nasal [place] [Simply Saline] 1 spray, Route: NASAL, Q30Min, Drug form: SOLN, PRN Nasal dryness, Start date: 05/01/17 11:59:00 RISK MANAGEMENT DIRECTOR, Duration: 30 day, Stop date: 05/31/17 11:58:00 CSTNotes: (Same as: [place], Deep Sea Nasal [place]). No Longer Active 05/01/2017 [facility] Potassium Chloride 40 mEq, 2 tab, Route: PO, Drug form: ERTAB, ONCE, Dosing Weight 115.864, kg, Start date: 04/30/17 19:27:00 RISK MANAGEMENT DIRECTOR, Stop date: 04/30/17 19:27:00 CSTNotes: (Same as: K-Dur 20) "Do Not Crush" With food and full glass of water Inactive 05/01/2017 [facility] Lasix 40 mg, Route: IVP, Drug form: INJ, BID Diuretic, Dosing Weight 115.864, kg, Start date: 04/30/17 16:00:00 RISK MANAGEMENT DIRECTOR, Duration: 30 day, Stop date: 05/30/17 8:00:00 RISK MANAGEMENT DIRECTOR Inactive 04/30/2017 [facility] Vancomycin dose due today Vancomycin dose due today, vanc dose due, Drug form: MISC, Route: MISC, ONCE, 04/30/17 9:00:00 RISK MANAGEMENT DIRECTOR, Stop date: 04/30/17 9:00:00 RISK MANAGEMENT DIRECTOR Inactive 04/30/2017 [facility] potassium chloride 20 mEq oral tablet, extended release 40 mEq, 2 tab, Route: PO, Drug form: ERTAB, ONCE, Dosing Weight 115.864, kg, Start date: 04/30/17 8:42:00 RISK MANAGEMENT DIRECTOR, Stop date: 04/30/17 8:42:00 CSTNotes: (Same as: K- Dur 20) "Do Not Crush" With food and full glass of water Inactive 04/30/2017 [facility] Albuterol 0.833 MG/ML / Ipratropium [place] 0.167 MG/ML Inhalant Solution [DuoNeb] 3 ml, Route: INHALATION, Drug Form: SOLN, Dosing Weight 115.864, kg, PRN, PRN Respiratory Protocol, Start date: 04/29/17 21:23:00 RISK MANAGEMENT DIRECTOR, Duration: 30 day, Stop date: 05/29/17 21:22:00 CSTNotes: (Same as: Duoneb) No Longer Active 04/30/2017 [facility] folic acid 1 mg oral tablet 1 mg, 1 tab, Route: PO, Drug form: TAB, Daily, Start date: 04/29/17 11:00:00 RISK MANAGEMENT DIRECTOR, Duration: 30 day, Stop date: 05/29/17 9:00:00 CSTNotes: (Same as: Folvite) No Longer Active 04/29/2017 [facility] multivitamin with minerals 1 tab, Route: PO, Drug Form: TAB, Daily, Start date: 04/29/17 11:00:00 RISK MANAGEMENT DIRECTOR, Duration: 30 day, Stop date: 05/29/17 9:00:00 CSTNotes: (Same as:Thera-M, Theragran-M) WASTE: F/P - Black; E - Municipal Trash Bin Give with food. No Longer Active 04/29/2017 [facility] Vitamin B1 100 mg, 1 tab, Route: PO, Drug form: TAB, Daily, Start date: 04/29/17 11:00:00 RISK MANAGEMENT DIRECTOR, Duration: 30 day, Stop date: 05/29/17 9:00:00 CSTNotes: (Same As: Vitamin B1) No Longer Active 04/29/2017 [facility] famotidine 20 mg, 1 tab, Route: PO, Drug form: TAB, BID, Start date: 04/29/17 9:00:00 RISK MANAGEMENT DIRECTOR, Duration: 30 day, Stop date: 05/28/17 17:00:00 CSTNotes: (Same as: Pepcid) No Longer Active 04/29/2017 [facility] Vancomycin trough level due Vancomycin trough level due, 04-27-17 at 1300, Drug form: MISC, Route: MISC, ONCE, 04/28/17 17:00:00 RISK MANAGEMENT DIRECTOR, Stop date: 04/28/17 17:00:00 RISK MANAGEMENT DIRECTOR Inactive 04/28/2017 [facility] vancomycin + NS 250 mL 1,000 mg, Route: IVPB, Daily, PRN Other -See Comment, Start date: 04/28/17 14:23:00 RISK MANAGEMENT DIRECTOR, Stop date: 04/30/17 23:59:00 RISK MANAGEMENT DIRECTOR, ABX Indication: Skin/Soft Tissue InfectionNotes: (Same As: Vancocin) No Longer Active 04/28/2017 [facility] Furosemide 100 mg, 10 mL, Rate: 5 mg/hour, Dosing Weight 115.864, kg, Route: IV, Total Volume: 100, Start Date: 04/28/17 8:03:00 RISK MANAGEMENT DIRECTOR, Duration: 30 day, Stop date: 05/28/17 8:02:00 RISK MANAGEMENT DIRECTOR, Replace Every: 24 hr, contin uousNotes: (Same as: Lasix) MEDICATION WASTE Product Size: 100 mg Product Wasted: _0_ mg No Longer Active 04/28/2017 [facility] potassium chloride + Sodium Chloride 0.9% IV 250 mL 40 mEq, 20 mL, Route: IV, Drug form: INJ, ONCE, Start date: 04/27/17 14:00:00 RISK MANAGEMENT DIRECTOR, Stop date: 04/27/17 14:00:00 CSTNotes: MUST be Diluted before use (Same as: KCl) Inactive 04/27/2017 [facility] Vancomycin trough level due Vancomycin trough level due, 04-27-17 at 1300, Drug form: MISC, Route: MISC, ONCE, 04/27/17 13:00:00 RISK MANAGEMENT DIRECTOR, Stop date: 04/27/17 13:00:00 RISK MANAGEMENT DIRECTOR No Longer Active 04/27/2017 [facility] Potassium Chloride 20 mEq, Route: IVPB, Q2H, Dosing Weight 115.864, kg, Total dose=40 mEq, Start date: 04/27/17 12:00:00 RISK MANAGEMENT DIRECTOR, Duration: 2 doses or times, Stop date: 04/27/17 14:00:00 RISK MANAGEMENT DIRECTOR, Central Line Inactive 04/27/2017 [facility] Sodium Chloride 3% (Hypertonic) IV 20 mL 20 mL, Rate: 30 ml/hr, Infuse over: 0.7 hr, Route: IV, Dosing Weight 115.864 kg, Total Volume: 20, Start date: 04/27/17 6:44:00 RISK MANAGEMENT DIRECTOR, Duration: 30 day, Stop date: 05/27/17 6:44:00 RISK MANAGEMENT DIRECTOR, 2.31, [id number]: "Administer by central venous catheter or a peripherally inserted central catheter (PICC) line. 3% Sodium Chloride may be infused via peripheral administration into large vein (antecubital) only in the case of emergency for short term use until a central line can be inserted" (Same as: Hypertonic Saline 3%) concentration=0.513 mEq/mL No Longer Active 04/27/2017 [facility] NS 1,000 mL 1,000 mL, Rate: 50 ml/hr, Infuse over: 20 hr, Route: IV, Dosing Weight 115.864 kg, Total Volume: 1,000, Start date: 04/27/17 6:17:00 RISK MANAGEMENT DIRECTOR, Duration: 30 day, Stop date: 05/27/17 6:16:00 RISK MANAGEMENT DIRECTOR, 2.31, m2 Inactive 04/27/2017 [facility] Vitamin B1 100 mg + M.V.I. Adult 10 mL + folic acid 1 mg + NS 1,000 mL Route: IV, Q24H, Start date: 04/27/17 6:00:00 RISK MANAGEMENT DIRECTOR, Stop date: 04/28/17 6:00:00 RISK MANAGEMENT DIRECTOR No Longer Active 04/27/2017 [facility] Potassium Chloride 10 mEq, Route: IVPB, Q1H, Dosing Weight 115.864, kg, Total Dose=40 meq, Start date: 04/27/17 0:00:00 RISK MANAGEMENT DIRECTOR, Duration: 4 doses or times, Stop date: 04/27/17 3:00:00 RISK MANAGEMENT DIRECTOR, Peripheral Line No Longer Active 04/27/2017 [facility] potassium chloride + Dextrose 5% in Water IV 500 mL 40 mEq, 20 mL, Route: IV, Drug form: INJ, ONCE, Priority: NOW, Start date: 04/26/17 23:58:00 RISK MANAGEMENT DIRECTOR, Stop date: 04/26/17 23:58:00 CSTNotes: MUST be Diluted before use (Same as: KCl) No Longer Active 04/27/2017 [facility] D5W 1,000 mL 1,000 mL, Rate: 40 ml/hr, Infuse over: 25 hr, Route: IV, Dosing Weight 115.864 kg, Total Volume: 1,000, Start date: 04/26/17 21:54:00 RISK MANAGEMENT DIRECTOR, Stop date: 04/27/17 6:32:00 RISK MANAGEMENT DIRECTOR, 2.31, m2 No Longer Active 04/27/2017 [facility] Sodium Chloride 0.9% IV 1,000 mL 1,000 mL, Rate: 40 ml/hr, Infuse over: 25 hr, Route: IV, Dosing Weight 115.864 kg, Total Volume: 1,000, Start date: 04/26/17 19:56:00 RISK MANAGEMENT DIRECTOR, Duration: 30 day, Stop date: 05/26/17 19:55:00 RISK MANAGEMENT DIRECTOR, 2.31, m2 Inactive 04/27/2017 [facility] Potassium Chloride 10 mEq, 100 mL, Route: IVPB, Drug form: INJ, Q1H, Dosing Weight 115.864, kg, Total Dose=20 meq, Start date: 04/26/17 16:00:00 RISK MANAGEMENT DIRECTOR, Duration: 2 doses or times, Stop date: 04/26/17 17:00:00 RISK MANAGEMENT DIRECTOR, Peripheral LineNotes: Infuse at a rate of 10 mEq/hr. (Same as: KCL) Inactive 04/26/2017 [facility] DDAVP 2 microgram, 0.5 mL, Route: IV, Drug form: INJ, ONCE, Dosing Weight 115.864, kg, Start date: 04/26/17 15:28:00 RISK MANAGEMENT DIRECTOR, Stop date: 04/26/17 15:28:00 CSTNotes: (Same As: DDAVP) MEDICATION WASTE Product Size: 4 microgram Product Wasted: ___ microgram Inactive 04/26/2017 [facility] Zosyn 3.375 gm, Route: IVPB, [id number], Dosing Weight 115.864, kg, CrCl >=20 ml/min infuse over 4 hours, Start date: 04/26/17 15:00:00 RISK MANAGEMENT DIRECTOR, Stop date: 05/10/17 7:00:00 RISK MANAGEMENT DIRECTOR, ABX Indication: Skin/Soft Tissue InfectionNotes: (Same as: Zosyn) MEDICATION WASTE Product Size: 3375 mg Product Waste0 mg No Longer Active 04/26/2017 [facility] Beneprotein 7 gm pkt 2 pkt, Route: T FEED, Drug Form: PWDR, Dosing Weight 115.864, kg, TID-Before Meals, Start date: 04/26/17 11:30:00 RISK MANAGEMENT DIRECTOR, Duration: 30 day, Stop date: 05/26/17 7:30:00 CSTNotes: (Same as: Beneprotein) No Longer Active 04/26/2017 [facility] POLYETHYLENE GLYCOL 3350 17 gm, 1 pkt, Route: PO, Drug form: PWDR, Daily, Dosing Weight 115.864, kg, Start date: 04/26/17 11:00:00 RISK MANAGEMENT DIRECTOR, Duration: 30 day, Stop date: 05/26/17 9:00:00 CSTNotes: Dissolve in 8 oz of water or juice. (Same as: Miralax) No Longer Active 04/26/2017 [facility] Sodium Chloride 3% (Hypertonic) IV 60 mL 60 mL, Rate: 15 ml/hr, Infuse over: 4 hr, Route: IV, Dosing Weight 115.864 kg, Total Volume: 60, Start date: 04/26/17 10:27:00 RISK MANAGEMENT DIRECTOR, Duration: 2 doses or times, Stop date: 04/26/17 18:26:00 RISK MANAGEMENT DIRECTOR, 2.31, [id number]: (Same as: Hypertonic Saline 3%) Inactive 04/26/2017 [facility] Saline Flush 0.9% 10 ml, Route: IVP, Drug Form: INJ, Dosing Weight 115.864, kg, Q12H, Start date: 04/26/17 9:00:00 RISK MANAGEMENT DIRECTOR, Duration: 30 day, Stop date: 05/25/17 21:00:00 CSTNotes: (Same as: BD Posiflush) No Longer Active 04/26/2017 [facility] Famotidine 20 mg, 2 mL, Route: IVP, Drug form: INJ, Q12H, Dosing Weight 115.864, kg, Start date: 04/26/17 9:00:00 RISK MANAGEMENT DIRECTOR, Stop date: 04/29/17 7:45:00 CSTNotes: (Same as: Pepcid) Can be dilute in 5-10cc NS IVP: Sl ow IV push over at least 2 minutes. No Longer Active 04/26/2017 [facility] chlorhexidine gluconate 1.2 MG/ML Mouthwash 15 mL, Route: Swab Mouth, Q12H, Drug form: LIQ, Start date: 04/26/17 9:00:00 RISK MANAGEMENT DIRECTOR, Duration: 30 day, Stop date: 05/25/17 21:00:00 CSTNotes: (Same As: Peridex) No Longer Active 04/26/2017 [facility] Enoxaparin 40 mg, 0.4 mL, Route: SUB-Q, Drug form: INJ, [id number], Dosing Weight 115.864, kg, Consider for obese patients, Start date: 04/26/17 9:00:00 RISK MANAGEMENT DIRECTOR, Stop date: 05/25/17 21:00:00 CSTNotes: (Same as: Lovenox) No Longer Active 04/26/2017 [facility] Clonidine 0.1 mg, 1 tab, Route: PO, Drug form: TAB, Q4H, Dosing Weight 115.864, kg, Start date: 04/26/17 8:00:00 RISK MANAGEMENT DIRECTOR, Duration: 30 day, Stop date: 05/26/17 4:00:00 CSTNotes: (Same As: Catapres) No Longer Active 04/26/2017 [facility] Sodium Chloride 3% (Hypertonic) IV 60 mL 60 mL, Rate: 15 ml/hr, Infuse over: 4 hr, Route: IV, Dosing Weight 115.864 kg, Total Volume: 60, Start date: 04/26/17 6:50:00 RISK MANAGEMENT DIRECTOR, Duration: 2 doses or times, Stop date: 04/26/17 14:49:00 RISK MANAGEMENT DIRECTOR, 2.31, [id number]: "Administer by central venous catheter or a peripherally inserted central catheter (PICC) line. 3% Sodium Chloride may be infused via peripheral administration into large vein (antecubital) only in the case of emergency for short term use until a central line can be inserted" (Same as: Hypertonic Saline 3%) concentration=0.513 mEq/mL Inactive 04/26/2017 [facility] Succinylcholine 140 mg, 7 mL, Route: IV, Drug form: INJ, ONCE, Dosing Weight 115.864, kg, Start date: 04/26/17 6:15:00 RISK MANAGEMENT DIRECTOR, Stop date: 04/26/17 6:15:00 CSTNotes: (Same As: Anectine) No Longer Active 04/26/2017 [facility] Etomidate 40 mg, 20 mL, Route: IV, Drug form: INJ, ONCE, Dosing Weight 115.864, kg, Priority: STAT, Start date: 04/26/17 6:14:00 RISK MANAGEMENT DIRECTOR, Stop date: 04/26/17 6:14:00 CSTNotes: (Same as: Amidate). Per state nursing law etomidate can only be given by a nurse if patient is intubated or being intubated (unless the nurse is a GAME WARDEN). No Longer Active 04/26/2017 [facility] chlorhexidine gluconate 1.2 MG/ML Mouthwash 15 mL, Route: Swab Mouth, PRN, Drug form: LIQ, PRN Other -See Comment, Start date: 04/26/17 6:12:00 RISK MANAGEMENT DIRECTOR, Duration: 30 day, Stop date: 05/26/17 6:11:00 CSTNotes: (Same As: Peridex) No Longer Active 04/26/2017 [facility] propofol 10 mg/mL (Titrate.) IV 1,000 mg 1,000 mg, 100 mL, Rate: Titrate, Start Dose: 5 microgram/kg/min, Titration: 5 microgram/kg/min every 15 minutes, Goal(s): RASS -2, Max Dose: 50 mcg/kg/min, Route: IV, Dosing Weight 115.864 kg, Total Volume: 100, Start date: 04/26/17 6:03:00 RISK MANAGEMENT DIRECTOR, Durat...Notes: If Diprivan - change bottle & tubing every 12 hr Per state nursing law propofol can only be given by a nurse if patient is intubated or marcia ng intubated (unless the nurse is a GAME WARDEN). Same as: Diprivan No Longer Active 04/26/2017 [facility] vancomycin + NS 250 mL 1,000 mg, Route: IVPB, [id number], Start date: 04/26/17 6:00:00 RISK MANAGEMENT DIRECTOR, Stop date: 04/30/17 18:00:00 RISK MANAGEMENT DIRECTOR, ABX Indication: Skin/Soft Tissue InfectionNotes: (Same As: Vancocin) No Longer Active 04/26/2017 [facility] Vancomycin 1 ea, Route: IV, ONCALL, Dosing Weight 115.864, kg, Start date: 04/26/17 5:00:00 RISK MANAGEMENT DIRECTOR, Duration: 5 day, Stop date: 05/01/17 4:59:00 RISK MANAGEMENT DIRECTOR, ABX Indication: Skin/Soft Tissue Infection Inactive 04/26/2017 [facility] Sodium Chloride 0.9% IV 1,000 mL 1,000 mL, Rate: 100 ml/hr, Infuse over: 10 hr, Route: IV, Dosing Weight 115.864 kg, Total Volume: 1,000, Start date: 04/26/17 4:46:00 RISK MANAGEMENT DIRECTOR, Stop date: 04/29/17 4:41:00 RISK MANAGEMENT DIRECTOR, 2.31, m2 Inactive 04/26/2017 [facility] Metronidazole 500 mg, 100 mL, Route: IVPB, Drug form: INJ, ABXQ8H, Dosing Weight 115.864, kg, Priority: STAT, Start date: 04/26/17 4:45:00 RISK MANAGEMENT DIRECTOR, Duration: 7 day, Stop date: 05/02/17 21:00:00 RISK MANAGEMENT DIRECTOR, ABX Indication: Skin/ Soft Tissue InfectionNotes: (Same as: Flagyl) Avoid alcohol. Inactive 04/26/2017 [facility] Haloperidol 5 mg, 1 mL, Route: IVP, Drug form: INJ, Q8H, Dosing Weight 115.864, kg, PRN Agitation, Start date: 04/26/17 4:42:00 RISK MANAGEMENT DIRECTOR, Duration: 30 day, Stop date: 05/26/17 4:41:00 CSTNotes: (Same as: Haldol) No Longer Active 04/26/2017 [facility] Sodium Chloride 0.9% IV 1,000 mL + M.V.I.-12 10 mL Daily + folic acid IV 1 mg Daily + thiamine IV 1 1,000 mL, Rate: 100 ml/hr, Infuse over: 10.1 hr, Route: IV, Dosing Weight 115.864 kg, Total Volume: 1,011.2, Start date: 04/26/17 4:42:00 RISK MANAGEMENT DIRECTOR, Duration: 3 day, Stop date: 04/29/17 4:41:00 RISK MANAGEMENT DIRECTOR, 2.31, m2 Inactive 04/26/2017 [facility] Lorazepam 2 mg, 1 mL, Route: IVP, Drug form: INJ, Q2H, Dosing Weight 115.864, kg, PRN Other -See Comment, CIWA Score 8 -14, Start date: 04/26/17 4:42:00 RISK MANAGEMENT DIRECTOR, Duration: 30 day, Stop date: 05/26/17 4:41:00 CSTNotes: (Same as: Ativan) No Longer Active 04/26/2017 [facility] Saline Flush 0.9% 10 ml, Route: IVP, Drug Form: INJ, Dosing Weight 115.864, kg, PRN, PRN Line Flush, Start date: 04/26/17 4:40:00 RISK MANAGEMENT DIRECTOR, Duration: 30 day, Stop date: 05/26/17 4:39:00 CSTNotes: (Same as: BD Posiflush) No Longer Active 04/26/2017 [facility] Ondansetron 4 mg, 2 mL, Route: IVP, Drug form: INJ, Q8H, Dosing Weight 115.864, kg, PRN Nausea & Vomiting, Start date: 04/26/17 4:40:00 RISK MANAGEMENT DIRECTOR, Duration: 30 day, Stop date: 05/26/17 4:39:00 CSTNotes: (Same as: Zofran) MEDICATION WASTE Product Size: 4 mg Product Wasted: ___ mg No Longer Active 04/26/2017 [facility] Acetaminophen 650 mg, 2 tab, Route: PO, Drug form: TAB, Q4H, Dosing Weight 115.864, kg, PRN For Temp > 100.4 F, Start date: 04/26/17 4:40:00 RISK MANAGEMENT DIRECTOR, Duration: 30 day, Stop date: 05/26/17 4:39:00 CSTNotes: Do not exce ed 4 gm/day. (Same as: Tylenol) No Longer Active 04/26/2017 [facility] Lorazepam 2 mg, 1 mL, Route: IV, Drug form: INJ, PRN, Dosing Weight 115.864, kg, PRN Agitation, Start date: 04/26/17 0:10:00 RISK MANAGEMENT DIRECTOR, Duration: 30 day, Stop date: 05/26/17 0:09:00 CSTNotes: (Same as: Ativan) Inactive 04/26/2017 [facility] Sodium Chloride 3% (Hypertonic) IV 50 mL 50 mL, Rate: 250 ml/hr, Infuse over: 0.2 hr, Route: IV, Dosing Weight 113.636 kg, Total Volume: 50 mL, Start date: 04/25/17 21:43:00 RISK MANAGEMENT DIRECTOR, Duration: 1 doses or times, Stop date: 04/25/17 21:54:00 RISK MANAGEMENT DIRECTOR, 2.29, [id number]: "Administer by central venous catheter or a peripherally inserted central catheter (PICC) line. 3% Sodium Chloride may be infused via peripheral administration into large vein (antecubital) only in the case of emergency for short term use until a central line can be inserted" (Same as: Hypertonic Saline 3%) concentration=0.513 mEq/mL Inactive 04/26/2017 [facility] Calcium Gluconate 1,000 mg, 10 mL, Route: IVPB, ONCE, Dosing Weight 113.636, kg, Start date: 04/25/17 21:21:00 RISK MANAGEMENT DIRECTOR, Stop date: 04/25/17 21:21:00 CSTNotes: WASTE: F/P - Sink; E - Municipal Trash Bin No Longer Active 04/26/2017 [facility] Sodium Chloride 3% (Hypertonic) IV 180 mL 180 mL, Rate: 20 ml/hr, Infuse over: 9 hr, Route: IV, Dosing Weight 113.636 kg, Total Volume: 180 mL, Start date: 04/25/17 20:40:00 RISK MANAGEMENT DIRECTOR, Stop date: 04/26/17 5:39:00 RISK MANAGEMENT DIRECTOR, 2.29, [id number]: "Administer by central venous catheter or a peripherally inserted central catheter (PICC) line. 3% Sodium Chloride may be infused via peripheral administration into large vein (antecubital) only in the case of emergency for short term use until a central line can be inserted" (Same as: Hypertonic Saline 3%) concentration=0.513 mEq/mL No Longer Active 04/26/2017 [facility] Sodium Chloride 3% (Hypertonic) IV 50 mL 50 mL, Rate: 250 ml/hr, Infuse over: 0.2 hr, Route: IV Central, Dosing Weight 113.636 kg, Total Volume: 50 mL, Start date: 04/25/17 20:39:00 RISK MANAGEMENT DIRECTOR, Duration: 1 doses or times, Stop date: 04/25/17 20:50:00 RISK MANAGEMENT DIRECTOR, 2.29, [id number]: "Administer by central venous catheter or a peripherally inserted central catheter (PICC) line. 3% Sodium Chloride may be infused via peripheral administration into large vein (antecubital) only in the case of emergency for short term use until a central line can be inserted" (Same as: Hypertonic Saline 3%) concentration=0.513 mEq/mL Inactive 04/26/2017 [facility] Flagyl 500 mg, 100 mL, Route: IVPB, Drug form: INJ, ONCE, Dosing Weight 113.636, kg, Priority: STAT, Start date: 04/25/17 20:25:00 RISK MANAGEMENT DIRECTOR, Stop date: 04/25/17 20:25:00 RISK MANAGEMENT DIRECTOR, ABX Indication: Skin/Soft Tissue Inf ectionNotes: (Same as: Flagyl) Avoid alcohol. Inactive 04/26/2017 [facility] Thiamine 100 mg, Route: PO, Drug form: TAB, ONCE, Dosing Weight 113.636, kg, Priority: STAT, Start date: 04/25/17 19:36:00 RISK MANAGEMENT DIRECTOR, Stop date: 04/25/17 19:36:00 RISK MANAGEMENT DIRECTOR Inactive 04/26/2017 [facility] Folic Acid 1 mg, Route: PO, ONCE, Dosing Weight 113.636, kg, Start date: 04/25/17 19:36:00 RISK MANAGEMENT DIRECTOR, Stop date: 04/25/17 19:36:00 RISK MANAGEMENT DIRECTOR Inactive 04/26/2017 [facility] Vancomycin 2,000 mg, 500 mL, Route: IVPB, Drug form: SOLN, ONCE, Dosing Weight 113.636, kg, Priority: STAT, Start date: 04/25/17 18:53:00 RISK MANAGEMENT DIRECTOR, Stop date: 04/25/17 18:53:00 RISK MANAGEMENT DIRECTOR, ABX Indication: Skin/Soft Tissue Inf ectionNotes: TIME CRITICAL MEDICATION Same as: Vancocin Infusion rate 2001 mg: infuse over 2.5 hours Inactive 04/26/2017 [facility] Saline Flush 0.9% 10 mL, Route: IVP, Drug Form: INJ, Dosing Weight 113.636, kg, PRN, PRN Line Flush, Start date: 04/25/17 17:58:00 RISK MANAGEMENT DIRECTOR, Duration: 30 day, Stop date: 05/25/17 17:57:00 CSTNotes: (Same as: BD Posiflush) No Longer Active 04/25/2017 [facility] Sodium Chloride 0.9% (Bolus) IV 1,000 mL, 1,000 ml/hr, Infuse Over: 1 hr, Route: IV, 1,000, Drug form: INJ, ONCE, Priority: STAT, Dosing Weight 113.636 kg, Start date: 04/25/17 17:58:00 RISK MANAGEMENT DIRECTOR, Stop date: 04/25/17 17:58:00 RISK MANAGEMENT DIRECTOR Inactive 04/25/2017 [facility] tramadol hydrochloride 50 MG Oral Tablet [Ultram] 50 mg=1 tab, PO, Q6H, PRN pain, X 3 day, # 12 tab, 0 Refill(s) Active 02/15/2015 [facility] Acetaminophen 325 MG / Hydrocodone Bitartrate 5 MG Oral Tablet [Bison 5/325] 1 tab, Route: PO, Dosing Weight 113.636, kg, ONCE, Start date: 02/15/15 13:28:00, Stop date: 02/15/15 13:28:00 Inactive 02/15/2015 [facility] Sodium Chloride 0.154 MEQ/ML Injectable Solution 1,000 mL, 1,000 ml/hr, Infuse Over: 1 hr, Route: IV, ONCE, Priority: STAT, Dosing Weight 113.636 kg, Start date: 02/15/15 13:12:00, Duration: 1 doses or times, Stop date: 02/15/15 13:12:00 Inactive 02/15/2015 [facility] Morphine 6 mg, Route: IVP, Drug form: INJ, ONCE, Dosing Weight 113.636, kg, Priority: STAT, Start date: 02/15/15 9:51:00, Stop date: 02/15/15 9:51:00 Inactive 02/15/2015 [facility] Omnipaque 240 50 mL, Route: PO, Drug Form: SOLN, Dosing Weight 113.636, kg, ONCE, Start date: 02/15/15 9:39:00, Stop date: 02/15/15 9:39:00Notes: (Same as:Omnipaque 240) 12,000mg/50ml Inactive 02/15/2015 [facility] Allergies, Adverse Reactions, Alerts Substance Category Reaction Severity Reaction type Status Date Reported Comments Source clindamycin Assertion Drug allergy Active [facility] Immunizations Immunization Date Given Site Status Last Updated Comments Source pneumococcal 23-valent vaccine 05/16/2018 Not Given [facility] Results Order Name Results Value Reference Range Date Interpretation Comments Source DRUG SCREEN UDS Note See Note *NA* (09/15/18 12:57 AM) 09/15/2018 [facility] S[facility]EN U Cannab Scr Negative *NA* (09/15/18 12:57 AM) Negative 09/15/2018 [facility] S[facility]EN U Cocaine Scr Negative *NA* (09/15/18 12:57 AM) Negative 09/15/2018 [facility] DR[facility] SCREEN U Benzodiaz Scr Negative *NA* (09/15/18 12:57 AM) Negative 09/15/2018 [facility] SCREEN U Susie Scr Negative *NA* (09/15/18 12:57 AM) Negative 09/15/2018 [facility] DRUG SCREEN U Amph Scr Negative *NA* (09/15/18 12:57 AM) Negative 09/15/2018 [facility] DRUG SCREEN U Phencyclidine Scr Negative *NA* (09/15/18 12:57 AM) Negative 09/15/2018 [facility] DRUG SCREEN U Opiate Scr Negative *NA* (09/15/18 12:57 AM) Negative 09/15/2018 [facility] URINE AND STOOL UA Sq Epi None Seen 09/15/2018 [facility] URINE AND STOOL UA Spec Grav 1.015 <=1.030 09/15/2018 [facility] URINE AND STOOL UA Ketones Negative mg/dL Negative mg/dL 09/15/2018 [facility] URINE AND STOOL UA Glucose Negative mg/dL Negative mg/dL 09/15/2018 [facility] URINE AND STOOL UA Protein Negative mg/dL Negative mg/dL 09/15/2018 [facility] URINE AND STOOL UA pH 5.0 5.0 - 8.0 09/15/2018 [facility] URINE AND STOOL UA Mucus Few /LPF None Seen /LPF 09/15/2018 [facility] URINE AND STOOL UA Bacteria Occasional /HPF None Seen /HPF 09/15/2018 [facility] URINE AND STOOL UA RBC 2 0 - 2 09/15/2018 [facility] URINE AND STOOL UA WBC 1 0 - 5 09/15/2018 [facility] URINE AND STOOL UA Blood Negative (09/15/18 12:57 AM) Negative 09/15/2018 [facility] URINE AND STOOL UA Nitrite Negative (09/15/18 12:57 AM) Negative 09/15/2018 [facility] URINE AND STOOL UA Bili Negative *NA* (09/15/18 12:57 AM) Negative 09/15/2018 [facility] URINE AND STOOL UA Leuk Est Negative (09/15/18 12:57 AM) Negative 09/15/2018 [facility] URINE AND STOOL UA Urobilinogen <=1.0 mg/dL 0.1 - 1.0 09/15/2018 [facility] URINE AND STOOL UA Color Yellow *NA* (09/15/18 12:57 AM) Yellow 09/15/2018 [facility] URINE AND STOOL UA Turbidity Clear (09/15/18 12:57 AM) Clear 09/15/2018 [facility] CARDIAC ENZYMES Troponin-I <0.02 0.00 - 0.40 09/15/2018 [facility] CARDIAC ENZYMES BNP 27 <=100 pg/mL 09/15/2018 [facility] CHEM PANEL Lipase Lvl 118 73 - 393 09/15/2018 [facility] CHEM PANEL Calcium Lvl 9.0 8.5 - 10.5 09/15/2018 [facility] CHEM PANEL Total Protein 6.9 6.4 - 8.4 09/15/2018 [facility] CHEM PANEL Alk Phos 87 39 - 136 09/15/2018 [facility] CHEM PANEL Potassium Lvl 3.5 3.5 - 5.1 09/15/2018 [facility] CHEM PANEL Albumin Lvl 3.1 3.5 - 5.0 09/15/2018 [facility] CHEM PANEL Glucose Lvl 110 70 - 99 09/15/2018 [facility] CHEM PANEL Chloride Lvl 97 95 - 109 09/15/2018 [facility] CHEM PANEL CO2 25 24 - 32 09/15/2018 [facility] CHEM PANEL BUN 9 7 - 22 09/15/2018 [facility] CHEM PANEL Sodium Lvl 134 135 - 145 09/15/2018 [facility] CHEM PANEL Creatinine Lvl 0.59 0.50 - 1.40 09/15/2018 [facility] CHEM PANEL eGFR 113 09/15/2018 Result Comment: The eGFR is calculated [...] should be multiplied by the estimated BMI. [facility] CHEM PANEL Bili Total 0.7 0.2 - 1.3 09/15/2018 [facility] CHEM PANEL ALT 25 0 - 65 09/15/2018 [facility] CHEM PANEL AST 17 0 - 37 09/15/2018 [facility] CHEM PANEL B/C Ratio 15 6 - 25 09/15/2018 [facility] CHEM PANEL AGAP 15.5 10.0 - 20.0 09/15/2018 [facility] CHEM PANEL Globulin 3.8 2.7 - 4.2 09/15/2018 [facility] CHEM PANEL A/G Ratio 0.8 0.7 - 1.6 09/15/2018 [facility] Segs 78.1 45.0 - 75.0 09/15/2018 Result Comment: diff count reviewed manually, mfb09/15/2018 01:50 [facility] RBC Morph Normal (09/15/18 12:08 AM) Normal 09/15/2018 [facility] Plt Morph Normal (09/15/18 12:08 AM) Normal 09/15/2018 [facility] Monocytes 11.5 2.0 - 12.0 09/15/2018 [facility] Eosinophils 1.6 0.0 - 4.0 09/15/2018 [facility] Lymphocytes 8.4 20.0 - 40.0 09/15/2018 [facility] Basophils # 0.1 0.0 - 0.2 09/15/2018 [facility] Basophils 0.4 0.0 - 1.0 09/15/2018 [facility] Neutrophils # 12.1 1.5 - 8.1 09/15/2018 [facility] Monocytes # 1.8 0.0 - 0.8 09/15/2018 [facility] Eosinophils # 0.3 0.0 - 0.5 09/15/2018 [facility] Lymphocytes # 1.3 1.0 - 5.5 09/15/2018 [facility] Hct 30.6 42.0 - 54.0 09/15/2018 [facility] Hgb 10.0 14.0 - 18.0 09/15/2018 [facility] RBC 3.79 4.70 - 6.10 09/15/2018 [facility] WBC 15.5 3.7 - 10.4 09/15/2018 [facility] MPV 6.9 7.4 - 10.4 09/15/2018 [facility] Platelet 254 133 - 450 09/15/2018 [facility] HEMATOLOGY MCH 26.3 27.0 - 31.0 09/15/2018 [facility] HEMATOLOGY MCV 80.8 80.0 - 94.0 09/15/2018 [facility] MCHC 32.6 32.0 - 36.0 09/15/2018 [facility] RDW 17.1 11.5 - 14.5 09/15/2018 [facility] TOXICOLOGY Acetaminoph Lvl <2 (09/15/18 12:08 AM) 10 - 20 09/15/2018 [facility] TOXICOLOGY Ethanol Lvl <3 09/15/2018 [facility] TOXICOLOGY Etoh (%) <0.003 09/15/2018 [facility] TOXICOLOGY Salicylate Lvl <1.7 0.0 - 30.0 09/15/2018 [facility] CARDIAC ENZYMES BNP 8 <=100 pg/mL 03/24/2018 [facility] CHEM PANEL Lactic Acid Lvl 1.6 0.5 - 2.2 03/24/2018 [facility] ELECTROLYTES AGAP 11.3 10.0 - 20.0 03/24/2018 [facility] ELECTROLYTES Potassium Lvl 3.3 3.5 - 5.1 03/24/2018 [facility] ELECTROLYTES Sodium Lvl 140 135 - 145 03/24/2018 [facility] ELECTROLYTES Glucose Lvl 99 70 - 99 03/24/2018 [facility] ELECTROLYTES Creatinine Lvl 0.88 0.50 - 1.40 03/24/2018 [facility] ELECTROLYTES BUN 17 7 - 22 03/24/2018 [facility] ELECTROLYTES Calcium Lvl 8.2 8.5 - 10.5 03/24/2018 [facility] ELECTROLYTES CO2 34 24 - 32 03/24/2018 [facility] ELECTROLYTES Chloride Lvl 98 95 - 109 03/24/2018 [facility] ELECTROLYTES eGFR 96 03/24/2018 Result Comment: The eGFR is calculated [...] should be multiplied by the estimated BMI. [facility] HEMATOLOGY Eosinophils # 0.4 0.0 - 0.5 03/24/2018 [facility] Basophils # 0.1 0.0 - 0.2 03/24/2018 [facility] Polychrom Moderate *ABN* (03/24/18 3:11 AM) None Seen 03/24/2018 [facility] Monocytes # 1.6 0.0 - 0.8 03/24/2018 [facility] Lymphocytes 18.4 20.0 - 40.0 03/24/2018 [facility] Basophils 0.6 0.0 - 1.0 03/24/2018 [facility] Neutrophils # 6.3 1.5 - 8.1 03/24/2018 [facility] Lymphocytes # 1.9 1.0 - 5.5 03/24/2018 [facility] Monocytes 15.8 2.0 - 12.0 03/24/2018 [facility] Eosinophils 3.6 0.0 - 4.0 03/24/2018 [facility] Plt Morph Normal (03/24/18 3:11 AM) 03/24/2018 [facility] Segs 61.6 45.0 - 75.0 03/24/2018 [facility] RBC Morph See Note (03/24/18 3:11 AM) 03/24/2018 [facility] Hgb 10.1 14.0 - 18.0 03/24/2018 [facility] MPV 7.4 7.4 - 10.4 03/24/2018 [facility] Platelet 208 133 - 450 03/24/2018 [facility] RDW 14.5 11.5 - 14.5 03/24/2018 [facility] MCV 87.2 80.0 - 94.0 03/24/2018 [facility] Hct 30.0 42.0 - 54.0 03/24/2018 [facility] MCHC 33.8 32.0 - 36.0 03/24/2018 [facility] MCH 29.5 27.0 - 31.0 03/24/2018 [facility] HEMATOLOGY RBC 3.44 4.70 - 6.10 03/24/2018 [facility] HEMATOLOGY WBC 10.2 3.7 - 10.4 03/24/2018 [facility] CARDIAC ENZYMES Troponin-I <0.02 0.00 - 0.40 09/27/2017 [facility] CARDIAC ENZYMES CK MB <1.0 0.5 - 3.6 09/27/2017 [facility] CARDIAC ENZYMES Total CK 148 12 - 191 09/27/2017 [facility] CARDIAC ENZYMES CK MB Index <0.7 0.0 - 2.5 09/27/2017 [facility] CHEM PANEL eGFR 104 09/27/2017 Result Comment: The eGFR is calculated [...] should be multiplied by the estimated BMI. [facility] CHEM PANEL CO2 31 24 - 32 09/27/2017 [facility] CHEM PANEL Chloride Lvl 97 95 - 109 09/27/2017 [facility] CHEM PANEL Potassium Lvl 3.6 3.5 - 5.1 09/27/2017 [facility] CHEM PANEL Sodium Lvl 135 135 - 145 09/27/2017 [facility] CHEM PANEL Calcium Lvl 9.5 8.5 - 10.5 09/27/2017 [facility] CHEM PANEL Alk Phos 75 39 - 136 09/27/2017 [facility] CHEM PANEL AST 21 0 - 37 09/27/2017 [facility] CHEM PANEL ALT 24 0 - 65 09/27/2017 [facility] CHEM PANEL Albumin Lvl 4.2 3.5 - 5.0 09/27/2017 [facility] CHEM PANEL Total Protein 7.8 6.4 - 8.4 09/27/2017 [facility] CHEM PANEL Globulin 3.6 2.7 - 4.2 09/27/2017 [facility] CHEM PANEL B/C Ratio 23 6 - 25 09/27/2017 [facility] CHEM PANEL AGAP 10.6 10.0 - 20.0 09/27/2017 [facility] CHEM PANEL Bili Total 0.3 0.2 - 1.3 09/27/2017 [facility] CHEM PANEL A/G Ratio 1.2 0.7 - 1.6 09/27/2017 [facility] CHEM PANEL Glucose Lvl 96 70 - 99 09/27/2017 [facility] CHEM PANEL Creatinine Lvl 0.74 0.50 - 1.40 09/27/2017 [facility] CHEM PANEL BUN 17 7 - 22 09/27/2017 [facility] HEMATOLOGY INR 1.38 0.85 - 1.17 09/27/2017 [facility] HEMATOLOGY PT 17.0 12.0 - 14.7 09/27/2017 [facility] PTT 40.0 22.9 - 35.8 09/27/2017 [facility] HEMATOLOGY MCV 87.3 80.0 - 94.0 09/27/2017 [facility] HEMATOLOGY WBC 13.0 3.7 - 10.4 09/27/2017 [facility] HEMATOLOGY Hct 38.4 42.0 - 54.0 09/27/2017 [facility] HEMATOLOGY RBC 4.40 4.70 - 6.10 09/27/2017 [facility] HEMATOLOGY Hgb 13.0 14.0 - 18.0 09/27/2017 [facility] MCH 29.7 27.0 - 31.0 09/27/2017 [facility] MCHC 33.9 32.0 - 36.0 09/27/2017 [facility] HEMATOLOGY Platelet 218 133 - 450 09/27/2017 [facility] HEMATOLOGY MPV 7.7 7.4 - 10.4 09/27/2017 [facility] HEMATOLOGY RDW 14.1 11.5 - 14.5 09/27/2017 [facility] HEMATOLOGY Segs-Bands # 8.5 1.5 - 8.1 09/27/2017 [facility] HEMATOLOGY Monocytes # 1.4 0.0 - 0.8 09/27/2017 [facility] HEMATOLOGY Lymphocytes # 2.2 1.0 - 5.5 09/27/2017 [facility] HEMATOLOGY Eosinophils # 0.8 0.0 - 0.5 09/27/2017 [facility] HEMATOLOGY Basophils # 0.1 0.0 - 0.2 09/27/2017 [facility] HEMATOLOGY RBC Morph Normal (09/26/17 9:25 PM) 09/27/2017 [facility] HEMATOLOGY Eosinophils 6.3 0.0 - 4.0 09/27/2017 [facility] HEMATOLOGY Basophils 0.8 0.0 - 1.0 09/27/2017 [facility] Monocytes 11.0 2.0 - 12.0 09/27/2017 [facility] Plt Morph Normal (09/26/17 9:25 PM) 09/27/2017 [facility] Segs 65.0 45.0 - 75.0 09/27/2017 [facility] [facility] Lymph[facility] 16.9 20.0 - 40.0 09/27/2017 [facility] ELECTROLYTES AGAP 12.1 10.0 - 20.0 05/10/2017 [facility] ELECTROLYTES eGFR 48 05/10/2017 Result Comment: The eGFR is calculated [...] should be multiplied by the estimated BMI. [facility] ELECTROLYTES Calcium Lvl 9.6 8.5 - 10.5 05/10/2017 [facility] ELECTROLYTES Glucose Lvl 102 70 - 99 05/10/2017 [facility] ELECTROLYTES BUN 32 7 - 22 05/10/2017 [facility] ELECTROLYTES CO2 26 24 - 32 05/10/2017 [facility] ELECTROLYTES Potassium Lvl 4.1 3.5 - 5.1 05/10/2017 [facility] ELECTROLYTES Chloride Lvl 106 95 - 109 05/10/2017 [facility] ELECTROLYTES Creatinine Lvl 1.59 0.50 - 1.40 05/10/2017 [facility] ELECTROLYTES Sodium Lvl 140 135 - 145 05/10/2017 [facility] HEMATOLOGY RDW 15.9 11.5 - 14.5 05/10/2017 [facility] HEMATOLOGY Platelet 402 133 - 450 05/10/2017 [facility] HEMATOLOGY MPV 6.6 7.4 - 10.4 05/10/2017 [facility] HEMATOLOGY MCV 88.6 80.0 - 94.0 05/10/2017 [facility] HEMATOLOGY MCH 29.3 27.0 - 31.0 05/10/2017 [facility] HEMATOLOGY MCHC 33.1 32.0 - 36.0 05/10/2017 [facility] HEMATOLOGY RBC 3.59 4.70 - 6.10 05/10/2017 [facility] HEMATOLOGY Hgb 10.5 14.0 - 18.0 05/10/2017 [facility] HEMATOLOGY Hct 31.8 42.0 - 54.0 05/10/2017 [facility] HEMATOLOGY WBC 9.3 3.7 - 10.4 05/10/2017 [facility] HEMATOLOGY Monocytes # 0.7 0.0 - 0.8 05/10/2017 [facility] Eosinophils # 0.3 0.0 - 0.5 05/10/2017 [facility] HEMATOLOGY Basophils # 0.1 0.0 - 0.2 05/10/2017 [facility] HEMATOLOGY Segs-Bands # 6.5 1.5 - 8.1 05/10/2017 [facility] HEMATOLOGY Lymphocytes # 1.7 1.0 - 5.5 05/10/2017 [facility] HEMATOLOGY Basophils 0.9 0.0 - 1.0 05/10/2017 [facility] HEMATOLOGY Lymphocytes 17.8 20.0 - 40.0 05/10/2017 [facility] HEMATOLOGY Segs 70.3 45.0 - 75.0 05/10/2017 [facility] HEMATOLOGY Monocytes 8.0 2.0 - 12.0 05/10/2017 [facility] HEMATOLOGY Eosinophils 3.0 0.0 - 4.0 05/10/2017 [facility] URINE CHEM U Sodium 59 05/10/2017 [facility] URINE CHEM U Osmolality 373 300 - 800 05/10/2017 [facility] URINE CHEM U Creatinine 54.20 05/10/2017 [facility] URINE CHEM U Chloride 65 05/10/2017 [facility] URINE AND STOOL UA Urobilinogen <=1.0 mg/dL 0.1 - 1.0 05/09/2017 [facility] URINE AND STOOL UA Sq Epi None Seen 05/09/2017 [facility] URINE AND STOOL UA Blood Negative (05/09/17 4:57 AM) Negative 05/09/2017 [facility] URINE AND STOOL UA Leuk Est Negative (05/09/17 4:57 AM) Negative 05/09/2017 [facility] URINE AND STOOL UA Nitrite Negative (05/09/17 4:57 AM) Negative 05/09/2017 [facility] URINE AND STOOL UA Protein Negative mg/dL Negative mg/dL 05/09/2017 [facility] URINE AND STOOL UA Glucose Negative mg/dL Negative mg/dL 05/09/2017 [facility] URINE AND STOOL UA Bili Negative *NA* (05/09/17 4:57 AM) Negative 05/09/2017 [facility] URINE AND STOOL UA Ketones Negative mg/dL Negative mg/dL 05/09/2017 [facility] URINE AND STOOL UA Spec Grav 1.011 <=1.030 05/09/2017 [facility] URINE AND STOOL UA pH 5.0 5.0 - 8.0 05/09/2017 [facility] URINE AND STOOL UA Turbidity Clear (05/09/17 4:57 AM) Clear 05/09/2017 [facility] URINE AND STOOL UA Color Light Yellow *NA* (05/09/17 4:57 AM) Yellow 05/09/2017 [facility] URINE AND STOOL UA Mucus Few /LPF None Seen /LPF 05/09/2017 [facility] URINE AND STOOL UA RBC 1 0 - 2 05/09/2017 [facility] URINE AND STOOL UA WBC 4 0 - 5 05/09/2017 [facility] URINE AND STOOL UA Bacteria Occasional /HPF None Seen /HPF 05/09/2017 [facility] URINE CHEM U Protein 12.5 05/09/2017 [facility] URINE CHEM U Sodium 64 05/09/2017 [facility] URINE CHEM U Creatinine 52.50 05/09/2017 [facility] URINE CHEM U Chloride 67 05/09/2017 [facility] URINE CHEM U Osmolality 366 300 - 800 05/09/2017 [facility] CHEM PANEL Ammonia 36.0 <=45.0 uMol/L 05/08/2017 [facility] CHEM PANEL eGFR 47 05/08/2017 Result Comment: The eGFR is calculated [...] BMI. [facility] CHEM PANEL Chloride Lvl 106 95 - 109 05/08/2017 [facility] CHEM PANEL CO2 23 24 - 32 05/08/2017 [facility] CHEM PANEL Bili Total 0.5 0.2 - 1.3 05/08/2017 [facility] CHEM PANEL B/C Ratio 18 6 - 25 05/08/2017 [facility] CHEM PANEL AGAP 15.3 10.0 - 20.0 05/08/2017 [facility] CHEM PANEL Globulin 4.0 2.7 - 4.2 05/08/2017 [facility] CHEM PANEL A/G Ratio 0.8 0.7 - 1.6 05/08/2017 [facility] CHEM PANEL Albumin Lvl 3.3 3.5 - 5.0 05/08/2017 [facility] CHEM PANEL Total Protein 7.3 6.4 - 8.4 05/08/2017 [facility] CHEM PANEL Calcium Lvl 8.9 8.5 - 10.5 05/08/2017 [facility] CHEM PANEL ALT 52 0 - 65 05/08/2017 [facility] CHEM PANEL AST 29 0 - 37 05/08/2017 [facility] CHEM PANEL Alk Phos 101 39 - 136 05/08/2017 [facility] CHEM PANEL Glucose Lvl 106 70 - 99 05/08/2017 [facility] CHEM PANEL Creatinine Lvl 1.63 0.50 - 1.40 05/08/2017 [facility] CHEM PANEL BUN 29 7 - 22 05/08/2017 [facility] CHEM PANEL Sodium Lvl 140 135 - 145 05/08/2017 [facility] CHEM PANEL Potassium Lvl 4.3 3.5 - 5.1 05/08/2017 [facility] CHEM PANEL Ammonia 22.0 <=45.0 uMol/L 05/07/2017 [facility] CHEM PANEL eGFR 45 05/07/2017 Result Comment: The eGFR is calculated [...] BMI. [facility] CHEM PANEL Albumin Lvl 3.1 3.5 - 5.0 05/07/2017 [facility] CHEM PANEL ALT 57 0 - 65 05/07/2017 [facility] CHEM PANEL AST 37 0 - 37 05/07/2017 [facility] CHEM PANEL Alk Phos 110 39 - 136 05/07/2017 [facility] CHEM PANEL Calcium Lvl 9.3 8.5 - 10.5 05/07/2017 [facility] CHEM PANEL Total Protein 7.7 6.4 - 8.4 05/07/2017 [facility] CHEM PANEL Chloride Lvl 108 95 - 109 05/07/2017 [facility] CHEM PANEL CO2 22 24 - 32 05/07/2017 [facility] CHEM PANEL Creatinine Lvl 1.68 0.50 - 1.40 05/07/2017 [facility] CHEM PANEL Sodium Lvl 137 135 - 145 05/07/2017 [facility] CHEM PANEL Potassium Lvl 4.7 3.5 - 5.1 05/07/2017 [facility] CHEM PANEL BUN 30 7 - 22 05/07/2017 [facility] CHEM PANEL Glucose Lvl 103 70 - 99 05/07/2017 [facility] CHEM PANEL A/G Ratio 0.7 0.7 - 1.6 05/07/2017 [facility] CHEM PANEL AGAP 11.7 10.0 - 20.0 05/07/2017 [facility] CHEM PANEL Bili Total 0.5 0.2 - 1.3 05/07/2017 [facility] CHEM PANEL Globulin 4.6 2.7 - 4.2 05/07/2017 [facility] CHEM PANEL B/C Ratio 18 6 - 25 05/07/2017 [facility] CHEM PANEL Bili Total 0.6 0.2 - 1.3 05/06/2017 [facility] CHEM PANEL Alk Phos 114 39 - 136 05/06/2017 [facility] CHEM PANEL Total Protein 7.5 6.4 - 8.4 05/06/2017 [facility] CHEM PANEL Albumin Lvl 3.1 3.5 - 5.0 05/06/2017 [facility] CHEM PANEL AST 42 0 - 37 05/06/2017 [facility] CHEM PANEL ALT 69 0 - 65 05/06/2017 [facility] CHEM PANEL B/C Ratio 16 6 - 25 05/06/2017 [facility] CHEM PANEL Globulin 4.4 2.7 - 4.2 05/06/2017 [facility] CHEM PANEL A/G Ratio 0.7 0.7 - 1.6 05/06/2017 [facility] HEMATOLOGY Eosinophils # 0.1 0.0 - 0.5 05/05/2017 [facility] HEMATOLOGY Basophils # 0.1 0.0 - 0.2 05/05/2017 [facility] HEMATOLOGY Monocytes # 0.8 0.0 - 0.8 05/05/2017 [facility] HEMATOLOGY Lymphocytes # 1.3 1.0 - 5.5 05/05/2017 [facility] HEMATOLOGY Basophils 0.6 0.0 - 1.0 05/05/2017 [facility] HEMATOLOGY Segs-Bands # 8.9 1.5 - 8.1 05/05/2017 [facility] HEMATOLOGY Monocytes 7.0 2.0 - 12.0 05/05/2017 [facility] HEMATOLOGY Eosinophils 1.0 0.0 - 4.0 05/05/2017 [facility] HEMATOLOGY Lymphocytes 11.2 20.0 - 40.0 05/05/2017 [facility] HEMATOLOGY Segs 80.2 45.0 - 75.0 05/05/2017 [facility] HEMATOLOGY Platelet 352 133 - 450 05/05/2017 [facility] HEMATOLOGY MPV 6.3 7.4 - 10.4 05/05/2017 [facility] HEMATOLOGY MCHC 33.0 32.0 - 36.0 05/05/2017 [facility] HEMATOLOGY RDW 15.9 11.5 - 14.5 05/05/2017 [facility] HEMATOLOGY MCV 88.6 80.0 - 94.0 05/05/2017 [facility] HEMATOLOGY MCH 29.2 27.0 - 31.0 05/05/2017 [facility] HEMATOLOGY Hct 29.9 42.0 - 54.0 05/05/2017 [facility] HEMATOLOGY RBC 3.37 4.70 - 6.10 05/05/2017 [facility] HEMATOLOGY Hgb 9.8 14.0 - 18.0 05/05/2017 [facility] HEMATOLOGY WBC 11.1 3.7 - 10.4 05/05/2017 [facility] CHEM PANEL Ammonia 46.0 <=45.0 uMol/L 05/04/2017 [facility] HEMATOLOGY Lymphocytes 14.3 20.0 - 40.0 05/04/2017 [facility] HEMATOLOGY Monocytes 9.2 2.0 - 12.0 05/04/2017 [facility] HEMATOLOGY Eosinophils 0.7 0.0 - 4.0 05/04/2017 [facility] HEMATOLOGY Segs 75.0 45.0 - 75.0 05/04/2017 [facility] HEMATOLOGY Lymphocytes # 1.5 1.0 - 5.5 05/04/2017 [facility] HEMATOLOGY Segs-Bands # 7.8 1.5 - 8.1 05/04/2017 [facility] HEMATOLOGY Basophils 0.8 0.0 - 1.0 05/04/2017 [facility] HEMATOLOGY Basophils # 0.1 0.0 - 0.2 05/04/2017 [facility] HEMATOLOGY Eosinophils # 0.1 0.0 - 0.5 05/04/2017 [facility] HEMATOLOGY Monocytes # 1.0 0.0 - 0.8 05/04/2017 [facility] HEMATOLOGY WBC 10.4 3.7 - 10.4 05/04/2017 [facility] HEMATOLOGY Hct 30.8 42.0 - 54.0 05/04/2017 [facility] HEMATOLOGY MPV 6.3 7.4 - 10.4 05/04/2017 [facility] HEMATOLOGY MCHC 33.6 32.0 - 36.0 05/04/2017 [facility] HEMATOLOGY RDW 16.1 11.5 - 14.5 05/04/2017 [facility] HEMATOLOGY MCV 87.8 80.0 - 94.0 05/04/2017 [facility] HEMATOLOGY MCH 29.5 27.0 - 31.0 05/04/2017 [facility] HEMATOLOGY Platelet 343 133 - 450 05/04/2017 [facility] HEMATOLOGY RBC 3.51 4.70 - 6.10 05/04/2017 [facility] HEMATOLOGY Hgb 10.3 14.0 - 18.0 05/04/2017 [facility] ANEMIA STUDY Ferritin Lvl 297 22 - 275 05/03/2017 [facility] ANEMIA STUDY TIBC 310 228 - 428 05/03/2017 [facility] ANEMIA STUDY Iron 93 45 - 160 05/03/2017 [facility] ANEMIA STUDY % [place] Fe 30 12 - 57 05/03/2017 [facility] ANEMIA STUDY UIBC 217 110 - 370 05/03/2017 [facility] HEMATOLOGY PT 13.9 12.0 - 14.7 05/03/2017 [facility] HEMATOLOGY INR 1.07 0.85 - 1.17 05/03/2017 [facility] URINE CHEM U Sodium 22 05/01/2017 [facility] URINE CHEM U Creatinine 43.10 05/01/2017 [facility] URINE CHEM U Chloride <10 05/01/2017 [facility] HEMATOLOGY RBC Morph Normal (05/01/17 1:53 AM) 05/01/2017 [facility] HEMATOLOGY Plt Morph Normal (05/01/17 1:53 AM) 05/01/2017 [facility] TOXICOLOGY Vanco Lvl 14.4 05/01/2017 [facility] URINE CHEM U Osmolality 242 300 - 800 04/30/2017 [facility] TOXICOLOGY Vanco Lvl 17.1 04/30/2017 [facility] TOXICOLOGY Vanco Lvl 24.0 04/29/2017 [facility] CHEM PANEL Osmolality 258 280 - 300 04/28/2017 [facility] TOXICOLOGY Vanco Tr 21.7 04/27/2017 [facility] TOXICOLOGY Vanco Tr TND see emar 04/27/2017 [facility] CHEM PANEL Bili Indirect 0.7 0.0 - 1.0 04/27/2017 [facility] CHEM PANEL Bili Direct 0.3 0.0 - 0.3 04/27/2017 [facility] ENDOCRINOLOGY Cortisol 30.4 04/27/2017 [facility] URINE CHEM U Protein 55.4 04/26/2017 [facility] URINE CHEM U Prot/Creat 0.32 04/26/2017 [facility] CHEM PANEL Osmolality 227 280 - 300 04/26/2017 [facility] URINE AND STOOL Micro? Performed *NA* (04/26/17 6:16 AM) 04/26/2017 [facility] URINE AND STOOL UA Protein Negative mg/dL Negative mg/dL 04/26/2017 [facility] URINE AND STOOL UA Leuk Est Negative (04/26/17 6:16 AM) Negative 04/26/2017 [facility] URINE AND STOOL UA Nitrite Negative (04/26/17 6:16 AM) Negative 04/26/2017 [facility] URINE AND STOOL UA RBC 1 0 - 2 04/26/2017 [facility] URINE AND STOOL UA WBC 3 0 - 5 04/26/2017 [facility] URINE AND STOOL UA Sq Epi Occasional /LPF Few /LPF 04/26/2017 [facility] URINE AND STOOL UA Urobilinogen 2.0 0.1 - 1.0 04/26/2017 [facility] URINE AND STOOL UA Bacteria Occasional /HPF None Seen /HPF 04/26/2017 [facility] URINE AND STOOL UA Mucus Few /LPF None Seen /LPF 04/26/2017 [facility] URINE AND STOOL UA Color Yellow *NA* (04/26/17 6:16 AM) Yellow 04/26/2017 [facility] URINE AND STOOL UA Spec Grav 1.011 <=1.030 04/26/2017 [facility] URINE AND STOOL UA Turbidity Clear (04/26/17 6:16 AM) Clear 04/26/2017 [facility] URINE AND STOOL UA pH 7.0 5.0 - 8.0 04/26/2017 [facility] URINE AND STOOL UA Ketones Trace mg/dL Negative mg/dL 04/26/2017 [facility] URINE AND STOOL UA Glucose Negative mg/dL Negative mg/dL 04/26/2017 [facility] URINE AND STOOL UA Blood Small *ABN* (04/26/17 6:16 AM) Negative 04/26/2017 [facility] URINE AND STOOL UA Bili Negative *NA* (04/26/17 6:16 AM) Negative 04/26/2017 [facility] CHEM PANEL Lactic Acid Lvl 1.7 0.5 - 2.2 04/26/2017 [facility] CHEM PANEL Procalcitonin Lvl 0.11 0.00 - 0.10 04/26/2017 [facility] BACTERIAL - SEROLOGY MRSA by PCR Negative (04/26/17 2:38 AM) 04/26/2017 [facility] DRUG SCREEN U Cannab Scr Negative *NA* (04/25/17 8:11 PM) Negative 04/26/2017 [facility] DRUG SCREEN U Opiate Scr Negative *NA* (04/25/17 8:11 PM) Negative 04/26/2017 [facility] DRUG SCREEN U Phencyc Scr Negative *NA* (04/25/17 8:11 PM) Negative 04/26/2017 [facility] DRUG SCREEN U Susie Scr Negative *NA* (04/25/17 8:11 PM) Negative 04/26/2017 [facility] DRUG SCREEN UDS Note See Note (04/25/17 8:11 PM) 04/26/2017 [facility] DRUG SCREEN U Amph Scr Negative *NA* (04/25/17 8:11 PM) Negative 04/26/2017 [facility] DRUG SCREEN U Benzodia Scr Negative *NA* (04/25/17 8:11 PM) Negative 04/26/2017 [facility] DRUG SCREEN U Cocaine Scr Negative *NA* (04/25/17 8:11 PM) Negative 04/26/2017 [facility] URINE AND STOOL UA Spec Grav 1.006 <=1.030 04/26/2017 [facility] URINE AND STOOL UA Turbidity Clear (04/25/17 8:11 PM) Clear 04/26/2017 [facility] URINE AND STOOL UA Protein Negative mg/dL Negative mg/dL 04/26/2017 [facility] URINE AND STOOL UA pH 6.0 5.0 - 8.0 04/26/2017 [facility] URINE AND STOOL UA Bili Negative *NA* (04/25/17 8:11 PM) Negative 04/26/2017 [facility] URINE AND STOOL UA Ketones Negative mg/dL Negative mg/dL 04/26/2017 [facility] URINE AND STOOL UA Glucose Negative mg/dL Negative mg/dL 04/26/2017 [facility] URINE AND STOOL UA WBC <1 0 - 5 04/26/2017 [facility] URINE AND STOOL UA Sq Epi Occasional /LPF Few /LPF 04/26/2017 [facility] URINE AND STOOL UA Leuk Est Negative (04/25/17 8:11 PM) Negative 04/26/2017 [facility] URINE AND STOOL UA Nitrite Negative (04/25/17 8:11 PM) Negative 04/26/2017 [facility] URINE AND STOOL UA Blood Moderate *ABN* (04/25/17 8:11 PM) Negative 04/26/2017 [facility] URINE AND STOOL UA Urobilinogen <=1.0 mg/dL 0.1 - 1.0 04/26/2017 [facility] URINE AND STOOL UA RBC 2 0 - 2 04/26/2017 [facility] URINE AND STOOL UA Color Light Yellow *NA* (04/25/17 8:11 PM) Yellow 04/26/2017 [facility] CARDIAC ENZYMES CK MB Index 1.0 0.0 - 2.5 04/26/2017 [facility] CARDIAC ENZYMES Troponin-I 0.02 0.00 - 0.40 04/26/2017 [facility] CARDIAC ENZYMES CK MB 36.8 0.5 - 3.6 04/26/2017 [facility] [place] 3681 12 - 191 04/26/2017 [facility] CHEM PANEL Lactic Acid Lvl 4.6 0.5 - 2.2 04/26/2017 Result Comment: Critical Result(s) called to yasmin carcamoamber at 04/25/2017 20:06 bylw. Read back OK. [facility] HEMATOLOGY PTT 33.4 22.9 - 35.8 04/26/2017 [facility] HEMATOLOGY PT 15.3 12.0 - 14.7 04/26/2017 [facility] HEMATOLOGY INR 1.20 0.85 - 1.17 04/26/2017 [facility] TOXICOLOGY [place] Lvl None Detected 10.0 - 40.0 04/26/2017 Result Comment: Performed At: [facility]
[address] [place], [place] [id number]
Thalia Garcia MD Ph:[phone] [facility] CARDIAC ENZYMES CK MB 4.9 0.5 - 3.6 02/15/2015 [facility] CARDIAC ENZYMES Troponin-I 0.03 0.00 - 0.40 02/15/2015 [facility] CARDIAC ENZYMES Troponin-I 0.03 0.00 - 0.40 02/15/2015 [facility] CARDIAC ENZYMES CK MB 4.4 0.5 - 3.6 02/15/2015 [facility] CHEM PANEL eGFR 102 02/15/2015 Result Comment: The eGFR is calculated [...] should be multiplied by the estimated BMI. [facility] CHEM PANEL Glucose Lvl 122 70 - 99 02/15/2015 [facility] CHEM PANEL BUN 4 7 - 22 02/15/2015 [facility] CHEM PANEL Creatinine Lvl 0.8 0.5 - 1.4 02/15/2015 [facility] CHEM PANEL Sodium Lvl 125 135 - 145 02/15/2015 [facility] CHEM PANEL Potassium Lvl 3.7 3.5 - 5.1 02/15/2015 [facility] CHEM PANEL Chloride Lvl 90 95 - 109 02/15/2015 [facility] CHEM PANEL CO2 21 24 - 32 02/15/2015 [facility] CHEM PANEL Bili Total 1.4 0.2 - 1.3 02/15/2015 [facility] CHEM PANEL AST 137 0 - 37 02/15/2015 [facility] CHEM PANEL Total Protein 8.5 6.4 - 8.4 02/15/2015 [facility] CHEM PANEL Calcium Lvl 8.7 8.5 - 10.5 02/15/2015 [facility] CHEM PANEL Albumin Lvl 3.9 3.5 - 5.0 02/15/2015 [facility] CHEM PANEL ALT 74 0 - 65 02/15/2015 [facility] CHEM PANEL Alk Phos 135 39 - 136 02/15/2015 [facility] CHEM PANEL Globulin 4.6 2.0 - 4.0 02/15/2015 [facility] CHEM PANEL A/G Ratio 0.8 0.7 - 1.6 02/15/2015 [facility] CHEM PANEL AGAP 17.7 10.0 - 20.0 02/15/2015 [facility] CHEM PANEL B/C Ratio 5 6 - 25 02/15/2015 [facility] CHEM PANEL Lipase Lvl 234 73 - 393 02/15/2015 [facility] HEMATOLOGY MCHC 34.4 32.0 - 36.0 02/15/2015 [facility] HEMATOLOGY MCH 30.9 27.0 - 31.0 02/15/2015 [facility] HEMATOLOGY Hct 39.7 42.0 - 54.0 02/15/2015 [facility] HEMATOLOGY MCV 89.9 80.0 - 94.0 02/15/2015 [facility] HEMATOLOGY Platelet 228 133 - 450 02/15/2015 [facility] HEMATOLOGY MPV 7.0 7.4 - 10.4 02/15/2015 [facility] HEMATOLOGY RDW 13.7 11.5 - 14.5 02/15/2015 [facility] HEMATOLOGY Hgb 13.7 14.0 - 18.0 02/15/2015 [facility] HEMATOLOGY RBC 4.42 4.70 - 6.10 02/15/2015 [facility] HEMATOLOGY WBC 10.2 3.7 - 10.4 02/15/2015 [facility] HEMATOLOGY Monocytes # 0.6 0.0 - 0.8 02/15/2015 [facility] HEMATOLOGY Basophils # 0.1 0.0 - 0.2 02/15/2015 [facility] HEMATOLOGY Lymphocytes # 1.0 1.0 - 5.5 02/15/2015 [facility] HEMATOLOGY Segs-Bands # 8.5 1.5 - 8.1 02/15/2015 [facility] HEMATOLOGY Basophils 0.6 0.0 - 1.0 02/15/2015 [facility] HEMATOLOGY Eosinophils 0.1 0.0 - 4.0 02/15/2015 [facility] HEMATOLOGY Monocytes 5.9 2.0 - 12.0 02/15/2015 [facility] HEMATOLOGY Lymphocytes 9.7 20.0 - 40.0 02/15/2015 [facility] HEMATOLOGY Segs 83.7 45.0 - 75.0 02/15/2015 [facility] URINE AND STOOL UA Bacteria Few /HPF None Seen /HPF 02/15/2015 [facility] URINE AND STOOL UA RBC 0-2 /HPF 0 - 2 02/15/2015 [facility] URINE AND STOOL UA Sq Epi Rare /LPF Few /LPF 02/15/2015 [facility] URINE AND STOOL UA WBC 0-2 /HPF None Seen /HPF 02/15/2015 [facility] URINE AND STOOL Micro? Performed (02/15/15 8:48 AM) 02/15/2015 [facility] URINE AND STOOL UA Nitrite Positive *ABN* (02/15/15 8:48 AM) Negative 02/15/2015 [facility] URINE AND STOOL UA Leuk Est Negative (02/15/15 8:48 AM) Negative 02/15/2015 [facility] URINE AND STOOL UA Bili Moderate *ABN* (02/15/15 8:48 AM) Negative 02/15/2015 [facility] URINE AND STOOL UA Glucose Negative (02/15/15 8:48 AM) Negative 02/15/2015 [facility] URINE AND STOOL UA Ketones 15 mg/dL Negative mg/dL 02/15/2015 [facility] URINE AND STOOL UA Blood Trace *ABN* (02/15/15 8:48 AM) Negative 02/15/2015 [facility] URINE AND STOOL UA Urobilinogen 2.0 0.1 - 1.0 02/15/2015 [facility] URINE AND STOOL UA Color Yellow *NA* (02/15/15 8:48 AM) Yellow 02/15/2015 [facility] URINE AND STOOL UA Turbidity Clear (02/15/15 8:48 AM) Clear 02/15/2015 [facility] URINE AND STOOL UA Spec Grav 1.015 <=1.030 02/15/2015 [facility] URINE AND STOOL UA Protein 100 mg/dL Negative mg/dL 02/15/2015 [facility] URINE AND STOOL UA pH 6.5 5.0 - 8.0 02/15/2015 [facility] Pathology Reports No Data Provided for This Section Diagnostic Reports Report Value Date Source Chest 1view DX EXAM: XR CHEST 1 [...] 2. Enlargement of the cardiac silhouette. SL: [id number] 09/15/2018 [facility] Retroperitoneal Complete US STUDY: Retroperitoneal Complete US 05/14/2018 3:05 PM RISK MANAGEMENT DIRECTOR Ordering Physician: Shannon Baker MD Patient Name: NICKI HELM MR: [id number] : 1960; Age: 58 years y/o Male [...] simple right renal cyst. SL: [id number] 05/14/2018 [facility] 1view DX Clinical Indication: - weakness. Comparison: [...] pulmonary vascularity. Minimal left basilar atelectasis. SL: [id number] 05/14/2018 [facility] 1view DX Clinical Indication: Chest pain - edema Comparison: September 26, 2017 FINDINGS: The frontal chest radiograph shows normal lung volumes without interstitial or airspace opacities, pleural effusions or pneumothorax. The cardiomediastinal contours are normal for the age of the patient with aortic tortuosity. There are degenerative changes in the spine. IMPRESSION: No chest radiographic evidence of acute cardiopulmonary disease. SL: 82 03/24/2018 [facility] ED Abdomen/Pelvis IV contrast only CT CT [...] inguinal hernia is present. SL: [id number] 09/27/2017 [facility] Ext Lower Venous Doppler Bilat US Clinical [...] vein, femoral vein (also referred to as 'superficial femoral vein'), popliteal vein, deep calf veins include posterior tibial and peroneal SUPERFICIAL VEINS: Greater saphenous vein, lesser saphenous vein IMPRESSION: 1. No DVT 09/27/2017 [facility] Chest 1view DX EXAM: XR CHEST 1 VIEW DATE: 09/26/2017 9:12 PM CDT INDICATION: Chest pain. COMPARISON: 04/29/2017. TECHNIQUE: A single AP view of the chest was obtained. FINDINGS: No focal consolidation or pneumothorax is identified. The cardiomediastinal silhouette is within normal limits. The costophrenic recesses are sharp and without effusion. No acute osseous abnormality is noted. IMPRESSION: No acute cardiopulmonary abnormality. SL: [id number] 09/26/2017 [facility] Liver US Clinical Indication: - alcoholic with [...] cholecystitis. 2. Hepatomegaly and hepatic steatosis. SL: [id number] 05/02/2017 [facility] 1view DX Clinical Indication: Respiratory failure. Comparison: [...] opacities. Unchanged tiny left pleural effusion. SL: [id number] 04/29/2017 [facility] 1view DX Clinical Indication: - ETT. Comparison: [...] the chest. No significant interval change. SL: [id number] 04/28/2017 [facility] 1view DX Clinical Indication: - ETT Comparison: [...] venous congestion. No focal pulmonary consolidation. SL: [id number] 04/27/2017 [facility] Abdomen 1 v for Placement DX 1 VIEW ABDOMEN portable exam 8:28 AM INDICATION: NG tube placement. COMPARISON: No priors available. The NG tube is been placed and the tip is in the distal stomach. The bowel gas pattern appears normal. Lung bases clear. IMPRESSION: Tip of the NG tube is in the distal stomach. END IMPRESSION SL: [id number] 04/26/2017 [facility] Chest 1 v for Placement DX Clinical [...] 10 cm is suggested. SL: 82 04/26/2017 [facility] Brain wo contrast CT EXAM: CT BRAIN WITHOUT CONTRAST DATE: 04/25/2017 5:58 PM RISK MANAGEMENT DIRECTOR INDICATION: Seizure. COMPARISON: None. TECHNIQUE: CT images [...] within the limits of motion artifact. SL: [id number] 04/25/2017 [facility] Abdomen/Pelvis w IV contrast CT Name: NICKI [...] without evidence of diverticulitis SL: 24 02/15/2015 [facility] Consultation Notes No Data Provided for This Section Discharge Summaries No Data Provided for This Section History and Physicals No Data Provided for This Section Vital Signs Vital Sign Value Date Comments Source Respitory Rate 18 09/15/2018 [facility] Systolic (mm Hg) 123 09/15/2018 [facility] Diastolic (mm Hg) 67 09/15/2018 [facility] Heart Rate 88 09/15/2018 [facility] Temperature Oral (F) 98.3 F 09/15/2018 [facility] Respitory Rate 16 09/15/2018 [facility] Temperature Oral (F) 98.3 F 09/15/2018 [facility] Systolic (mm Hg) 121 09/15/2018 [facility] Diastolic (mm Hg) 66 09/15/2018 [facility] Heart Rate 87 09/15/2018 [facility] Respitory Rate 14 09/15/2018 [facility] Temperature Oral (F) 98.7 F 09/15/2018 [facility] Systolic (mm Hg) 144 09/15/2018 [facility] Diastolic (mm Hg) 80 09/15/2018 [facility] Heart Rate 91 09/15/2018 [facility] BMI Calculated 57.87 09/15/2018 [facility] Weight 148.182 09/15/2018 [facility] Height 160.02 cm 09/15/2018 [facility] Height 167.64 cm 09/15/2018 [facility] BMI Calculated 58.23 09/15/2018 [facility] Weight 163.636 09/15/2018 [facility] Temperature Oral (F) 98.0 F 03/24/2018 [facility] Respitory Rate 18 03/24/2018 [facility] Systolic (mm Hg) 120 03/24/2018 [facility] Diastolic (mm Hg) 72 03/24/2018 [facility] Respitory Rate 19 03/24/2018 [facility] Systolic (mm Hg) 130 03/24/2018 [facility] Diastolic (mm Hg) 66 03/24/2018 [facility] Heart Rate 84 03/24/2018 [facility] Respitory Rate 18 03/24/2018 [facility] Temperature Oral (F) 97.9 F 03/24/2018 [facility] Systolic (mm Hg) 128 03/24/2018 [facility] Diastolic (mm Hg) 88 03/24/2018 [facility] Systolic (mm Hg) 140 09/27/2017 [facility] Diastolic (mm Hg) 60 09/27/2017 [facility] Rate 73 09/27/2017 [facility] [...] 02/15/2015 [facility] Diastolic (mm Hg) 86 02/15/2015 [facility] Systolic (mm Hg) 185 02/15/2015 [facility] Diastolic (mm Hg) 93 02/15/2015 [facility] Heart Rate 101 02/15/2015 [facility] Respitory Rate 18 02/15/2015 [facility] Systolic (mm Hg) 166 02/15/2015 [facility] Diastolic (mm Hg) 86 02/15/2015 [facility] Heart Rate 104 02/15/2015 [facility] Respitory Rate 18 02/15/2015 [facility] Weight 113.636 02/15/2015 [facility] BMI Calculated 44.38 02/15/2015 [facility] Height 160.02 cm 02/15/2015 [facility] Temperature Oral (F) 96.8 F 02/15/2015 [facility] Encounters Location Location Details Encounter Type Encounter Number Reason For Visit Attending Provider ADM Date DC Date Status Source [facility] [id number] Pipe Hong Jr 02/15/2015 02/15/2015 [facility] Inpatient [id number] Gerardo Gutierrez 04/25/2017 05/10/2017 [facility] Emergency [id number] Jodielore MartinezPierre 09/27/2017 09/27/2017 [facility] General Surgery [facility] Ambulatory Pre-Reg [id number] Perico Haley 11/08/2017 11/08/2017 [facility] Emergency [id number] Lesa Joineru 03/24/2018 03/24/2018 [facility] Observation [id number] Ever Chandra Jr 09/15/2018 09/15/2018 [facility] Procedures Procedure Code Date Perfomer Comments Source Hernia repair [id number] [facility] Hernia repair [id number] [facility] Hernia repair [id number] [facility] Assessment and Plan Assessment and Plan Date Source Extracted from:Title: General Admission H&P * Author: Isidro Higgins MD Date: 09/15/18 Impression and Plan -COPD exacerbation Duo nebs, prednisone, ceftriaxone, azithromycin -Acute on chronic diastolic heart failure IV Lasix -Suicidal ideation Resolved Psychiatric consult -Morbid obesity Counseled -Obstructive sleep apnea CPAP -Hypertension Norvasc -Dyslipidemia Statin DVT prophylaxis with heparin DISPO: OBS 09/15/2018 [facility] Extracted from:Title: Clinical Document Author: Arya Crandall MD Date: 05/10/17 Nephrology Consult Follow-Up Note 24 hour events: No acute events overnight. S: No complaints today. Medications (25) Active Scheduled Meds (13): 05/09/17 amLODIPine (Norvasc) 5 mg PO Daily 05/09/17 carvedilol (Coreg) 12.5 mg PO Q12H 04/26/17 enoxaparin 40 mg SUB-Q [id number] 04/29/17 famotidine 20 mg PO BID 04/29/17 [...] 05/01/17 temazepam (Restoril) 15 mg PO Bedtime 05/02/17 trazodone (trazodone 50 mg oral tablet) 50 mg PO Bedtime One Time Meds (1): 05/10/17 (Completed) acetaminophen-hydrocodone (Bison 5/325 oral tablet) 1 tab PO ONCE Continuous Infusions: None O: Vitals Tmp(F) Pulse BP RR SpO2 FIO2 05/10 11:00 98.2 71 159/90 18 97 --- 05/10 08:33 ---- --- ----- 18 97 --- 05/10 06:00 98.4 62 131/86 18 97 --- 05/10 00:00 98 66 142/87 19 97 --- 05/09 19:00 98.1 74 159/82 19 96 --- 24 Hr Tmax: 98.4F (36.89c) at 05/10 06:00 Vital Signs are the last 5 in the [...] better at 1.59 mg/dl Yessenia Crandall MD [facility] Extracted from:Title: Clinical Document Author: Arya Crandall MD Date: 04/26/17 Nephrology Consult Brief Note Patient was seen today. Full consult dictated. Confirmation #[id number] Yessenia Crandall MD [facility] Addendum by Arya Crandall MD on 04/26/2017 14:47 Just received call from nurse that serum sodium up to 112. I have asked her to stop MVI+folic acid+thiamine that was running in normal saline and switch to D5W. May have to start on D5W or add desmopressin to slow correction rate. 05/10/2017 [facility] Plan of Care No Data Provided for This Section Social History Social History Date Source Social History TypeResponse Substance Abuse Use: Past. Type: Heroin. Recreational [...] Smoking Cessation Counseling No entered on: 09/14/18 05/14/2018 [facility] Social History TypeResponse Substance Abuse Use: Past. Type: Heroin. Recreational [...] Smoking Cessation Counseling No entered on: 09/26/17 04/26/2017 [facility] Social History TypeResponse Substance Abuse Use: Past. Type: Heroin. Recreational [...] Days Yes; Reg Smoking Cessation Counseling No 04/26/2017 [facility] Family History No Data Provided for This Section Advance Directives No Data Provided for This Section Functional Status No Data Provided for This Section
[2018-11-17] MEDS ORDERED: ACETAMINOPHEN/CODEINE 300MG - 30MG TAB PO ONE (14:45)
--- NOTE | 2018-11-17 16:27 | NUR ---
cab voucher given and called.
== END 2018-11-17 16:32 | disposition home or self-care (01) ==
LOC: ER 13:18
DX: L97.829 Non-pressure chronic ulcer of other part of left lower leg with unspecified severity (principal); L97.819 Non-pressure chronic ulcer of other part of right lower leg with unspecified severity
CPT/HCPCS: 99283

== ENCOUNTER 2019-03-28 19:11 | Inpatient (IN) | payer OTHER ==
[~2019-03-28] VITALS: Ht 160 cm; Wt 136.1 kg
[~2019-03-28 19:11] MED LIST changes: +BUMETANIDE1 MG PO; +ETOMIDATE 40 MG/ 20ML VIAL IV ONE; +FERROUS GLUCON324 M2 PO; +FUROSEMIDE20 MG PO; -GABAPENTIN600 MG; +GABAPENTIN600 MG PO; +IBUPROFEN400 MG PO; +METFORMIN HCL500 MG PO; +MIDAZOLAM HCL 2 MG/2 ML VIAL ONE; +NYSTATIN1 EAC2 PO; +POTASSIUM CHLO10 ME1 PO; +PROAIR HFA INH8.5 GM PO; +SPIRONOLACTONE25 MG PO; +SUCCINYLCHOLINE 200 MG/10 ML SYR ONE; +TYLENOL#4 PO; +ULTRAM50 MG PO
[2019-03-28] MEDS ORDERED: ALBUTEROL SULF 0.083% NEB SOLN 3 ML NEB NEB NR (19:15)
[2019-03-28] MEDS ORDERED: IPRATROPIUM BROMIDE 0.02% 2.5 ML NEB NEB NR (19:15)
[2019-03-28] MEDS ORDERED: METHYLPREDNISOLONE SOD SUCC 125 MG/2ML VIAL IV NR (19:30)
[2019-03-28 19:48] LABS: BASOPHILS % 0.3 % (0.0-1.0); EOSINOPHILS # (AUTO) 0.2 (0.0-0.4); EOSINOPHILS % 1.5 % (0.0-6.0); HEMATOCRIT 31.4 % (38.2-49.6); HEMOGLOBIN 9.6 g/dL (14.0-18.0); LYMPHOCYTES # (AUTO) 1.5 (1.0-3.2); LYMPHOCYTES % 9.6 % (18.0-39.1); MEAN CORPUSCULAR HEMOGLOBIN 24.7 pg (28-32); MEAN CORPUSCULAR HGB CONC 30.6 g/dL (31-35); MEAN CORPUSCULAR VOLUME 80.7 fL (81-99); MONOCYTES # (AUTO) 1.2 (0.2-0.8); MONOCYTES % 7.7 % (4.4-11.3); NEUTROPHILS # (AUTO) 12.3 (2.1-6.9); NEUTROPHILS % 78.5 % (38.7-80.0); PLATELET COUNT 317 x10e3/uL (140-360); RED BLOOD COUNT 3.89 x10e6/uL (4.3-5.7); RED CELL DISTRIBUTION WIDTH 17.8 % (11.7-14.4)
[2019-03-28 20:10] LABS: ALANINE AMINOTRANSFERASE 12 IU/L (0-55); ALBUMIN 3.8 g/dL (3.5-5.0); ALBUMIN/GLOBULIN RATIO 0.8 (0.8-2.0); ALKALINE PHOSPHATASE 83 IU/L (40-150); BLOOD UREA NITROGEN 21 mg/dL (7-26); BUN/CREATININE RATIO 24 (6-25); CALCIUM 9.9 mg/dL (8.4-10.2); CARBON DIOXIDE 27 mmol/L (22-29); CHLORIDE 98 mmol/L (98-107); CREATINE KINASE 104 IU/L (30-200); CREATININE, SERUM 0.87 mg/dL (0.72-1.25); EST GLOMERULAR FILTRATION RATE > 60 ML/MIN (60-); GLUCOSE 99 mg/dL (74-118); SODIUM 137 mmol/L (136-145)
[2019-03-28] MEDS ORDERED: ALBUTEROL SULF 0.083% NEB SOLN 3 ML NEB NEB STA (20:31)
--- NOTE | 2019-03-28 20:35 | NUR ---
PT WITH INCREASED WHEEZING. AWAKE AND ALERT, TALKATIVE. DR POTTS INFORMED. SECOND NEB TREATMENT ORDERED.
--- NOTE | 2019-03-28 20:40 | NUR ---
PT NOTED C LABORED BREATHING AND WORSENING WHEEZING. DR POTTS CALLED TO BEDSIDE. BIPAP ORDERED.
--- NOTE | 2019-03-28 21:00 | NUR ---
PT C INCREASED WHEEZING AND DECREASED LOC. DR POTTS INFORMED. PT AWAKE TO STERNAL RUB. ORIENTED TO PERSON AND PLACE.
--- NOTE | 2019-03-28 21:01 | Diagnostic Imaging Report ---
EXAMINATION: CHEST SINGLE (PORTABLE) COMPARISON: CT chest 02/23/2019 INDICATION: Shortness of breath ^sob ^Y DISCUSSION: Frontal view of the chest obtained at 2036 hours. HEART AND MEDIASTINUM: The heart is normal in size with prominent pericardial fat pads. Aortic tortuosity is stable. LINES: None. LUNGS: Mild hyperinflation. Trace bibasilar atelectasis, left greater than right. Perivascular markings are normal. No interstitial edema. PLEURA: No pleural effusion or pneumothorax. BONES AND SOFT TISSUES: No focal osseous lesion. The soft tissues are normal. IMPRESSION: Bibasilar atelectasis. Stable aortic tortuosity. Signed by: Dr. Denise Brown MD on 03/28/2019 8:58 PM
--- NOTE | 2019-03-28 21:10 | NUR ---
PT VERY LETHARGIC. MD TO BEDSIDE, PREPARING TO INTUBATE.
--- NOTE | 2019-03-28 21:16 | NUR ---
PT INTUBATED AT THIS TIME. ET TUBE 23 CM AT LIP. VENT SETTINGS TIDAL VOLUME 500, RR 18, 0 PEEP, FIO2 60%. RADIOLOGY CALLED FOR CHEST XRAY.
[2019-03-28] MEDS: PROPOFOL IV EMULSION 10MG/ML 100 ML IV PRN (21:21)
[2019-03-28] MEDS ORDERED: PROPOFOL IV EMULSION 10MG/ML 100 ML ONE (21:22)
[2019-03-28] MEDS ORDERED: MIDAZOLAM HCL 2 MG/2 ML VIAL IV STA (21:29)
[2019-03-28] MEDS ORDERED: AZITHROMYCIN 500MG/NS 250 ML 250 ML IV SCH (21:30)
--- NOTE | 2019-03-28 21:40 | NUR ---
PT RESTING ON STRETCHER C EYES CLOSED. PT REACHING FOR ET TUBE. WRIST RESTRAINTS ORDERED.
[2019-03-28] MEDS: CEFTRIAXONE SOD 1 GM/NS 50 ML 50 ML IV SCH (21:48)
--- NOTE | 2019-03-28 21:48 | Diagnostic Imaging Report ---
EXAMINATION: CHEST SINGLE (PORTABLE) COMPARISON: Chest x-ray 2035 hours INDICATION: ^post intubation ^[id number] ^2119 ^Y DISCUSSION: Frontal view of the chest obtained at 2127 hours. The images motion degraded. HEART AND MEDIASTINUM: Stable prominent cardiomediastinal silhouette due to pericardial fat pads. Stable aortic tortuosity. LINES: Endotracheal tube terminates 4 to 5 cm above the david. LUNGS: No confluent infiltrates or interstitial edema. Bibasilar atelectasis. PLEURA: No pleural effusion or pneumothorax. BONES AND SOFT TISSUES: No focal osseous lesion. The soft tissues are normal. IMPRESSION: Endotracheal tube as described above. Bibasilar atelectasis. Signed by: Dr. Denise Brown MD on 03/28/2019 9:44 PM
[2019-03-28 21:49] LABS: ABG PH 7.35 (7.31-7.41)
[2019-03-28 21:50] LABS: ABG HCO3 31 mmol/L (23-28); ABG PCO2 55 mmHg (41-51); ABG PO2 133 mmHg (80-105)
[2019-03-28] MEDS ORDERED: SYMBICORT 16010.2 GM INH (22:02)
[2019-03-28] MEDS ORDERED: FLUCONAZOLE100 MG PO (22:02)
[2019-03-28] MEDS ORDERED: MELATONIN3 M1 PO (22:03)
[2019-03-28] MEDS ORDERED: IBUPROFEN200 MG PO (22:04)
[2019-03-28] MEDS ORDERED: SODIUM CHLORIDE 0.9% 1000ML 1,000 ML IV SCH (22:30)
[2019-03-28 22:41] LABS: NEUTROPHILS % (MANUAL) 78 % (40-74)
[2019-03-28 22:42] LABS: BAND NEUTROPHILS % (MANUAL) 2 %; EOSINOPHILS % (MANUAL) 2 % (0-7); LYMPHOCYTES % (MANUAL) 11 % (19-48); MONOCYTES % (MANUAL) 7 % (3.4-9.0); PLATELET ESTIMATE ADEQUATE; PLATELET MORPHOLOGY COMMENT NORMAL
[2019-03-28 22:43] LABS: RBC MORPHOLOGY COMMENT NORMAL
--- NOTE | 2019-03-28 22:48 | NUR ---
16FR KERR CATHETER INSERTED USING STERILE TECHNQUE. 100 CC CLEAR YELLOW URINE RETURN NOTED. SPECIMEN COLLECTED FROM PORT AND SENT TO LAB PER ORDERS.
[2019-03-28 22:52] LABS: ABG HCO3 30 mmol/L (23-28); ABG PCO2 56 mmHg (41-51); ABG PH 7.33 (7.31-7.41); ABG PO2 123 mmHg (80-105)
[2019-03-28] MEDS: ALBUTEROL/IPRATROPIUM 3 ML NEB NEB SCH (23:00)
[2019-03-28 23:01] LABS: BILIRUBIN,URINE NEGATIVE (NEGATIVE); CLARITY,URINE CLEAR (CLEAR); COLOR,URINE YELLOW (YELLOW); KETONES,URINE NEGATIVE (NEGATIVE); LEUKOCYTE ESTERASE ,URINE NEGATIVE (NEGATIVE); NITRITE,URINE NEGATIVE (NEGATIVE); PROTEIN,URINE DIPSTICK NEGATIVE (NEGATIVE); URINE UROBILINOGEN 0.2 mg/dL (0.2 - 1)
[2019-03-29] VITALS (23 sets, daily range): BP systolic 94–183; BP diastolic 54–103
[2019-03-29] MEDS: METHYLPREDNISOLONE SOD SUCC 40 MG/ML VIAL 1ML IV SCH ×3 (01:03→12:00)
[2019-03-29] MEDS ORDERED: DEXMEDETOMIDINE HCL 200 MCG in SODIUM CHLORIDE 0.9% 50ML 48 ML IV PRN (01:30)
[2019-03-29 01:37] LABS: BACTERIA,URINE MODERATE /HPF; EPITHELIAL CELLS,URINE FEW /LPF; WBC,URINE (MAN) 0-5 /HPF (0-5)
--- NOTE | 2019-03-29 02:31 | Consultation ---
DATE OF CONSULTATION: 03/28/2019 Pulmonary Medicine Consult REFERRING PHYSICIAN: Dr. Rain. REASON FOR REFERRAL: Acute respiratory failure. HISTORY OF PRESENT ILLNESS: Mr. Donahue is a pleasant 59-year-old gentleman with acute respiratory failure. The patient presented on March 28, 2019, with acute shortness of breath. The patient with symptoms that began about two days ago reported at his assisted living facility. EMS came by and found audible wheezing on arrival with saturations 92% on oxygen. The patient was having a very poor breathing pattern and was not showing signs to get better. He was therefore brought to the emergency room. In the emergency room once again, he was felt to have retained secretions and poor protection of airway with wheezing. He was intubated. I was consulted. The patient apparently had some prescription for Ativan and morphine, which was started two days prior. PAST MEDICAL HISTORY: Obstructive sleep apnea, possible narcolepsy, reported COPD, hypertension, obesity hypoventilation syndrome, chronic respiratory failure on home oxygen 4 L/minute, history of PE long ago, and secondary pulmonary hypertension. MEDICATIONS: Medication list reviewed per the chart record. ALLERGIES: MYCIN. SOCIAL HISTORY: The patient smoked for only one year and he is mostly nonsmoker. He uses heavy alcohol for 40 years, but quit 3 years ago. History of heroin injection and he smoke cocaine a long time ago. 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 FAMILY HISTORY: Noncontributory. REVIEW OF SYSTEMS: Cannot get as he is altered and intubated. PHYSICAL EXAMINATION: VITAL SIGNS: Currently afebrile, vital signs noted and reviewed per the chart record. GENERAL: In no acute distress, alert, waking up as he is getting a bath in bed, but otherwise he goes back to sleep. HEENT: Normocephalic and atraumatic. NECK: Supple. Throat midline. LUNGS: Bilateral air entry, decreased breath sounds bilaterally, no wheezing on my exam in the ICU. CARDIOVASCULAR: S1 and S2. No murmurs, rubs, or gallops. ABDOMEN: Soft and nontender. EXTREMITIES: No clubbing. No cyanosis. There is 1+ edema of the legs. INTEGUMENT: No rash. No purpura. LABORATORY DATA: White count 15. CBC and CMP mostly unremarkable. Chest x-ray reported clear lungs. IMPRESSION AND PLAN: 1. Acute respiratory failure, intubated. 2. Baseline obesity hypoventilation syndrome. 3. History of GAVI, reported narcolepsy. 4. Possible asthma by history. 5. Diabetes. 6. Hypertension. 7. Possible substance poisoning. 8. Continue on steroids. Continue bronchodilators. As medicines of morphine and Ativan were off. We will see if he is extubated by early tomorrow. Resume Eliquis or other anticoagulant. Continue home medicine of Pepcid and get some initial antibiotics, although we may be able to deescalate soon if there is no evidence of sepsis. . Thank you very much, Dr. Rain and Dr. Singh for allowing me a chance to participate in the care of Mr. Donahue. Please do not hesitate to contact me if I can help in any way. Greater than 30 minutes in care coordination today. MD MAKAYLA Cali/IJEOMA /[id number]
[2019-03-29] MEDS: PROPOFOL IV EMULSION 10MG/ML 100 ML IV PRN ×2 (03:01→03:40)
[2019-03-29] MEDS: ALBUTEROL/IPRATROPIUM 3 ML NEB NEB SCH ×7 (03:20→23:00)
[2019-03-29 05:31] LABS: BASOPHILS % 0.2 % (0.0-1.0); EOSINOPHILS % 0.1 % (0.0-6.0); HEMATOCRIT 28.7 % (38.2-49.6); HEMOGLOBIN 9.1 g/dL (14.0-18.0); LYMPHOCYTES # (AUTO) 0.7 (1.0-3.2); MEAN CORPUSCULAR HEMOGLOBIN 25.5 pg (28-32); MEAN CORPUSCULAR HGB CONC 31.7 g/dL (31-35); MEAN CORPUSCULAR VOLUME 80.4 fL (81-99); MONOCYTES # (AUTO) 0.1 (0.2-0.8); MONOCYTES % 0.8 % (4.4-11.3); NEUTROPHILS # (AUTO) 12.1 (2.1-6.9); NEUTROPHILS % 92.1 % (38.7-80.0); PLATELET COUNT 297 x10e3/uL (140-360); RED BLOOD COUNT 3.57 x10e6/uL (4.3-5.7); RED CELL DISTRIBUTION WIDTH 17.6 % (11.7-14.4)
--- NOTE | 2019-03-29 05:36 | Diagnostic Imaging Report ---
EXAMINATION: CHEST SINGLE (PORTABLE) COMPARISON: Chest x-ray 03/28/2019 INDICATION: ^COPD ^[id number] ^0515 DISCUSSION: Frontal view of the chest obtained at 0523 hours. HEART AND MEDIASTINUM: Stable prominence of the cardiomediastinal silhouette and aortic tortuosity LINES: Endotracheal tube terminates 3.6 cm above the david LUNGS: The lung volumes and bibasilar atelectasis. No pneumonia or pulmonary edema. PLEURA: No large effusions or pneumothorax. BONES AND SOFT TISSUES: Stable. IMPRESSION: Endotracheal tube as described above. No new cardiopulmonary process. Signed by: Dr. Denise Brown MD on 03/29/2019 5:32 AM
[2019-03-29 05:56] LABS: ANION GAP 15.3 mmol/L (8-16); BLOOD UREA NITROGEN 22 mg/dL (7-26); BUN/CREATININE RATIO 26 (6-25); CALCIUM 9.7 mg/dL (8.4-10.2); CARBON DIOXIDE 27 mmol/L (22-29); CHLORIDE 99 mmol/L (98-107); CREATININE, SERUM 0.84 mg/dL (0.72-1.25); EST GLOMERULAR FILTRATION RATE > 60 ML/MIN (60-); GLUCOSE 168 mg/dL (74-118); POTASSIUM 4.3 mmol/L (3.5-5.1); SODIUM 137 mmol/L (136-145)
[2019-03-29 06:21] LABS: CREATINE KINASE 91 IU/L (30-200)
[2019-03-29] MEDS: FAMOTIDINE 20 MG TAB PO SCH ×2 (09:00→16:29)
[2019-03-29] MEDS: FUROSEMIDE 20 MG TAB PO SCH ×2 (09:00→16:29)
[2019-03-29] MEDS: APIXABAN 5 MG TABLET PO SCH ×2 (09:00→16:29)
[2019-03-29 09:23] LABS: ABG PH 7.43 (7.31-7.41)
[2019-03-29 09:24] LABS: ABG HCO3 29 mmol/L (23-28); ABG PCO2 44 mmHg (41-51); ABG PO2 84 mmHg (80-105)
--- NOTE | 2019-03-29 11:46 | History and Physical ---
A 59-year-old male came in with COPD exacerbation, intubated. Currently, the patient is intubated in the ICU. On a rapid wean protocol, the patient is on Versed at this time, sleeping. Most of the H and P got from previous chart. The patient is currently sedated. HISTORY OF PRESENTING ILLNESS: Mr. Layo Donahue is a 59-year-old male with a history of multiple COPD exacerbation, was in usual state of health. The patient walked into the ER and was found to have respiratory distress and the patient was intubated and brought into the ICU. PAST MEDICAL HISTORY: From the previous admission shows COPD, history of congestive heart failure, history of hypertension, history of hyperlipidemia, history of type 2 diabetes mellitus, history of chronic DVTs, history of reflux esophagitis, history of alcoholism with Wernicke encephalopathy, and history of hypertension. MEDICATIONS: As per medical reconciliation shows albuterol, ProAir as needed, amlodipine 10 mg daily, atorvastatin 20 mg at nighttime, Symbicort 164.5 b.i.d., duloxetine 30 mg daily, famotidine 20 mg daily, ferrous gluconate 324 mg daily, fluconazole 100 mg daily, Lasix 20 mg b.i.d., gabapentin 600 mg 3 times a day, hydralazine 100 mg t.i.d., DuoNeb q.6 hours, lactulose as needed, melatonin 3 mg tablets ER, metformin 500 mg, nystatin powder, potassium chloride, Aldactone 25 mg, tramadol 50 mg, zolpidem 10 mg, and Tylenol #4 and apixaban 5 mg b.i.d. PAST SURGICAL HISTORY: Apparent history of multiple hernia repairs, right wrist surgery, and also has tonsillectomy. FAMILY MEDICAL HISTORY: Mother of dementia. SOCIAL HISTORY: The patient stopped smoking. Currently drinks. Apparently has also Wernicke encephalopathy. REVIEW OF SYSTEMS: Unable to get. PHYSICAL EXAMINATION: GENERAL: The patient is intubated and sedated on Versed and propofol. On examination, the patient is obese, intubated with Pickwickian syndrome. VITAL SIGNS: Temperature is 98.1, pulse is 72, respirations of 19, blood pressure is 99/60, and pulse oximetry, he is on mechanical ventilator. LUNGS: Decreased air entry. ABDOMEN: Has umbilical hernia. EXTREMITIES: Positive for edema. LABORATORY VALUES: White count is 15,000 with a hemoglobin of 9.6, hematocrit of 31.4, and platelet count is 317. Chemistry show a sodium of 137, potassium 4.0, BUN of 21, and creatinine 0.87. ALT and AST normal. Troponin is less than 0.001. The patient's urine shows moderate amount of bacteria. IMAGING STUDIES: Chest x-ray done yesterday showed bibasilar atelectasis, stable aortic tortuosity and repeat x-ray status post intubation and endotracheal tube in place, no new cardiopulmonary processes. ASSESSMENT: Mr. Layo Donahue is a 59-year-old male with: 1. Chronic obstructive pulmonary disease exacerbation with acute respiratory failure. The patient is intubated, currently on vent. Vent settings to be adjusted by Dr. Serrano. 2. Obesity-hypoventilation syndrome. The patient has exacerbation with pain medication and also with apparent use of anxiolytics and narcotics. 3. Uncontrolled diabetes mellitus. 4. Wernicke encephalopathy. 5. Hypoxic encephalopathy. 6. Also, the patient has leukocytosis. 7. Diabetes mellitus. 8. Congestive heart failure. 9. History of chronic deep venous thrombosis and reflux esophagitis. PLAN: At this time, in progress. The patient with a chronic DVT, will need anticoagulation, so we will go ahead and put him on Lovenox at this time. The patient has been put on Solu-Medrol 40 mg q.6 hours. We will continue this. For leukocytosis, the patient is on Rocephin and for diabetes, insulin sliding scale with atorvastatin and agreed to start his medications as soon as weaning protocol is completed. Further recommendation per clinical course. We will continue to monitor the patient. The patient will also need possible social service for placement and also for need of counseling for opioid and benzo withdrawal. Further recommendation per clinical course. We will continue to monitor the patient along with Dr. Serrano. If required, an echo will be done too. MD LAURI GiraldoJ/MODL /[id number]
[2019-03-29] MEDS: LACTULOSE SYRUP 20 GM/30 ML UDC PO SCH (14:05)
--- NOTE | 2019-03-29 14:48 | NUR ---
PULMONARY MEDICINE DATE 03/29/2019 SUBJECTIVE: PATIENT with good respiratory mechanics today AM. he was extubated. his voice and swallow seems roughly ok. he denies knowledge of taking on pain / new medications at home. he just takes what they give him. he doesnt know about any medication changes recently. REVIEW OF SYSTEMS: no headaches, no rash PHYSICAL EXAMINATION: VITAL SIGNS: vital signs noted and reviewed per the chart record. GENERAL: NAD, AO x 3 HEENT: Normocephalic and atraumatic. NECK: Supple. Throat midline. LUNGS: Bilateral air entry, decreased breath sounds bilaterally, no wheezing on my exam CARDIOVASCULAR: S1 and S2. No murmurs, rubs, or gallops. ABDOMEN: Soft and nontender. EXTREMITIES: No clubbing. No cyanosis. 1+ edema legs. INTEGUMENT: No rash. No purpura. LABORATORY DATA: Wbc 13 k, IMPRESSION AND PLAN: 1. Acute respiratory failure, intubated/extubated 2. Baseline obesity hypoventilation syndrome. 3. History of GAVI, reported narcolepsy. 4. Asthma 5. Diabetes. 6. Hypertension. 7. Possible substance poisoning, ativan/morphine. extubated dc ventilator wean steroids bronchodilators. Eliquis continue mobilize start PO diet if he does well on the diet, he can leave the ICU informed patient about avoiding medicaitons that suppress breathing Thank you very much, Dr. Rain Greater than 30 minutes in care coordination today.
[2019-03-29 15:56] LABS: CREATINE KINASE 98 IU/L (30-200)
[2019-03-29] MEDS: INSULIN LISPRO 100 UNIT/1 ML 3ML VIAL SQ SCH ×2 (16:22→20:22)
[2019-03-29] MEDS: SPIRONOLACTONE 25 MG TAB PO SCH (16:28)
[2019-03-29] MEDS: BUMETANIDE 1 MG TAB PO SCH (16:28)
[2019-03-29] MEDS: POTASSIUM CHLORIDE 10MEQ EA PO SCH (16:28)
[2019-03-29] MEDS: AMLODIPINE BESYLATE 10 MG TAB PO SCH (16:29)
[2019-03-29] MEDS: TRAMADOL HCL 50 MG TAB PO PRN (16:30)
[2019-03-29] MEDS: CEFTRIAXONE SOD 1 GM/NS 50 ML 50 ML IV SCH (20:20)
[2019-03-29] MEDS ORDERED: ATORVASTATIN 20 MG TAB PO SCH (21:00)
[2019-03-30] MEDS: TRAMADOL HCL 50 MG TAB PO PRN ×3 (01:09→12:30)
[2019-03-30] MEDS: ALBUTEROL/IPRATROPIUM 3 ML NEB NEB SCH ×2 (02:30→07:00)
[2019-03-30 03:00] VITALS: BP 147/101
[2019-03-30 04:30] VITALS: BP 123/59
--- NOTE | 2019-03-30 05:05 | NUR ---
Pt Transferred to [facility] via WC with o2 tank and Tele box. Report was given to BS RN (Carmina). Pt was connected to wall monitor on 4l/NC. Pt verbalized comfort.
--- NOTE | 2019-03-30 05:09 | NUR ---
PT IS TRANSF
--- NOTE | 2019-03-30 05:24 | NUR ---
PT IS TRANSFERRED FROM ICU .PT AOX3 .DENIES PAIN RESPIRATION ARE EVEN UNLABORED PT HAS SKIN TRAR RT LOWER LEG PT IS ON 5L OF OXYGEN .CALL LIGHT WITH IN REACH .CONTINUE TO MONITOR
--- NOTE | 2019-03-30 07:06 | NUR ---
PT C/O PAIN AND GIVEN TRAMADOL .BEDSIDE REPORT GIVEN TO THE ONCOMING NURSE
--- NOTE | 2019-03-30 07:33 | Progress Note ---
DATE: SUBJECTIVE: The patient is in room 294, extubated yesterday. Continues to do well. Continues to have some shortness of breath on lying down. The patient has been educated on the use of BiPAP at home and the patient is willing to do it. MEDICATIONS: Albuterol and Atrovent, apixaban, atorvastatin, Bumex, Rocephin, famotidine, lactulose, Aldactone, and tramadol. OBJECTIVE: VITAL SIGNS: The patient is stable at this time. Temperature is 96.4, pulse of 82, respirations of 18, blood pressure is 123/59, pulse oximetry of 95%. HEENT: Normocephalic and atraumatic. CVS: S1 and S2 distant. LUNGS: Decreased air entry air. ABDOMEN: Nontender, nondistended. EXTREMITIES: Positive for edema. LABORATORY VALUES: White count is 13,000, hemoglobin of 9.1, hematocrit of 28.7. Chemistry shows sodium 137, potassium 4.3, BUN is 22, creatinine of 0.85. Troponins have been trended to be negative. MICROBIOLOGY: Blood cultures have been negative so far. IMAGING STUDIES: Imaging done yesterday was within normal limits. ASSESSMENT: 1. Chronic obstructive pulmonary disease exacerbation. 2. Obesity hypoventilation syndrome. 3. Uncontrolled diabetes mellitus. 4. Sleep apnea. 5. Leukocytosis. 6. Diabetes mellitus. 7. Chronic congestive heart failure. 8. History of chronic deep venous thromboses. PLAN: The patient is extubated. The patient has chronic hypoxia, needs BiPAP. We will continue to monitor the patient. Physical therapy and occupational therapy will be ordered. SNF consult will be ordered. Further recommendation per clinical course. We will monitor the patient along with Dr. Serrano. MD LAURI GiraldoJ/MODL /[id number]
[2019-03-30] MEDS: INSULIN LISPRO 100 UNIT/1 ML 3ML VIAL SQ SCH ×2 (07:46→11:30)
[2019-03-30 08:00] VITALS: BP 157/77
[2019-03-30] MEDS: SPIRONOLACTONE 25 MG TAB PO SCH (08:32)
[2019-03-30] MEDS: APIXABAN 5 MG TABLET PO SCH (08:32)
[2019-03-30] MEDS: BUMETANIDE 1 MG TAB PO SCH (08:32)
[2019-03-30] MEDS: POTASSIUM CHLORIDE 10MEQ EA PO SCH (08:32)
[2019-03-30] MEDS: AMLODIPINE BESYLATE 10 MG TAB PO SCH (08:33)
[2019-03-30] MEDS: FAMOTIDINE 20 MG TAB PO SCH (08:33)
[2019-03-30] MEDS: LACTULOSE SYRUP 20 GM/30 ML UDC PO SCH (08:33)
[2019-03-30] MEDS: FUROSEMIDE 20 MG TAB PO SCH (08:33)
[2019-03-30 08:56] VITALS: BP 157/77
--- NOTE | 2019-03-30 10:59 | NUR ---
SPOKE WITH PATIENT. HE STATES HE DOES NOT WANT TO GO TO A SNF, HE WANTS TO RETURN TO [facility], [address], [id number] PHONE [phone], FAX [phone] AT THE FACILITY HE IS ON ALL [facility] [id number] [address] , HE WANTS TO MAINTAIN ALL SERVICES WITH THEM. SPOKE WITH YULIYA AT THE FACILITY AND SHE STATES TO PLEASE FAX ANY CLINICALS AND PRESCRIPTIONS TO THEM AT ABOVE NUMBER.
--- NOTE | 2019-03-30 11:15 | NUR ---
NOTIFIED BY SOCIAL WORK THE PT HAS REFUSED SNF. CALL TO DR. JACKSON TO NOTIFY PT WOULD LIKE TO RETURN TO [facility]. AWAITING CALL BACK W FURTHER ORDERS.
[2019-03-30 11:21] VITALS: BP 133/71
--- NOTE | 2019-03-30 11:42 | NUR ---
PULMONARY MEDICINE DATE 03/30/2019 SUBJECTIVE: 3 L/min oxygen patient eating well didnt sleep well at night, didnt use bipap patient states he runs out of oxygen at home, small tanks REVIEW OF SYSTEMS: no headaches, no rash PHYSICAL EXAMINATION: VITAL SIGNS: vital signs noted and reviewed per the chart record. GENERAL: NAD, AO x 3 HEENT: Normocephalic and atraumatic. NECK: Supple. Throat midline. LUNGS: Bilateral air entry, decreased breath sounds bilaterally, no wheezing on my exam CARDIOVASCULAR: S1 and S2. No murmurs, rubs, or gallops. ABDOMEN: Soft and nontender. EXTREMITIES: No clubbing. No cyanosis. 1+ edema legs. INTEGUMENT: No rash. No purpura. LABORATORY DATA: Wbc 13 k, IMPRESSION AND PLAN: 1. Acute respiratory failure, intubated/extubated 2. Baseline obesity hypoventilation syndrome. 3. History of GAVI, reported narcolepsy. 4. Asthma 5. Diabetes. 6. Hypertension. 7. Possible substance poisoning, ativan/morphine. 8. cor pulmonale PRN steroids bronchodilators. Eliquis continue mobilize PO diet CM to change home oxygen tanks to larger size Thank you very much, Dr. Rain
--- NOTE | 2019-03-30 13:13 | NUR ---
New discharge order recvd from Dr Rain, notified Dr Serrano, report called to [facility], they said their milk tanker driver will be here to pick patient
--- NOTE | 2019-03-30 14:10 | NUR ---
pharmacy info sent to Dr Rain for prescription
--- NOTE | 2019-03-30 14:24 | NUR ---
patient discharged to [facility] living, 2 IV canulas removed with tip intact, no ss of infiltration, pressure bandage applied. denies any pain, no distress noted, [facility] vehicle is there to pick patient, transported via wheelchair with oxygen
== END 2019-03-30 14:12 | DRG 208 ==
LOC: ER 19:11 → ERHOLD 23:06 → ICU 23:50 → MED/SURG3 03-30 04:50
PROVIDERS: ADMIT Family Medicine; ATTEND Family Medicine
PROC: 5A1935Z Respiratory Ventilation, Less than 24 Consecutive Hours (ICD-10-PCS; principal; 2019-03-28)
PROC: 0BH17EZ Insertion of Endotracheal Airway into Trachea, Via Natural or Artificial Opening (ICD-10-PCS; 2019-03-28)
DX: J44.1 Chronic obstructive pulmonary disease with (acute) exacerbation (principal); J96.21 Acute and chronic respiratory failure with hypoxia; E66.2 Morbid (severe) obesity with alveolar hypoventilation; Z68.43 Body mass index [BMI] 50.0-59.9, adult; E51.2 Wernicke's encephalopathy; G93.1 Anoxic brain damage, not elsewhere classified; I82.509 Chronic embolism and thrombosis of unspecified deep veins of unspecified lower extremity; Z88.8 Allergy status to other drugs, medicaments and biological substances; I11.0 Hypertensive heart disease with heart failure; I50.9 Heart failure, unspecified; E11.9 Type 2 diabetes mellitus without complications; Z87.440 Personal history of urinary (tract) infections; F32.9 Major depressive disorder, single episode, unspecified; E78.5 Hyperlipidemia, unspecified; Z87.891 Personal history of nicotine dependence; Z82.49 Family history of ischemic heart disease and other diseases of the circulatory system; D72.829 Elevated white blood cell count, unspecified; F10.21 Alcohol dependence, in remission; K21.0 Gastro-esophageal reflux disease with esophagitis
CPT/HCPCS: 31500; 36415; 36600; 51700; 71045; 80048; 80053; 81001; 82550; 82553; 82805; 82948; 83880; 84484; 85025; 87040; 93005; 94002; 94003; 94640; 94660; 96372; 99285; J0696; J2250; J2920; J2930; J7030

== ENCOUNTER 2019-04-10 13:39 | Inpatient (IN) | payer OTHER ==
[2019-04-10] VITALS (8 sets, daily range): BP systolic 108–143; BP diastolic 51–87
[~2019-04-10] VITALS: Ht 160 cm; Wt 135.7 kg
[~2019-04-10 13:39] MED LIST changes: -ETOMIDATE 40 MG/ 20ML VIAL IV ONE; +FLUCONAZOLE100 MG PO; +IBUPROFEN200 MG PO; +MELATONIN3 M1 PO; -MIDAZOLAM HCL 2 MG/2 ML VIAL ONE; -SUCCINYLCHOLINE 200 MG/10 ML SYR ONE; +SYMBICORT 16010.2 GM INH
[2019-04-10] MEDS ORDERED: ALBUTEROL SULF 0.5% NEB SOLN 20 ML BTL ONE (13:59)
[2019-04-10] MEDS ORDERED: ALBUTEROL/IPRATROPIUM 3 ML NEB ONE (14:00)
--- NOTE | 2019-04-10 14:00 | NUR ---
REC'D PT IN RM 10 VIA EMS FROM [facility] FOR SHORTNESS OF BREATH
--- NOTE | 2019-04-10 14:21 | NUR ---
R.TIris IN ROOM TO PLACE PT ON BI-PAP. CECE TX GIVEN
[2019-04-10] MEDS ORDERED: IPRATROPIUM BROMIDE 0.02% 2.5 ML NEB NEB ONE (14:30)
[2019-04-10] MEDS ORDERED: METHYLPREDNISOLONE SOD SUCC 125 MG/2ML VIAL IV ONE (14:30)
[2019-04-10] MEDS ORDERED: ALBUTEROL SULF 0.083% NEB SOLN 3 ML NEB NEB ONE (14:30)
[2019-04-10 14:33] LABS: BASOPHILS % 0.3 % (0.0-1.0); EOSINOPHILS # (AUTO) 0.6 (0.0-0.4); EOSINOPHILS % 3.9 % (0.0-6.0); HEMATOCRIT 31.1 % (38.2-49.6); HEMOGLOBIN 9.3 g/dL (14.0-18.0); LYMPHOCYTES # (AUTO) 1.4 (1.0-3.2); LYMPHOCYTES % 9.3 % (18.0-39.1); MEAN CORPUSCULAR HGB CONC 29.9 g/dL (31-35); MEAN CORPUSCULAR VOLUME 83.6 fL (81-99); MONOCYTES # (AUTO) 1.2 (0.2-0.8); MONOCYTES % 8.1 % (4.4-11.3); PLATELET COUNT 267 x10e3/uL (140-360); RED BLOOD COUNT 3.72 x10e6/uL (4.3-5.7); RED CELL DISTRIBUTION WIDTH 17.7 % (11.7-14.4)
[2019-04-10 14:40] LABS: ABG HCO3 30 mmol/L (23-28); ABG PCO2 50 mmHg (41-51); ABG PH 7.39 (7.31-7.41); ABG PO2 89 mmHg (80-105)
[2019-04-10 14:42] LABS: INR 0.98; PROTHROMBIN TIME 13.5 seconds (11.9-14.5)
[2019-04-10 14:49] LABS: ALANINE AMINOTRANSFERASE 15 IU/L (0-55); ALBUMIN 3.8 g/dL (3.5-5.0); ALBUMIN/GLOBULIN RATIO 0.9 (0.8-2.0); ALKALINE PHOSPHATASE 69 IU/L (40-150); ANION GAP 15.7 mmol/L (8-16); BLOOD UREA NITROGEN 18 mg/dL (7-26); BUN/CREATININE RATIO 24 (6-25); CALCIUM 9.6 mg/dL (8.4-10.2); CARBON DIOXIDE 29 mmol/L (22-29); CHLORIDE 96 mmol/L (98-107); CREATINE KINASE 61 IU/L (30-200); CREATININE, SERUM 0.76 mg/dL (0.72-1.25); EST GLOMERULAR FILTRATION RATE > 60 ML/MIN (60-); GLUCOSE 121 mg/dL (74-118); POTASSIUM 3.7 mmol/L (3.5-5.1); SODIUM 137 mmol/L (136-145)
--- NOTE | 2019-04-10 14:55 | Diagnostic Imaging Report ---
EXAMINATION: CHEST SINGLE (PORTABLE) INDICATION: Shortness of breath COMPARISON: Chest radiograph 03/29/2019 FINDINGS: LINES/TUBES:Interval extubation. LUNGS:The lungs are moderately inflated. No new focal consolidation. Unchanged patchy opacity at the left lung base. PLEURA:No pleural effusion or pneumothorax. MEDIASTINUM:Cardiomediastinal silhouette is stably enlarged. BONES/SOFT TISSUES:No acute osseous injury. ABDOMEN:No free air under the diaphragm. IMPRESSION: Interval extubation. Left basilar patchy opacity appears unchanged, likely subsegmental atelectasis. Signed by: Kaylen Finney MD on 04/10/2019 2:52 PM
[2019-04-10 14:59] LABS: BAND NEUTROPHILS % (MANUAL) 5 %; EOSINOPHILS % (MANUAL) 6 % (0-7); LYMPHOCYTES % (MANUAL) 9 % (19-48); METAMYELOCYTES % (MANUAL) 1 % (0-0); MONOCYTES % (MANUAL) 3 % (3.4-9.0); MYELOCYTES % (MANUAL) 2 % (0-0); NEUTROPHILS % (MANUAL) 74 % (40-74); PLATELET ESTIMATE ADEQUATE; PLATELET MORPHOLOGY COMMENT NORMAL; RBC MORPHOLOGY COMMENT NORMAL
[2019-04-10] MEDS ORDERED: LEVOFLOXACIN 750MG/D5W 150ML 150 ML IV ONE (15:00)
[2019-04-10] MEDS ORDERED: ONDANSETRON HCL INJ 2MG/ML 2ML 2 MG/ML VIAL IV PRN (16:15)
[2019-04-10] MEDS: FAMOTIDINE 20 MG/2 ML VIAL IV SCH (16:15)
[2019-04-10] MEDS ORDERED: DEXTROSE 50% SYRINGE 50 ML IV PRN (16:15)
[2019-04-10 16:25] LABS: ABG HCO3 31 mmol/L (23-28); ABG PCO2 57 mmHg (41-51); ABG PH 7.34 (7.31-7.41); ABG PO2 57 mmHg (80-105)
[2019-04-10] MEDS: INSULIN LISPRO 100 UNIT/1 ML 3ML VIAL SQ SCH ×2 (16:30→21:00)
[2019-04-10] MEDS ORDERED: TRAZODONE HCL 50 MG TAB PO PRN (17:45)
--- NOTE | 2019-04-10 18:35 | NUR ---
PULMONARY/CCM CONSULT [id number] Thanks Dr Flores
[2019-04-10] MEDS ORDERED: TRAMADOL HCL 50 MG TAB PO PRN (18:45)
[2019-04-10] MEDS: ALBUTEROL SULF 0.083% NEB SOLN 3 ML NEB NEB SCH ×2 (19:00→23:00)
[2019-04-10] MEDS: IPRATROPIUM BROMIDE 0.02% 2.5 ML NEB NEB SCH ×2 (19:00→23:00)
[2019-04-10] MEDS: ATORVASTATIN 20 MG TAB PO SCH (21:00)
[2019-04-10] MEDS ORDERED: NON-FORMULARY MEDICATION (Gabapentin 600 MG) PO SCH (21:00)
[2019-04-10] MEDS: GABAPENTIN 300 MG CAP PO SCH (21:00)
--- NOTE | 2019-04-10 22:18 | Consultation ---
DATE OF CONSULTATION: 04/10/2019 Pulmonary Medicine Consult REASON FOR REFERRAL: Acute respiratory failure. HISTORY OF PRESENT ILLNESS: Mr. Donahue is a pleasant 59-year-old gentleman with acute respiratory failure. The patient very well known to me with obesity, hypoventilation syndrome that is bringing him to the hospital intermittently. The patient with two days of symptoms this time. Moderate intensity but a pattern of worsening. Therefore, the patient comes to the hospital. He has had shortness of breath and he is barely able to speak when he comes to the emergency room. In the ER, he is given BiPAP for rescue. Chest x-ray with small patchy nonspecific atelectasis versus opacity of the lung. ABG was 7.39/50/89/30. Due to emergent need for BiPAP and initial nonresponsiveness even in the emergency room, he is admitted to ICU. I am consulted to help up. He denies significant worsening of any GERD recently. Denies any knowledge of exacerbating factors. PAST MEDICAL HISTORY: Obstructive sleep apnea, possible narcolepsy, hypertension, obesity hypoventilation syndrome, chronic respiratory failure on home oxygen 4 L/minutes, history of PE long ago, secondary pulmonary hypertension. MEDICATIONS: Medication list reviewed per the chart record. ALLERGIES: ERYTHROMYCIN. SOCIAL HISTORY: The patient smoked only for one year and is mostly nonsmoker. Former heavy alcohol, but quit 3-4 years ago. History of previous heroin and cocaine long time ago. 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 FAMILY HISTORY: Noncontributory. REVIEW OF SYSTEMS: Cannot get reliably as he is on respiratory support device, BiPAP. OBJECTIVE: VITAL SIGNS: The patient afebrile, vital signs noted reviewed per the chart record. No shock. GENERAL: Generally in bed more comfortable, BiPAP is taken off and he is able to the speak better now. HEENT: Normocephalic, atraumatic. NECK: Supple. Throat midline. LUNGS: Bilateral air entry is moderate, [id number] wheezing, no rales. CARDIOVASCULAR: S1, S2. No murmurs, rubs, gallops. ABDOMINAL: Soft, nontender. EXTREMITIES: No clubbing, no cyanosis. There is 1+ edema of the legs. INTEGUMENT: No rash, no purpura. LABORATORY DATA: Fifty white count, 31 hematocrit, 267 platelets. Followup ABG was 7.34/57/57/31. Coagulation at times normal. Bicarbonate in serum is 29, 0.8 creatinine, LFTs mostly unremarkable except for globulin 4.1. BNP is less than 10. IMPRESSION AND PLAN: 1. Acute respiratory failure, BiPAP salvage. 2. Obesity hypoventilation with exacerbation. 3. Asthma with exacerbation. 4. History of obstructive sleep apnea, possible narcolepsy. 5. Hypertension. 6. Chronic hypoxemic respiratory failure on home oxygen. 7. History of pulmonary embolism long ago. 8. History of secondary pulmonary hypertension. 9. Generalized weakness. 10. Peripheral neuropathy. Continue BiPAP intermittently and wean off. Reasonable for nighttime BiPAP to continue. Oxygen per protocol now on BiPAP. Reasonable for initial antibiotics, possible beginnings of left shift in the white blood count noted, repeat tomorrow. The patient needs clarification of his goals in treatment including if he chooses to go back to hospice, which I remember he one time was a participant. Weight loss would be optimal, although unclear how feasible that will be. Thank you very much, Dr. Flores for allowing me a chance to participate in care of Mr. Donahue. Please call for any questions. MD MAKAYLA Cali/MODL /[id number]
[2019-04-10 22:20] LABS: ABG PH 7.39 (7.31-7.41)
[2019-04-10 22:21] LABS: ABG HCO3 31 mmol/L (23-28); ABG PCO2 51 mmHg (41-51); ABG PO2 95 mmHg (80-105)
[2019-04-10 22:24] LABS: CREATINE KINASE MB 1.2 ng/mL (0-5.0)
[2019-04-10] MEDS: METHYLPREDNISOLONE SOD SUCC 125 MG/2ML VIAL IV SCH (22:33)
[2019-04-11] VITALS (25 sets, daily range): BP systolic 107–163; BP diastolic 50–101
[2019-04-11] MEDS: IPRATROPIUM BROMIDE 0.02% 2.5 ML NEB NEB SCH ×6 (02:30→23:15)
[2019-04-11] MEDS: ALBUTEROL SULF 0.083% NEB SOLN 3 ML NEB NEB SCH ×6 (02:30→23:15)
[2019-04-11 04:19] LABS: AMPHETAMINES SCREEN,URINE POSITIVE (NEGATIVE); BENZODIAZEPINES SCREEN,URINE NEGATIVE (NEGATIVE); BILIRUBIN,URINE NEGATIVE (NEGATIVE); CLARITY,URINE CLEAR (CLEAR); COLOR,URINE YELLOW (YELLOW); KETONES,URINE NEGATIVE (NEGATIVE); LEUKOCYTE ESTERASE ,URINE NEGATIVE (NEGATIVE); NITRITE,URINE NEGATIVE (NEGATIVE); PHENCYCLIDINE SCREEN,URINE NEGATIVE (NEGATIVE); PROTEIN,URINE DIPSTICK NEGATIVE (NEGATIVE); URINE UROBILINOGEN 0.2 mg/dL (0.2 - 1)
[2019-04-11 04:26] LABS: BACTERIA,URINE FEW /HPF; EPITHELIAL CELLS,URINE FEW /LPF
[2019-04-11 05:25] LABS: ALANINE AMINOTRANSFERASE 14 IU/L (0-55); ALBUMIN 3.3 g/dL (3.5-5.0); ALBUMIN/GLOBULIN RATIO 0.8 (0.8-2.0); ALKALINE PHOSPHATASE 65 IU/L (40-150); ANION GAP 14.9 mmol/L (8-16); BLOOD UREA NITROGEN 16 mg/dL (7-26); BUN/CREATININE RATIO 23 (6-25); CALCIUM 9.7 mg/dL (8.4-10.2); CARBON DIOXIDE 27 mmol/L (22-29); CHLORIDE 100 mmol/L (98-107); CHOL/HDL RATIO 3.4 (3.9-4.7); CHOLESTEROL 124 MD/DL (0-199); CREATININE, SERUM 0.71 mg/dL (0.72-1.25); EST GLOMERULAR FILTRATION RATE > 60 ML/MIN (60-); GLUCOSE 159 mg/dL (74-118); HDL CHOLESTEROL 37 MG/DL (40-60); LDL CHOLESTEROL 79 MG/DL (60-130); POTASSIUM 3.9 mmol/L (3.5-5.1); SODIUM 138 mmol/L (136-145); TRIGLYCERIDES 42 MG/DL (0-149)
[2019-04-11 05:27] LABS: CREATINE KINASE 46 IU/L (30-200)
[2019-04-11] MEDS: METHYLPREDNISOLONE SOD SUCC 125 MG/2ML VIAL IV SCH ×2 (05:38→13:24)
[2019-04-11] MEDS: FAMOTIDINE 20 MG/2 ML VIAL IV SCH ×2 (05:38→15:23)
[2019-04-11 05:39] LABS: BASOPHILS % 0.2 % (0.0-1.0); EOSINOPHILS % 0.1 % (0.0-6.0); HEMOGLOBIN 9.6 g/dL (14.0-18.0); LYMPHOCYTES # (AUTO) 0.9 (1.0-3.2); LYMPHOCYTES % 6.3 % (18.0-39.1); MEAN CORPUSCULAR HEMOGLOBIN 25.1 pg (28-32); MEAN CORPUSCULAR VOLUME 83.8 fL (81-99); MONOCYTES # (AUTO) 0.2 (0.2-0.8); MONOCYTES % 1.6 % (4.4-11.3); NEUTROPHILS # (AUTO) 12.4 (2.1-6.9); NEUTROPHILS % 88.4 % (38.7-80.0); PLATELET COUNT 235 x10e3/uL (140-360); RED BLOOD COUNT 3.82 x10e6/uL (4.3-5.7); RED CELL DISTRIBUTION WIDTH 17.3 % (11.7-14.4)
[2019-04-11] MEDS: INSULIN LISPRO 100 UNIT/1 ML 3ML VIAL SQ SCH ×4 (07:44→20:55)
[2019-04-11] MEDS: METFORMIN HCL 500 MG TAB PO SCH ×2 (07:46→16:29)
[2019-04-11] MEDS: SPIRONOLACTONE 25 MG TAB PO SCH (08:08)
[2019-04-11] MEDS: LOSARTAN POTASSIUM 100 MG TAB PO SCH (08:09)
[2019-04-11] MEDS: DULOXETINE HCL 30 MG DELAYED RELEASE PO SCH (08:12)
[2019-04-11] MEDS: AMLODIPINE BESYLATE 10 MG TAB PO SCH (08:12)
[2019-04-11] MEDS: GABAPENTIN 300 MG CAP PO SCH ×3 (08:12→20:58)
[2019-04-11] MEDS: LACTULOSE SYRUP 20 GM/30 ML UDC PO SCH (08:12)
[2019-04-11] MEDS: POTASSIUM CHLORIDE 10MEQ EA PO SCH (08:12)
[2019-04-11] MEDS: FUROSEMIDE 20 MG TAB PO SCH ×2 (08:12→16:29)
[2019-04-11] MEDS: LEVOFLOXACIN 500MG/D5W 100ML 100 ML IV SCH (15:22)
--- NOTE | 2019-04-11 16:21 | NUR ---
Nutrition Screen Note RD Recommendation for Physician: Continue diet as ordered Plan of Care: RD following, monitoring for tolerance and adequacy Nutrition reason for involvement: Primary Diagnosis of CHF Primary Diagnose(s): CHF, COPD exacerbation, respiratory failure PMH: GERD, HTN, overweight/obesity, respiratory failure Ht: 63in Wt:311.44lb BMI: 55.2kg/m2 IBW: 124lb +/-10% RD Assessment: (04/11/2019) Chart reviewed. Labs and meds reviewed. Initial encounter with patient. Pt denies any difficulty chewing or swallowing. Pt denies any N,V,D. Pt was eating well [employer]. Pt denies any known food allergies. Current Diet: 1800 ADA Malnutrition Evaluation (04/11/2019) The patient does not meet criteria for a specified degree of malnutrition at this time. Will re-evaluate at follow-up as appropriate. Diet Education Needs Assessment: Diet education offered, but pt is familiar with a Low sodium diet. Nutrition Care Level: Low Signed: Asim Miles RD, LD, [facility]
[2019-04-11] MEDS: ENOXAPARIN SOD INJ 40 MG/0.4 ML SYR SC SCH (16:29)
--- NOTE | 2019-04-11 18:09 | NUR ---
Pulmonary Medicine DATE : 04/11/2019 SUBJECTIVE: 3 l/MIN OXYGEN Use bipap at night minimal assist up to walk ate well REVIEW OF SYSTEMS: no headaches, no rash OBJECTIVE: VITAL SIGNS: vital signs noted reviewed per the chart record. GENERAL: NAD, sitting up HEENT: Normocephalic, atraumatic. NECK: Supple. Throat midline. LUNGS: Bilateral air entry moderate, rare rhonchi CARDIOVASCULAR: S1, S2. No murmurs, rubs, gallops. ABDOMINAL: Soft, nontender. EXTREMITIES: No clubbing, no cyanosis. 1+ edema legs. INTEGUMENT: No rash, no purpura. LABORATORY DATA: 27 hco3, k 3.9 wbc 14, hct 32. IMPRESSION AND PLAN: 1. Acute respiratory failure, BiPAP on/off. 2. Obesity hypoventilation with exacerbation. 3. Asthma with exacerbation. 4. History of obstructive sleep apnea, possible narcolepsy. 5. Hypertension. 6. Chronic hypoxemic respiratory failure on home oxygen. 7. History of pulmonary embolism long ago. 8. History of secondary pulmonary hypertension. 9. Generalized weakness. 10. Peripheral neuropathy. Continue BiPAP for sleep bronchodilators, steroids wean Oxygen per protocol mobilize, PT follow up continue antibiotics Weight loss would be optimal, although unclear how feasible that will be. Thank you very much, Dr. Flores for allowing me a chance to participate in care of Mr. Donahue. Please call for any questions.
[2019-04-11] MEDS: BUDESONIDE 0.5MG/2 ML NEB INH SCH (19:30)
[2019-04-11] MEDS: ATORVASTATIN 20 MG TAB PO SCH (20:58)
--- NOTE | 2019-04-11 21:15 | NUR ---
Report given to Joseph POST at 2114. Patient escorted by Ángel POST off unit via WC with O2 3L NC at 2119. All personal belongings with patient. No acute distress noted.
--- NOTE | 2019-04-11 22:15 | NUR ---
RECEIVED PATIENT FROM ICU AOX4, NO SIGNS OF DISTRESS NOTED. PATIENT ARRIVED VIA WHEELCHAIR AND VOICES NO PAIN AT THIS TIME. PATIENT SITTING IN CHAIR NEAR BED, BIPAP MACHINE TO BE USED, CALL LIGHT IS WITHIN EASY REACH, WILL CONTINUE TO MONITOR.
[2019-04-12] VITALS (8 sets, daily range): BP systolic 117–147; BP diastolic 57–73
--- NOTE | 2019-04-12 00:30 | NUR ---
PATIENT IS WALKING UP AND DOWN THE [place] WITH STRAIGHT CANE IN TOW. NO SIGNS OF RESPIRATORY DISTRESS NOTED.
[2019-04-12] MEDS: ALBUTEROL SULF 0.083% NEB SOLN 3 ML NEB NEB SCH ×6 (02:54→23:45)
[2019-04-12] MEDS: IPRATROPIUM BROMIDE 0.02% 2.5 ML NEB NEB SCH ×6 (02:54→23:45)
[2019-04-12] MEDS: FAMOTIDINE 20 MG/2 ML VIAL IV SCH ×2 (04:27→17:33)
[2019-04-12] MEDS: BUDESONIDE 0.5MG/2 ML NEB INH SCH ×2 (07:00→20:15)
--- NOTE | 2019-04-12 07:00 | NUR ---
Received patient sitting on the chair with eyes open. Respiration even and unlabored without SOB. Call light in reach.
[2019-04-12] MEDS: INSULIN LISPRO 100 UNIT/1 ML 3ML VIAL SQ SCH ×4 (08:00→21:00)
[2019-04-12] MEDS: METFORMIN HCL 500 MG TAB PO SCH ×2 (08:04→17:34)
[2019-04-12] MEDS: LOSARTAN POTASSIUM 100 MG TAB PO SCH (08:04)
[2019-04-12] MEDS: SPIRONOLACTONE 25 MG TAB PO SCH (08:04)
[2019-04-12] MEDS: LACTULOSE SYRUP 20 GM/30 ML UDC PO SCH (08:05)
[2019-04-12] MEDS: AMLODIPINE BESYLATE 10 MG TAB PO SCH (08:05)
[2019-04-12] MEDS: FUROSEMIDE 20 MG TAB PO SCH ×2 (08:05→17:34)
[2019-04-12] MEDS: POTASSIUM CHLORIDE 10MEQ EA PO SCH (08:05)
[2019-04-12] MEDS: DULOXETINE HCL 30 MG DELAYED RELEASE PO SCH (08:05)
[2019-04-12] MEDS: GABAPENTIN 300 MG CAP PO SCH ×3 (08:05→21:00)
[2019-04-12] MEDS ORDERED: PREDNISONE 20 MG TAB PO SCH (09:00)
--- NOTE | 2019-04-12 11:14 | Progress Note ---
DATE: SUBJECTIVE: The patient did well overnight. He was able to be transferred out of the ICU. He does feel better overall with improved breathing. PHYSICAL EXAMINATION: VITAL SIGNS: Temperature is 96.8, pulse 70, blood pressure 129/66, respiratory rate 20, and sats of 94%. GENERAL: No apparent distress, lying in bed. NECK: Supple. CARDIOVASCULAR: Regular rate and rhythm. LUNGS: Decreased breath sounds bilaterally. ABDOMEN: Good bowel sounds, soft. EXTREMITIES: No clubbing or cyanosis. NEUROLOGIC: Nonfocal. ASSESSMENT AND PLAN: 1. Acute on chronic respiratory failure. Continue with current care per Pulmonary. 2. Acute exacerbation of chronic obstructive pulmonary disease. Continue with current care. 3. Congestive heart failure. Continue with current care. 4. Diabetes. Continue with current care and monitoring. 5. Hypertension. Continue with his medication. 6. Hyperlipidemia. Continue with his cholesterol medicine. 7. Anemia. Continue to monitor. 8. Leukocytosis. Continue to monitor. Please see hospital chart for full details. MD BROOKS Youngblood/MODL /[id number]
--- NOTE | 2019-04-12 16:17 | NUR ---
Pulmonary Medicine DATE : 04/12/2019 SUBJECTIVE: Used bipap at night 2 L/min oxygen by NC standby assist up to walk used cane ate well REVIEW OF SYSTEMS: no headaches, no rash OBJECTIVE: VITAL SIGNS: vital signs noted reviewed per the chart record. GENERAL: NAD, sitting up HEENT: Normocephalic, atraumatic. NECK: Supple. Throat midline. LUNGS: Bilateral air entry moderate, rare rhonchi CARDIOVASCULAR: S1, S2. No murmurs, rubs, gallops. ABDOMINAL: Soft, nontender. EXTREMITIES: No clubbing, no cyanosis. 1+ edema legs. INTEGUMENT: No rash, no purpura. LABORATORY DATA: no new updates IMPRESSION AND PLAN: 1. Acute respiratory failure, BiPAP on/off. 2. Obesity hypoventilation with exacerbation. 3. Asthma with exacerbation. 4. History of obstructive sleep apnea, possible narcolepsy. 5. Hypertension. 6. Chronic hypoxemic respiratory failure on home oxygen. 7. History of previous pulmonary embolism 8. History of secondary pulmonary hypertension. 9. Generalized weakness. 10. Peripheral neuropathy. Continue BiPAP for sleep bronchodilators, steroids wean Oxygen per protocol mobilize, PT follow up continue antibiotics diuretics/wraps/legs offset for edema Thank you very much, Dr. Flores for allowing me a chance to participate in care of Mr. Donahue. Please call for any questions.
[2019-04-12] MEDS: LEVOFLOXACIN 500MG/D5W 100ML 100 ML IV SCH (17:33)
[2019-04-12] MEDS: ENOXAPARIN SOD INJ 40 MG/0.4 ML SYR SC SCH (17:34)
[2019-04-12] MEDS: ATORVASTATIN 20 MG TAB PO SCH (21:00)
--- NOTE | 2019-04-12 21:00 | NUR ---
PATIENT IS AOX4, NO SIGNS OF RESPIRATORY DISTRESS NOTED. NASAL CANNULA INTACT AND RUNNING AT 3 LITERS AND PATIENT VOICES NO PAIN AT THIS TIME. PATIENT SITTING IN CHAIR NEAR BED, BIPAP MACHINE TO BE USED, CALL LIGHT IS WITHIN EASY REACH, WILL CONTINUE TO MONITOR.
[2019-04-13] VITALS (9 sets, daily range): BP systolic 135–162; BP diastolic 65–80
--- NOTE | 2019-04-13 00:44 | NUR ---
PATIENT NOW RESTING IN BED BOTH EYES CLOSED, BIPAP MACHINE PLACED ON PATIENT.
[2019-04-13] MEDS: ALBUTEROL SULF 0.083% NEB SOLN 3 ML NEB NEB SCH ×6 (03:15→23:30)
[2019-04-13] MEDS: IPRATROPIUM BROMIDE 0.02% 2.5 ML NEB NEB SCH ×6 (03:15→23:30)
[2019-04-13] MEDS: FAMOTIDINE 20 MG/2 ML VIAL IV SCH ×2 (06:15→15:09)
[2019-04-13 06:31] LABS: BASOPHILS % 0.3 % (0.0-1.0); HEMATOCRIT 31.8 % (38.2-49.6); HEMOGLOBIN 9.6 g/dL (14.0-18.0); LYMPHOCYTES # (AUTO) 2.3 (1.0-3.2); LYMPHOCYTES % 15.5 % (18.0-39.1); MEAN CORPUSCULAR HEMOGLOBIN 25.3 pg (28-32); MEAN CORPUSCULAR HGB CONC 30.2 g/dL (31-35); MEAN CORPUSCULAR VOLUME 83.7 fL (81-99); MONOCYTES # (AUTO) 1.4 (0.2-0.8); MONOCYTES % 9.1 % (4.4-11.3); NEUTROPHILS # (AUTO) 10.5 (2.1-6.9); NEUTROPHILS % 70.8 % (38.7-80.0); PLATELET COUNT 279 x10e3/uL (140-360); RED CELL DISTRIBUTION WIDTH 17.9 % (11.7-14.4)
[2019-04-13 06:48] LABS: ALANINE AMINOTRANSFERASE 18 IU/L (0-55); ALBUMIN 3.7 g/dL (3.5-5.0); ALBUMIN/GLOBULIN RATIO 0.9 (0.8-2.0); ALKALINE PHOSPHATASE 63 IU/L (40-150); ANION GAP 13.7 mmol/L (8-16); BLOOD UREA NITROGEN 17 mg/dL (7-26); BUN/CREATININE RATIO 22 (6-25); CARBON DIOXIDE 29 mmol/L (22-29); CHLORIDE 99 mmol/L (98-107); CREATININE, SERUM 0.76 mg/dL (0.72-1.25); EST GLOMERULAR FILTRATION RATE > 60 ML/MIN (60-); GLUCOSE 92 mg/dL (74-118); MAGNESIUM 1.8 MG/DL (1.3-2.1); POTASSIUM 3.7 mmol/L (3.5-5.1); SODIUM 138 mmol/L (136-145)
[2019-04-13] MEDS: BUDESONIDE 0.5MG/2 ML NEB INH SCH ×2 (07:08→20:00)
[2019-04-13] MEDS: INSULIN LISPRO 100 UNIT/1 ML 3ML VIAL SQ SCH ×4 (07:30→20:55)
[2019-04-13] MEDS ORDERED: PREDNISONE 20 MG TAB PO SCH (09:00)
[2019-04-13] MEDS: METFORMIN HCL 500 MG TAB PO SCH ×2 (09:22→16:41)
[2019-04-13] MEDS: LOSARTAN POTASSIUM 100 MG TAB PO SCH (09:23)
[2019-04-13] MEDS: SPIRONOLACTONE 25 MG TAB PO SCH (09:23)
[2019-04-13] MEDS: GABAPENTIN 300 MG CAP PO SCH ×3 (09:23→20:50)
[2019-04-13] MEDS: LACTULOSE SYRUP 20 GM/30 ML UDC PO SCH (09:24)
[2019-04-13] MEDS: FUROSEMIDE 20 MG TAB PO SCH ×2 (09:24→16:41)
[2019-04-13] MEDS: AMLODIPINE BESYLATE 10 MG TAB PO SCH (09:24)
[2019-04-13] MEDS: DULOXETINE HCL 30 MG DELAYED RELEASE PO SCH (09:24)
[2019-04-13] MEDS: POTASSIUM CHLORIDE 10MEQ EA PO SCH (09:25)
[2019-04-13 09:29] LABS: BAND NEUTROPHILS % (MANUAL) 2 %; LYMPHOCYTES % (MANUAL) 17 % (19-48); MONOCYTES % (MANUAL) 12 % (3.4-9.0); NEUTROPHILS % (MANUAL) 69 % (40-74)
[2019-04-13 09:30] LABS: ANISOCYTOSIS SLIGHT; POIKILOCYTOSIS SLIGHT
[2019-04-13 09:31] LABS: HELMET CELLS RARE; PLATELET ESTIMATE ADEQUATE; PLATELET MORPHOLOGY COMMENT FEW LARGE; RBC MORPHOLOGY COMMENT ABNORMAL; TEAR DROP CELLS FEW
[2019-04-13] MEDS ORDERED: ZITHROMAX250 MG PO (13:21)
[2019-04-13] MEDS ORDERED: PREDNISONE10 MG PO (13:21)
[2019-04-13] MEDS ORDERED: MONTELUKAST SOD10 MG PO (13:24)
[2019-04-13] MEDS ORDERED: BUDESONIDE0.5 MG/2 M NEB (13:30)
[2019-04-13] MEDS ORDERED: SYMBICORT 16010.2 GM PO (13:31)
[2019-04-13] MEDS: LEVOFLOXACIN 500MG/D5W 100ML 100 ML IV SCH (15:09)
[2019-04-13] MEDS: ENOXAPARIN SOD INJ 40 MG/0.4 ML SYR SC SCH (16:41)
--- NOTE | 2019-04-13 19:22 | NUR ---
Patient received lying in bed. AAO x 3. Patient had no complaints of pain. Respirations even and non-labored. Safety measures in place. Patient instructed to call for assistance when needed. Call light within reach.
[2019-04-13] MEDS: ATORVASTATIN 20 MG TAB PO SCH (20:50)
[2019-04-14] VITALS: BP 150/97
--- NOTE | 2019-04-14 02:14 | NUR ---
Pulmonary Medicine DATE : 04/13/2019 SUBJECTIVE: Used bipap at night 3 L/min oxygen by NC standby assist up to walk eating continues slow improvement REVIEW OF SYSTEMS: no headaches, no rash OBJECTIVE: VITAL SIGNS: vital signs noted reviewed per the chart record. GENERAL: NAD, sitting up HEENT: Normocephalic, atraumatic. NECK: Supple. Throat midline. LUNGS: Bilateral air entry moderate, rare rhonchi CARDIOVASCULAR: S1, S2. No murmurs, rubs, gallops. ABDOMINAL: Soft, nontender. EXTREMITIES: No clubbing, no cyanosis. 1+ edema legs. INTEGUMENT: No rash, no purpura. LABORATORY DATA: wbc 14.8, hct 32, plt 279. bun 17, cr .76. IMPRESSION AND PLAN: 1. Acute respiratory failure, BiPAP on/off. 2. Obesity hypoventilation with exacerbation. 3. Asthma with exacerbation. 4. History of obstructive sleep apnea, possible narcolepsy. 5. Hypertension. 6. Chronic hypoxemic respiratory failure on home oxygen. 7. History of previous pulmonary embolism 8. History of secondary pulmonary hypertension. 9. Generalized weakness. 10. Peripheral neuropathy. Continue BiPAP for sleep bronchodilators, steroids wean Oxygen per protocol mobilize, PT follow up continue antibiotics diuretics/wraps/legs offset for edema d/w attending Thank you very much, Dr. Flores for allowing me a chance to participate in care of Mr. Donahue. Please call for any questions. Isai Serrano Apr 12, 2019/16:17 Provider - Electronically Signed Date/Time
[2019-04-14] MEDS: ALBUTEROL SULF 0.083% NEB SOLN 3 ML NEB NEB SCH ×3 (03:00→10:50)
[2019-04-14] MEDS: IPRATROPIUM BROMIDE 0.02% 2.5 ML NEB NEB SCH ×3 (03:00→10:50)
[2019-04-14 04:00] VITALS: BP 144/75
[2019-04-14] MEDS: FAMOTIDINE 20 MG/2 ML VIAL IV SCH (04:04)
[2019-04-14] MEDS: BUDESONIDE 0.5MG/2 ML NEB INH SCH (06:45)
--- NOTE | 2019-04-14 07:00 | NUR ---
Patient resting comfortably. Walking rounds done. Shift report given to oncoming nurse.
--- NOTE | 2019-04-14 07:00 | NUR ---
Walking rounds and report recd for continuity of care
[2019-04-14] MEDS: INSULIN LISPRO 100 UNIT/1 ML 3ML VIAL SQ SCH (07:30)
[2019-04-14 08:00] VITALS: BP 170/77
--- NOTE | 2019-04-14 08:18 | NUR ---
CALLED AND SPOKE WITH BRANDON LOPEZ [phone] WITH [facility], HE STATES NO WE DO NOT NEED TO FAX AN ORDER FOR RESUMPTION OF SERVICE AND HE WILL CHECK ON TRANSPORT AND CALL ME BACK.
[2019-04-14] MEDS: METFORMIN HCL 500 MG TAB PO SCH (08:22)
[2019-04-14] MEDS: SPIRONOLACTONE 25 MG TAB PO SCH (08:23)
--- NOTE | 2019-04-14 08:23 | NUR ---
BRANDON FROM [facility] CALLED BACK AND NOTIFIED ME THEY WILL BE PICKING UP PT BETWEEN 10 AND 11, NOTIFIED NURSE KISHA TO HAVE PT READY.
[2019-04-14] MEDS: LOSARTAN POTASSIUM 100 MG TAB PO SCH (08:26)
[2019-04-14] MEDS: DULOXETINE HCL 30 MG DELAYED RELEASE PO SCH (08:27)
[2019-04-14] MEDS: LACTULOSE SYRUP 20 GM/30 ML UDC PO SCH (08:28)
[2019-04-14] MEDS: POTASSIUM CHLORIDE 10MEQ EA PO SCH (08:28)
[2019-04-14] MEDS: FUROSEMIDE 20 MG TAB PO SCH (08:28)
[2019-04-14] MEDS: GABAPENTIN 300 MG CAP PO SCH (08:28)
[2019-04-14] MEDS: AMLODIPINE BESYLATE 10 MG TAB PO SCH (08:29)
[2019-04-14] MEDS ORDERED: PREDNISONE 20 MG TAB PO SCH (09:00)
[2019-04-14 09:52] VITALS: BP 177/72
--- NOTE | 2019-04-14 11:17 | NUR ---
Transportation here to take pt to his assisted living via w/c. Saline lock removed and pressure held for 3 minutes as patient bleeds easily. All belongings with patient at time of discharge. Instructions and prescriptions given to patient and explained to patient at time of discharge. In no apparent distress. Has been on room air since 7 am without distress, o2 sats in the low 90's. Patient states eagerness to be discharged. Legs wrapped with hcance wraps before discharge at patients request.
--- NOTE | 2019-04-15 02:35 | Discharge Summary ---
DISCHARGE DIAGNOSES: 1. Acute on chronic respiratory failure. 2. Pickwickian syndrome. 3. Morbid obesity. 4. Sleep apnea. 5. Leukocytosis. 6. Diabetes. 7. Hypertension. HISTORY OF PRESENT ILLNESS AND HOSPITAL COURSE: See hospital chart for full details. The patient is a gentleman, who has severe Pickwickian syndrome, chronic respiratory failure with hypoxia, who presented with an exacerbation of his respiratory status, where he was placed in the ICU, was seen by Dr. Serrano, who knows the patient very well. At one point, he was even on hospice due to his chronic respiratory issues. He was brought and placed on BiPAP, continued with his O2 as well as his breathing treatments and intravenous medications, where he made significant improvements each day. He was able to be avoided from being intubated. At the time of discharge, the patient had been back at his baseline for about 24 hours. I had a long talk with the patient as well as Dr. Serrano about the need for weight reduction exercises, pulmonary rehab, continuation of his BiPAP and told the patient he needs to follow up with Dr. Serrano as an outpatient as well as his primary care physician. His medications were written for by Dr. Serrano and was given to the patient. He was discharged home at his baseline. Please see hospital chart for full details. MD BROOKS Youngblood/IJEOMA /[id number]
== END 2019-04-14 11:32 | DRG 189 ==
LOC: ER 13:52 → ERHOLD 16:04 → ICU 16:57 → MED/SURG2 04-11 21:20
PROVIDERS: ADMIT Internal Medicine; ATTEND Internal Medicine
DX: J96.21 Acute and chronic respiratory failure with hypoxia (principal); J44.1 Chronic obstructive pulmonary disease with (acute) exacerbation; Z68.43 Body mass index [BMI] 50.0-59.9, adult; E66.2 Morbid (severe) obesity with alveolar hypoventilation; J45.901 Unspecified asthma with (acute) exacerbation; E78.5 Hyperlipidemia, unspecified; Z86.711 Personal history of pulmonary embolism; Z79.01 Long term (current) use of anticoagulants; E11.42 Type 2 diabetes mellitus with diabetic polyneuropathy; I27.20 Pulmonary hypertension, unspecified; Z99.81 Dependence on supplemental oxygen; I10 Essential (primary) hypertension
CPT/HCPCS: 36415; 36600; 71045; 80053; 80061; 80307; 81001; 82550; 82553; 82805; 82948; 83735; 83880; 84484; 85025; 85610; 85730; 87040; 87086; 93005; 94640; 94660; 97139; 99285; J1650; J1956; J2930; J7512